=== PATIENT | female | born 1940 | race Caucasian/White ===

== ENCOUNTER 2016-09-29 08:00 | Outpatient (CLI) | payer MEDICARE, OTHER ==
[2016-09-29 14:02] LABS: BASOPHILS # (AUTO) 0.1 10^3/uL (0.0-0.1); BASOPHILS % (AUTO) 1.2 %; EOSINOPHILS # (AUTO) 0.2 10^3/uL (0.0-0.7); EOSINOPHILS % (AUTO) 3.4 %; HCT - HEMATOCRIT 42.1 % (37.0-47.0); LYMPHOCYTES # (AUTO) 2.4 10^3/uL (1.5-3.5); LYMPHOCYTES % (AUTO) 34.4 %; MEAN CORPUSCULAR HEMOGLOBIN 27.9 pg (27.0-31.0); MEAN CORPUSCULAR HGB CONC 33.2 g/dL (32.0-36.0); MEAN CORPUSCULAR VOLUME 84.1 fL (81.0-99.0); MONOCYTES # (AUTO) 0.5 10^3/uL (0.0-1.0); MONOCYTES % (AUTO) 7.9 %; NEUTROPHILS # (AUTO) 3.7 10^3/uL (1.5-6.6); NEUTROPHILS % (AUTO) 53.1 %; RED BLOOD COUNT 5.01 10^6/uL (4.20-5.40); RED CELL DISTRIBUTION WIDTH 14.4 % (12.0-15.0); UNCORRECTED WHITE BLOOD COUNT 6.9 x10^3/uL; WHITE BLOOD COUNT 6.9 x10^3/uL (4.8-10.8)
[2016-09-29 14:36] LABS: ALBUMIN/GLOBULIN RATIO 1.3 (1.0-2.2); BILIRUBIN,TOTAL 0.6 mg/dL (0.2-1.0); BUN - BLOOD UREA NITROGEN 12 mg/dL (6-20); CALCIUM 9.1 mg/dL (8.5-10.3); CARBON DIOXIDE - CO2 29 mmol/L (21-32); CHLORIDE 104 mmol/L (101-111); CREATININE 0.7 mg/dL (0.4-1.0); GFR - MDRD 81 (>89); GLUCOSE 103 mg/dL (70-100); POTASSIUM 4.3 mmol/L (3.5-5.0); SODIUM 140 mmol/L (135-145); TOTAL PROTEIN 6.8 g/dL (6.7-8.2)
== END 2016-09-29 08:01 | disposition home or self-care (01) ==
LOC: LAB.WCP 08:00
PROVIDERS: ATTEND Family Medicine
DX: M25.50 Pain in unspecified joint (principal); M35.00 Sjogren syndrome, unspecified
CPT/HCPCS: 36415; 80053; 85025; 85651; 86140

== ENCOUNTER 2017-05-10 13:52 | Outpatient (CLI) | payer MEDICARE, OTHER ==
--- NOTE | 2017-05-10 15:59 | Mammography Report ---
DIGITAL DIAGNOSTIC BILATERAL MAMMOGRAM: 05/10/2017 CLINICAL INDICATION: Right breast pain. COMPARISON: 12/09/2015. TECHNIQUE: Bilateral CC and MLO views, right true lateral view. The patient described the pain as migratory throughout the right breast, so no marker was placed. FINDINGS: The breasts again demonstrate fatty replacement bilaterally. Punctate, typically benign calcifications are present. Postoperative changes of bilateral reduction are stable. No suspicious masses, clustered microcalcifications, or regions of architectural distortion are identified. IMPRESSION: BENIGN FINDINGS. RECOMMENDATION: ROUTINE ANNUAL SCREENING UNLESS OTHERWISE CLINICALLY INDICATED. BIRADS CATEGORY 2-BENIGN FINDINGS. STANDARD QUALIFYING STATEMENTS: 1. This examination was reviewed with the aid of Computer-Aided Detection (CAD). 2. A negative or benign imaging report should not delay biopsy if clinically suspicious findings are present. Consider surgical consultation if warranted. More than 5% of cancers are not identified by imaging. 3. Dense breasts may obscure an underlying neoplasm. TD: 05/10/2017 15:57
== END 2017-05-10 13:53 | disposition home or self-care (01) ==
LOC: DI 13:52
PROVIDERS: ATTEND Family Medicine
DX: N64.4 Mastodynia (principal)
CPT/HCPCS: 77066

== ENCOUNTER 2017-10-11 11:58 | Outpatient (CLI) | payer MEDICARE, OTHER ==
[2017-10-11 19:00] LABS: BASOPHILS # (AUTO) 0.1 10^3/uL (0.0-0.1); BASOPHILS % (AUTO) 0.9 %; EOSINOPHILS # (AUTO) 0.2 10^3/uL (0.0-0.7); EOSINOPHILS % (AUTO) 2.3 %; HGB - HEMOGLOBIN 15.7 g/dL (12.0-16.0); LYMPHOCYTES # (AUTO) 1.8 10^3/uL (1.5-3.5); LYMPHOCYTES % (AUTO) 22.6 %; MEAN CORPUSCULAR HEMOGLOBIN 28.8 pg (27.0-31.0); MEAN CORPUSCULAR HGB CONC 32.9 g/dL (32.0-36.0); MEAN CORPUSCULAR VOLUME 87.5 fL (81.0-99.0); MEAN PLATELET VOLUME 8.7 fL (7.9-10.8); MONOCYTES # (AUTO) 0.6 10^3/uL (0.0-1.0); MONOCYTES % (AUTO) 8.1 %; NEUTROPHILS # (AUTO) 5.3 10^3/uL (1.5-6.6); NEUTROPHILS % (AUTO) 66.1 %; PLT - PLATELET COUNT 251 10^3/uL (130-450); RED BLOOD COUNT 5.46 10^6/uL (4.20-5.40); RED CELL DISTRIBUTION WIDTH 13.8 % (12.0-15.0)
[2017-10-11 19:35] LABS: ALBUMIN/GLOBULIN RATIO 1.3 (1.0-2.2); BILIRUBIN,TOTAL 0.9 mg/dL (0.2-1.0); CALCIUM 9.4 mg/dL (8.5-10.3); CREATININE 0.7 mg/dL (0.4-1.0); TOTAL PROTEIN 7.2 g/dL (6.7-8.2)
== END 2017-10-11 11:59 | disposition home or self-care (01) ==
LOC: LAB.WCP 11:58
PROVIDERS: ATTEND Family Medicine
DX: R07.89 Other chest pain (principal)
CPT/HCPCS: 36415; 80053; 83735; 84484; 85025

== ENCOUNTER 2018-10-19 11:49 | Outpatient (CLI) | payer MEDICARE | END 2018-10-19 23:59 | disposition home or self-care (01) | LOC: LAB.R 11:49 | PROVIDERS: ATTEND Physician Assistant Medical | DX: R21 Rash and other nonspecific skin eruption (principal) | CPT/HCPCS: 87252 ==

== ENCOUNTER 2019-02-10 13:11 | Emergency (ER) | payer MEDICARE ==
[2019-02-10] MEDS ORDERED: SODIUM CHLORIDE 0.9% 1,000 ML IV STA (14:00)
--- NOTE | 2019-02-10 14:15 | ED Physician Documentation ---
PD HPI NVD - Stated complaint Stated Complaint: DIARRHEA - Chief complaint Chief Complaint: Abd Pain - History obtained from History obtained from: Patient (78-year-old woman with history of IBS has had severe diarrhea for the last 5 days, usually about 10 episodes a day. On the first day she had body aches and vertigo which have since resolved. There is no abdominal pain or nausea with it.) Review of Systems Constitutional: reports: Fatigue. 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 HEENT: Tonsil/Adenoidectomy - Present Medications Home Medications: Ambulatory Orders Medication Instructions Recorded Confirmed Hydrocodone/Acetaminophen 1 tab PO Q4HR PRN 06/05/16 06/05/16 [Hydrocodon-Acetaminophen 5-325] Antiviral 02/10/19 Loperamide [Imodium] 2 mg PO QID PRN #10 capsule 02/10/19 - Allergies Allergies/Adverse Reactions: Allergies Allergy/AdvReac Type Severity Reaction Status Date / Time aluminum Allergy Anaphylaxis Verified 02/10/19 13:30 cephalexin Allergy Edema Verified 02/10/19 13:30 iodine Allergy Anaphylaxis Verified 02/10/19 13:30 levofloxacin Allergy Edema Verified 02/10/19 13:30 nitrofurantoin Allergy Edema Verified 02/10/19 13:30 nitrofurantoin Allergy Edema Verified 02/10/19 13:30 macrocrystalline * [From Macrobid] ofloxacin [From Floxin] Allergy Edema Verified 02/10/19 13:30 Penicillins Allergy Anaphylaxis Verified 02/10/19 13:30 sulfamethoxazole Allergy Edema Verified 02/10/19 13:30 trimethoprim Allergy Edema Verified 02/10/19 13:30 IV Contrast Allergy Edema Uncoded 06/05/16 13:59 - Social History Smoking Status: Never smoker PD ED PE NORMAL - Vitals Vital signs reviewed: Yes - General General: Alert and oriented X 3, No acute distress - HEENT HEENT: PERRL, EOMI - Neck Neck: Supple, no meningeal sign, No bony TTP - Abdomen Abdomen: Normal bowel sounds, Non tender - Neuro Neuro: Alert and oriented X 3, Normal speech - Psych Psych: Normal mood, Normal affect Results - Vitals Vitals: Vital Signs - 24 hr 02/10/19 02/10/19 02/10/19 13:30 14:48 16:13 Temperature 36.9 C Heart Rate 85 80 76 Respiratory 14 20 18 Rate Blood Pressure 150/100 H 143/86 H 156/91 H O2 Saturation 96 100 99 Oxygen O2 Source Room air - Labs Labs: Laboratory Tests 02/10/19 02/10/19 15:20 15:43 WBC 6.8 RBC 5.39 Hgb 15.0 Hct 48.0 H MCV 89.1 MCH 27.8 MCHC 31.3 L RDW 13.8 Plt Count 220 MPV 10.1 Neut # (Auto) 4.0 Lymph # (Auto) 1.9 Fajardo # (Auto) 0.7 Eos # (Auto) 0.2 Baso # (Auto) 0.0 Absolute Nucleated RBC 0.00 Nucleated RBC % 0.0 Sodium 137 Potassium 4.3 Chloride 102 Carbon Dioxide 25 Anion Gap 10.0 BUN 11 Creatinine 0.6 Estimated GFR (MDRD) 96 Glucose 101 H Calcium 8.5 Total Bilirubin 0.5 AST 26 ALT 25 Alkaline Phosphatase 63 Total Protein 6.3 L Albumin 3.7 Globulin 2.6 Albumin/Globulin Ratio 1.4 Lipase 22 PD MEDICAL DECISION MAKING - ED course ED course: She had no diarrhea while here and was unable to produce a stool sample and outpatient follow-up was advised if symptoms are persistent. She was feeling better after IV fluids. Departure - Departure Disposition: 01 Home, Self Care Clinical Impression: Diarrhea Qualifiers: Diarrhea type: presumed infectious Qualified Code(s): R19.7 - Diarrhea, unspecified Condition: Good Record reviewed to determine appropriate education?: Yes Instructions: ED Diarrhea Viral Prescriptions: Loperamide [Imodium] 2 mg PO QID PRN #10 capsule PRN Reason: Diarrhea Comments: Symptoms are persistent either follow-up with Dr. Wetzel or return here for potential collection of a stool sample
[2019-02-10 15:44] LABS: ALBUMIN 3.7 g/dL (3.2-5.5); ALBUMIN/GLOBULIN RATIO 1.4 (1.0-2.2); BILIRUBIN,TOTAL 0.5 mg/dL (0.2-1.0); CALCIUM 8.5 mg/dL (8.5-10.3); CREATININE 0.6 mg/dL (0.4-1.0); TOTAL PROTEIN 6.3 g/dL (6.7-8.2)
[2019-02-10 16:10] LABS: BASOPHILS % (AUTO) 0.6 %; EOSINOPHILS # (AUTO) 0.2 10^3/uL (0.0-0.7); EOSINOPHILS % (AUTO) 2.8 %; LYMPHOCYTES # (AUTO) 1.9 10^3/uL (1.5-3.5); LYMPHOCYTES % (AUTO) 27.8 %; MEAN CORPUSCULAR HEMOGLOBIN 27.8 pg (27.0-31.0); MEAN CORPUSCULAR HGB CONC 31.3 g/dL (32.0-36.0); MEAN CORPUSCULAR VOLUME 89.1 fL (81.0-99.0); MEAN PLATELET VOLUME 10.1 fL (7.9-10.8); MONOCYTES # (AUTO) 0.7 10^3/uL (0.0-1.0); MONOCYTES % (AUTO) 9.8 %; NEUTROPHILS % (AUTO) 58.7 %; PLT - PLATELET COUNT 220 10^3/uL (130-450); RED BLOOD COUNT 5.39 10^6/uL (4.20-5.40); RED CELL DISTRIBUTION WIDTH 13.8 % (12.0-15.0); WHITE BLOOD COUNT 6.8 x10^3/uL (4.8-10.8)
[2019-02-10 16:14] VITALS: BP 156/91
== END 2019-02-10 16:26 | disposition home or self-care (01) ==
LOC: ED 13:11
DX: R19.7 Diarrhea, unspecified (principal)
CPT/HCPCS: 36415; 80053; 83690; 85025; 99283; 99284

== ENCOUNTER 2021-05-06 13:51 | Outpatient (CLI) | payer MEDICARE ==
[2021-05-06 18:23] LABS: BASOPHILS # (AUTO) 0.1 10^3/uL (0.0-0.1); BASOPHILS % (AUTO) 0.9 %; EOSINOPHILS # (AUTO) 0.2 10^3/uL (0.0-0.7); EOSINOPHILS % (AUTO) 2.4 %; HGB - HEMOGLOBIN 15.9 g/dL (12.0-16.0); LYMPHOCYTES # (AUTO) 1.8 10^3/uL (1.5-3.5); LYMPHOCYTES % (AUTO) 26.5 %; MEAN CORPUSCULAR HEMOGLOBIN 27.8 pg (27.0-31.0); MEAN CORPUSCULAR HGB CONC 31.8 g/dL (32.0-36.0); MEAN CORPUSCULAR VOLUME 87.4 fL (81.0-99.0); MEAN PLATELET VOLUME 10.6 fL (7.9-10.8); MONOCYTES # (AUTO) 0.6 10^3/uL (0.0-1.0); MONOCYTES % (AUTO) 9.1 %; NEUTROPHILS # (AUTO) 4.2 10^3/uL (1.5-6.6); NEUTROPHILS % (AUTO) 60.8 %; PLT - PLATELET COUNT 254 10^3/uL (130-450); RED BLOOD COUNT 5.72 10^6/uL (4.20-5.40); RED CELL DISTRIBUTION WIDTH 14.9 % (12.0-15.0); WHITE BLOOD COUNT 6.9 x10^3/uL (4.8-10.8)
[2021-05-06 18:28] LABS: ALBUMIN 4.2 g/dL (3.2-5.5); ALBUMIN/GLOBULIN RATIO 1.3 (1.0-2.2); ALKALINE PHOSPHATASE 56 IU/L (42-121); ALT ALANINE AMINOTRANSFERASE 20 IU/L (10-60); AST ASPARTATE AMINOTRANSFERASE 24 IU/L (10-42); BILIRUBIN,TOTAL 0.8 mg/dL (0.2-1.0); BUN - BLOOD UREA NITROGEN 9 mg/dL (6-20); CALCIUM 9.3 mg/dL (8.5-10.3); CARBON DIOXIDE - CO2 28 mmol/L (21-32); CHLORIDE 99 mmol/L (101-111); CHOL/HDL RATIO 3.2 (<4.4); CHOLESTEROL 214 mg/dL; CREATININE 0.6 mg/dL (0.4-1.0); GFR - MDRD 96 (>89); GLUCOSE 100 mg/dL (70-100); HDL CHOLESTEROL 66 mg/dL; LDL CHOLESTEROL,CALCULATED 128 mg/dL; LDL/HDL RATIO 1.9 (<4.4); POTASSIUM 3.7 mmol/L (3.5-5.0); SODIUM 139 mmol/L (135-145); TOTAL PROTEIN 7.4 g/dL (6.7-8.2); TRIGLYCERIDES 98 mg/dL; VLDL CHOLESTEROL 20 mg/dL
[2021-05-06 18:30] LABS: THYROID STIMULATING HORMONE 2.87 uIU/mL (0.34-5.60)
[2021-05-06 18:32] LABS: FREE T3 3.26 pg/mL (2.5-3.9)
[2021-05-06 18:35] LABS: FREE T4 (FREE THYROXINE) 0.77 ng/dL (0.58-1.64)
== END 2021-05-06 13:52 | disposition home or self-care (01) ==
LOC: LAB.N 13:51
PROVIDERS: ATTEND Family Medicine
DX: E66.9 Obesity, unspecified (principal); F03.90 Unspecified dementia, unspecified severity, without behavioral disturbance, psychotic disturbance, mood disturbance, and anxiety; R60.9 Edema, unspecified; G47.33 Obstructive sleep apnea (adult) (pediatric); M35.00 Sjogren syndrome, unspecified; G89.4 Chronic pain syndrome
CPT/HCPCS: 36415; 80053; 80061; 83721; 84439; 84443; 84481; 85025

== ENCOUNTER 2021-07-07 08:00 | Outpatient (CLI) | payer MEDICARE | END 2021-07-07 23:59 | disposition home or self-care (01) | LOC: LAB.N 08:00 | PROVIDERS: ATTEND Nurse Practitioner | DX: N39.0 Urinary tract infection, site not specified (principal) | CPT/HCPCS: 87077; 87086; 87181 ==

== ENCOUNTER 2022-05-13 12:08 | Outpatient (CLI) | payer MEDICARE | END 2022-05-13 23:59 | disposition short-term general hospital (02) | LOC: EMS 12:08 | DX: R42 Dizziness and giddiness (principal); R06.02 Shortness of breath; R19.7 Diarrhea, unspecified; R63.8 Other symptoms and signs concerning food and fluid intake | CPT/HCPCS: A0425; A0427 ==

== ENCOUNTER 2022-05-30 19:01 | Outpatient (CLI) | payer MEDICARE | END 2022-05-30 23:59 | disposition critical access hospital (66) | LOC: EMS 19:01 | DX: M79.602 Pain in left arm (principal); M25.512 Pain in left shoulder | CPT/HCPCS: A0425; A0429 ==

== ENCOUNTER 2022-05-30 19:06 | Emergency (ER) | payer MEDICARE ==
--- OUTSIDE RECORDS SUMMARY | 2022-05-30 19:23 | EXTERNAL MEDICAL SUMMARY RPT | Continuity of Care Document ---
:1940 Author Organization [facility] Address [address] [place] [address] Phone Care Team Providers Name Role Phone Eber Wetzel Unavailable Unavailable Allergies and Intolerances date description facility type (no date) Penicillins [facility] (unknown) (no date) Quinolones [facility] (unknown) (no date) aluminum [facility] (unknown) (no date) cephalexin [facility] (unknown) (no date) codeine [facility] (unknown) (no date) gelatin [facility] (unknown) (no date) iodine [facility] (unknown) (no date) levofloxacin [facility] (unknown) (no date) nitrofurantoin [facility] (unknown) (no date) ofloxacin [facility] (unknown) (no date) sodium fluoride [facility] (unknown) (no date) soy [facility] (unknown) (no date) sulfamethoxazole [facility] (unknown) (no date) trimethoprim [facility] (unknown) Encounters No information. Functional Status No information. Immunizations No information. Medications date description facility 2022-05-13 00:00 Sertraline [facility] 2022-05-13 00:00 Hydrocodone-Acetaminophen [facility] Problems date description facility 2022-05-13 00:00 Bilateral pulmonary embolism [facility] 2022-05-13 00:00 [facility]estive heart failure [facility] 2022-05-13 00:00 Acute respiratory failure with hypoxia [facility] Procedures date description facility 2022-05-13 00:00 X-ray of chest, single view [facility] 2022-05-13 00:00 Complete Doppler echocardiography [facility] 2022-05-13 00:00 Computed tomography angiography of ches t with [facility] contrast for pulmonary embolus Results/Labs test date author facility value unit interpret ation Result panel 1 (unknown) (no [facility]) Result panel 2 (unknown) (no date) (unknown[facility]) Result panel 3 (unknown) (no date) (unknown[facility]) Result panel 4 (unknown) (no date) (unknown[facility]) Result panel 5 (unknown) (no date) (unknown[facility]) Result panel 6 (unknown) (no date) (unknown[facility]) Result panel 7 (unknown) (no date) (unknown[facility]) Result panel 8 (unknown) (no date) (unknown[facility]) Result panel 9 (unknown) (no date) (unknown[facility]) Result panel 10 (unknown) (no date) (unknown[facility]) Result panel 11 (unknown) (no date) (unknown[facility]) Result panel 12 (unknown) (no date) (unknown[facility]) Result panel 13 (unknown) (no date) (unknown[facility]) Result panel 14 (unknown) (no date) (unknown[facility]) Result panel 15 (unknown) (no date) (unknown[facility]) Result panel 16 (unknown) (no date) (unknown[facility]) Result panel 17 (unknown) (no date) (unknown[facility]) Result panel 18 (unknown) (no date) (unknown[facility]) Result panel 19 (unknown) (no date) (unknown[facility]) Result panel 20 (unknown) (no date) (unknown[facility]) Result panel 21 (unknown) (no date) (unknown[facility]) Result panel 22 (unknown) (no date) (unknown[facility]) Result panel 23 (unknown) (no date) (unknown[facility]) Result panel 24 (unknown) (no date) (unknown[facility]) Result panel 25 (unknown) (no date) (unknown[facility]) Result panel 26 (unknown) (no date) (unknown[facility]) Result panel 27 (unknown) (no date) (unknown[facility]) Result panel 28 (unknown) (no date) (unknown[facility]) Result panel 29 (unknown) (no date) (unknown[facility]) Result panel 30 (unknown) (no date) (unknown[facility]) Result panel 31 (unknown) (no date) (unknown[facility]) Result panel 32 (unknown) (no date) (unknown[facility]) Result panel 33 (unknown) (no date) (unknown[facility]) Result panel 34 (unknown) (no date) (unknown[facility]) Result panel 35 (unknown) (no date) (unknown[facility]) Result panel 36 (unknown) (no date) (unknown[facility]) Result panel 37 (unknown) (no date) (unknown[facility]) Result panel 38 (unknown) (no date) (unknown[facility]) Result panel 39 (unknown) (no date) (unknown[facility]) Result panel 40 (unknown) (no date) (unknown[facility]) Result panel 41 (unknown) (no date) (unknown[facility]) Result panel 42 (unknown) (no date) (unknown[facility]) Result panel 43 (unknown) (no date) (unknown[facility]) Result panel 44 (unknown) (no date) (unknown[facility]) Result panel 45 (unknown) (no date) (unknown[facility]) Result panel 46 (unknown) (no date) (unknown[facility]) Result panel 47 (unknown) (no date) (unknown[facility]) Result panel 48 (unknown) (no date) (unknown[facility]) Result panel 49 (unknown) (no date) (unknown[facility]) Result panel 50 (unknown) (no date) (unknown[facility]) Result panel 51 (unknown) (no date) (unknown[facility]) Result panel 52 (unknown) (no date) (unknown[facility]) Result panel 53 (unknown) (no date) (unknown[facility]) Result panel 54 (unknown) (no date) (unknown[facility]) Result panel 55 (unknown) (no date) (unknown[facility]) Result panel 56 (unknown) (no date) (unknown[facility]) Result panel 57 (unknown) (no date) (unknown[facility]) Result panel 58 (unknown) (no date) (unknown[facility]) Result panel 59 (unknown) (no date) (unknown[facility]) Result panel 60 (unknown) (no date) (unknown[facility]) Result panel 61 (unknown) (no date) (unknown[facility]) Result panel 62 (unknown) (no date) (unknown[facility]) Result panel 63 (unknown) (no date) (unknown[facility]) Result panel 64 (unknown) (no date) (unknown[facility]) Result panel 65 (unknown) (no date) (unknown[facility]) Result panel 66 (unknown) (no date) (unknown) [facility]) Result panel 67 (unknown) (no date) (unknown[facility]) Result panel 68 (unknown) (no date) (unknown[facility]) Result panel 69 (unknown) (no date) (unknown[facility]) Result panel 70 (unknown) (no date) (unknown[facility]) Result panel 71 (unknown) (no date) (unknown[facility]) Result panel 72 (unknown) (no date) (unknown[facility]) Result panel 73 (unknown) (no date) (unknown[facility]) Result panel 74 (unknown) (no date) (unknown[facility]) Result panel 75 (unknown) (no date) (unknown[facility]) Result panel 76 (unknown) (no date) (unknown[facility]) Result panel 77 (unknown) (no date) (unknown[facility]) Result panel 78 (unknown) (no date) (unknown[facility]) Result panel 79 (unknown) (no date) (unknown) [facility]) Result panel 80 (unknown) (no date) (unknown[facility]) Result panel 81 (unknown) (no date) (unknown[facility]) Result panel 82 (unknown) (no date) (unknown[facility]) Result panel 83 (unknown) (no date) (unknown[facility]) Result panel 84 (unknown) (no date) (unknown) [facility]) Result panel 85 (unknown) (no date) (unknown[facility]) Result panel 86 (unknown) (no date) (unknown[facility]) Result panel 87 (unknown) (no date) (unknown[facility]) Result panel 88 (unknown) (no date) (unknown[facility]) Result panel 89 (unknown) (no date) (unknown[facility]) Result panel 90 (unknown) (no date) (unknown[facility]) Result panel 91 (unknown) (no date) (unknown[facility]) Result panel 92 (unknown) (no date) (unknown[facility]) Result panel 93 (unknown) (no date) (unknown[facility]) Result panel 94 (unknown) (no date) (unknown[facility]) Result panel 95 (unknown) (no date) (unknown[facility]) Result panel 96 (unknown) (no date) (unknown[facility]) Result panel 97 (unknown) (no date) (unknown[facility]) Result panel 98 (unknown) (no date) (unknown[facility]) Result panel 99 (unknown) (no date) (unknown[facility]) Result panel 100 (unknown) (no date) (unknown[facility]) Result panel 101 (unknown) (no date) (unknown) (unknown) (no value) (units (un known) unknown) (unknown) (no date) (unknown) (unknown) [id number] (units (unkn own) unknown) (unknown) (no date) (unknown) (unknown) 05/13/22 (units (unkn own) unknown) (unknown) (no date) (unknown) (unknown) [address] ([address] ([address] nown) [address] unknown) (unknown) (no date) (unknown) (unknown) Accession (units (unk nown) Number: unknown) [id number] (unknown) (no date) (unknown) (unknown) Age/Sex: 81 / (units (unknown) F Date of unknown) Service: (unknown) (no date) (unknown) (unknown) [place] (units (unknown) [id number] unknown) (unknown) (no date) (unknown) (unknown) Approved by: (units ( unknown) Jayson unknown) Sarah Moore on 05/13/2022 at 17:46 (unknown) (no date) (unknown) (unknown) Bones and (units (unk nown) chest wall: No unknown) suspicious bony lesions. Overlying soft tissues (unknown) (no date) (unknown) (unknown) COMPARISON: (units (u nknown) [facility]) [facility], CR, XR CHEST 2V, 06/08/2018, 14:52. (unknown) (no date) (unknown) (unknown) : (units (unkn own) 1940 unknown) Acct:[id number] (unknown) (no date) (unknown) (unknown) Dictated by: (units ( unknown) Jayson unknown) Sarah Moore on 05/13/2022 at 17:45 (unknown) (no date) (unknown) (unknown) FINDINGS: (units (unk nown) unknown) (unknown) (no date) (unknown) (unknown) IMPRESSION: (units (u nknown) Cardiomegaly. unknown) No evidence acute pulmonary process. (unknown) (no date) (unknown) (unknown) INDICATIONS: (units ( unknown) Shortness of unknown) breath (unknown) (no date) (unknown) (unknown) [facility] ([facility]) [facility] unknown) (unknown) (no date) (unknown) (unknown) Loc: ED (units (unkn own) unknown) (unknown) (no date) (unknown) (unknown) Lungs and (units (unk nown) pleura: Lungs unknown) are clear. No pleural effusions or pneumothorax. (unknown) (no date) (unknown) (unknown) Mediastinum: (units ( unknown) Mediastinal unknown) contours appear normal. Cardiomegaly. (unknown) (no date) (unknown) (unknown) Ordering (units (unkn own) Provider: unknown) Sujata Graff D.O. (unknown) (no date) (unknown) (unknown) PROCEDURE: XR (units (unknown) CHEST 1V unknown) (unknown) (no date) (unknown) (unknown) Patient: (units (unkn own) Gely Milner unknown) MR#: [id number] (unknown) (no date) (unknown) (unknown) Procedure: XR (units (unknown) chest 1V unknown) (unknown) (no date) (unknown) (unknown) Signed (units (unkn own) unknown) (unknown) (no date) (unknown) (unknown) Surgical (units (unkn own) changes and unknown) devices: None. (unknown) (no date) (unknown) (unknown) TECHNIQUE: One (units (unknown) view of the unknown) chest was acquired. (unknown) (no date) (unknown) (unknown) XRay Report (units (u nknown) unknown) (unknown) (no date) (unknown) (unknown) appear (units (unkn own) unknown) (unknown) (no date) (unknown) (unknown) unremarkable. (units (unknown) unknown) Result panel 102 (unknown) (no date) (unknown) (unknown) Negative (units (unkn own) unknown) (unknown) (no date) (unknown) (unknown) Negative (units (unkn own) unknown) Result panel 103 (unknown) (no date) (unknown) (unknown) 0 /ul (unkn own) (unknown) (no date) (unknown) (unknown) 0 /ul (unkn own) (unknown) (no date) (unknown) (unknown) 0.2 % (unkn own) (unknown) (no date) (unknown) (unknown) 0.3 % (unkn own) (unknown) (no date) (unknown) (unknown) 10.9 x10 3/ul (unkn own) (unknown) (no date) (unknown) (unknown) 13.8 % (unkn own) (unknown) (no date) (unknown) (unknown) 16.1 g/dl (unkn own) (unknown) (no date) (unknown) (unknown) 252 x10 3/ul (unkn own) (unknown) (no date) (unknown) (unknown) 28.4 pg (unkn own) (unknown) (no date) (unknown) (unknown) 32.8 % (unkn own) (unknown) (no date) (unknown) (unknown) 4.1 % (unkn own) (unknown) (no date) (unknown) (unknown) 400 /ul (unkn own) (unknown) (no date) (unknown) (unknown) 49.2 % (unkn own) (unknown) (no date) (unknown) (unknown) 5.5 % (unkn own) (unknown) (no date) (unknown) (unknown) 5.67 x10 6/ul (unkn own) (unknown) (no date) (unknown) (unknown) 600 /ul (unkn own) (unknown) (no date) (unknown) (unknown) 86.8 fl (unkn own) (unknown) (no date) (unknown) (unknown) 89.9 % (unkn own) (unknown) (no date) (unknown) (unknown) 9800 /ul (unkn own) Result panel 104 (unknown) (no date) (unknown) (unknown) 1.2 (units unknown) (unknown) (unknown) (no date) (unknown) (unknown) 14.1 seconds (unkn own) (unknown) (no date) (unknown) (unknown) 14.1 seconds (unkn own) Result panel 105 (unknown) (no date) (unknown) (unknown) > 60 ml/min (unkn own) (unknown) (no date) (unknown) (unknown) > 60 ml/min (unkn own) (unknown) (no date) (unknown) (unknown) 0.87 mg/dl (unkn own) (unknown) (no date) (unknown) (unknown) 0.9 mg/dl (unkn own) (unknown) (no date) (unknown) (unknown) 1.3 (units unknown) (unknown) (unknown) (no date) (unknown) (unknown) 133 mg/dl (unkn own) (unknown) (no date) (unknown) (unknown) 133 mg/dl (unkn own) (unknown) (no date) (unknown) (unknown) 135 mmol/l (unkn own) (unknown) (no date) (unknown) (unknown) 135 mmol/l (unkn own) (unknown) (no date) (unknown) (unknown) 18 mg/dl (unkn own) (unknown) (no date) (unknown) (unknown) 20.7 (units unknown) (unknown) (unknown) (no date) (unknown) (unknown) 24 iu/l (unkn own) (unknown) (no date) (unknown) (unknown) 26 mmol/l (unkn own) (unknown) (no date) (unknown) (unknown) 28 iu/l (unkn own) (unknown) (no date) (unknown) (unknown) 3.4 g/dl (unkn own) (unknown) (no date) (unknown) (unknown) 4.3 g/dl (unkn own) (unknown) (no date) (unknown) (unknown) 4.3 mmol/l (unkn own) (unknown) (no date) (unknown) (unknown) 7.7 g/dl (unkn own) (unknown) (no date) (unknown) (unknown) 88 u/l (unkn own) (unknown) (no date) (unknown) (unknown) 9.1 mg/dl (unkn own) (unknown) (no date) (unknown) (unknown) 98 mmol/l (unkn own) Result panel 106 (unknown) (no date) (unknown) (unknown) 1.9 mmol/l (unkn own) Result panel 107 (unknown) (no date) (unknown) (unknown) > 60 ml/min (unkn own) (unknown) (no date) (unknown) (unknown) > 60 ml/min (unkn own) (unknown) (no date) (unknown) (unknown) 0.020 ng/ml (unkn own) (unknown) (no date) (unknown) (unknown) 0.020 ng/ml (unkn own) (unknown) (no date) (unknown) (unknown) 0.87 mg/dl (unkn own) (unknown) (no date) (unknown) (unknown) 0.9 mg/dl (unkn own) (unknown) (no date) (unknown) (unknown) 1.3 (units unknown) (unknown) (unknown) (no date) (unknown) (unknown) 53830 pg/ml (unkn own) (unknown) (no date) (unknown) (unknown) 03800 pg/ml (unkn own) (unknown) (no date) (unknown) (unknown) 133 mg/dl (unkn own) (unknown) (no date) (unknown) (unknown) 133 mg/dl (unkn own) (unknown) (no date) (unknown) (unknown) 135 mmol/l (unkn own) (unknown) (no date) (unknown) (unknown) 135 mmol/l (unkn own) (unknown) (no date) (unknown) (unknown) 18 mg/dl (unkn own) (unknown) (no date) (unknown) (unknown) 20.7 (units unknown) (unknown) (unknown) (no date) (unknown) (unknown) 24 iu/l (unkn own) (unknown) (no date) (unknown) (unknown) 26 mmol/l (unkn own) (unknown) (no date) (unknown) (unknown) 28 iu/l (unkn own) (unknown) (no date) (unknown) (unknown) 3.4 g/dl (unkn own) (unknown) (no date) (unknown) (unknown) 4.3 g/dl (unkn own) (unknown) (no date) (unknown) (unknown) 4.3 mmol/l (unkn own) (unknown) (no date) (unknown) (unknown) 7.7 g/dl (unkn own) (unknown) (no date) (unknown) (unknown) 88 u/l (unkn own) (unknown) (no date) (unknown) (unknown) 9.1 mg/dl (unkn own) (unknown) (no date) (unknown) (unknown) 98 mmol/l (unkn own) Result panel 108 (unknown) (no date) (unknown) (unknown) Not Detected (units ( unknown) unknown) (unknown) (no date) (unknown) (unknown) Not Detected (units ( unknown) unknown) Result panel 109 (unknown) (no (unknown) (unknown) (no value) (units (unk nown) date) unknown) (unknown) (no (unknown) (unknown) 05/13/22 05/13/22 (units (unknown) date) 05/13/22 Range/Units unknown) (unknown) (no (unknown) (unknown) 05/13/22 05/13/22 (units (unknown) date) Range/Units unknown) (unknown) (no (unknown) (unknown) 05/13/22 12:57 (units (unknown) date) unknown) (unknown) (no (unknown) (unknown) 05/13/22 13:11 (units (unknown) date) unknown) (unknown) (no (unknown) (unknown) 05/13/22 13:13 (units (unknown) date) unknown) (unknown) (no (unknown) (unknown) 05/13/22 13:49 (units (unknown) date) unknown) (unknown) (no (unknown) (unknown) 05/13/22 13:56 (units (unknown) date) unknown) (unknown) (no (unknown) (unknown) 05/13/22 (units (unkno wn) date) unknown) (unknown) (no (unknown) (unknown) [id number] (units (unkno wn) date) unknown) (unknown) (no (unknown) (unknown) 12:40 05/13/22 (units (unknown) date) unknown) (unknown) (no (unknown) (unknown) 12:40 (units (unkno wn) date) unknown) (unknown) (no (unknown) (unknown) 12:44 05/13/22 (units (unknown) date) unknown) (unknown) (no (unknown) (unknown) 12:50 05/13/22 (units (unknown) date) unknown) (unknown) (no (unknown) (unknown) 12:58 (units (unkno wn) date) unknown) (unknown) (no (unknown) (unknown) 13:00 05/13/22 (units (unknown) date) unknown) (unknown) (no (unknown) (unknown) 13:00 (units (unkno wn) date) unknown) (unknown) (no (unknown) (unknown) 13:08 05/13/22 (units (unknown) date) unknown) (unknown) (no (unknown) (unknown) 13:11 13:49 13:49 (units (unknown) date) unknown) (unknown) (no (unknown) (unknown) 13:13 05/13/22 (units (unknown) date) unknown) (unknown) (no (unknown) (unknown) 13:30 05/13/22 (units (unknown) date) unknown) (unknown) (no (unknown) (unknown) 13:30 (units (unkno wn) date) unknown) (unknown) (no (unknown) (unknown) 13:49 13:49 (units (un known) date) unknown) (unknown) (no (unknown) (unknown) 14:00 (units (unkno wn) date) unknown) (unknown) (no (unknown) (unknown) ABD:bowel sounds (units (unknown) date) normal, soft, unknown) non-tender, no guarding, rebound, rigidity, no (unknown) (no (unknown) (unknown) ALT (<35) IU/L (units (unknown) date) unknown) (unknown) (no (unknown) (unknown) ALT 24 (<35) IU/L (units (unknown) date) unknown) (unknown) (no (unknown) (unknown) AST (14-36) IU/L (units (unknown) date) unknown) (unknown) (no (unknown) (unknown) AST 28 (14-36) IU/L (unit s (unknown) date) unknown) (unknown) (no (unknown) (unknown) Age/Sex: 81 / F (units (unknown) date) unknown) (unknown) (no (unknown) (unknown) Albumin (3.5-5.0) (units (unknown) date) g/dL unknown) (unknown) (no (unknown) (unknown) Albumin 4.3 (units (un known) date) (3.5-5.0) g/dL unknown) (unknown) (no (unknown) (unknown) Albumin/Globulin (units (unknown) date) Ratio (1.0-2.8) unknown) (unknown) (no (unknown) (unknown) Albumin/Globulin (units (unknown) date) Ratio 1.3 (1.0-2.8) unknown) (unknown) (no (unknown) (unknown) Alcohol type: hard (units (unknown) date) liquor unknown) (unknown) (no (unknown) (unknown) Alkaline (units (unkno wn) date) Phosphatase (38-126) unknown) U/L (unknown) (no (unknown) (unknown) Alkaline (units (unkno wn) date) Phosphatase 88 unknown) (38-126) U/L (unknown) (no (unknown) (unknown) Attestation: I (units (unknown) date) personally reviewed unknown) and interpreted this ECG as follows: (unknown) (no (unknown) (unknown) BUN (7-17) mg/dL (units (unknown) date) unknown) (unknown) (no (unknown) (unknown) BUN 18 H (7-17) (units (unknown) date) mg/dL unknown) (unknown) (no (unknown) (unknown) BUN/Creatinine (units (unknown) date) Ratio (6-22) unknown) (unknown) (no (unknown) (unknown) BUN/Creatinine (units (unknown) date) Ratio 20.7 (6-22) unknown) (unknown) (no (unknown) (unknown) Baso # (Auto) (units ( unknown) date) (0-100) /uL unknown) (unknown) (no (unknown) (unknown) Baso # (Auto) 0 (units (unknown) date) (0-100) /uL unknown) (unknown) (no (unknown) (unknown) Baso % (Auto) (0-2) (unit s (unknown) date) % unknown) (unknown) (no (unknown) (unknown) Baso % (Auto) 0.2 (units (unknown) date) (0-2) % unknown) (unknown) (no (unknown) (unknown) Blood Pressure (units (unknown) date) 107/59 L 03/08/23 unknown) 12:40 (unknown) (no (unknown) (unknown) Blood Pressure (units (unknown) date) 107/59 L 118/68 unknown) (unknown) (no (unknown) (unknown) Blood Pressure (units (unknown) date) 107/59 L unknown) (unknown) (no (unknown) (unknown) Blood Pressure (units (unknown) date) 122/83 unknown) (unknown) (no (unknown) (unknown) Blood Pressure (units (unknown) date) unknown) (unknown) (no (unknown) (unknown) COVID19 -Nasal (units (unknown) date) RAPID Stat unknown) (unknown) (no (unknown) (unknown) Calcium (8.4-10.2) (units (unknown) date) mg/dL unknown) (unknown) (no (unknown) (unknown) Calcium 9.1 (units (un known) date) (8.4-10.2) mg/dL unknown) (unknown) (no (unknown) (unknown) Carbon Dioxide (units (unknown) date) (22-32) mmol/L unknown) (unknown) (no (unknown) (unknown) Carbon Dioxide 26 (units (unknown) date) (22-32) mmol/L unknown) (unknown) (no (unknown) (unknown) Chief Complaint: (units (unknown) date) Shortness of unknown) Breath/Dyspnea (unknown) (no (unknown) (unknown) Chloride (98-107) (units (unknown) date) mmol/L unknown) (unknown) (no (unknown) (unknown) Chloride 98 (units (un known) date) (98-107) mmol/L unknown) (unknown) (no (unknown) (unknown) Complete Blood (units (unknown) date) Count AUTO DIFF Stat unknown) (unknown) (no (unknown) (unknown) Comprehensive (units ( unknown) date) Metabolic Panel Stat unknown) (unknown) (no (unknown) (unknown) Course (units (unkno wn) date) unknown) (unknown) (no (unknown) (unknown) Creatinine (units (unk nown) date) (0.52-1.04) mg/dL unknown) (unknown) (no (unknown) (unknown) Creatinine 0.87 (units (unknown) date) (0.52-1.04) mg/dL unknown) (unknown) (no (unknown) (unknown) : 1940 (units (unknown) date) Acct:[id number] unknown) (unknown) (no (unknown) (unknown) Date of Service: (units (unknown) date) 05/13/22 unknown) (unknown) (no (unknown) (unknown) Departure (units (unkn own) date) unknown) (unknown) (no (unknown) (unknown) Discharge Plan (units (unknown) date) unknown) (unknown) (no (unknown) (unknown) Discontinued (units (u nknown) date) Medications unknown) (unknown) (no (unknown) (unknown) ECG Data (units (unkno wn) date) unknown) (unknown) (no (unknown) (unknown) ED Orders (units (unkn own) date) unknown) (unknown) (no (unknown) (unknown) EKG-12 Lead Stat (units (unknown) date) unknown) (unknown) (no (unknown) (unknown) ER Physician: (units ( unknown) date) Sujata Graff D.O. unknown) (unknown) (no (unknown) (unknown) Emergency Report (units (unknown) date) unknown) (unknown) (no (unknown) (unknown) Eos # (Auto) (units (u nknown) date) (0-450) /uL unknown) (unknown) (no (unknown) (unknown) Eos # (Auto) 0 (units (unknown) date) (0-450) /uL unknown) (unknown) (no (unknown) (unknown) Eos % (Auto) (2-4) (units (unknown) date) % unknown) (unknown) (no (unknown) (unknown) Eos % (Auto) 0.3 L (units (unknown) date) (2-4) % unknown) (unknown) (no (unknown) (unknown) Estimated GFR > 60 (units (unknown) date) (>60) mL/min unknown) (unknown) (no (unknown) (unknown) Estimated GFR (>60) (unit s (unknown) date) mL/min unknown) (unknown) (no (unknown) (unknown) Exam Narrative: (units (unknown) date) unknown) (unknown) (no (unknown) (unknown) Exam (units (unkno wn) date) unknown) (unknown) (no (unknown) (unknown) Feet do have some (units (unknown) date) discoloration are unknown) slightly mottled, hands do not. Patient (unknown) (no (unknown) (unknown) Furosemide (units (unk nown) date) (Furosemide 40 Mg/4 unknown) Ml Vial) 40 mg IV NOW ONE (unknown) (no (unknown) (unknown) GEN: Obese elderly (units (unknown) date) female, alert and unknown) oriented x 3, patient appears to be in (unknown) (no (unknown) (unknown) :No CVA (units (unkn own) date) tenderness unknown) (unknown) (no (unknown) (unknown) General (units (unkno wn) date) unknown) (unknown) (no (unknown) (unknown) Globulin (1.7-4.1) (units (unknown) date) g/dL unknown) (unknown) (no (unknown) (unknown) Globulin 3.4 (units (u nknown) date) (1.7-4.1) g/dL unknown) (unknown) (no (unknown) (unknown) Glucose (80-110) (units (unknown) date) mg/dL unknown) (unknown) (no (unknown) (unknown) Glucose 133 H (units ( unknown) date) (80-110) mg/dL unknown) (unknown) (no (unknown) (unknown) HEART: Regular rate (unit s (unknown) date) and rhythm without unknown) murmur, clicks, rubs. Pulmonary VD. (unknown) (no (unknown) (unknown) HEENT: Atraumatic, (units (unknown) date) pupils are equal unknown) round reactive to light, extraocular (unknown) (no (unknown) (unknown) HPI - SOB/Dyspnea (units (unknown) date) unknown) (unknown) (no (unknown) (unknown) HPI Narrative: (units (unknown) date) unknown) (unknown) (no (unknown) (unknown) Hct (36-46) % (units ( unknown) date) unknown) (unknown) (no (unknown) (unknown) Hct 49.2 H (36-46) (units (unknown) date) % unknown) (unknown) (no (unknown) (unknown) Hgb (12.0-16.0) (units (unknown) date) g/dL unknown) (unknown) (no (unknown) (unknown) Hgb 16.1 H (units (unk nown) date) (12.0-16.0) g/dL unknown) (unknown) (no (unknown) (unknown) History of Present (units (unknown) date) Illness unknown) (unknown) (no (unknown) (unknown) INR (0.9-1.3) (units ( unknown) date) unknown) (unknown) (no (unknown) (unknown) INR 1.2 (0.9-1.3) (units (unknown) date) unknown) (unknown) (no (unknown) (unknown) Initial Vital Signs (unit s (unknown) date) unknown) (unknown) (no (unknown) (unknown) Initial Vital (units ( unknown) date) Signs: unknown) (unknown) (no (unknown) (unknown) Interpretation: (units (unknown) date) unknown) (unknown) (no (unknown) (unknown) [facility] (units (unknown) date) [address] unknown) [place] [address] (unknown) (no (unknown) (unknown) LUNGS:Lungs breath (units (unknown) date) sounds equal unknown) bilaterally, no wheezes, bilateral crackles, (unknown) (no (unknown) (unknown) Lab Data (units (unkno wn) date) unknown) (unknown) (no (unknown) (unknown) Lab Results (units (un known) date) unknown) (unknown) (no (unknown) (unknown) Labs: (units (unkno wn) date) unknown) (unknown) (no (unknown) (unknown) Lactate (0.7-2.1) (units (unknown) date) mmol/L unknown) (unknown) (no (unknown) (unknown) Lactate (Lactic (units (unknown) date) Acid) Stat unknown) (unknown) (no (unknown) (unknown) Lactate 1.9 (units (un known) date) (0.7-2.1) mmol/L unknown) (unknown) (no (unknown) (unknown) Eber Wetzel, (unit s (unknown) date) MD [Primary Care unknown) Provider] (unknown) (no (unknown) (unknown) Limitations: no (units (unknown) date) limitations unknown) (unknown) (no (unknown) (unknown) Lymph # (Auto) (units (unknown) date) (0217-7980) /uL unknown) (unknown) (no (unknown) (unknown) Lymph # (Auto) 600 (units (unknown) date) L (6671-3529) /uL unknown) (unknown) (no (unknown) (unknown) Lymph % (Auto) (units (unknown) date) (25-40) % unknown) (unknown) (no (unknown) (unknown) Lymph % (Auto) 5.5 (units (unknown) date) L (25-40) % unknown) (unknown) (no (unknown) (unknown) MCH (26-34) PG (units (unknown) date) unknown) (unknown) (no (unknown) (unknown) MCH 28.4 (26-34) PG (unit s (unknown) date) unknown) (unknown) (no (unknown) (unknown) MCHC (30-36) % (units (unknown) date) unknown) (unknown) (no (unknown) (unknown) MCHC 32.8 (30-36) % (unit s (unknown) date) unknown) (unknown) (no (unknown) (unknown) MCV (80-100) fL (units (unknown) date) unknown) (unknown) (no (unknown) (unknown) MCV 86.8 (80-100) (units (unknown) date) fL unknown) (unknown) (no (unknown) (unknown) MDM - SOB/Dyspnea (units (unknown) date) unknown) (unknown) (no (unknown) (unknown) MSCL: Non-tender, (units (unknown) date) no muscle atrophy, unknown) muscles strength 5/5 upper and lower (unknown) (no (unknown) (unknown) Measure peak (units (u nknown) date) expiratory flow ONCE unknown) (unknown) (no (unknown) (unknown) Mode of arrival: (units (unknown) date) EMS unknown) (unknown) (no (unknown) (unknown) Harris # (Auto) (units ( unknown) date) (0-900) /uL unknown) (unknown) (no (unknown) (unknown) Harris # (Auto) 400 (units (unknown) date) (0-900) /uL unknown) (unknown) (no (unknown) (unknown) Harris % (Auto) (units ( unknown) date) (3-14) % unknown) (unknown) (no (unknown) (unknown) Harris % (Auto) 4.1 (units (unknown) date) (3-14) % unknown) (unknown) (no (unknown) (unknown) NEURO:CN 2-12 (units ( unknown) date) intact, sensation unknown) normal (unknown) (no (unknown) (unknown) NT-Pro-B Natriuret (units (unknown) date) Pep (<450) pg/mL unknown) (unknown) (no (unknown) (unknown) NT-Pro-B Natriuret (units (unknown) date) Pep 73137 H (<450) unknown) pg/mL (unknown) (no (unknown) (unknown) NT-proBNP (units (unkn own) date) (BNP-Adult 18+) Stat unknown) (unknown) (no (unknown) (unknown) Narrative (units (unkn own) date) unknown) (unknown) (no (unknown) (unknown) Neut # (Auto) (units ( unknown) date) (6576-9904) /uL unknown) (unknown) (no (unknown) (unknown) Neut # (Auto) 9800 (units (unknown) date) H (8646-5042) /uL unknown) (unknown) (no (unknown) (unknown) Neut % (Auto) (units ( unknown) date) (50-75) % unknown) (unknown) (no (unknown) (unknown) Neut % (Auto) 89.9 (units (unknown) date) H (50-75) % unknown) (unknown) (no (unknown) (unknown) Normal sinus (units (u nknown) date) rhythm, left axis unknown) deviation, rate of 98, OR 120, QRS 88 QTC 347. (unknown) (no (unknown) (unknown) Ordered: (units (unkno wn) date) unknown) (unknown) (no (unknown) (unknown) Orders (units (unkno wn) date) unknown) (unknown) (no (unknown) (unknown) Oximask (units (unkno wn) date) unknown) (unknown) (no (unknown) (unknown) Oxygen Delivery (units (unknown) date) Method Nasal Cannula unknown) (unknown) (no (unknown) (unknown) Oxygen Delivery (units (unknown) date) Method Oximask unknown) Oximask (unknown) (no (unknown) (unknown) Oxygen Delivery (units (unknown) date) Method Oximask unknown) (unknown) (no (unknown) (unknown) Oxygen Delivery (units (unknown) date) Method Room Air unknown) 05/13/22 12:40 (unknown) (no (unknown) (unknown) Oxygen Delivery (units (unknown) date) Method Room Air unknown) Nasal Cannula Oximask (unknown) (no (unknown) (unknown) Oxygen Flow Rate 4 (units (unknown) date) 6 unknown) (unknown) (no (unknown) (unknown) Oxygen Flow Rate 5 (units (unknown) date) unknown) (unknown) (no (unknown) (unknown) Oxygen Flow Rate 8 (units (unknown) date) 9 unknown) (unknown) (no (unknown) (unknown) Oxygen Flow Rate 9 (units (unknown) date) 7 unknown) (unknown) (no (unknown) (unknown) Oxygen Flow Rate 9 (units (unknown) date) unknown) (unknown) (no (unknown) (unknown) PT (10.1-12.7) (units (unknown) date) SECONDS unknown) (unknown) (no (unknown) (unknown) PT 14.1 H (units (unkn own) date) (10.1-12.7) SECONDS unknown) (unknown) (no (unknown) (unknown) Patient History (units (unknown) date) unknown) (unknown) (no (unknown) (unknown) Patient change in (units (unknown) date) lateral no with unknown) inverted T-wave and RSR V1 through the read (unknown) (no (unknown) (unknown) Patient does not (units (unknown) date) have pitting edema unknown) but has some mild swelling bilaterally. (unknown) (no (unknown) (unknown) Patient's P wave (units (unknown) date) inverted in lead 3. unknown) (unknown) (no (unknown) (unknown) Patient: (units (unkno wn) date) Gely Milner MR#: unknown) M00 (unknown) (no (unknown) (unknown) Plt Count (150-400) (unit s (unknown) date) X103/uL unknown) (unknown) (no (unknown) (unknown) Plt Count 252 (units ( unknown) date) (150-400) X103/uL unknown) (unknown) (no (unknown) (unknown) Potassium (3.4-5.1) (unit s (unknown) date) mmol/L unknown) (unknown) (no (unknown) (unknown) Potassium 4.3 (units ( unknown) date) (3.4-5.1) mmol/L unknown) (unknown) (no (unknown) (unknown) Prior ECG tracings: (unit s (unknown) date) available for review unknown) (unknown) (no (unknown) (unknown) Prothrombin Time (units (unknown) date) INR Stat unknown) (unknown) (no (unknown) (unknown) Pulse Oximetry 85 L (unit s (unknown) date) 05/13/22 12:40 unknown) (unknown) (no (unknown) (unknown) Pulse Oximetry 85 L (unit s (unknown) date) 87 L 91 unknown) (unknown) (no (unknown) (unknown) Pulse Oximetry 88 L (unit s (unknown) date) 96 unknown) (unknown) (no (unknown) (unknown) Pulse Oximetry 90 L (unit s (unknown) date) unknown) (unknown) (no (unknown) (unknown) Pulse Oximetry 94 (units (unknown) date) unknown) (unknown) (no (unknown) (unknown) Pulse Oximetry 95 (units (unknown) date) 89 L unknown) (unknown) (no (unknown) (unknown) Pulse Rate 100 H (units (unknown) date) 05/13/22 12:40 unknown) (unknown) (no (unknown) (unknown) Pulse Rate 100 H (units (unknown) date) unknown) (unknown) (no (unknown) (unknown) Pulse Rate 101 H 96 (unit s (unknown) date) H unknown) (unknown) (no (unknown) (unknown) Pulse Rate 97 H (units (unknown) date) unknown) (unknown) (no (unknown) (unknown) RBC (4.0-5.2) (units ( unknown) date) X106/uL unknown) (unknown) (no (unknown) (unknown) RBC 5.67 H (units (unk nown) date) (4.0-5.2) X106/uL unknown) (unknown) (no (unknown) (unknown) RDW (11.6-14.8) % (units (unknown) date) unknown) (unknown) (no (unknown) (unknown) RDW 13.8 (units (unkno wn) date) (11.6-14.8) % unknown) (unknown) (no (unknown) (unknown) ROS Unobtainable: (units (unknown) date) All systems reviewed unknown) + are unremarkable except as noted in HPI (unknown) (no (unknown) (unknown) RT Consult Eval and (unit s (unknown) date) Treat NOW unknown) (unknown) (no (unknown) (unknown) Referrals: (units (unk nown) date) unknown) (unknown) (no (unknown) (unknown) Respiratory Panel (units (unknown) date) (Film Array) Stat unknown) (unknown) (no (unknown) (unknown) Respiratory Rate 16 (unit s (unknown) date) unknown) (unknown) (no (unknown) (unknown) Respiratory Rate 22 (unit s (unknown) date) 05/13/22 12:40 unknown) (unknown) (no (unknown) (unknown) Respiratory Rate 22 (unit s (unknown) date) unknown) (unknown) (no (unknown) (unknown) Respiratory Rate 23 (unit s (unknown) date) 24 unknown) (unknown) (no (unknown) (unknown) Respiratory Rate (units (unknown) date) unknown) (unknown) (no (unknown) (unknown) Review of Systems (units (unknown) date) unknown) (unknown) (no (unknown) (unknown) SARS-CoV-2 (PCR) (units (unknown) date) (Negative) unknown) (unknown) (no (unknown) (unknown) SARS-CoV-2 (PCR) (units (unknown) date) Negative (Negative) unknown) (unknown) (no (unknown) (unknown) SKIN: See above. (units (unknown) date) unknown) (unknown) (no (unknown) (unknown) Signed By: (units (unk nown) date) unknown) (unknown) (no (unknown) (unknown) Smoking Status: (units (unknown) date) Never smoker unknown) (unknown) (no (unknown) (unknown) Social History (units (unknown) date) (Reviewed 05/13/22 @ unknown) 14:48 by Sujata Graff DO) (unknown) (no (unknown) (unknown) Sodium (137-145) (units (unknown) date) mmol/L unknown) (unknown) (no (unknown) (unknown) Sodium 135 L (units (u nknown) date) (137-145) mmol/L unknown) (unknown) (no (unknown) (unknown) Source: patient and (unit s (unknown) date) EMS unknown) (unknown) (no (unknown) (unknown) Stated Complaint: (units (unknown) date) Dizzy, SOB T-3 unknown) (unknown) (no (unknown) (unknown) Stop: 05/13/22 (units (unknown) date) 14:24 unknown) (unknown) (no (unknown) (unknown) Substance Use Type: (unit s (unknown) date) does not use unknown) (unknown) (no (unknown) (unknown) Temperature 97.6 F (units (unknown) date) 05/13/22 12:40 unknown) (unknown) (no (unknown) (unknown) Temperature 97.6 F (units (unknown) date) unknown) (unknown) (no (unknown) (unknown) Temperature (units (un known) date) unknown) (unknown) (no (unknown) (unknown) This is an (units (unk n) date) 81-year-old female unknown) who states her only medications are Epsom daily (unknown) (no (unknown) (unknown) Time Seen by (units (u nknown) date) Provider: 05/13/22 unknown) 14:15 (unknown) (no (unknown) (unknown) Total Bilirubin (units (unknown) date) (0.2-1.3) mg/dL unknown) (unknown) (no (unknown) (unknown) Total Bilirubin 0.9 (unit s (unknown) date) (0.2-1.3) mg/dL unknown) (unknown) (no (unknown) (unknown) Total Protein (units ( unknown) date) (6.3-8.2) g/dL unknown) (unknown) (no (unknown) (unknown) Total Protein 7.7 (units (unknown) date) (6.3-8.2) g/dL unknown) (unknown) (no (unknown) (unknown) Troponin I (units (unk nown) date) (0.01-0.034) ng/mL unknown) (unknown) (no (unknown) (unknown) Troponin I 0.020 (units (unknown) date) (0.01-0.034) ng/mL unknown) (unknown) (no (unknown) (unknown) Troponin I Stat (units (unknown) date) unknown) (unknown) (no (unknown) (unknown) Vital Signs - 8 hr (units (unknown) date) unknown) (unknown) (no (unknown) (unknown) Vital Signs (units (un known) date) unknown) (unknown) (no (unknown) (unknown) Vital signs: (units (u nknown) date) unknown) (unknown) (no (unknown) (unknown) WBC (4.5-11.0) (units (unknown) date) X103/uL unknown) (unknown) (no (unknown) (unknown) WBC 10.9 (4.5-11.0) (unit s (unknown) date) X103/uL unknown) (unknown) (no (unknown) (unknown) XR chest 1V Stat (units (unknown) date) unknown) (unknown) (no (unknown) (unknown) [Embedded Image Not (unit s (unknown) date) Available] unknown) (unknown) (no (unknown) (unknown) alcohol intake (units (unknown) date) frequency: 0-2 unknown) drinks per day (unknown) (no (unknown) (unknown) allergies. She (units (unknown) date) smoked for a year at unknown) age 18, she has not oz of vodka nightly, no (unknown) (no (unknown) (unknown) and a pressure on (units (unknown) date) her chest that seems unknown) to be associated with the shortness of (unknown) (no (unknown) (unknown) and below (units (unkn own) date) unknown) (unknown) (no (unknown) (unknown) breath that has (units (unknown) date) been intermittent unknown) now becoming persistent. Patient states no (unknown) (no (unknown) (unknown) chest moves (units (unk nown) date) symmetrically, no unknown) tachypnea accessory muscle use patient's speaks in (unknown) (no (unknown) (unknown) discolored and she (units (unknown) date) states that has been unknown) like that for several months. She does (unknown) (no (unknown) (unknown) erythema, tonsillar (unit s (unknown) date) enlargement or unknown) uvular deviation (unknown) (no (unknown) (unknown) jeet and lateral. (units (unknown) date) No elevation. unknown) Patient does not have prior for comparison. (unknown) (no (unknown) (unknown) extremities, full (units (unknown) date) range of motion, unknown) normal gait (unknown) (no (unknown) (unknown) fevers or chills. (units (unknown) date) No cold cough or unknown) congestion. She is had some nausea but no (unknown) (no (unknown) (unknown) full sentences. She (unit s (unknown) date) Oxiimask at 9 L on unknown) my evaluation. (unknown) (no (unknown) (unknown) her home and gets (units (unknown) date) very short of breath unknown) with exertion. She has not appreciated (unknown) (no (unknown) (unknown) illicit. (units (u nknown) date) Damari is her PCP. unknown) (unknown) (no (unknown) (unknown) increasing shortness (unit s (unknown) date) of breath for for 5 unknown) days, she is had tightness in her chest (unknown) (no (unknown) (unknown) masses noted, no (units (unknown) date) hepatosplenomegaly unknown) (unknown) (no (unknown) (unknown) medications for (units (unknown) date) anything else, no unknown) history of cardiac stents. No known drug (unknown) (no (unknown) (unknown) mild distress. (units (unknown) date) unknown) (unknown) (no (unknown) (unknown) movements are (units ( unknown) date) intact, nares are unknown) clear,. Throat is clear without any exudates, (unknown) (no (unknown) (unknown) not appreciate new (units (unknown) date) swelling in her unknown) legs. She comes today she felt like her (unknown) (no (unknown) (unknown) she just was (units (u nknown) date) started on a new unknown) pain medication by her primary care provider to (unknown) (no (unknown) (unknown) she might pass out (units (unknown) date) or gets very unknown) lightheaded when she tries to ambulate around (unknown) (no (unknown) (unknown) shortness of breath (unit s (unknown) date) was increasing over unknown) time. Patient states she is not on (unknown) (no (unknown) (unknown) significant (units (un known) date) increase in swelling unknown) in her extremities. Her feet are mottled and (unknown) (no (unknown) (unknown) states this is her (units (unknown) date) normal baseline for unknown) several months. (unknown) (no (unknown) (unknown) vomiting. No (units (u nknown) date) diaphoresis with unknown) these episodes. She notes that she feels like (unknown) (no (unknown) (unknown) wean her off her (units (unknown) date) Epsom. She is unsure unknown) what it is called. She states she is had Result panel 110 (unknown) (no (unknown) (unknown) (no value) (units (unk nown) date) unknown) (unknown) (no (unknown) (unknown) 05/13/22 05/13/22 (units (unknown) date) 05/13/22 Range/Units unknown) (unknown) (no (unknown) (unknown) 05/13/22 12:57 (units (unknown) date) unknown) (unknown) (no (unknown) (unknown) 05/13/22 13:11 (units (unknown) date) unknown) (unknown) (no (unknown) (unknown) 05/13/22 13:13 (units (unknown) date) unknown) (unknown) (no (unknown) (unknown) 05/13/22 13:49 (units (unknown) date) unknown) (unknown) (no (unknown) (unknown) 05/13/22 13:56 (units (unknown) date) unknown) (unknown) (no (unknown) (unknown) 05/13/22 15:50 (units (unknown) date) unknown) (unknown) (no (unknown) (unknown) 05/13/22 (units (unkno wn) date) unknown) (unknown) (no (unknown) (unknown) [id number] (units (unkno wn) date) unknown) (unknown) (no (unknown) (unknown) 12:40 05/13/22 (units (unknown) date) unknown) (unknown) (no (unknown) (unknown) 12:40 (units (unkno wn) date) unknown) (unknown) (no (unknown) (unknown) 12:44 05/13/22 (units (unknown) date) unknown) (unknown) (no (unknown) (unknown) 12:50 05/13/22 (units (unknown) date) unknown) (unknown) (no (unknown) (unknown) 12:58 (units (unkno wn) date) unknown) (unknown) (no (unknown) (unknown) 13:00 05/13/22 (units (unknown) date) unknown) (unknown) (no (unknown) (unknown) 13:00 (units (unkno wn) date) unknown) (unknown) (no (unknown) (unknown) 13:08 05/13/22 (units (unknown) date) unknown) (unknown) (no (unknown) (unknown) 13:11 13:13 13:49 (units (unknown) date) unknown) (unknown) (no (unknown) (unknown) 13:13 05/13/22 (units (unknown) date) unknown) (unknown) (no (unknown) (unknown) 13:30 05/13/22 (units (unknown) date) unknown) (unknown) (no (unknown) (unknown) 13:30 (units (unkno wn) date) unknown) (unknown) (no (unknown) (unknown) 13:49 13:49 13:49 (units (unknown) date) unknown) (unknown) (no (unknown) (unknown) 14:00 05/13/22 (units (unknown) date) unknown) (unknown) (no (unknown) (unknown) 14:30 (units (unkno wn) date) unknown) (unknown) (no (unknown) (unknown) ABD:bowel sounds (units (unknown) date) normal, soft, unknown) non-tender, no guarding, rebound, rigidity, no (unknown) (no (unknown) (unknown) ALT (<35) IU/L (units (unknown) date) unknown) (unknown) (no (unknown) (unknown) ALT 24 (<35) IU/L (units (unknown) date) unknown) (unknown) (no (unknown) (unknown) AST (14-36) IU/L (units (unknown) date) unknown) (unknown) (no (unknown) (unknown) AST 28 (14-36) IU/L (unit s (unknown) date) unknown) (unknown) (no (unknown) (unknown) Adenovirus (PCR) (units (unknown) date) (Not Detect) unknown) (unknown) (no (unknown) (unknown) Adenovirus (PCR) (units (unknown) date) Not detected (Not unknown) Detect) (unknown) (no (unknown) (unknown) Age/Sex: 81 / F (units (unknown) date) unknown) (unknown) (no (unknown) (unknown) Albumin (3.5-5.0) (units (unknown) date) g/dL unknown) (unknown) (no (unknown) (unknown) Albumin 4.3 (units (un known) date) (3.5-5.0) g/dL unknown) (unknown) (no (unknown) (unknown) Albumin/Globulin (units (unknown) date) Ratio (1.0-2.8) unknown) (unknown) (no (unknown) (unknown) Albumin/Globulin (units (unknown) date) Ratio 1.3 (1.0-2.8) unknown) (unknown) (no (unknown) (unknown) Alcohol type: hard (units (unknown) date) liquor unknown) (unknown) (no (unknown) (unknown) Alkaline (units (unkno wn) date) Phosphatase (38-126) unknown) U/L (unknown) (no (unknown) (unknown) Alkaline (units (unkno wn) date) Phosphatase 88 unknown) (38-126) U/L (unknown) (no (unknown) (unknown) Attestation: I (units (unknown) date) personally reviewed unknown) and interpreted this ECG as follows: (unknown) (no (unknown) (unknown) B. pertussis DNA (units (unknown) date) (PCR) (Not Detecte) unknown) (unknown) (no (unknown) (unknown) B. pertussis DNA (units (unknown) date) (PCR) Not detected unknown) (Not Detecte) (unknown) (no (unknown) (unknown) B.parapertussis DNA (unit s (unknown) date) PCR (Not Detecte) unknown) (unknown) (no (unknown) (unknown) B.parapertussis DNA (unit s (unknown) date) PCR Not detected unknown) (Not Detecte) (unknown) (no (unknown) (unknown) BUN (7-17) mg/dL (units (unknown) date) unknown) (unknown) (no (unknown) (unknown) BUN 18 H (7-17) (units (unknown) date) mg/dL unknown) (unknown) (no (unknown) (unknown) BUN/Creatinine (units (unknown) date) Ratio (6-22) unknown) (unknown) (no (unknown) (unknown) BUN/Creatinine (units (unknown) date) Ratio 20.7 (6-22) unknown) (unknown) (no (unknown) (unknown) Baso # (Auto) (units ( unknown) date) (0-100) /uL unknown) (unknown) (no (unknown) (unknown) Baso # (Auto) 0 (units (unknown) date) (0-100) /uL unknown) (unknown) (no (unknown) (unknown) Baso % (Auto) (0-2) (unit s (unknown) date) % unknown) (unknown) (no (unknown) (unknown) Baso % (Auto) 0.2 (units (unknown) date) (0-2) % unknown) (unknown) (no (unknown) (unknown) Blood Pressure (units (unknown) date) 107/59 L 05/13/22 unknown) 12:40 (unknown) (no (unknown) (unknown) Blood Pressure (units (unknown) date) 107/59 L 118/68 unknown) (unknown) (no (unknown) (unknown) Blood Pressure (units (unknown) date) 107/59 L unknown) (unknown) (no (unknown) (unknown) Blood Pressure (units (unknown) date) 122/83 unknown) (unknown) (no (unknown) (unknown) Blood Pressure (units (unknown) date) unknown) (unknown) (no (unknown) (unknown) COVID19 -Nasal (units (unknown) date) RAPID Stat unknown) (unknown) (no (unknown) (unknown) Calcium (8.4-10.2) (units (unknown) date) mg/dL unknown) (unknown) (no (unknown) (unknown) Calcium 9.1 (units (un known) date) (8.4-10.2) mg/dL unknown) (unknown) (no (unknown) (unknown) Carbon Dioxide (units (unknown) date) (22-32) mmol/L unknown) (unknown) (no (unknown) (unknown) Carbon Dioxide 26 (units (unknown) date) (22-32) mmol/L unknown) (unknown) (no (unknown) (unknown) Chief Complaint: (units (unknown) date) Shortness of unknown) Breath/Dyspnea (unknown) (no (unknown) (unknown) Chlamy pneumoniae (units (unknown) date) PCR (Not Detect) unknown) (unknown) (no (unknown) (unknown) Chlamy pneumoniae (units (unknown) date) PCR Not detected unknown) (Not Detect) (unknown) (no (unknown) (unknown) Chloride (98-107) (units (unknown) date) mmol/L unknown) (unknown) (no (unknown) (unknown) Chloride 98 (units (un known) date) (98-107) mmol/L unknown) (unknown) (no (unknown) (unknown) Complete Blood (units (unknown) date) Count AUTO DIFF Stat unknown) (unknown) (no (unknown) (unknown) Comprehensive (units ( unknown) date) Metabolic Panel Stat unknown) (unknown) (no (unknown) (unknown) Coronavirus 229E (units (unknown) date) (PCR) (Not Detect) unknown) (unknown) (no (unknown) (unknown) Coronavirus 229E (units (unknown) date) (PCR) Not detected unknown) (Not Detect) (unknown) (no (unknown) (unknown) Coronavirus HKU1 (units (unknown) date) (PCR) (Not Detect) unknown) (unknown) (no (unknown) (unknown) Coronavirus HKU1 (units (unknown) date) (PCR) Not detected unknown) (Not Detect) (unknown) (no (unknown) (unknown) Coronavirus NL63 (units (unknown) date) (PCR) (Not Detect) unknown) (unknown) (no (unknown) (unknown) Coronavirus NL63 (units (unknown) date) (PCR) Not detected unknown) (Not Detect) (unknown) (no (unknown) (unknown) Coronavirus OC43 (units (unknown) date) (PCR) (Not Detect) unknown) (unknown) (no (unknown) (unknown) Coronavirus OC43 (units (unknown) date) (PCR) Not detected unknown) (Not Detect) (unknown) (no (unknown) (unknown) Course (units (unkno wn) date) unknown) (unknown) (no (unknown) (unknown) Creatinine (units (unk nown) date) (0.52-1.04) mg/dL unknown) (unknown) (no (unknown) (unknown) Creatinine 0.87 (units (unknown) date) (0.52-1.04) mg/dL unknown) (unknown) (no (unknown) (unknown) : 1940 (units (unknown) date) Acct:[id number] unknown) (unknown) (no (unknown) (unknown) Date of Service: (units (unknown) date) 05/13/22 unknown) (unknown) (no (unknown) (unknown) Departure (units (unkn own) date) unknown) (unknown) (no (unknown) (unknown) Discharge Plan (units (unknown) date) unknown) (unknown) (no (unknown) (unknown) Discontinued (units (u nknown) date) Medications unknown) (unknown) (no (unknown) (unknown) ECG Data (units (unkno wn) date) unknown) (unknown) (no (unknown) (unknown) ED Orders (units (unkn own) date) unknown) (unknown) (no (unknown) (unknown) EKG-12 Lead Stat (units (unknown) date) unknown) (unknown) (no (unknown) (unknown) ER Physician: (units ( unknown) date) Sujata Graff D.O. unknown) (unknown) (no (unknown) (unknown) Emergency Report (units (unknown) date) unknown) (unknown) (no (unknown) (unknown) Entero/Rhino (PCR) (units (unknown) date) (Not Detect) unknown) (unknown) (no (unknown) (unknown) Entero/Rhino (PCR) (units (unknown) date) Not detected (Not unknown) Detect) (unknown) (no (unknown) (unknown) Eos # (Auto) (units (u nknown) date) (0-450) /uL unknown) (unknown) (no (unknown) (unknown) Eos # (Auto) 0 (units (unknown) date) (0-450) /uL unknown) (unknown) (no (unknown) (unknown) Eos % (Auto) (2-4) (units (unknown) date) % unknown) (unknown) (no (unknown) (unknown) Eos % (Auto) 0.3 L (units (unknown) date) (2-4) % unknown) (unknown) (no (unknown) (unknown) Estimated GFR > 60 (units (unknown) date) (>60) mL/min unknown) (unknown) (no (unknown) (unknown) Estimated GFR (>60) (unit s (unknown) date) mL/min unknown) (unknown) (no (unknown) (unknown) Exam Narrative: (units (unknown) date) unknown) (unknown) (no (unknown) (unknown) Exam (units (unkno wn) date) unknown) (unknown) (no (unknown) (unknown) Feet do have some (units (unknown) date) discoloration are unknown) slightly mottled, hands do not. Patient (unknown) (no (unknown) (unknown) Furosemide (units (unk nown) date) (Furosemide 40 Mg/4 unknown) Ml Vial) 40 mg IV NOW ONE (unknown) (no (unknown) (unknown) GEN: Obese elderly (units (unknown) date) female, alert and unknown) oriented x 3, patient appears to be in (unknown) (no (unknown) (unknown) :No CVA (units (unkn own) date) tenderness unknown) (unknown) (no (unknown) (unknown) General (units (unkno wn) date) unknown) (unknown) (no (unknown) (unknown) Globulin (1.7-4.1) (units (unknown) date) g/dL unknown) (unknown) (no (unknown) (unknown) Globulin 3.4 (units (u nknown) date) (1.7-4.1) g/dL unknown) (unknown) (no (unknown) (unknown) Glucose (80-110) (units (unknown) date) mg/dL unknown) (unknown) (no (unknown) (unknown) Glucose 133 H (units ( unknown) date) (80-110) mg/dL unknown) (unknown) (no (unknown) (unknown) HEART: Regular rate (unit s (unknown) date) and rhythm without unknown) murmur, clicks, rubs. Pulmonary VD. (unknown) (no (unknown) (unknown) HEENT: Atraumatic, (units (unknown) date) pupils are equal unknown) round reactive to light, extraocular (unknown) (no (unknown) (unknown) HPI - SOB/Dyspnea (units (unknown) date) unknown) (unknown) (no (unknown) (unknown) HPI Narrative: (units (unknown) date) unknown) (unknown) (no (unknown) (unknown) Hct (36-46) % (units ( unknown) date) unknown) (unknown) (no (unknown) (unknown) Hct 49.2 H (36-46) (units (unknown) date) % unknown) (unknown) (no (unknown) (unknown) Hgb (12.0-16.0) (units (unknown) date) g/dL unknown) (unknown) (no (unknown) (unknown) Hgb 16.1 H (units (unk nown) date) (12.0-16.0) g/dL unknown) (unknown) (no (unknown) (unknown) History of Present (units (unknown) date) Illness unknown) (unknown) (no (unknown) (unknown) Human Metapneumovir (unit s (unknown) date) PCR (Not Detect) unknown) (unknown) (no (unknown) (unknown) Human Metapneumovir (unit s (unknown) date) PCR Not detected unknown) (Not Detect) (unknown) (no (unknown) (unknown) INR (0.9-1.3) (units ( unknown) date) unknown) (unknown) (no (unknown) (unknown) INR 1.2 (0.9-1.3) (units (unknown) date) unknown) (unknown) (no (unknown) (unknown) Influenza Type A (units (unknown) date) (PCR) (Not Detect) unknown) (unknown) (no (unknown) (unknown) Influenza Type A (units (unknown) date) (PCR) Not detected unknown) (Not Detect) (unknown) (no (unknown) (unknown) Influenza Type B (units (unknown) date) (PCR) (Not Detect) unknown) (unknown) (no (unknown) (unknown) Influenza Type B (units (unknown) date) (PCR) Not detected unknown) (Not Detect) (unknown) (no (unknown) (unknown) Initial Vital Signs (unit s (unknown) date) unknown) (unknown) (no (unknown) (unknown) Initial Vital (units ( unknown) date) Signs: unknown) (unknown) (no (unknown) (unknown) Interpretation: (units (unknown) date) unknown) (unknown) (no (unknown) (unknown) [facility] (units (unknown) date) [address] unknown) [place] [address] (unknown) (no (unknown) (unknown) LUNGS:Lungs breath (units (unknown) date) sounds equal unknown) bilaterally, no wheezes, bilateral crackles, (unknown) (no (unknown) (unknown) Lab Data (units (unkno wn) date) unknown) (unknown) (no (unknown) (unknown) Lab Results (units (un known) date) unknown) (unknown) (no (unknown) (unknown) Labs: (units (unkno wn) date) unknown) (unknown) (no (unknown) (unknown) Lactate (0.7-2.1) (units (unknown) date) mmol/L unknown) (unknown) (no (unknown) (unknown) Lactate (Lactic (units (unknown) date) Acid) Stat unknown) (unknown) (no (unknown) (unknown) Lactate 1.9 (units (un known) date) (0.7-2.1) mmol/L unknown) (unknown) (no (unknown) (unknown) Eber Wetzel, (unit s (unknown) date) MD [Primary Care unknown) Provider] (unknown) (no (unknown) (unknown) Limitations: no (units (unknown) date) limitations unknown) (unknown) (no (unknown) (unknown) Lymph # (Auto) (units (unknown) date) (0531-2758) /uL unknown) (unknown) (no (unknown) (unknown) Lymph # (Auto) 600 (units (unknown) date) L (2191-2534) /uL unknown) (unknown) (no (unknown) (unknown) Lymph % (Auto) (units (unknown) date) (25-40) % unknown) (unknown) (no (unknown) (unknown) Lymph % (Auto) 5.5 (units (unknown) date) L (25-40) % unknown) (unknown) (no (unknown) (unknown) M. pneumoniae (PCR) (unit s (unknown) date) (Not Detect) unknown) (unknown) (no (unknown) (unknown) M. pneumoniae (PCR) (unit s (unknown) date) Not detected (Not unknown) Detect) (unknown) (no (unknown) (unknown) MCH (26-34) PG (units (unknown) date) unknown) (unknown) (no (unknown) (unknown) MCH 28.4 (26-34) PG (unit s (unknown) date) unknown) (unknown) (no (unknown) (unknown) MCHC (30-36) % (units (unknown) date) unknown) (unknown) (no (unknown) (unknown) MCHC 32.8 (30-36) % (unit s (unknown) date) unknown) (unknown) (no (unknown) (unknown) MCV (80-100) fL (units (unknown) date) unknown) (unknown) (no (unknown) (unknown) MCV 86.8 (80-100) (units (unknown) date) fL unknown) (unknown) (no (unknown) (unknown) MDM - SOB/Dyspnea (units (unknown) date) unknown) (unknown) (no (unknown) (unknown) MSCL: Non-tender, (units (unknown) date) no muscle atrophy, unknown) muscles strength 5/5 upper and lower (unknown) (no (unknown) (unknown) Measure peak (units (u nknown) date) expiratory flow ONCE unknown) (unknown) (no (unknown) (unknown) Mode of arrival: (units (unknown) date) EMS unknown) (unknown) (no (unknown) (unknown) Harris # (Auto) (units ( unknown) date) (0-900) /uL unknown) (unknown) (no (unknown) (unknown) Harris # (Auto) 400 (units (unknown) date) (0-900) /uL unknown) (unknown) (no (unknown) (unknown) Harris % (Auto) (units ( unknown) date) (3-14) % unknown) (unknown) (no (unknown) (unknown) Harris % (Auto) 4.1 (units (unknown) date) (3-14) % unknown) (unknown) (no (unknown) (unknown) NEURO:CN 2-12 (units ( unknown) date) intact, sensation unknown) normal (unknown) (no (unknown) (unknown) NT-Pro-B Natriuret (units (unknown) date) Pep (<450) pg/mL unknown) (unknown) (no (unknown) (unknown) NT-Pro-B Natriuret (units (unknown) date) Pep 27374 H (<450) unknown) pg/mL (unknown) (no (unknown) (unknown) NT-proBNP (units (unkn own) date) (BNP-Adult 18+) Stat unknown) (unknown) (no (unknown) (unknown) Narrative (units (unkn own) date) unknown) (unknown) (no (unknown) (unknown) Neut # (Auto) (units ( unknown) date) (0708-0419) /uL unknown) (unknown) (no (unknown) (unknown) Neut # (Auto) 9800 (units (unknown) date) H (1117-2075) /uL unknown) (unknown) (no (unknown) (unknown) Neut % (Auto) (units ( unknown) date) (50-75) % unknown) (unknown) (no (unknown) (unknown) Neut % (Auto) 89.9 (units (unknown) date) H (50-75) % unknown) (unknown) (no (unknown) (unknown) Normal sinus (units (u nknown) date) rhythm, left axis unknown) deviation, rate of 98, OR 120, QRS 88 QTC 347. (unknown) (no (unknown) (unknown) Ordered: (units (unkno wn) date) unknown) (unknown) (no (unknown) (unknown) Orders (units (unkno wn) date) unknown) (unknown) (no (unknown) (unknown) Oximask (units (unkno wn) date) unknown) (unknown) (no (unknown) (unknown) Oxygen Delivery (units (unknown) date) Method Nasal Cannula unknown) (unknown) (no (unknown) (unknown) Oxygen Delivery (units (unknown) date) Method Oximask unknown) Oximask (unknown) (no (unknown) (unknown) Oxygen Delivery (units (unknown) date) Method Room Air unknown) 05/13/22 12:40 (unknown) (no (unknown) (unknown) Oxygen Delivery (units (unknown) date) Method Room Air unknown) Nasal Cannula Oximask (unknown) (no (unknown) (unknown) Oxygen Flow Rate 4 (units (unknown) date) 6 unknown) (unknown) (no (unknown) (unknown) Oxygen Flow Rate 5 (units (unknown) date) unknown) (unknown) (no (unknown) (unknown) Oxygen Flow Rate 8 (units (unknown) date) 9 unknown) (unknown) (no (unknown) (unknown) Oxygen Flow Rate 9 (units (unknown) date) 7 unknown) (unknown) (no (unknown) (unknown) Oxygen Flow Rate 9 (units (unknown) date) 9 unknown) (unknown) (no (unknown) (unknown) PT (10.1-12.7) (units (unknown) date) SECONDS unknown) (unknown) (no (unknown) (unknown) PT 14.1 H (units (unkn own) date) (10.1-12.7) SECONDS unknown) (unknown) (no (unknown) (unknown) Parainfluenza 1 (units (unknown) date) (PCR) (Not Detect) unknown) (unknown) (no (unknown) (unknown) Parainfluenza 1 (units (unknown) date) (PCR) Not detected unknown) (Not Detect) (unknown) (no (unknown) (unknown) Parainfluenza 2 (units (unknown) date) (PCR) (Not Detect) unknown) (unknown) (no (unknown) (unknown) Parainfluenza 2 (units (unknown) date) (PCR) Not detected unknown) (Not Detect) (unknown) (no (unknown) (unknown) Parainfluenza 3 (units (unknown) date) (PCR) (Not Detect) unknown) (unknown) (no (unknown) (unknown) Parainfluenza 3 (units (unknown) date) (PCR) Not detected unknown) (Not Detect) (unknown) (no (unknown) (unknown) Parainfluenza 4 (units (unknown) date) (PCR) (Not Detect) unknown) (unknown) (no (unknown) (unknown) Parainfluenza 4 (units (unknown) date) (PCR) Not detected unknown) (Not Detect) (unknown) (no (unknown) (unknown) Patient History (units (unknown) date) unknown) (unknown) (no (unknown) (unknown) Patient change in (units (unknown) date) lateral no with unknown) inverted T-wave and RSR V1 through the read (unknown) (no (unknown) (unknown) Patient does not (units (unknown) date) have pitting edema unknown) but has some mild swelling bilaterally. (unknown) (no (unknown) (unknown) Patient's P wave (units (unknown) date) inverted in lead 3. unknown) (unknown) (no (unknown) (unknown) Patient: (units (unkno wn) date) Gely Milner MR#: unknown) M00 (unknown) (no (unknown) (unknown) Plt Count (150-400) (unit s (unknown) date) X103/uL unknown) (unknown) (no (unknown) (unknown) Plt Count 252 (units ( unknown) date) (150-400) X103/uL unknown) (unknown) (no (unknown) (unknown) Potassium (3.4-5.1) (unit s (unknown) date) mmol/L unknown) (unknown) (no (unknown) (unknown) Potassium 4.3 (units ( unknown) date) (3.4-5.1) mmol/L unknown) (unknown) (no (unknown) (unknown) Prior ECG tracings: (unit s (unknown) date) available for review unknown) (unknown) (no (unknown) (unknown) Prothrombin Time (units (unknown) date) INR Stat unknown) (unknown) (no (unknown) (unknown) Pulse Oximetry 85 L (unit s (unknown) date) 05/13/22 12:40 unknown) (unknown) (no (unknown) (unknown) Pulse Oximetry 85 L (unit s (unknown) date) 87 L 91 unknown) (unknown) (no (unknown) (unknown) Pulse Oximetry 88 L (unit s (unknown) date) 96 unknown) (unknown) (no (unknown) (unknown) Pulse Oximetry 90 L (unit s (unknown) date) unknown) (unknown) (no (unknown) (unknown) Pulse Oximetry 94 (units (unknown) date) 92 unknown) (unknown) (no (unknown) (unknown) Pulse Oximetry 95 (units (unknown) date) 89 L unknown) (unknown) (no (unknown) (unknown) Pulse Rate 100 H (units (unknown) date) 05/13/22 12:40 unknown) (unknown) (no (unknown) (unknown) Pulse Rate 100 H (units (unknown) date) unknown) (unknown) (no (unknown) (unknown) Pulse Rate 101 H 96 (unit s (unknown) date) H unknown) (unknown) (no (unknown) (unknown) Pulse Rate 97 H 96 (units (unknown) date) H unknown) (unknown) (no (unknown) (unknown) RBC (4.0-5.2) (units ( unknown) date) X106/uL unknown) (unknown) (no (unknown) (unknown) RBC 5.67 H (units (unk nown) date) (4.0-5.2) X106/uL unknown) (unknown) (no (unknown) (unknown) RDW (11.6-14.8) % (units (unknown) date) unknown) (unknown) (no (unknown) (unknown) RDW 13.8 (units (unkno wn) date) (11.6-14.8) % unknown) (unknown) (no (unknown) (unknown) ROS Unobtainable: (units (unknown) date) All systems reviewed unknown) + are unremarkable except as noted in HPI (unknown) (no (unknown) (unknown) RSV (PCR) (Not (units (unknown) date) Detect) unknown) (unknown) (no (unknown) (unknown) RSV (PCR) Not (units ( unknown) date) detected (Not unknown) Detect) (unknown) (no (unknown) (unknown) RT Consult Eval and (unit s (unknown) date) Treat NOW unknown) (unknown) (no (unknown) (unknown) Referrals: (units (unk nown) date) unknown) (unknown) (no (unknown) (unknown) Respiratory Panel (units (unknown) date) (Film Array) Stat unknown) (unknown) (no (unknown) (unknown) Respiratory Rate 16 (unit s (unknown) date) 16 unknown) (unknown) (no (unknown) (unknown) Respiratory Rate 22 (unit s (unknown) date) 05/13/22 12:40 unknown) (unknown) (no (unknown) (unknown) Respiratory Rate 22 (unit s (unknown) date) unknown) (unknown) (no (unknown) (unknown) Respiratory Rate 23 (unit s (unknown) date) 24 unknown) (unknown) (no (unknown) (unknown) Respiratory Rate (units (unknown) date) unknown) (unknown) (no (unknown) (unknown) Review of Systems (units (unknown) date) unknown) (unknown) (no (unknown) (unknown) SARS-CoV-2 (PCR) (units (unknown) date) (Negative) unknown) (unknown) (no (unknown) (unknown) SARS-CoV-2 (PCR) (units (unknown) date) Negative Not unknown) detected (Negative) (unknown) (no (unknown) (unknown) SKIN: See above. (units (unknown) date) unknown) (unknown) (no (unknown) (unknown) Signed By: (units (unk nown) date) unknown) (unknown) (no (unknown) (unknown) Smoking Status: (units (unknown) date) Never smoker unknown) (unknown) (no (unknown) (unknown) Social History (units (unknown) date) (Reviewed 05/13/22 @ unknown) 14:48 by Sujata Graff DO) (unknown) (no (unknown) (unknown) Sodium (137-145) (units (unknown) date) mmol/L unknown) (unknown) (no (unknown) (unknown) Sodium 135 L (units (u nknown) date) (137-145) mmol/L unknown) (unknown) (no (unknown) (unknown) Source: patient and (unit s (unknown) date) EMS unknown) (unknown) (no (unknown) (unknown) Stated Complaint: (units (unknown) date) Dizzy, SOB T-3 unknown) (unknown) (no (unknown) (unknown) Stop: 05/13/22 (units (unknown) date) 14:24 unknown) (unknown) (no (unknown) (unknown) Substance Use Type: (unit s (unknown) date) does not use unknown) (unknown) (no (unknown) (unknown) Temperature 97.6 F (units (unknown) date) 05/13/22 12:40 unknown) (unknown) (no (unknown) (unknown) Temperature 97.6 F (units (unknown) date) unknown) (unknown) (no (unknown) (unknown) Temperature (units (un known) date) unknown) (unknown) (no (unknown) (unknown) This is an (units (unk nown) date) 81-year-old female unknown) who states her only medications are Epsom daily (unknown) (no (unknown) (unknown) Time Seen by (units (u nknown) date) Provider: 05/13/22 unknown) 14:15 (unknown) (no (unknown) (unknown) Total Bilirubin (units (unknown) date) (0.2-1.3) mg/dL unknown) (unknown) (no (unknown) (unknown) Total Bilirubin 0.9 (unit s (unknown) date) (0.2-1.3) mg/dL unknown) (unknown) (no (unknown) (unknown) Total Protein (units ( unknown) date) (6.3-8.2) g/dL unknown) (unknown) (no (unknown) (unknown) Total Protein 7.7 (units (unknown) date) (6.3-8.2) g/dL unknown) (unknown) (no (unknown) (unknown) Trop I [Troponin I] (unit s (unknown) date) Stat unknown) (unknown) (no (unknown) (unknown) Troponin I (units (unk nown) date) (0.01-0.034) ng/mL unknown) (unknown) (no (unknown) (unknown) Troponin I 0.020 (units (unknown) date) (0.01-0.034) ng/mL unknown) (unknown) (no (unknown) (unknown) Troponin I Stat (units (unknown) date) unknown) (unknown) (no (unknown) (unknown) Vital Signs - 8 hr (units (unknown) date) unknown) (unknown) (no (unknown) (unknown) Vital Signs (units (un known) date) unknown) (unknown) (no (unknown) (unknown) Vital signs: (units (u nknown) date) unknown) (unknown) (no (unknown) (unknown) WBC (4.5-11.0) (units (unknown) date) X103/uL unknown) (unknown) (no (unknown) (unknown) WBC 10.9 (4.5-11.0) (unit s (unknown) date) X103/uL unknown) (unknown) (no (unknown) (unknown) XR chest 1V Stat (units (unknown) date) unknown) (unknown) (no (unknown) (unknown) [Embedded Image Not (unit s (unknown) date) Available] unknown) (unknown) (no (unknown) (unknown) alcohol intake (units (unknown) date) frequency: 0-2 unknown) drinks per day (unknown) (no (unknown) (unknown) allergies. She (units (unknown) date) smoked for a year at unknown) age 18, she has not oz of vodka nightly, no (unknown) (no (unknown) (unknown) and a pressure on (units (unknown) date) her chest that seems unknown) to be associated with the shortness of (unknown) (no (unknown) (unknown) and below (units (unkn own) date) unknown) (unknown) (no (unknown) (unknown) breath that has (units (unknown) date) been intermittent unknown) now becoming persistent. Patient states no (unknown) (no (unknown) (unknown) chest moves (units (unk nown) date) symmetrically, no unknown) tachypnea accessory muscle use patient's speaks in (unknown) (no (unknown) (unknown) discolored and she (units (unknown) date) states that has been unknown) like that for several months. She does (unknown) (no (unknown) (unknown) erythema, tonsillar (unit s (unknown) date) enlargement or unknown) uvular deviation (unknown) (no (unknown) (unknown) jeet and lateral. (units (unknown) date) No elevation. unknown) Patient does not have prior for comparison. (unknown) (no (unknown) (unknown) extremities, full (units (unknown) date) range of motion, unknown) normal gait (unknown) (no (unknown) (unknown) fevers or chills. (units (unknown) date) No cold cough or unknown) congestion. She is had some nausea but no (unknown) (no (unknown) (unknown) full sentences. She (unit s (unknown) date) Oxiimask at 9 L on unknown) my evaluation. (unknown) (no (unknown) (unknown) her home and gets (units (unknown) date) very short of breath unknown) with exertion. She has not appreciated (unknown) (no (unknown) (unknown) illicit. (units (u nknown) date) Damari is her PCP. unknown) (unknown) (no (unknown) (unknown) increasing shortness (unit s (unknown) date) of breath for for 5 unknown) days, she is had tightness in her chest (unknown) (no (unknown) (unknown) masses noted, no (units (unknown) date) hepatosplenomegaly unknown) (unknown) (no (unknown) (unknown) medications for (units (unknown) date) anything else, no unknown) history of cardiac stents. No known drug (unknown) (no (unknown) (unknown) mild distress. (units (unknown) date) unknown) (unknown) (no (unknown) (unknown) movements are (units ( unknown) date) intact, nares are unknown) clear,. Throat is clear without any exudates, (unknown) (no (unknown) (unknown) not appreciate new (units (unknown) date) swelling in her unknown) legs. She comes today she felt like her (unknown) (no (unknown) (unknown) she just was (units (u nknown) date) started on a new unknown) pain medication by her primary care provider to (unknown) (no (unknown) (unknown) she might pass out (units (unknown) date) or gets very unknown) lightheaded when she tries to ambulate around (unknown) (no (unknown) (unknown) shortness of breath (unit s (unknown) date) was increasing over unknown) time. Patient states she is not on (unknown) (no (unknown) (unknown) significant (units (un known) date) increase in swelling unknown) in her extremities. Her feet are mottled and (unknown) (no (unknown) (unknown) states this is her (units (unknown) date) normal baseline for unknown) several months. (unknown) (no (unknown) (unknown) vomiting. No (units (u nknown) date) diaphoresis with unknown) these episodes. She notes that she feels like (unknown) (no (unknown) (unknown) wean her off her (units (unknown) date) [place]. She is unsure unknown) what it is called. She states she is had Result panel 111 (unknown) (no (unknown) (unknown) (no value) (units (unk nown) date) unknown) (unknown) (no (unknown) (unknown) 05/13/22 05/13/22 (units (unknown) date) 05/13/22 Range/Units unknown) (unknown) (no (unknown) (unknown) 05/13/22 12:57 (units (unknown) date) unknown) (unknown) (no (unknown) (unknown) 05/13/22 13:11 (units (unknown) date) unknown) (unknown) (no (unknown) (unknown) 05/13/22 13:13 (units (unknown) date) unknown) (unknown) (no (unknown) (unknown) 05/13/22 13:49 (units (unknown) date) unknown) (unknown) (no (unknown) (unknown) 05/13/22 13:56 (units (unknown) date) unknown) (unknown) (no (unknown) (unknown) 05/13/22 15:50 (units (unknown) date) unknown) (unknown) (no (unknown) (unknown) 05/13/22 (units (unkno wn) date) unknown) (unknown) (no (unknown) (unknown) [id number] (units (unkno wn) date) unknown) (unknown) (no (unknown) (unknown) 12:40 05/13/22 (units (unknown) date) unknown) (unknown) (no (unknown) (unknown) 12:40 (units (unkno wn) date) unknown) (unknown) (no (unknown) (unknown) 12:44 05/13/22 (units (unknown) date) unknown) (unknown) (no (unknown) (unknown) 12:50 05/13/22 (units (unknown) date) unknown) (unknown) (no (unknown) (unknown) 12:58 (units (unkno wn) date) unknown) (unknown) (no (unknown) (unknown) 13:00 05/13/22 (units (unknown) date) unknown) (unknown) (no (unknown) (unknown) 13:00 (units (unkno wn) date) unknown) (unknown) (no (unknown) (unknown) 13:08 05/13/22 (units (unknown) date) unknown) (unknown) (no (unknown) (unknown) 13:11 13:13 13:49 (units (unknown) date) unknown) (unknown) (no (unknown) (unknown) 13:13 05/13/22 (units (unknown) date) unknown) (unknown) (no (unknown) (unknown) 13:30 05/13/22 (units (unknown) date) unknown) (unknown) (no (unknown) (unknown) 13:30 (units (unkno wn) date) unknown) (unknown) (no (unknown) (unknown) 13:49 13:49 13:49 (units (unknown) date) unknown) (unknown) (no (unknown) (unknown) 14:00 05/13/22 (units (unknown) date) unknown) (unknown) (no (unknown) (unknown) 14:30 (units (unkno wn) date) unknown) (unknown) (no (unknown) (unknown) ABD:bowel sounds (units (unknown) date) normal, soft, unknown) non-tender, no guarding, rebound, rigidity, no (unknown) (no (unknown) (unknown) ALT (<35) IU/L (units (unknown) date) unknown) (unknown) (no (unknown) (unknown) ALT 24 (<35) IU/L (units (unknown) date) unknown) (unknown) (no (unknown) (unknown) AST (14-36) IU/L (units (unknown) date) unknown) (unknown) (no (unknown) (unknown) AST 28 (14-36) IU/L (unit s (unknown) date) unknown) (unknown) (no (unknown) (unknown) Adenovirus (PCR) (units (unknown) date) (Not Detect) unknown) (unknown) (no (unknown) (unknown) Adenovirus (PCR) (units (unknown) date) Not detected (Not unknown) Detect) (unknown) (no (unknown) (unknown) Age/Sex: 81 / F (units (unknown) date) unknown) (unknown) (no (unknown) (unknown) Albumin (3.5-5.0) (units (unknown) date) g/dL unknown) (unknown) (no (unknown) (unknown) Albumin 4.3 (units (un known) date) (3.5-5.0) g/dL unknown) (unknown) (no (unknown) (unknown) Albumin/Globulin (units (unknown) date) Ratio (1.0-2.8) unknown) (unknown) (no (unknown) (unknown) Albumin/Globulin (units (unknown) date) Ratio 1.3 (1.0-2.8) unknown) (unknown) (no (unknown) (unknown) Alcohol type: hard (units (unknown) date) liquor unknown) (unknown) (no (unknown) (unknown) Alkaline (units (unkno wn) date) Phosphatase (38-126) unknown) U/L (unknown) (no (unknown) (unknown) Alkaline (units (unkno wn) date) Phosphatase 88 unknown) (38-126) U/L (unknown) (no (unknown) (unknown) Attestation: I (units (unknown) date) personally reviewed unknown) and interpreted this ECG as follows: (unknown) (no (unknown) (unknown) B. pertussis DNA (units (unknown) date) (PCR) (Not Detecte) unknown) (unknown) (no (unknown) (unknown) B. pertussis DNA (units (unknown) date) (PCR) Not detected unknown) (Not Detecte) (unknown) (no (unknown) (unknown) B.parapertussis DNA (unit s (unknown) date) PCR (Not Detecte) unknown) (unknown) (no (unknown) (unknown) B.parapertussis DNA (unit s (unknown) date) PCR Not detected unknown) (Not Detecte) (unknown) (no (unknown) (unknown) BUN (7-17) mg/dL (units (unknown) date) unknown) (unknown) (no (unknown) (unknown) BUN 18 H (7-17) (units (unknown) date) mg/dL unknown) (unknown) (no (unknown) (unknown) BUN/Creatinine (units (unknown) date) Ratio (6-22) unknown) (unknown) (no (unknown) (unknown) BUN/Creatinine (units (unknown) date) Ratio 20.7 (6-22) unknown) (unknown) (no (unknown) (unknown) Baso # (Auto) (units ( unknown) date) (0-100) /uL unknown) (unknown) (no (unknown) (unknown) Baso # (Auto) 0 (units (unknown) date) (0-100) /uL unknown) (unknown) (no (unknown) (unknown) Baso % (Auto) (0-2) (unit s (unknown) date) % unknown) (unknown) (no (unknown) (unknown) Baso % (Auto) 0.2 (units (unknown) date) (0-2) % unknown) (unknown) (no (unknown) (unknown) Blood Pressure (units (unknown) date) 107/59 L 05/13/22 unknown) 12:40 (unknown) (no (unknown) (unknown) Blood Pressure (units (unknown) date) 107/59 L 118/68 unknown) (unknown) (no (unknown) (unknown) Blood Pressure (units (unknown) date) 107/59 L unknown) (unknown) (no (unknown) (unknown) Blood Pressure (units (unknown) date) 122/83 unknown) (unknown) (no (unknown) (unknown) Blood Pressure (units (unknown) date) unknown) (unknown) (no (unknown) (unknown) COVID19 -Nasal (units (unknown) date) RAPID Stat unknown) (unknown) (no (unknown) (unknown) Calcium (8.4-10.2) (units (unknown) date) mg/dL unknown) (unknown) (no (unknown) (unknown) Calcium 9.1 (units (un known) date) (8.4-10.2) mg/dL unknown) (unknown) (no (unknown) (unknown) Carbon Dioxide (units (unknown) date) (22-32) mmol/L unknown) (unknown) (no (unknown) (unknown) Carbon Dioxide 26 (units (unknown) date) (22-32) mmol/L unknown) (unknown) (no (unknown) (unknown) Chief Complaint: (units (unknown) date) Shortness of unknown) Breath/Dyspnea (unknown) (no (unknown) (unknown) Chlamy pneumoniae (units (unknown) date) PCR (Not Detect) unknown) (unknown) (no (unknown) (unknown) Chlamy pneumoniae (units (unknown) date) PCR Not detected unknown) (Not Detect) (unknown) (no (unknown) (unknown) Chloride (98-107) (units (unknown) date) mmol/L unknown) (unknown) (no (unknown) (unknown) Chloride 98 (units (un known) date) (98-107) mmol/L unknown) (unknown) (no (unknown) (unknown) Clinical (units (unkno wn) date) Impression: unknown) (unknown) (no (unknown) (unknown) Complete Blood (units (unknown) date) Count AUTO DIFF Stat unknown) (unknown) (no (unknown) (unknown) Comprehensive (units ( unknown) date) Metabolic Panel Stat unknown) (unknown) (no (unknown) (unknown) Congestive heart (units (unknown) date) failure unknown) (unknown) (no (unknown) (unknown) Coronavirus 229E (units (unknown) date) (PCR) (Not Detect) unknown) (unknown) (no (unknown) (unknown) Coronavirus 229E (units (unknown) date) (PCR) Not detected unknown) (Not Detect) (unknown) (no (unknown) (unknown) Coronavirus HKU1 (units (unknown) date) (PCR) (Not Detect) unknown) (unknown) (no (unknown) (unknown) Coronavirus HKU1 (units (unknown) date) (PCR) Not detected unknown) (Not Detect) (unknown) (no (unknown) (unknown) Coronavirus NL63 (units (unknown) date) (PCR) (Not Detect) unknown) (unknown) (no (unknown) (unknown) Coronavirus NL63 (units (unknown) date) (PCR) Not detected unknown) (Not Detect) (unknown) (no (unknown) (unknown) Coronavirus OC43 (units (unknown) date) (PCR) (Not Detect) unknown) (unknown) (no (unknown) (unknown) Coronavirus OC43 (units (unknown) date) (PCR) Not detected unknown) (Not Detect) (unknown) (no (unknown) (unknown) Course (units (unkno wn) date) unknown) (unknown) (no (unknown) (unknown) Creatinine (units (unk nown) date) (0.52-1.04) mg/dL unknown) (unknown) (no (unknown) (unknown) Creatinine 0.87 (units (unknown) date) (0.52-1.04) mg/dL unknown) (unknown) (no (unknown) (unknown) : 1940 (units (unknown) date) Acct:[id number] unknown) (unknown) (no (unknown) (unknown) Date of Service: (units (unknown) date) 05/13/22 unknown) (unknown) (no (unknown) (unknown) Departure (units (unkn own) date) unknown) (unknown) (no (unknown) (unknown) Discharge Plan (units (unknown) date) unknown) (unknown) (no (unknown) (unknown) Discontinued (units (u nknown) date) Medications unknown) (unknown) (no (unknown) (unknown) Discussed with (units (unknown) date) Saray hospitalist unknown) (unknown) (no (unknown) (unknown) ECG Data (units (unkno wn) date) unknown) (unknown) (no (unknown) (unknown) ED Orders (units (unkn own) date) unknown) (unknown) (no (unknown) (unknown) EKG-12 Lead Stat (units (unknown) date) unknown) (unknown) (no (unknown) (unknown) ER Physician: (units ( unknown) date) Sujata Graff D.O. unknown) (unknown) (no (unknown) (unknown) Emergency Report (units (unknown) date) unknown) (unknown) (no (unknown) (unknown) Entero/Rhino (PCR) (units (unknown) date) (Not Detect) unknown) (unknown) (no (unknown) (unknown) Entero/Rhino (PCR) (units (unknown) date) Not detected (Not unknown) Detect) (unknown) (no (unknown) (unknown) Eos # (Auto) (units (u nknown) date) (0-450) /uL unknown) (unknown) (no (unknown) (unknown) Eos # (Auto) 0 (units (unknown) date) (0-450) /uL unknown) (unknown) (no (unknown) (unknown) Eos % (Auto) (2-4) (units (unknown) date) % unknown) (unknown) (no (unknown) (unknown) Eos % (Auto) 0.3 L (units (unknown) date) (2-4) % unknown) (unknown) (no (unknown) (unknown) Estimated GFR > 60 (units (unknown) date) (>60) mL/min unknown) (unknown) (no (unknown) (unknown) Estimated GFR (>60) (unit s (unknown) date) mL/min unknown) (unknown) (no (unknown) (unknown) Exam Narrative: (units (unknown) date) unknown) (unknown) (no (unknown) (unknown) Exam (units (unkno wn) date) unknown) (unknown) (no (unknown) (unknown) Feet do have some (units (unknown) date) discoloration are unknown) slightly mottled, hands do not. Patient (unknown) (no (unknown) (unknown) Furosemide (units (unk nown) date) (Furosemide 40 Mg/4 unknown) Ml Vial) 40 mg IV NOW ONE (unknown) (no (unknown) (unknown) GEN: Obese elderly (units (unknown) date) female, alert and unknown) oriented x 3, patient appears to be in (unknown) (no (unknown) (unknown) :No CVA (units (unkn own) date) tenderness unknown) (unknown) (no (unknown) (unknown) General (units (unkno wn) date) unknown) (unknown) (no (unknown) (unknown) Globulin (1.7-4.1) (units (unknown) date) g/dL unknown) (unknown) (no (unknown) (unknown) Globulin 3.4 (units (u nknown) date) (1.7-4.1) g/dL unknown) (unknown) (no (unknown) (unknown) Glucose (80-110) (units (unknown) date) mg/dL unknown) (unknown) (no (unknown) (unknown) Glucose 133 H (units ( unknown) date) (80-110) mg/dL unknown) (unknown) (no (unknown) (unknown) HEART: Regular rate (unit s (unknown) date) and rhythm without unknown) murmur, clicks, rubs. Pulmonary VD. (unknown) (no (unknown) (unknown) HEENT: Atraumatic, (units (unknown) date) pupils are equal unknown) round reactive to light, extraocular (unknown) (no (unknown) (unknown) HPI - SOB/Dyspnea (units (unknown) date) unknown) (unknown) (no (unknown) (unknown) HPI Narrative: (units (unknown) date) unknown) (unknown) (no (unknown) (unknown) Hct (36-46) % (units ( unknown) date) unknown) (unknown) (no (unknown) (unknown) Hct 49.2 H (36-46) (units (unknown) date) % unknown) (unknown) (no (unknown) (unknown) Hgb (12.0-16.0) (units (unknown) date) g/dL unknown) (unknown) (no (unknown) (unknown) Hgb 16.1 H (units (unk nown) date) (12.0-16.0) g/dL unknown) (unknown) (no (unknown) (unknown) History of Present (units (unknown) date) Illness unknown) (unknown) (no (unknown) (unknown) Human Metapneumovir (unit s (unknown) date) PCR (Not Detect) unknown) (unknown) (no (unknown) (unknown) Human Metapneumovir (unit s (unknown) date) PCR Not detected unknown) (Not Detect) (unknown) (no (unknown) (unknown) INR (0.9-1.3) (units ( unknown) date) unknown) (unknown) (no (unknown) (unknown) INR 1.2 (0.9-1.3) (units (unknown) date) unknown) (unknown) (no (unknown) (unknown) Influenza Type A (units (unknown) date) (PCR) (Not Detect) unknown) (unknown) (no (unknown) (unknown) Influenza Type A (units (unknown) date) (PCR) Not detected unknown) (Not Detect) (unknown) (no (unknown) (unknown) Influenza Type B (units (unknown) date) (PCR) (Not Detect) unknown) (unknown) (no (unknown) (unknown) Influenza Type B (units (unknown) date) (PCR) Not detected unknown) (Not Detect) (unknown) (no (unknown) (unknown) Initial Vital Signs (unit s (unknown) date) unknown) (unknown) (no (unknown) (unknown) Initial Vital (units ( unknown) date) Signs: unknown) (unknown) (no (unknown) (unknown) Interpretation: (units (unknown) date) unknown) (unknown) (no (unknown) (unknown) [facility] (units (unknown) date) [address] [place] [address] Street unknown) [place] [address] (unknown) (no (unknown) (unknown) LUNGS:Lungs breath (units (unknown) date) sounds equal unknown) bilaterally, no wheezes, bilateral crackles, (unknown) (no (unknown) (unknown) Lab Data (units (unkno wn) date) unknown) (unknown) (no (unknown) (unknown) Lab Results (units (un known) date) unknown) (unknown) (no (unknown) (unknown) Labs: (units (unkno wn) date) unknown) (unknown) (no (unknown) (unknown) Lactate (0.7-2.1) (units (unknown) date) mmol/L unknown) (unknown) (no (unknown) (unknown) Lactate (Lactic (units (unknown) date) Acid) Stat unknown) (unknown) (no (unknown) (unknown) Lactate 1.9 (units (un known) date) (0.7-2.1) mmol/L unknown) (unknown) (no (unknown) (unknown) Eber Wetzel, (unit s (unknown) date) MD [Primary Care unknown) Provider] (unknown) (no (unknown) (unknown) Limitations: no (units (unknown) date) limitations unknown) (unknown) (no (unknown) (unknown) Lymph # (Auto) (units (unknown) date) (2476-0304) /uL unknown) (unknown) (no (unknown) (unknown) Lymph # (Auto) 600 (units (unknown) date) L (5934-6643) /uL unknown) (unknown) (no (unknown) (unknown) Lymph % (Auto) (units (unknown) date) (25-40) % unknown) (unknown) (no (unknown) (unknown) Lymph % (Auto) 5.5 (units (unknown) date) L (25-40) % unknown) (unknown) (no (unknown) (unknown) M. pneumoniae (PCR) (unit s (unknown) date) (Not Detect) unknown) (unknown) (no (unknown) (unknown) M. pneumoniae (PCR) (unit s (unknown) date) Not detected (Not unknown) Detect) (unknown) (no (unknown) (unknown) MCH (26-34) PG (units (unknown) date) unknown) (unknown) (no (unknown) (unknown) MCH 28.4 (26-34) PG (unit s (unknown) date) unknown) (unknown) (no (unknown) (unknown) MCHC (30-36) % (units (unknown) date) unknown) (unknown) (no (unknown) (unknown) MCHC 32.8 (30-36) % (unit s (unknown) date) unknown) (unknown) (no (unknown) (unknown) MCV (80-100) fL (units (unknown) date) unknown) (unknown) (no (unknown) (unknown) MCV 86.8 (80-100) (units (unknown) date) fL unknown) (unknown) (no (unknown) (unknown) MDM - SOB/Dyspnea (units (unknown) date) unknown) (unknown) (no (unknown) (unknown) MDM Narrative (units ( unknown) date) unknown) (unknown) (no (unknown) (unknown) MSCL: Non-tender, (units (unknown) date) no muscle atrophy, unknown) muscles strength 5/5 upper and lower (unknown) (no (unknown) (unknown) Measure peak (units (u nknown) date) expiratory flow ONCE unknown) (unknown) (no (unknown) (unknown) Medical decision (units (unknown) date) making narrative: unknown) (unknown) (no (unknown) (unknown) Mode of arrival: (units (unknown) date) EMS unknown) (unknown) (no (unknown) (unknown) Harris # (Auto) (units ( unknown) date) (0-900) /uL unknown) (unknown) (no (unknown) (unknown) Harris # (Auto) 400 (units (unknown) date) (0-900) /uL unknown) (unknown) (no (unknown) (unknown) Harris % (Auto) (units ( unknown) date) (3-14) % unknown) (unknown) (no (unknown) (unknown) Harris % (Auto) 4.1 (units (unknown) date) (3-14) % unknown) (unknown) (no (unknown) (unknown) NEURO:CN 2-12 (units ( unknown) date) intact, sensation unknown) normal (unknown) (no (unknown) (unknown) NT-Pro-B Natriuret (units (unknown) date) Pep (<450) pg/mL unknown) (unknown) (no (unknown) (unknown) NT-Pro-B Natriuret (units (unknown) date) Pep 64641 H (<450) unknown) pg/mL (unknown) (no (unknown) (unknown) NT-proBNP (units (unkn own) date) (BNP-Adult 18+) Stat unknown) (unknown) (no (unknown) (unknown) Narrative (units (unkn own) date) unknown) (unknown) (no (unknown) (unknown) Neut # (Auto) (units ( unknown) date) (6863-3890) /uL unknown) (unknown) (no (unknown) (unknown) Neut # (Auto) 9800 (units (unknown) date) H (4869-4530) /uL unknown) (unknown) (no (unknown) (unknown) Neut % (Auto) (units ( unknown) date) (50-75) % unknown) (unknown) (no (unknown) (unknown) Neut % (Auto) 89.9 (units (unknown) date) H (50-75) % unknown) (unknown) (no (unknown) (unknown) Normal sinus (units (u nknown) date) rhythm, left axis unknown) deviation, rate of 98, OR 120, QRS 88 QTC 347. (unknown) (no (unknown) (unknown) Ordered: (units (unkno wn) date) unknown) (unknown) (no (unknown) (unknown) Orders (units (unkno wn) date) unknown) (unknown) (no (unknown) (unknown) Oximask (units (unkno wn) date) unknown) (unknown) (no (unknown) (unknown) Oxygen Delivery (units (unknown) date) Method Nasal Cannula unknown) (unknown) (no (unknown) (unknown) Oxygen Delivery (units (unknown) date) Method Oximask unknown) Oximask (unknown) (no (unknown) (unknown) Oxygen Delivery (units (unknown) date) Method Room Air unknown) 05/13/22 12:40 (unknown) (no (unknown) (unknown) Oxygen Delivery (units (unknown) date) Method Room Air unknown) Nasal Cannula Oximask (unknown) (no (unknown) (unknown) Oxygen Flow Rate 4 (units (unknown) date) 6 unknown) (unknown) (no (unknown) (unknown) Oxygen Flow Rate 5 (units (unknown) date) unknown) (unknown) (no (unknown) (unknown) Oxygen Flow Rate 8 (units (unknown) date) 9 unknown) (unknown) (no (unknown) (unknown) Oxygen Flow Rate 9 (units (unknown) date) 7 unknown) (unknown) (no (unknown) (unknown) Oxygen Flow Rate 9 (units (unknown) date) 9 unknown) (unknown) (no (unknown) (unknown) PT (10.1-12.7) (units (unknown) date) SECONDS unknown) (unknown) (no (unknown) (unknown) PT 14.1 H (units (unkn own) date) (10.1-12.7) SECONDS unknown) (unknown) (no (unknown) (unknown) Parainfluenza 1 (units (unknown) date) (PCR) (Not Detect) unknown) (unknown) (no (unknown) (unknown) Parainfluenza 1 (units (unknown) date) (PCR) Not detected unknown) (Not Detect) (unknown) (no (unknown) (unknown) Parainfluenza 2 (units (unknown) date) (PCR) (Not Detect) unknown) (unknown) (no (unknown) (unknown) Parainfluenza 2 (units (unknown) date) (PCR) Not detected unknown) (Not Detect) (unknown) (no (unknown) (unknown) Parainfluenza 3 (units (unknown) date) (PCR) (Not Detect) unknown) (unknown) (no (unknown) (unknown) Parainfluenza 3 (units (unknown) date) (PCR) Not detected unknown) (Not Detect) (unknown) (no (unknown) (unknown) Parainfluenza 4 (units (unknown) date) (PCR) (Not Detect) unknown) (unknown) (no (unknown) (unknown) Parainfluenza 4 (units (unknown) date) (PCR) Not detected unknown) (Not Detect) (unknown) (no (unknown) (unknown) Patient History (units (unknown) date) unknown) (unknown) (no (unknown) (unknown) Patient change in (units (unknown) date) lateral no with unknown) inverted T-wave and RSR V1 through the read (unknown) (no (unknown) (unknown) Patient does not (units (unknown) date) have pitting edema unknown) but has some mild swelling bilaterally. (unknown) (no (unknown) (unknown) Patient's P wave (units (unknown) date) inverted in lead 3. unknown) (unknown) (no (unknown) (unknown) Patient: (units (unkno wn) date) Gely Milner MR#: unknown) M00 (unknown) (no (unknown) (unknown) Plt Count (150-400) (unit s (unknown) date) X103/uL unknown) (unknown) (no (unknown) (unknown) Plt Count 252 (units ( unknown) date) (150-400) X103/uL unknown) (unknown) (no (unknown) (unknown) Potassium (3.4-5.1) (unit s (unknown) date) mmol/L unknown) (unknown) (no (unknown) (unknown) Potassium 4.3 (units ( unknown) date) (3.4-5.1) mmol/L unknown) (unknown) (no (unknown) (unknown) Prior ECG tracings: (unit s (unknown) date) available for review unknown) (unknown) (no (unknown) (unknown) Prothrombin Time (units (unknown) date) INR Stat unknown) (unknown) (no (unknown) (unknown) Pulse Oximetry 85 L (unit s (unknown) date) 05/13/22 12:40 unknown) (unknown) (no (unknown) (unknown) Pulse Oximetry 85 L (unit s (unknown) date) 87 L 91 unknown) (unknown) (no (unknown) (unknown) Pulse Oximetry 88 L (unit s (unknown) date) 96 unknown) (unknown) (no (unknown) (unknown) Pulse Oximetry 90 L (unit s (unknown) date) unknown) (unknown) (no (unknown) (unknown) Pulse Oximetry 94 (units (unknown) date) 92 unknown) (unknown) (no (unknown) (unknown) Pulse Oximetry 95 (units (unknown) date) 89 L unknown) (unknown) (no (unknown) (unknown) Pulse Rate 100 H (units (unknown) date) 05/13/22 12:40 unknown) (unknown) (no (unknown) (unknown) Pulse Rate 100 H (units (unknown) date) unknown) (unknown) (no (unknown) (unknown) Pulse Rate 101 H 96 (unit s (unknown) date) H unknown) (unknown) (no (unknown) (unknown) Pulse Rate 97 H 96 (units (unknown) date) H unknown) (unknown) (no (unknown) (unknown) RBC (4.0-5.2) (units ( unknown) date) X106/uL unknown) (unknown) (no (unknown) (unknown) RBC 5.67 H (units (unk nown) date) (4.0-5.2) X106/uL unknown) (unknown) (no (unknown) (unknown) RDW (11.6-14.8) % (units (unknown) date) unknown) (unknown) (no (unknown) (unknown) RDW 13.8 (units (unkno wn) date) (11.6-14.8) % unknown) (unknown) (no (unknown) (unknown) ROS Unobtainable: (units (unknown) date) All systems reviewed unknown) + are unremarkable except as noted in HPI (unknown) (no (unknown) (unknown) RSV (PCR) (Not (units (unknown) date) Detect) unknown) (unknown) (no (unknown) (unknown) RSV (PCR) Not (units ( unknown) date) detected (Not unknown) Detect) (unknown) (no (unknown) (unknown) RT Consult Eval and (unit s (unknown) date) Treat NOW unknown) (unknown) (no (unknown) (unknown) Referrals: (units (unk nown) date) unknown) (unknown) (no (unknown) (unknown) Respiratory Panel (units (unknown) date) (Film Array) Stat unknown) (unknown) (no (unknown) (unknown) Respiratory Rate 16 (unit s (unknown) date) 16 unknown) (unknown) (no (unknown) (unknown) Respiratory Rate 22 (unit s (unknown) date) 05/13/22 12:40 unknown) (unknown) (no (unknown) (unknown) Respiratory Rate 22 (unit s (unknown) date) unknown) (unknown) (no (unknown) (unknown) Respiratory Rate 23 (unit s (unknown) date) 24 unknown) (unknown) (no (unknown) (unknown) Respiratory Rate (units (unknown) date) unknown) (unknown) (no (unknown) (unknown) Review of Systems (units (unknown) date) unknown) (unknown) (no (unknown) (unknown) SARS-CoV-2 (PCR) (units (unknown) date) (Negative) unknown) (unknown) (no (unknown) (unknown) SARS-CoV-2 (PCR) (units (unknown) date) Negative Not unknown) detected (Negative) (unknown) (no (unknown) (unknown) SKIN: See above. (units (unknown) date) unknown) (unknown) (no (unknown) (unknown) Signed By: (units (unk nown) date) unknown) (unknown) (no (unknown) (unknown) Smoking Status: (units (unknown) date) Never smoker unknown) (unknown) (no (unknown) (unknown) Social History (units (unknown) date) (Reviewed 05/13/22 @ unknown) 14:48 by Sujata Graff DO) (unknown) (no (unknown) (unknown) Sodium (137-145) (units (unknown) date) mmol/L unknown) (unknown) (no (unknown) (unknown) Sodium 135 L (units (u nknown) date) (137-145) mmol/L unknown) (unknown) (no (unknown) (unknown) Source: patient and (unit s (unknown) date) EMS unknown) (unknown) (no (unknown) (unknown) Stated Complaint: (units (unknown) date) Dizzy, SOB T-3 unknown) (unknown) (no (unknown) (unknown) Stop: 05/13/22 (units (unknown) date) 14:24 unknown) (unknown) (no (unknown) (unknown) Substance Use Type: (unit s (unknown) date) does not use unknown) (unknown) (no (unknown) (unknown) Temperature 97.6 F (units (unknown) date) 05/13/22 12:40 unknown) (unknown) (no (unknown) (unknown) Temperature 97.6 F (units (unknown) date) unknown) (unknown) (no (unknown) (unknown) Temperature (units (un known) date) unknown) (unknown) (no (unknown) (unknown) These show (units (unk nown) date) unknown) (unknown) (no (unknown) (unknown) This is a (units (unkn own) date) 81-year-old female unknown) with complaint of increasing shortness of breath (unknown) (no (unknown) (unknown) This is an (units (unk nown) date) 81-year-old female unknown) who states her only medications are Epsom daily (unknown) (no (unknown) (unknown) Time Seen by (units (u nknown) date) Provider: 05/13/22 unknown) 14:15 (unknown) (no (unknown) (unknown) Total Bilirubin (units (unknown) date) (0.2-1.3) mg/dL unknown) (unknown) (no (unknown) (unknown) Total Bilirubin 0.9 (unit s (unknown) date) (0.2-1.3) mg/dL unknown) (unknown) (no (unknown) (unknown) Total Protein (units ( unknown) date) (6.3-8.2) g/dL unknown) (unknown) (no (unknown) (unknown) Total Protein 7.7 (units (unknown) date) (6.3-8.2) g/dL unknown) (unknown) (no (unknown) (unknown) Trop I [Troponin I] (unit s (unknown) date) Stat unknown) (unknown) (no (unknown) (unknown) Troponin I (units (unk nown) date) (0.01-0.034) ng/mL unknown) (unknown) (no (unknown) (unknown) Troponin I 0.020 (units (unknown) date) (0.01-0.034) ng/mL unknown) (unknown) (no (unknown) (unknown) Troponin I Stat (units (unknown) date) unknown) (unknown) (no (unknown) (unknown) Vital Signs - 8 hr (units (unknown) date) unknown) (unknown) (no (unknown) (unknown) Vital Signs (units (un known) date) unknown) (unknown) (no (unknown) (unknown) Vital signs: (units (u nknown) date) unknown) (unknown) (no (unknown) (unknown) WBC (4.5-11.0) (units (unknown) date) X103/uL unknown) (unknown) (no (unknown) (unknown) WBC 10.9 (4.5-11.0) (unit s (unknown) date) X103/uL unknown) (unknown) (no (unknown) (unknown) XR chest 1V Stat (units (unknown) date) unknown) (unknown) (no (unknown) (unknown) [Embedded Image Not (unit s (unknown) date) Available] unknown) (unknown) (no (unknown) (unknown) a normal renal (units (unknown) date) function, troponins unknown) 0.02 [place] [id number]. Patient had COVID (unknown) (no (unknown) (unknown) alcohol intake (units (unknown) date) frequency: 0-2 unknown) drinks per day (unknown) (no (unknown) (unknown) allergies. She (units (unknown) date) smoked for a year at unknown) age 18, she has not oz of vodka nightly, no (unknown) (no (unknown) (unknown) and a pressure on (units (unknown) date) her chest that seems unknown) to be associated with the shortness of (unknown) (no (unknown) (unknown) and below (units (unkn own) date) unknown) (unknown) (no (unknown) (unknown) as well as (units (unk nown) date) respiratory panel unknown) which is negative. Patient was given Lasix, (unknown) (no (unknown) (unknown) breath that has (units (unknown) date) been intermittent unknown) now becoming persistent. Patient states no (unknown) (no (unknown) (unknown) chest moves (units (unk nown) date) symmetrically, no unknown) tachypnea accessory muscle use patient's speaks in (unknown) (no (unknown) (unknown) continue with (units ( unknown) date) oxygen support. unknown) Troponin and EKG were repeated patient did have (unknown) (no (unknown) (unknown) discolored and she (units (unknown) date) states that has been unknown) like that for several months. She does (unknown) (no (unknown) (unknown) erythema, tonsillar (unit s (unknown) date) enlargement or unknown) uvular deviation (unknown) (no (unknown) (unknown) jeet and lateral. (units (unknown) date) No elevation. unknown) Patient does not have prior for comparison. (unknown) (no (unknown) (unknown) extremities, full (units (unknown) date) range of motion, unknown) normal gait (unknown) (no (unknown) (unknown) fevers or chills. (units (unknown) date) No cold cough or unknown) congestion. She is had some nausea but no (unknown) (no (unknown) (unknown) full sentences. She (unit s (unknown) date) Oxiimask at 9 L on unknown) my evaluation. (unknown) (no (unknown) (unknown) hemoglobin is 16, (units (unknown) date) neutrophils are 89, unknown) INR was normal, sodium is 135 BUN 18 with (unknown) (no (unknown) (unknown) her home and gets (units (unknown) date) very short of breath unknown) with exertion. She has not appreciated (unknown) (no (unknown) (unknown) illicit. (units (u nknown) date) Damari is her PCP. unknown) (unknown) (no (unknown) (unknown) improved with O2 (units (unknown) date) she does not appear unknown) to be dyspneic or requiring BiPAP. Patient (unknown) (no (unknown) (unknown) increasing shortness (unit s (unknown) date) of breath for for 5 unknown) days, she is had tightness in her chest (unknown) (no (unknown) (unknown) masses noted, no (units (unknown) date) hepatosplenomegaly unknown) (unknown) (no (unknown) (unknown) medications for (units (unknown) date) anything else, no unknown) history of cardiac stents. No known drug (unknown) (no (unknown) (unknown) mild distress. (units (unknown) date) unknown) (unknown) (no (unknown) (unknown) movements are (units ( unknown) date) intact, nares are unknown) clear,. Throat is clear without any exudates, (unknown) (no (unknown) (unknown) not appreciate new (units (unknown) date) swelling in her unknown) legs. She comes today she felt like her (unknown) (no (unknown) (unknown) over the last (units ( unknown) date) several days, unknown) patient has crackles in the bases, she is some (unknown) (no (unknown) (unknown) she just was (units (u nknown) date) started on a new unknown) pain medication by her primary care provider to (unknown) (no (unknown) (unknown) she might pass out (units (unknown) date) or gets very unknown) lightheaded when she tries to ambulate around (unknown) (no (unknown) (unknown) shortness of breath (unit s (unknown) date) was increasing over unknown) time. Patient states she is not on (unknown) (no (unknown) (unknown) shows a little bit (units (unknown) date) of change in the unknown) right lobe suspect CHF exacerbation she is (unknown) (no (unknown) (unknown) significant (units (un known) date) increase in swelling unknown) in her extremities. Her feet are mottled and (unknown) (no (unknown) (unknown) some T-wave (units (un known) date) inversion unknown if unknown) this is new she has no priors for comparison. (unknown) (no (unknown) (unknown) states this is her (units (unknown) date) normal baseline for unknown) several months. (unknown) (no (unknown) (unknown) swelling but no (units (unknown) date) pitting edema in her unknown) lower extremities. Patient's chest x-ray (unknown) (no (unknown) (unknown) vomiting. No (units (u nknown) date) diaphoresis with unknown) these episodes. She notes that she feels like (unknown) (no (unknown) (unknown) wean her off her (units (unknown) date) Epsom. She is unsure unknown) what it is called. She states she is had Result panel 112 (unknown) (no date) (unknown) (unknown) Negative (units (unkn own) unknown) Result panel 113 (unknown) (no date) (unknown) (unknown) 1-5 /HPF (units (unkn own) unknown) (unknown) (no date) (unknown) (unknown) 10-30/HPF (units (unk nown) unknown) (unknown) (no date) (unknown) (unknown) 10-30/HPF (units (unk nown) unknown) (unknown) (no date) (unknown) (unknown) 30-100/HPF (units (un known) unknown) (unknown) (no date) (unknown) (unknown) Cult Not (units (unkn own) Indicated unknown) (unknown) (no date) (unknown) (unknown) Moderate (units (unkn own) (10-30) unknown) (unknown) (no date) (unknown) (unknown) Negative (units (unkn own) unknown) Result panel 114 (unknown) (no (unknown) (unknown) (no value) (units (unk nown) date) unknown) (unknown) (no (unknown) (unknown) [id number] (units (unkno wn) date) unknown) (unknown) (no (unknown) (unknown) 05/13/22 (units (unkno wn) date) unknown) (unknown) (no (unknown) (unknown) [address] [place] [address] (units (unknown) date) unknown) (unknown) (no (unknown) (unknown) Abdomen: (units (unkno wn) date) Visualized upper unknown) abdominal solid organs appear normal in the early (unknown) (no (unknown) (unknown) Accession Number: (units (unknown) date) [id number] unknown) (unknown) (no (unknown) (unknown) After the (units (unkn own) date) administration of unknown) intravenous contrast, 2 mm thick sections acquired (unknown) (no (unknown) (unknown) Age/Sex: 81 / F (units (unknown) date) Date of Service: unknown) (unknown) (no (unknown) (unknown) [place], [place] (units ( unknown) date) [id number] unknown) (unknown) (no (unknown) (unknown) Approved by: (units (u nknown) date) Shahnaz Cornelius M.D. unknown) on 05/13/2022 at 17:21 (unknown) (no (unknown) (unknown) Bilateral (units (unkn own) date) pulmonary emboli unknown) with extension into the distal aspects of both the (unknown) (no (unknown) (unknown) Bones and chest (units (unknown) date) wall: No unknown) suspicious bony lesions. Ribs and thoracic spine (unknown) (no (unknown) (unknown) COMPARISON: (units (un known) date) [facility], unknown) CR, XR CHEST 1V, 05/13/2022, 13:57. (unknown) (no (unknown) (unknown) CT Scan Report (units (unknown) date) unknown) (unknown) (no (unknown) (unknown) : 1940 (units (unknown) date) Acct:[id number] unknown) (unknown) (no (unknown) (unknown) Dictated by: (units (u nknown) date) Shahnaz Cornelius M.D. unknown) on 05/13/2022 at 17:18 (unknown) (no (unknown) (unknown) FINDINGS: (units (unkn own) date) unknown) (unknown) (no (unknown) (unknown) For radiation (units ( unknown) date) dose reduction, unknown) the following was used: automated exposure (unknown) (no (unknown) (unknown) IMPRESSION: (units (un known) date) unknown) (unknown) (no (unknown) (unknown) INDICATIONS: chf, (units (unknown) date) rule out pe unknown) (unknown) (no (unknown) (unknown) Image quality: (units (unknown) date) Excellent. unknown) (unknown) (no (unknown) (unknown) [facility] (units (unknown) date) unknown) (unknown) (no (unknown) (unknown) Loc: ED (units (unkno wn) date) unknown) (unknown) (no (unknown) (unknown) Lungs and pleura: (units (unknown) date) Mild right unknown) effusion. (unknown) (no (unknown) (unknown) Mediastinum: (units (u nknown) date) Heart size is unknown) normal, with minimal pericardial effusion. No right (unknown) (no (unknown) (unknown) Ordering (units (unkno wn) date) Provider: unknown) Sujata Graff D.O. (unknown) (no (unknown) (unknown) PROCEDURE: CT (units ( unknown) date) ANGIO CHEST PE unknown) PROTOCOL (unknown) (no (unknown) (unknown) Patient: (units (unkno wn) date) Gely Milner unknown) MR#: [id number] (unknown) (no (unknown) (unknown) Procedure: CT (units ( unknown) date) angio chest PE unknown) protocol (unknown) (no (unknown) (unknown) Pulmonary (units (unkn own) date) arteries: There is unknown) a filling defect in the distal aspect of the right (unknown) (no (unknown) (unknown) Signed (units (unkno wn) date) unknown) (unknown) (no (unknown) (unknown) TECHNIQUE: (units (unk nown) date) unknown) (unknown) (no (unknown) (unknown) The above (units (unkn own) date) findings were unknown) discussed with Dr. Sujata Graff on 323 at 5:20 p.m.. (unknown) (no (unknown) (unknown) adenopathy. (units (un known) date) unknown) (unknown) (no (unknown) (unknown) adjustment of mA (units (unknown) date) and/or kV unknown) according to patient size. (unknown) (no (unknown) (unknown) and lower lobes (units (unknown) date) bilaterally. unknown) (unknown) (no (unknown) (unknown) appear intact (units ( unknown) date) unknown) (unknown) (no (unknown) (unknown) arterial (units (unkno wn) date) unknown) (unknown) (no (unknown) (unknown) bronchus. From (units (unknown) date) defects are unknown) identified extending to the segmental branches of (unknown) (no (unknown) (unknown) caliber and (units (un known) date) unknown) (unknown) (no (unknown) (unknown) control, (units (unkno wn) date) unknown) (unknown) (no (unknown) (unknown) enhancement. (units (u nknown) date) Esophagus is unknown) normal in caliber, without hiatal hernia. (unknown) (no (unknown) (unknown) from the (units (unkno wn) date) unknown) (unknown) (no (unknown) (unknown) heart (units (unkno wn) date) unknown) (unknown) (no (unknown) (unknown) intensity (units (unkn own) date) unknown) (unknown) (no (unknown) (unknown) left and (units (unkno wn) date) unknown) (unknown) (no (unknown) (unknown) left main (units (unkn own) date) unknown) (unknown) (no (unknown) (unknown) main (units (unkno wn) date) unknown) (unknown) (no (unknown) (unknown) phase of (units (unkno wn) date) enhancement. unknown) (unknown) (no (unknown) (unknown) projection (MIP) (units (unknown) date) coronal and unknown) sagittal reformats were then acquired through the (unknown) (no (unknown) (unknown) pulmonary apices (units (unknown) date) to the posterior unknown) costophrenic angles. 3-dimensional maximum (unknown) (no (unknown) (unknown) pulmonary artery. (units (unknown) date) Smaller filling unknown) defect is noted in the distal aspect of the (unknown) (no (unknown) (unknown) right main (units (unk nown) date) pulmonary unknown) arteries. Mild right effusion. (unknown) (no (unknown) (unknown) strain. No (units (unk nown) date) mediastinal or unknown) hilar adenopathy. Thoracic aorta is normal in (unknown) (no (unknown) (unknown) the upper (units (unkn own) date) unknown) (unknown) (no (unknown) (unknown) thorax. (units (unkno wn) date) unknown) (unknown) (no (unknown) (unknown) throughout. (units (un known) date) Thyroid gland is unknown) unremarkable. No axillary or supraclavicular Result panel 115 (unknown) (no date) (unknown) (unknown) 107 mmhg (unkn own) (unknown) (no date) (unknown) (unknown) 2.0 mmol/l (unkn own) (unknown) (no date) (unknown) (unknown) 28 mmol/l (unkn own) (unknown) (no date) (unknown) (unknown) 30 mmol/l (unkn own) (unknown) (no date) (unknown) (unknown) 54.1 mmhg (unkn own) (unknown) (no date) (unknown) (unknown) 7.33 (units unknown) (unknown) (unknown) (no date) (unknown) (unknown) 7.33 (units unknown) (unknown) (unknown) (no date) (unknown) (unknown) 98 % (unkn own) Result panel 116 (unknown) (no date) (unknown) (unknown) 0.026 ng/ml (unkn own) (unknown) (no date) (unknown) (unknown) 0.026 ng/ml (unkn own) Result panel 117 (unknown) (no (unknown) (unknown) (no value) (units (unk nown) date) unknown) (unknown) (no (unknown) (unknown) 05/13/22 05/13/22 (units (unknown) date) 05/13/22 Range/Units unknown) (unknown) (no (unknown) (unknown) 05/13/22 12:57 (units (unknown) date) unknown) (unknown) (no (unknown) (unknown) 05/13/22 13:11 (units (unknown) date) unknown) (unknown) (no (unknown) (unknown) 05/13/22 13:13 (units (unknown) date) unknown) (unknown) (no (unknown) (unknown) 05/13/22 13:49 (units (unknown) date) unknown) (unknown) (no (unknown) (unknown) 05/13/22 13:56 (units (unknown) date) unknown) (unknown) (no (unknown) (unknown) 05/13/22 15:10 (units (unknown) date) unknown) (unknown) (no (unknown) (unknown) 05/13/22 15:21 (units (unknown) date) unknown) (unknown) (no (unknown) (unknown) 05/13/22 15:50 (units (unknown) date) unknown) (unknown) (no (unknown) (unknown) 05/13/22 15:59 (units (unknown) date) unknown) (unknown) (no (unknown) (unknown) 05/13/22 16:30 (units (unknown) date) unknown) (unknown) (no (unknown) (unknown) 05/13/22 17:30 (units (unknown) date) unknown) (unknown) (no (unknown) (unknown) 05/13/22 23:30 (units (unknown) date) unknown) (unknown) (no (unknown) (unknown) 05/13/22 (units (unkno wn) date) unknown) (unknown) (no (unknown) (unknown) 05/14/22 05:30 (units (unknown) date) unknown) (unknown) (no (unknown) (unknown) 05/14/22 11:30 (units (unknown) date) unknown) (unknown) (no (unknown) (unknown) [id number] (units (unkno wn) date) unknown) (unknown) (no (unknown) (unknown) 1 tab PO PRN PRN (units (unknown) date) (Reason: Pain (Scale unknown) Score 1-3)) (unknown) (no (unknown) (unknown) 1 tablet five times (unit s (unknown) date) a day as needed unknown) (unknown) (no (unknown) (unknown) 12:40 05/13/22 (units (unknown) date) unknown) (unknown) (no (unknown) (unknown) 12:40 (units (unkno wn) date) unknown) (unknown) (no (unknown) (unknown) 12:44 05/13/22 (units (unknown) date) unknown) (unknown) (no (unknown) (unknown) 12:50 05/13/22 (units (unknown) date) unknown) (unknown) (no (unknown) (unknown) 12:58 (units (unkno wn) date) unknown) (unknown) (no (unknown) (unknown) 13:00 05/13/22 (units (unknown) date) unknown) (unknown) (no (unknown) (unknown) 13:00 (units (unkno wn) date) unknown) (unknown) (no (unknown) (unknown) 13:08 05/13/22 (units (unknown) date) unknown) (unknown) (no (unknown) (unknown) 13:11 13:13 13:49 (units (unknown) date) unknown) (unknown) (no (unknown) (unknown) 13:13 05/13/22 (units (unknown) date) unknown) (unknown) (no (unknown) (unknown) 13:30 05/13/22 (units (unknown) date) unknown) (unknown) (no (unknown) (unknown) 13:30 (units (unkno wn) date) unknown) (unknown) (no (unknown) (unknown) 13:49 13:49 13:49 (units (unknown) date) unknown) (unknown) (no (unknown) (unknown) 14:00 05/13/22 (units (unknown) date) unknown) (unknown) (no (unknown) (unknown) 14:30 05/13/22 (units (unknown) date) unknown) (unknown) (no (unknown) (unknown) 14:55 05/13/22 (units (unknown) date) unknown) (unknown) (no (unknown) (unknown) 14:55 (units (unkno wn) date) unknown) (unknown) (no (unknown) (unknown) 15:00 05/13/22 (units (unknown) date) unknown) (unknown) (no (unknown) (unknown) 15:01 05/13/22 (units (unknown) date) unknown) (unknown) (no (unknown) (unknown) 15:01 (units (unkno wn) date) unknown) (unknown) (no (unknown) (unknown) 15:10 15:50 16:30 (units (unknown) date) unknown) (unknown) (no (unknown) (unknown) 15:30 05/13/22 (units (unknown) date) unknown) (unknown) (no (unknown) (unknown) 15:30 (units (unkno wn) date) unknown) (unknown) (no (unknown) (unknown) 15:46 (units (unkno wn) date) unknown) (unknown) (no (unknown) (unknown) 16:00 05/13/22 (units (unknown) date) unknown) (unknown) (no (unknown) (unknown) 16:30 (units (unkno wn) date) unknown) (unknown) (no (unknown) (unknown) 16:31 05/13/22 (units (unknown) date) unknown) (unknown) (no (unknown) (unknown) 16:32 05/13/22 (units (unknown) date) unknown) (unknown) (no (unknown) (unknown) 16:32 (units (unkno wn) date) unknown) (unknown) (no (unknown) (unknown) 16:47 05/13/22 (units (unknown) date) unknown) (unknown) (no (unknown) (unknown) 16:47 (units (unkno wn) date) unknown) (unknown) (no (unknown) (unknown) 17:00 05/13/22 (units (unknown) date) unknown) (unknown) (no (unknown) (unknown) 17:01 (units (unkno wn) date) unknown) (unknown) (no (unknown) (unknown) 50 mg PO DAILY (units (unknown) date) unknown) (unknown) (no (unknown) (unknown) ABD:bowel sounds (units (unknown) date) normal, soft, unknown) non-tender, no guarding, rebound, rigidity, no (unknown) (no (unknown) (unknown) ABG Base Excess (units (unknown) date) (-2-3) mmol/L unknown) (unknown) (no (unknown) (unknown) ABG Base Excess 2.0 (unit s (unknown) date) (-2-3) mmol/L unknown) (unknown) (no (unknown) (unknown) ABG HCO3 (23-27) (units (unknown) date) mmol/L unknown) (unknown) (no (unknown) (unknown) ABG HCO3 28 H (units ( unknown) date) (23-27) mmol/L unknown) (unknown) (no (unknown) (unknown) ABG O2 Saturation (units (unknown) date) (95-100) % unknown) (unknown) (no (unknown) (unknown) ABG O2 Saturation (units (unknown) date) 98 (95-100) % unknown) (unknown) (no (unknown) (unknown) ABG Total CO2 (units ( unknown) date) (23-27) mmol/L unknown) (unknown) (no (unknown) (unknown) ABG Total CO2 30 H (units (unknown) date) (23-27) mmol/L unknown) (unknown) (no (unknown) (unknown) ABG [Arterial Blood (unit s (unknown) date) Gas] Stat unknown) (unknown) (no (unknown) (unknown) ABG pCO2 (35-45) (units (unknown) date) mmHg unknown) (unknown) (no (unknown) (unknown) ABG pCO2 54.1 H (units (unknown) date) (35-45) mmHg unknown) (unknown) (no (unknown) (unknown) ABG pH (7.35-7.45) (units (unknown) date) unknown) (unknown) (no (unknown) (unknown) ABG pH 7.33 L (units ( unknown) date) (7.35-7.45) unknown) (unknown) (no (unknown) (unknown) ABG pO2 (80-100) (units (unknown) date) mmHg unknown) (unknown) (no (unknown) (unknown) ABG pO2 107 H (units ( unknown) date) (80-100) mmHg unknown) (unknown) (no (unknown) (unknown) ALT (<35) IU/L (units (unknown) date) unknown) (unknown) (no (unknown) (unknown) ALT 24 (<35) IU/L (units (unknown) date) unknown) (unknown) (no (unknown) (unknown) AST (14-36) IU/L (units (unknown) date) unknown) (unknown) (no (unknown) (unknown) AST 28 (14-36) IU/L (unit s (unknown) date) unknown) (unknown) (no (unknown) (unknown) Adenovirus (PCR) (units (unknown) date) (Not Detect) unknown) (unknown) (no (unknown) (unknown) Adenovirus (PCR) (units (unknown) date) Not detected (Not unknown) Detect) (unknown) (no (unknown) (unknown) Age/Sex: 81 / F (units (unknown) date) unknown) (unknown) (no (unknown) (unknown) Albumin (3.5-5.0) (units (unknown) date) g/dL unknown) (unknown) (no (unknown) (unknown) Albumin 4.3 (units (un known) date) (3.5-5.0) g/dL unknown) (unknown) (no (unknown) (unknown) Albumin/Globulin (units (unknown) date) Ratio (1.0-2.8) unknown) (unknown) (no (unknown) (unknown) Albumin/Globulin (units (unknown) date) Ratio 1.3 (1.0-2.8) unknown) (unknown) (no (unknown) (unknown) Alcohol type: hard (units (unknown) date) liquor unknown) (unknown) (no (unknown) (unknown) Alkaline (units (unkno wn) date) Phosphatase (38-126) unknown) U/L (unknown) (no (unknown) (unknown) Alkaline (units (unkno wn) date) Phosphatase 88 unknown) (38-126) U/L (unknown) (no (unknown) (unknown) Allergies (units (unkn own) date) unknown) (unknown) (no (unknown) (unknown) Allergy/AdvReac (units (unknown) date) Type Severity unknown) Reaction Status Date / Time (unknown) (no (unknown) (unknown) Attestation: I (units (unknown) date) personally reviewed unknown) and interpreted this ECG as follows: (unknown) (no (unknown) (unknown) Attestation: (units (u nknown) date) unknown) (unknown) (no (unknown) (unknown) B. pertussis DNA (units (unknown) date) (PCR) (Not Detecte) unknown) (unknown) (no (unknown) (unknown) B. pertussis DNA (units (unknown) date) (PCR) Not detected unknown) (Not Detecte) (unknown) (no (unknown) (unknown) B.parapertussis DNA (unit s (unknown) date) PCR (Not Detecte) unknown) (unknown) (no (unknown) (unknown) B.parapertussis DNA (unit s (unknown) date) PCR Not detected unknown) (Not Detecte) (unknown) (no (unknown) (unknown) BUN (7-17) mg/dL (units (unknown) date) unknown) (unknown) (no (unknown) (unknown) BUN 18 H (7-17) (units (unknown) date) mg/dL unknown) (unknown) (no (unknown) (unknown) BUN/Creatinine (units (unknown) date) Ratio (6-22) unknown) (unknown) (no (unknown) (unknown) BUN/Creatinine (units (unknown) date) Ratio 20.7 (6-22) unknown) (unknown) (no (unknown) (unknown) Baso # (Auto) (units ( unknown) date) (0-100) /uL unknown) (unknown) (no (unknown) (unknown) Baso # (Auto) 0 (units (unknown) date) (0-100) /uL unknown) (unknown) (no (unknown) (unknown) Baso % (Auto) (0-2) (unit s (unknown) date) % unknown) (unknown) (no (unknown) (unknown) Baso % (Auto) 0.2 (units (unknown) date) (0-2) % unknown) (unknown) (no (unknown) (unknown) Bedside Urine (units ( unknown) date) Bilirubin + 1 unknown) (unknown) (no (unknown) (unknown) Bedside Urine (units ( unknown) date) Glucose Negative unknown) (unknown) (no (unknown) (unknown) Bedside Urine (units ( unknown) date) Ketone +/- 5 unknown) (unknown) (no (unknown) (unknown) Bedside Urine (units ( unknown) date) Leukocytes ++ 125 unknown) (unknown) (no (unknown) (unknown) Bedside Urine (units ( unknown) date) Nitrite + Positive unknown) (unknown) (no (unknown) (unknown) Bedside Urine (units ( unknown) date) Occult Blood unknown) (unknown) (no (unknown) (unknown) Bedside Urine (units ( unknown) date) Protein +++ 300 unknown) (unknown) (no (unknown) (unknown) Bedside Urine (units ( unknown) date) Urobilinogen - unknown) Negative (unknown) (no (unknown) (unknown) Bedside Urine pH 6 (units (unknown) date) unknown) (unknown) (no (unknown) (unknown) Blood Pressure (units (unknown) date) 107/59 L 05/13/22 unknown) 12:40 (unknown) (no (unknown) (unknown) Blood Pressure (units (unknown) date) 107/59 L 118/68 unknown) (unknown) (no (unknown) (unknown) Blood Pressure (units (unknown) date) 107/59 L unknown) (unknown) (no (unknown) (unknown) Blood Pressure (units (unknown) date) 122/83 119/66 unknown) (unknown) (no (unknown) (unknown) Blood Pressure (units (unknown) date) 122/83 unknown) (unknown) (no (unknown) (unknown) Blood Pressure (units (unknown) date) 126/67 unknown) (unknown) (no (unknown) (unknown) Blood Pressure (units (unknown) date) 139/85 unknown) (unknown) (no (unknown) (unknown) Blood Pressure (units (unknown) date) 141/68 H unknown) (unknown) (no (unknown) (unknown) Blood Pressure (units (unknown) date) 142/84 H 105/65 unknown) (unknown) (no (unknown) (unknown) Blood Pressure (units (unknown) date) 150/85 H 136/80 unknown) (unknown) (no (unknown) (unknown) Blood Pressure (units (unknown) date) 88/47 L 142/94 H unknown) (unknown) (no (unknown) (unknown) Blood Pressure (units (unknown) date) unknown) (unknown) (no (unknown) (unknown) COVID19 -Nasal (units (unknown) date) RAPID Stat unknown) (unknown) (no (unknown) (unknown) CT angio chest PE (units (unknown) date) protocol Stat unknown) (unknown) (no (unknown) (unknown) Calcium (8.4-10.2) (units (unknown) date) mg/dL unknown) (unknown) (no (unknown) (unknown) Calcium 9.1 (units (un known) date) (8.4-10.2) mg/dL unknown) (unknown) (no (unknown) (unknown) Carbon Dioxide (units (unknown) date) (22-32) mmol/L unknown) (unknown) (no (unknown) (unknown) Carbon Dioxide 26 (units (unknown) date) (22-32) mmol/L unknown) (unknown) (no (unknown) (unknown) Chief Complaint: (units (unknown) date) Shortness of unknown) Breath/Dyspnea (unknown) (no (unknown) (unknown) Chlamy pneumoniae (units (unknown) date) PCR (Not Detect) unknown) (unknown) (no (unknown) (unknown) Chlamy pneumoniae (units (unknown) date) PCR Not detected unknown) (Not Detect) (unknown) (no (unknown) (unknown) Chloride (98-107) (units (unknown) date) mmol/L unknown) (unknown) (no (unknown) (unknown) Chloride 98 (units (un known) date) (98-107) mmol/L unknown) (unknown) (no (unknown) (unknown) Clinical (units (unkno wn) date) Impression: unknown) (unknown) (no (unknown) (unknown) Complete Blood (units (unknown) date) Count AUTO DIFF Stat unknown) (unknown) (no (unknown) (unknown) Comprehensive (units ( unknown) date) Metabolic Panel Stat unknown) (unknown) (no (unknown) (unknown) Congestive heart (units (unknown) date) failure unknown) (unknown) (no (unknown) (unknown) Coronavirus 229E (units (unknown) date) (PCR) (Not Detect) unknown) (unknown) (no (unknown) (unknown) Coronavirus 229E (units (unknown) date) (PCR) Not detected unknown) (Not Detect) (unknown) (no (unknown) (unknown) Coronavirus HKU1 (units (unknown) date) (PCR) (Not Detect) unknown) (unknown) (no (unknown) (unknown) Coronavirus HKU1 (units (unknown) date) (PCR) Not detected unknown) (Not Detect) (unknown) (no (unknown) (unknown) Coronavirus NL63 (units (unknown) date) (PCR) (Not Detect) unknown) (unknown) (no (unknown) (unknown) Coronavirus NL63 (units (unknown) date) (PCR) Not detected unknown) (Not Detect) (unknown) (no (unknown) (unknown) Coronavirus OC43 (units (unknown) date) (PCR) (Not Detect) unknown) (unknown) (no (unknown) (unknown) Coronavirus OC43 (units (unknown) date) (PCR) Not detected unknown) (Not Detect) (unknown) (no (unknown) (unknown) Course (units (unkno wn) date) unknown) (unknown) (no (unknown) (unknown) Creatinine (units (unk nown) date) (0.52-1.04) mg/dL unknown) (unknown) (no (unknown) (unknown) Creatinine 0.87 (units (unknown) date) (0.52-1.04) mg/dL unknown) (unknown) (no (unknown) (unknown) Critical Care Time (units (unknown) date) unknown) (unknown) (no (unknown) (unknown) Critical Care Time: (unit s (unknown) date) Yes unknown) (unknown) (no (unknown) (unknown) : 1940 (units (unknown) date) Acct:[id number] unknown) (unknown) (no (unknown) (unknown) Date of Service: (units (unknown) date) 05/13/22 unknown) (unknown) (no (unknown) (unknown) Departure (units (unkn own) date) unknown) (unknown) (no (unknown) (unknown) Diphenhydramine HCl (unit s (unknown) date) (Diphenhydramine 50 unknown) Mg/Ml Vial) 25 mg IV NOW ONE (unknown) (no (unknown) (unknown) Discharge Plan (units (unknown) date) unknown) (unknown) (no (unknown) (unknown) Discontinued (units (u nknown) date) Medications unknown) (unknown) (no (unknown) (unknown) Discussed with (units (unknown) date) Darren, hospitalist unknown) when asked that we speak with (unknown) (no (unknown) (unknown) Documented By: KB (units (unknown) date) unknown) (unknown) (no (unknown) (unknown) Documented By: RLS (units (unknown) date) unknown) (unknown) (no (unknown) (unknown) ECG Data (units (unkno wn) date) unknown) (unknown) (no (unknown) (unknown) ED Orders (units (unkn own) date) unknown) (unknown) (no (unknown) (unknown) EKG-12 Lead Stat (units (unknown) date) unknown) (unknown) (no (unknown) (unknown) ER Physician: (units ( unknown) date) Sujata Graff D.O. unknown) (unknown) (no (unknown) (unknown) Emergency Report (units (unknown) date) unknown) (unknown) (no (unknown) (unknown) Entero/Rhino (PCR) (units (unknown) date) (Not Detect) unknown) (unknown) (no (unknown) (unknown) Entero/Rhino (PCR) (units (unknown) date) Not detected (Not unknown) Detect) (unknown) (no (unknown) (unknown) Eos # (Auto) (units (u nknown) date) (0-450) /uL unknown) (unknown) (no (unknown) (unknown) Eos # (Auto) 0 (units (unknown) date) (0-450) /uL unknown) (unknown) (no (unknown) (unknown) Eos % (Auto) (2-4) (units (unknown) date) % unknown) (unknown) (no (unknown) (unknown) Eos % (Auto) 0.3 L (units (unknown) date) (2-4) % unknown) (unknown) (no (unknown) (unknown) Esterase (units (unkno wn) date) unknown) (unknown) (no (unknown) (unknown) Estimated GFR > 60 (units (unknown) date) (>60) mL/min unknown) (unknown) (no (unknown) (unknown) Estimated GFR (>60) (unit s (unknown) date) mL/min unknown) (unknown) (no (unknown) (unknown) Exam Narrative: (units (unknown) date) unknown) (unknown) (no (unknown) (unknown) Exam (units (unkno wn) date) unknown) (unknown) (no (unknown) (unknown) Feet do have some (units (unknown) date) discoloration are unknown) slightly mottled, hands do not. Patient (unknown) (no (unknown) (unknown) Furosemide (units (unk nown) date) (Furosemide 40 Mg/4 unknown) Ml Vial) 40 mg IV NOW ONE (unknown) (no (unknown) (unknown) GEN: Obese elderly (units (unknown) date) female, alert and unknown) oriented x 3, patient appears to be in (unknown) (no (unknown) (unknown) :No CVA (units (unkn own) date) tenderness unknown) (unknown) (no (unknown) (unknown) General (units (unkno wn) date) unknown) (unknown) (no (unknown) (unknown) Globulin (1.7-4.1) (units (unknown) date) g/dL unknown) (unknown) (no (unknown) (unknown) Globulin 3.4 (units (u nknown) date) (1.7-4.1) g/dL unknown) (unknown) (no (unknown) (unknown) Glucose (80-110) (units (unknown) date) mg/dL unknown) (unknown) (no (unknown) (unknown) Glucose 133 H (units ( unknown) date) (80-110) mg/dL unknown) (unknown) (no (unknown) (unknown) HEART: Regular rate (unit s (unknown) date) and rhythm without unknown) murmur, clicks, rubs. Pulmonary VD. (unknown) (no (unknown) (unknown) HEENT: Atraumatic, (units (unknown) date) pupils are equal unknown) round reactive to light, extraocular (unknown) (no (unknown) (unknown) HPI - SOB/Dyspnea (units (unknown) date) unknown) (unknown) (no (unknown) (unknown) HPI Narrative: (units (unknown) date) unknown) (unknown) (no (unknown) (unknown) Hct (36-46) % (units ( unknown) date) unknown) (unknown) (no (unknown) (unknown) Hct 49.2 H (36-46) (units (unknown) date) % unknown) (unknown) (no (unknown) (unknown) Heparin Sodium (units (unknown) date) (Porcine) (Heparin unknown) 5,000 Unit/Ml Vial) 7,500 unit IV NOW ONE (unknown) (no (unknown) (unknown) Heparin (units (unkno wn) date) Sodium/Dextrose unknown) (Heparin Drip) 25,000 unit in 500 mls @ 39.844 mls/hr (unknown) (no (unknown) (unknown) Hgb (12.0-16.0) (units (unknown) date) g/dL unknown) (unknown) (no (unknown) (unknown) Hgb 16.1 H (units (unk nown) date) (12.0-16.0) g/dL unknown) (unknown) (no (unknown) (unknown) History of Present (units (unknown) date) Illness unknown) (unknown) (no (unknown) (unknown) Home Medications (units (unknown) date) unknown) (unknown) (no (unknown) (unknown) Human Metapneumovir (unit s (unknown) date) PCR (Not Detect) unknown) (unknown) (no (unknown) (unknown) Human Metapneumovir (unit s (unknown) date) PCR Not detected unknown) (Not Detect) (unknown) (no (unknown) (unknown) INR (0.9-1.3) (units ( unknown) date) unknown) (unknown) (no (unknown) (unknown) INR 1.2 (0.9-1.3) (units (unknown) date) unknown) (unknown) (no (unknown) (unknown) IV CONT OMAR; (units (u nknown) date) Protocol unknown) (unknown) (no (unknown) (unknown) Ictotest Urine Stat (unit s (unknown) date) unknown) (unknown) (no (unknown) (unknown) Influenza Type A (units (unknown) date) (PCR) (Not Detect) unknown) (unknown) (no (unknown) (unknown) Influenza Type A (units (unknown) date) (PCR) Not detected unknown) (Not Detect) (unknown) (no (unknown) (unknown) Influenza Type B (units (unknown) date) (PCR) (Not Detect) unknown) (unknown) (no (unknown) (unknown) Influenza Type B (units (unknown) date) (PCR) Not detected unknown) (Not Detect) (unknown) (no (unknown) (unknown) Initial Vital Signs (unit s (unknown) date) unknown) (unknown) (no (unknown) (unknown) Initial Vital (units ( unknown) date) Signs: unknown) (unknown) (no (unknown) (unknown) Interpretation: (units (unknown) date) unknown) (unknown) (no (unknown) (unknown) Interventional (units (unknown) date) Radiology unknown) (unknown) (no (unknown) (unknown) [facility] (units (unknown) date) [address] unknown) [place] [address] (unknown) (no (unknown) (unknown) LUNGS:Lungs breath (units (unknown) date) sounds equal unknown) bilaterally, no wheezes, bilateral crackles, (unknown) (no (unknown) (unknown) Lab Data (units (unkno wn) date) unknown) (unknown) (no (unknown) (unknown) Lab Results (units (un known) date) unknown) (unknown) (no (unknown) (unknown) Labs: (units (unkno wn) date) unknown) (unknown) (no (unknown) (unknown) Lactate (0.7-2.1) (units (unknown) date) mmol/L unknown) (unknown) (no (unknown) (unknown) Lactate (Lactic (units (unknown) date) Acid) Stat unknown) (unknown) (no (unknown) (unknown) Lactate 1.9 (units (un known) date) (0.7-2.1) mmol/L unknown) (unknown) (no (unknown) (unknown) Eber Wetzel, (unit s (unknown) date) MD [Primary Care unknown) Provider] (unknown) (no (unknown) (unknown) Last Admin: (units (un known) date) 05/13/22 15:28 Dose: unknown) 40 mg (unknown) (no (unknown) (unknown) Last Admin: (units (un known) date) 05/13/22 16:25 Dose: unknown) 25 mg (unknown) (no (unknown) (unknown) Last Admin: (units (un known) date) 05/13/22 16:26 Dose: unknown) 125 mg (unknown) (no (unknown) (unknown) Limitations: no (units (unknown) date) limitations unknown) (unknown) (no (unknown) (unknown) Lymph # (Auto) (units (unknown) date) (1429-7326) /uL unknown) (unknown) (no (unknown) (unknown) Lymph # (Auto) 600 (units (unknown) date) L (5076-3895) /uL unknown) (unknown) (no (unknown) (unknown) Lymph % (Auto) (units (unknown) date) (25-40) % unknown) (unknown) (no (unknown) (unknown) Lymph % (Auto) 5.5 (units (unknown) date) L (25-40) % unknown) (unknown) (no (unknown) (unknown) M. pneumoniae (PCR) (unit s (unknown) date) (Not Detect) unknown) (unknown) (no (unknown) (unknown) M. pneumoniae (PCR) (unit s (unknown) date) Not detected (Not unknown) Detect) (unknown) (no (unknown) (unknown) MCH (26-34) PG (units (unknown) date) unknown) (unknown) (no (unknown) (unknown) MCH 28.4 (26-34) PG (unit s (unknown) date) unknown) (unknown) (no (unknown) (unknown) MCHC (30-36) % (units (unknown) date) unknown) (unknown) (no (unknown) (unknown) MCHC 32.8 (30-36) % (unit s (unknown) date) unknown) (unknown) (no (unknown) (unknown) MCV (80-100) fL (units (unknown) date) unknown) (unknown) (no (unknown) (unknown) MCV 86.8 (80-100) (units (unknown) date) fL unknown) (unknown) (no (unknown) (unknown) MDM - SOB/Dyspnea (units (unknown) date) unknown) (unknown) (no (unknown) (unknown) MDM Narrative (units ( unknown) date) unknown) (unknown) (no (unknown) (unknown) MSCL: Non-tender, (units (unknown) date) no muscle atrophy, unknown) muscles strength 5/5 upper and lower (unknown) (no (unknown) (unknown) Measure peak (units (u nknown) date) expiratory flow ONCE unknown) (unknown) (no (unknown) (unknown) Medical decision (units (unknown) date) making narrative: unknown) (unknown) (no (unknown) (unknown) Medication (units (unk nown) date) Instructions unknown) Recorded Confirmed (unknown) (no (unknown) (unknown) Methylprednisolone (units (unknown) date) (Methylprednisolone unknown) 125 Mg/2 Ml Vial) 125 mg IV NOW ONE (unknown) (no (unknown) (unknown) Mode of arrival: (units (unknown) date) EMS unknown) (unknown) (no (unknown) (unknown) Harris # (Auto) (units ( unknown) date) (0-900) /uL unknown) (unknown) (no (unknown) (unknown) Harris # (Auto) 400 (units (unknown) date) (0-900) /uL unknown) (unknown) (no (unknown) (unknown) Harris % (Auto) (units ( unknown) date) (3-14) % unknown) (unknown) (no (unknown) (unknown) Harris % (Auto) 4.1 (units (unknown) date) (3-14) % unknown) (unknown) (no (unknown) (unknown) NEURO:CN 2-12 (units ( unknown) date) intact, sensation unknown) normal (unknown) (no (unknown) (unknown) NT-Pro-B Natriuret (units (unknown) date) Pep (<450) pg/mL unknown) (unknown) (no (unknown) (unknown) NT-Pro-B Natriuret (units (unknown) date) Pep 25700 H (<450) unknown) pg/mL (unknown) (no (unknown) (unknown) NT-proBNP (units (unkn own) date) (BNP-Adult 18+) Stat unknown) (unknown) (no (unknown) (unknown) Narrative (units (unkn own) date) unknown) (unknown) (no (unknown) (unknown) Neut # (Auto) (units ( unknown) date) (5168-3033) /uL unknown) (unknown) (no (unknown) (unknown) Neut # (Auto) 9800 (units (unknown) date) H (1584-4715) /uL unknown) (unknown) (no (unknown) (unknown) Neut % (Auto) (units ( unknown) date) (50-75) % unknown) (unknown) (no (unknown) (unknown) Neut % (Auto) 89.9 (units (unknown) date) H (50-75) % unknown) (unknown) (no (unknown) (unknown) No Action (units (unkn own) date) unknown) (unknown) (no (unknown) (unknown) Normal sinus (units (u nknown) date) rhythm, left axis unknown) deviation, rate of 98, OR 120, QRS 88 QTC 347. (unknown) (no (unknown) (unknown) Ordered: (units (unkno wn) date) unknown) (unknown) (no (unknown) (unknown) Orders (units (unkno wn) date) unknown) (unknown) (no (unknown) (unknown) Oximask (units (unkno wn) date) unknown) (unknown) (no (unknown) (unknown) Oxygen Delivery (units (unknown) date) Method Nasal Cannula unknown) (unknown) (no (unknown) (unknown) Oxygen Delivery (units (unknown) date) Method Oximask unknown) Oximask (unknown) (no (unknown) (unknown) Oxygen Delivery (units (unknown) date) Method Oximask unknown) (unknown) (no (unknown) (unknown) Oxygen Delivery (units (unknown) date) Method Room Air unknown) 05/13/22 12:40 (unknown) (no (unknown) (unknown) Oxygen Delivery (units (unknown) date) Method Room Air unknown) Nasal Cannula Oximask (unknown) (no (unknown) (unknown) Oxygen Delivery (units (unknown) date) Method unknown) (unknown) (no (unknown) (unknown) Oxygen Flow Rate 4 (units (unknown) date) 6 unknown) (unknown) (no (unknown) (unknown) Oxygen Flow Rate 5 (units (unknown) date) unknown) (unknown) (no (unknown) (unknown) Oxygen Flow Rate 8 (units (unknown) date) 9 unknown) (unknown) (no (unknown) (unknown) Oxygen Flow Rate 9 (units (unknown) date) 7 unknown) (unknown) (no (unknown) (unknown) Oxygen Flow Rate 9 (units (unknown) date) 9 unknown) (unknown) (no (unknown) (unknown) Oxygen Flow Rate 9 (units (unknown) date) unknown) (unknown) (no (unknown) (unknown) Oxygen Flow Rate (units (unknown) date) unknown) (unknown) (no (unknown) (unknown) PT (10.1-12.7) (units (unknown) date) SECONDS unknown) (unknown) (no (unknown) (unknown) PT 14.1 H (units (unkn own) date) (10.1-12.7) SECONDS unknown) (unknown) (no (unknown) (unknown) PTT Partial (units (un known) date) Thromboplastin Vicente unknown) Q6H (unknown) (no (unknown) (unknown) Parainfluenza 1 (units (unknown) date) (PCR) (Not Detect) unknown) (unknown) (no (unknown) (unknown) Parainfluenza 1 (units (unknown) date) (PCR) Not detected unknown) (Not Detect) (unknown) (no (unknown) (unknown) Parainfluenza 2 (units (unknown) date) (PCR) (Not Detect) unknown) (unknown) (no (unknown) (unknown) Parainfluenza 2 (units (unknown) date) (PCR) Not detected unknown) (Not Detect) (unknown) (no (unknown) (unknown) Parainfluenza 3 (units (unknown) date) (PCR) (Not Detect) unknown) (unknown) (no (unknown) (unknown) Parainfluenza 3 (units (unknown) date) (PCR) Not detected unknown) (Not Detect) (unknown) (no (unknown) (unknown) Parainfluenza 4 (units (unknown) date) (PCR) (Not Detect) unknown) (unknown) (no (unknown) (unknown) Parainfluenza 4 (units (unknown) date) (PCR) Not detected unknown) (Not Detect) (unknown) (no (unknown) (unknown) Patient Comments: (units (unknown) date) unknown) (unknown) (no (unknown) (unknown) Patient History (units (unknown) date) unknown) (unknown) (no (unknown) (unknown) Patient change in (units (unknown) date) lateral no with unknown) inverted T-wave and RSR V1 through the read (unknown) (no (unknown) (unknown) Patient does not (units (unknown) date) have pitting edema unknown) but has some mild swelling bilaterally. (unknown) (no (unknown) (unknown) Patient's P wave (units (unknown) date) inverted in lead 3. unknown) (unknown) (no (unknown) (unknown) Patient: (units (unkno wn) date) Gely Milner MR#: unknown) M00 (unknown) (no (unknown) (unknown) Penicillins Allergy (unit s (unknown) date) Intermediate unknown) Anaphylaxis Verified 05/13/22 15:46 (unknown) (no (unknown) (unknown) Plt Count (150-400) (unit s (unknown) date) X103/uL unknown) (unknown) (no (unknown) (unknown) Plt Count 252 (units ( unknown) date) (150-400) X103/uL unknown) (unknown) (no (unknown) (unknown) Potassium (3.4-5.1) (unit s (unknown) date) mmol/L unknown) (unknown) (no (unknown) (unknown) Potassium 4.3 (units ( unknown) date) (3.4-5.1) mmol/L unknown) (unknown) (no (unknown) (unknown) Prescriptions: (units (unknown) date) unknown) (unknown) (no (unknown) (unknown) Prior ECG tracings: (unit s (unknown) date) available for review unknown) (unknown) (no (unknown) (unknown) Prothrombin Time (units (unknown) date) INR Stat unknown) (unknown) (no (unknown) (unknown) Pulse Oximetry 85 L (unit s (unknown) date) 05/13/22 12:40 unknown) (unknown) (no (unknown) (unknown) Pulse Oximetry 85 L (unit s (unknown) date) 87 L 91 unknown) (unknown) (no (unknown) (unknown) Pulse Oximetry 88 L (unit s (unknown) date) 96 unknown) (unknown) (no (unknown) (unknown) Pulse Oximetry 90 L (unit s (unknown) date) unknown) (unknown) (no (unknown) (unknown) Pulse Oximetry 91 (units (unknown) date) 94 unknown) (unknown) (no (unknown) (unknown) Pulse Oximetry 93 (units (unknown) date) 95 unknown) (unknown) (no (unknown) (unknown) Pulse Oximetry 94 (units (unknown) date) 92 unknown) (unknown) (no (unknown) (unknown) Pulse Oximetry 94 (units (unknown) date) 94 unknown) (unknown) (no (unknown) (unknown) Pulse Oximetry 95 (units (unknown) date) 89 L unknown) (unknown) (no (unknown) (unknown) Pulse Oximetry 95 (units (unknown) date) 92 unknown) (unknown) (no (unknown) (unknown) Pulse Oximetry 96 (units (unknown) date) unknown) (unknown) (no (unknown) (unknown) Pulse Oximetry 99 (units (unknown) date) unknown) (unknown) (no (unknown) (unknown) Pulse Rate 100 H (units (unknown) date) 05/13/22 12:40 unknown) (unknown) (no (unknown) (unknown) Pulse Rate 100 H (units (unknown) date) unknown) (unknown) (no (unknown) (unknown) Pulse Rate 101 H 96 (unit s (unknown) date) H unknown) (unknown) (no (unknown) (unknown) Pulse Rate 93 H 95 (units (unknown) date) H unknown) (unknown) (no (unknown) (unknown) Pulse Rate 95 H 97 (units (unknown) date) H unknown) (unknown) (no (unknown) (unknown) Pulse Rate 95 H (units (unknown) date) unknown) (unknown) (no (unknown) (unknown) Pulse Rate 96 H (units (unknown) date) unknown) (unknown) (no (unknown) (unknown) Pulse Rate 97 H 96 (units (unknown) date) H unknown) (unknown) (no (unknown) (unknown) Pulse Rate 99 H 97 (units (unknown) date) H unknown) (unknown) (no (unknown) (unknown) Quinolones Allergy (units (unknown) date) Intermediate unknown) Anaphylaxis Verified 05/13/22 15:46 (unknown) (no (unknown) (unknown) RBC (4.0-5.2) (units ( unknown) date) X106/uL unknown) (unknown) (no (unknown) (unknown) RBC 5.67 H (units (unk nown) date) (4.0-5.2) X106/uL unknown) (unknown) (no (unknown) (unknown) RDW (11.6-14.8) % (units (unknown) date) unknown) (unknown) (no (unknown) (unknown) RDW 13.8 (units (unkno wn) date) (11.6-14.8) % unknown) (unknown) (no (unknown) (unknown) ROS Unobtainable: (units (unknown) date) All systems reviewed unknown) + are unremarkable except as noted in HPI (unknown) (no (unknown) (unknown) RSV (PCR) (Not (units (unknown) date) Detect) unknown) (unknown) (no (unknown) (unknown) RSV (PCR) Not (units ( unknown) date) detected (Not unknown) Detect) (unknown) (no (unknown) (unknown) RT Consult Eval and (unit s (unknown) date) Treat NOW unknown) (unknown) (no (unknown) (unknown) Referrals: (units (unk nown) date) unknown) (unknown) (no (unknown) (unknown) Related Data (units (u nknown) date) unknown) (unknown) (no (unknown) (unknown) Respiratory Panel (units (unknown) date) (Film Array) Stat unknown) (unknown) (no (unknown) (unknown) Respiratory Rate 16 (unit s (unknown) date) 16 unknown) (unknown) (no (unknown) (unknown) Respiratory Rate 20 (unit s (unknown) date) 18 unknown) (unknown) (no (unknown) (unknown) Respiratory Rate 22 (unit s (unknown) date) 05/13/22 12:40 unknown) (unknown) (no (unknown) (unknown) Respiratory Rate 22 (unit s (unknown) date) 19 unknown) (unknown) (no (unknown) (unknown) Respiratory Rate 22 (unit s (unknown) date) unknown) (unknown) (no (unknown) (unknown) Respiratory Rate 23 (unit s (unknown) date) 24 unknown) (unknown) (no (unknown) (unknown) Respiratory Rate 23 (unit s (unknown) date) unknown) (unknown) (no (unknown) (unknown) Respiratory Rate 24 (unit s (unknown) date) 22 unknown) (unknown) (no (unknown) (unknown) Respiratory Rate 25 (unit s (unknown) date) H 22 unknown) (unknown) (no (unknown) (unknown) Respiratory Rate (units (unknown) date) unknown) (unknown) (no (unknown) (unknown) Review of Systems (units (unknown) date) unknown) (unknown) (no (unknown) (unknown) SARS-CoV-2 (PCR) (units (unknown) date) (Negative) unknown) (unknown) (no (unknown) (unknown) SARS-CoV-2 (PCR) (units (unknown) date) Negative Not unknown) detected (Negative) (unknown) (no (unknown) (unknown) SKIN: See above. (units (unknown) date) unknown) (unknown) (no (unknown) (unknown) Signed By: (units (unk nown) date) unknown) (unknown) (no (unknown) (unknown) Smoking Status: (units (unknown) date) Never smoker unknown) (unknown) (no (unknown) (unknown) Social History (units (unknown) date) (Reviewed 05/13/22 @ unknown) 14:48 by Sujata Graff DO) (unknown) (no (unknown) (unknown) Sodium (137-145) (units (unknown) date) mmol/L unknown) (unknown) (no (unknown) (unknown) Sodium 135 L (units (u nknown) date) (137-145) mmol/L unknown) (unknown) (no (unknown) (unknown) Source: patient and (unit s (unknown) date) EMS unknown) (unknown) (no (unknown) (unknown) Stated Complaint: (units (unknown) date) Dizzy, SOB T-3 unknown) (unknown) (no (unknown) (unknown) Stop: 05/13/22 (units (unknown) date) 14:24 unknown) (unknown) (no (unknown) (unknown) Stop: 05/13/22 (units (unknown) date) 16:19 unknown) (unknown) (no (unknown) (unknown) Stop: 05/13/22 (units (unknown) date) 17:23 unknown) (unknown) (no (unknown) (unknown) Substance Use Type: (unit s (unknown) date) does not use unknown) (unknown) (no (unknown) (unknown) Temperature 97.6 F (units (unknown) date) 05/13/22 12:40 unknown) (unknown) (no (unknown) (unknown) Temperature 97.6 F (units (unknown) date) unknown) (unknown) (no (unknown) (unknown) Temperature (units (un known) date) unknown) (unknown) (no (unknown) (unknown) The high (units (unkno wn) date) probability of a unknown) clinically significant, sudden or life threatening (unknown) (no (unknown) (unknown) These show patient (units (unknown) date) actually had some unknown) improvement in T-waves in 1 and aVL which (unknown) (no (unknown) (unknown) This is a (units (unkn own) date) 81-year-old female unknown) with complaint of increasing shortness of breath (unknown) (no (unknown) (unknown) This is an (units (unk nown) date) 81-year-old female unknown) who states her only medications are Epsom daily (unknown) (no (unknown) (unknown) Time Seen by (units (u nknown) date) Provider: 05/13/22 unknown) 14:15 (unknown) (no (unknown) (unknown) Total Bilirubin (units (unknown) date) (0.2-1.3) mg/dL unknown) (unknown) (no (unknown) (unknown) Total Bilirubin 0.9 (unit s (unknown) date) (0.2-1.3) mg/dL unknown) (unknown) (no (unknown) (unknown) Total Protein (units ( unknown) date) (6.3-8.2) g/dL unknown) (unknown) (no (unknown) (unknown) Total Protein 7.7 (units (unknown) date) (6.3-8.2) g/dL unknown) (unknown) (no (unknown) (unknown) Trop I [Troponin I] (unit s (unknown) date) Stat unknown) (unknown) (no (unknown) (unknown) Troponin I (units (unk nown) date) (0.01-0.034) ng/mL unknown) (unknown) (no (unknown) (unknown) Troponin I 0.020 (units (unknown) date) (0.01-0.034) ng/mL unknown) (unknown) (no (unknown) (unknown) Troponin I 0.026 (units (unknown) date) (0.01-0.034) ng/mL unknown) (unknown) (no (unknown) (unknown) Troponin I Stat (units (unknown) date) unknown) (unknown) (no (unknown) (unknown) Ur Bilirubin (units (u nknown) date) Confirm (Negative) unknown) (unknown) (no (unknown) (unknown) Ur Bilirubin (units (u nknown) date) Confirm Negative unknown) (Negative) (unknown) (no (unknown) (unknown) Ur Culture (units (unk nown) date) Indicated? Cult not unknown) indicated (unknown) (no (unknown) (unknown) Ur Culture (units (unk nown) date) Indicated? unknown) (unknown) (no (unknown) (unknown) Ur Squamous Epith (units (unknown) date) Cells (0-5/HPF) unknown) (unknown) (no (unknown) (unknown) Ur Squamous Epith (units (unknown) date) Cells 1-5 /hpf unknown) (0-5/HPF) (unknown) (no (unknown) (unknown) Urine Bacteria (units (unknown) date) (None) unknown) (unknown) (no (unknown) (unknown) Urine Bacteria (units (unknown) date) Moderate (10-30) H unknown) (None) (unknown) (no (unknown) (unknown) Urine Culture Stat (units (unknown) date) unknown) (unknown) (no (unknown) (unknown) Urine Dip (units (unkn own) date) unknown) (unknown) (no (unknown) (unknown) Urine Microscopic (units (unknown) date) Stat unknown) (unknown) (no (unknown) (unknown) Urine RBC (0-5/HPF) (unit s (unknown) date) unknown) (unknown) (no (unknown) (unknown) Urine RBC 10-30/hpf (unit s (unknown) date) H (0-5/HPF) unknown) (unknown) (no (unknown) (unknown) Urine Specific (units (unknown) date) [place] 1.025 unknown) (unknown) (no (unknown) (unknown) Urine WBC (0-5/HPF) (unit s (unknown) date) unknown) (unknown) (no (unknown) (unknown) Urine WBC (units (unkn own) date) 30-100/hpf H unknown) (0-5/HPF) (unknown) (no (unknown) (unknown) Vital Signs - 8 hr (units (unknown) date) unknown) (unknown) (no (unknown) (unknown) Vital Signs (units (un known) date) unknown) (unknown) (no (unknown) (unknown) Vital signs: (units (u nknown) date) unknown) (unknown) (no (unknown) (unknown) WBC (4.5-11.0) (units (unknown) date) X103/uL unknown) (unknown) (no (unknown) (unknown) WBC 10.9 (4.5-11.0) (unit s (unknown) date) X103/uL unknown) (unknown) (no (unknown) (unknown) XR chest 1V Stat (units (unknown) date) unknown) (unknown) (no (unknown) (unknown) [Embedded Image Not (unit s (unknown) date) Available] unknown) (unknown) (no (unknown) (unknown) [From Bactrim] (units (unknown) date) unknown) (unknown) (no (unknown) (unknown) [From Macrobid] (units (unknown) date) unknown) (unknown) (no (unknown) (unknown) [x] Data Review and (unit s (unknown) date) interpretation unknown) (unknown) (no (unknown) (unknown) [x] Documentation (units (unknown) date) unknown) (unknown) (no (unknown) (unknown) [x] Medication (units (unknown) date) orders and unknown) management (unknown) (no (unknown) (unknown) [x] Patient (units (un known) date) assessment and unknown) monitoring of vital signs (unknown) (no (unknown) (unknown) a normal renal (units (unknown) date) function, troponins unknown) 0.02 [place] [id number]. Patient had COVID (unknown) (no (unknown) (unknown) alcohol intake (units (unknown) date) frequency: 0-2 unknown) drinks per day (unknown) (no (unknown) (unknown) allergies. She (units (unknown) date) smoked for a year at unknown) age 18, she has not oz of vodka nightly, no (unknown) (no (unknown) (unknown) aluminum Allergy (units (unknown) date) Intermediate unknown) Anaphylaxis Verified 05/13/22 15:46 (unknown) (no (unknown) (unknown) and a pressure on (units (unknown) date) her chest that seems unknown) to be associated with the shortness of (unknown) (no (unknown) (unknown) and below (units (unkn own) date) unknown) (unknown) (no (unknown) (unknown) as well as (units (unk nown) date) respiratory panel unknown) which is negative. Patient was given Lasix, (unknown) (no (unknown) (unknown) breath that has (units (unknown) date) been intermittent unknown) now becoming persistent. Patient states no (unknown) (no (unknown) (unknown) but includes the (units (unknown) date) following: unknown) (unknown) (no (unknown) (unknown) cephalexin Allergy (units (unknown) date) Intermediate unknown) Anaphylaxis Verified 05/13/22 15:46 (unknown) (no (unknown) (unknown) chest moves (units (unk nown) date) symmetrically, no unknown) tachypnea accessory muscle use patient's speaks in (unknown) (no (unknown) (unknown) codeine Allergy (units (unknown) date) Intermediate unknown) Anaphylaxis Verified 05/13/22 15:46 (unknown) (no (unknown) (unknown) continue with (units ( unknown) date) oxygen support. unknown) Troponin and EKG were repeated patient did have (unknown) (no (unknown) (unknown) deterioration of (units (unknown) date) the [] system(s) unknown) required my full and direct attention, (unknown) (no (unknown) (unknown) discolored and she (units (unknown) date) states that has been unknown) like that for several months. She does (unknown) (no (unknown) (unknown) dynamic or other (units (unknown) date) changes. unknown) (unknown) (no (unknown) (unknown) effusion minimal (units (unknown) date) pericardial effusion unknown) no right heart strain. Patient does have (unknown) (no (unknown) (unknown) erythema, tonsillar (unit s (unknown) date) enlargement or unknown) uvular deviation (unknown) (no (unknown) (unknown) jeet and lateral. (units (unknown) date) No elevation. unknown) Patient does not have prior for comparison. (unknown) (no (unknown) (unknown) extremities, full (units (unknown) date) range of motion, unknown) normal gait (unknown) (no (unknown) (unknown) fevers or chills. (units (unknown) date) No cold cough or unknown) congestion. She is had some nausea but no (unknown) (no (unknown) (unknown) filling defect (units (unknown) date) distal aspect right unknown) main, smaller in the left main extending the (unknown) (no (unknown) (unknown) full sentences. She (unit s (unknown) date) Oxiimask at 9 L on unknown) my evaluation. (unknown) (no (unknown) (unknown) gelatin Allergy (units (unknown) date) Intermediate unknown) Anaphylaxis Verified 05/13/22 15:46 (unknown) (no (unknown) (unknown) hemoglobin is 16, (units (unknown) date) neutrophils are 89, unknown) INR was normal, sodium is 135 BUN 18 with (unknown) (no (unknown) (unknown) her home and gets (units (unknown) date) very short of breath unknown) with exertion. She has not appreciated (unknown) (no (unknown) (unknown) hydrocodone 5 (units ( unknown) date) mg-acetaminophen 325 unknown) 1 tab PO PRN PRN Pain (Scale Score 05/13/22 (unknown) (no (unknown) (unknown) hydrocodone-acetami (unit s (unknown) date) nophen 5-325 mg unknown) tablet (unknown) (no (unknown) (unknown) illicit. (units (u nknown) date) Damari is her PCP. unknown) (unknown) (no (unknown) (unknown) improved with O2 (units (unknown) date) she does not appear unknown) to be dyspneic or requiring BiPAP. Patient (unknown) (no (unknown) (unknown) increasing shortness (unit s (unknown) date) of breath for for 5 unknown) days, she is had tightness in her chest (unknown) (no (unknown) (unknown) intervention and (units (unknown) date) personal management. unknown) The aggregate critical care time was [] (unknown) (no (unknown) (unknown) interventional to (units (unknown) date) evaluate for unknown) potential transfer and treatment as patient has (unknown) (no (unknown) (unknown) iodine Allergy (units (unknown) date) Intermediate unknown) Anaphylaxis Verified 05/13/22 15:46 (unknown) (no (unknown) (unknown) iv contrast Allergy (unit s (unknown) date) Intermediate unknown) Anaphylaxis Uncoded 05/13/22 15:47 (unknown) (no (unknown) (unknown) levofloxacin [From (units (unknown) date) Levaquin] Allergy unknown) Intermediate Anaphylaxis Verified 05/13/22 (unknown) (no (unknown) (unknown) masses noted, no (units (unknown) date) hepatosplenomegaly unknown) (unknown) (no (unknown) (unknown) medications for (units (unknown) date) anything else, no unknown) history of cardiac stents. No known drug (unknown) (no (unknown) (unknown) mg tablet 1-3) (units (unknown) date) unknown) (unknown) (no (unknown) (unknown) mild distress. (units (unknown) date) unknown) (unknown) (no (unknown) (unknown) minutes. This time (units (unknown) date) is in addition to unknown) time spent performing reported procedures (unknown) (no (unknown) (unknown) movements are (units ( unknown) date) intact, nares are unknown) clear,. Throat is clear without any exudates, (unknown) (no (unknown) (unknown) nitrofurantoin (units (unknown) date) Allergy Intermediate unknown) Anaphylaxis Verified 05/13/22 15:46 (unknown) (no (unknown) (unknown) not appreciate new (units (unknown) date) swelling in her unknown) legs. She comes today she felt like her (unknown) (no (unknown) (unknown) ofloxacin [From (units (unknown) date) Floxin] Allergy unknown) Intermediate Anaphylaxis Verified 05/13/22 15:46 (unknown) (no (unknown) (unknown) over the last (units ( unknown) date) several days, unknown) patient has crackles in the bases, she is some (unknown) (no (unknown) (unknown) potentially new EKG (unit s (unknown) date) changes I do not unknown) have prior, trope so far been negative but (unknown) (no (unknown) (unknown) segmental upper and (unit s (unknown) date) lower branches unknown) bilaterally with a mild right pleural (unknown) (no (unknown) (unknown) sertraline 50 mg (units (unknown) date) tablet (Zoloft) 50 unknown) mg PO DAILY 05/13/22 05/13/22 (unknown) (no (unknown) (unknown) sertraline [Zoloft] (unit s (unknown) date) 50 mg tablet unknown) (unknown) (no (unknown) (unknown) she is requiring 9 (units (unknown) date) L of O2. Images were unknown) pushed and discussion with (unknown) (no (unknown) (unknown) she just was (units (u nknown) date) started on a new unknown) pain medication by her primary care provider to (unknown) (no (unknown) (unknown) she might pass out (units (unknown) date) or gets very unknown) lightheaded when she tries to ambulate around (unknown) (no (unknown) (unknown) shortness of breath (unit s (unknown) date) was increasing over unknown) time. Patient states she is not on (unknown) (no (unknown) (unknown) shows a little bit (units (unknown) date) of change in the unknown) right lobe suspect CHF exacerbation she is (unknown) (no (unknown) (unknown) significant (units (un known) date) increase in swelling unknown) in her extremities. Her feet are mottled and (unknown) (no (unknown) (unknown) sodium fluoride (units (unknown) date) Allergy Intermediate unknown) Anaphylaxis Verified 05/13/22 15:46 (unknown) (no (unknown) (unknown) some T-wave (units (un known) date) inversion unknown if unknown) this is new she has no priors for comparison. (unknown) (no (unknown) (unknown) soy Allergy (units (un known) date) Intermediate unknown) Anaphylaxis Verified 05/13/22 15:46 (unknown) (no (unknown) (unknown) states this is her (units (unknown) date) normal baseline for unknown) several months. (unknown) (no (unknown) (unknown) sulfamethoxazole (units (unknown) date) Allergy Intermediate unknown) Anaphylaxis Verified 05/13/22 15:46 (unknown) (no (unknown) (unknown) swelling but no (units (unknown) date) pitting edema in her unknown) lower extremities. Patient's chest x-ray (unknown) (no (unknown) (unknown) take 1 tablet by (units (unknown) date) mouth once daily unknown) (unknown) (no (unknown) (unknown) trimethoprim [From (units (unknown) date) Bactrim] Allergy unknown) Intermediate Anaphylaxis Verified 05/13/22 (unknown) (no (unknown) (unknown) vomiting. No (units (u nknown) date) diaphoresis with unknown) these episodes. She notes that she feels like (unknown) (no (unknown) (unknown) was present on (units (unknown) date) earlier EKG, ST unknown) changes in lateral leads appear same with no (unknown) (no (unknown) (unknown) wean her off her (units (unknown) date) Epsom. She is unsure unknown) what it is called. She states she is had Result panel 118 (unknown) (no (unknown) (unknown) (no value) (units (unk nown) date) unknown) (unknown) (no (unknown) (unknown) 05/13/22 05/13/22 (units (unknown) date) 05/13/22 Range/Units unknown) (unknown) (no (unknown) (unknown) 05/13/22 12:57 (units (unknown) date) unknown) (unknown) (no (unknown) (unknown) 05/13/22 13:11 (units (unknown) date) unknown) (unknown) (no (unknown) (unknown) 05/13/22 13:13 (units (unknown) date) unknown) (unknown) (no (unknown) (unknown) 05/13/22 13:49 (units (unknown) date) unknown) (unknown) (no (unknown) (unknown) 05/13/22 13:56 (units (unknown) date) unknown) (unknown) (no (unknown) (unknown) 05/13/22 15:10 (units (unknown) date) unknown) (unknown) (no (unknown) (unknown) 05/13/22 15:21 (units (unknown) date) unknown) (unknown) (no (unknown) (unknown) 05/13/22 15:50 (units (unknown) date) unknown) (unknown) (no (unknown) (unknown) 05/13/22 15:59 (units (unknown) date) unknown) (unknown) (no (unknown) (unknown) 05/13/22 16:30 (units (unknown) date) unknown) (unknown) (no (unknown) (unknown) 05/13/22 17:30 (units (unknown) date) unknown) (unknown) (no (unknown) (unknown) 05/13/22 23:30 (units (unknown) date) unknown) (unknown) (no (unknown) (unknown) 05/13/22 (units (unkno wn) date) unknown) (unknown) (no (unknown) (unknown) 05/14/22 05:30 (units (unknown) date) unknown) (unknown) (no (unknown) (unknown) 05/14/22 11:30 (units (unknown) date) unknown) (unknown) (no (unknown) (unknown) [id number] (units (unkno wn) date) unknown) (unknown) (no (unknown) (unknown) 1 tab PO PRN PRN (units (unknown) date) (Reason: Pain (Scale unknown) Score 1-3)) (unknown) (no (unknown) (unknown) 1 tablet five times (unit s (unknown) date) a day as needed unknown) (unknown) (no (unknown) (unknown) 12:40 05/13/22 (units (unknown) date) unknown) (unknown) (no (unknown) (unknown) 12:40 (units (unkno wn) date) unknown) (unknown) (no (unknown) (unknown) 12:44 05/13/22 (units (unknown) date) unknown) (unknown) (no (unknown) (unknown) 12:50 05/13/22 (units (unknown) date) unknown) (unknown) (no (unknown) (unknown) 12:58 (units (unkno wn) date) unknown) (unknown) (no (unknown) (unknown) 13:00 05/13/22 (units (unknown) date) unknown) (unknown) (no (unknown) (unknown) 13:00 (units (unkno wn) date) unknown) (unknown) (no (unknown) (unknown) 13:08 05/13/22 (units (unknown) date) unknown) (unknown) (no (unknown) (unknown) 13:11 13:13 13:49 (units (unknown) date) unknown) (unknown) (no (unknown) (unknown) 13:13 05/13/22 (units (unknown) date) unknown) (unknown) (no (unknown) (unknown) 13:30 05/13/22 (units (unknown) date) unknown) (unknown) (no (unknown) (unknown) 13:30 (units (unkno wn) date) unknown) (unknown) (no (unknown) (unknown) 13:49 13:49 13:49 (units (unknown) date) unknown) (unknown) (no (unknown) (unknown) 14:00 05/13/22 (units (unknown) date) unknown) (unknown) (no (unknown) (unknown) 14:30 05/13/22 (units (unknown) date) unknown) (unknown) (no (unknown) (unknown) 14:55 05/13/22 (units (unknown) date) unknown) (unknown) (no (unknown) (unknown) 14:55 (units (unkno wn) date) unknown) (unknown) (no (unknown) (unknown) 15:00 05/13/22 (units (unknown) date) unknown) (unknown) (no (unknown) (unknown) 15:01 05/13/22 (units (unknown) date) unknown) (unknown) (no (unknown) (unknown) 15:01 (units (unkno wn) date) unknown) (unknown) (no (unknown) (unknown) 15:10 15:50 16:30 (units (unknown) date) unknown) (unknown) (no (unknown) (unknown) 15:30 05/13/22 (units (unknown) date) unknown) (unknown) (no (unknown) (unknown) 15:30 (units (unkno wn) date) unknown) (unknown) (no (unknown) (unknown) 15:46 (units (unkno wn) date) unknown) (unknown) (no (unknown) (unknown) 16:00 05/13/22 (units (unknown) date) unknown) (unknown) (no (unknown) (unknown) 16:30 (units (unkno wn) date) unknown) (unknown) (no (unknown) (unknown) 16:31 05/13/22 (units (unknown) date) unknown) (unknown) (no (unknown) (unknown) 16:32 05/13/22 (units (unknown) date) unknown) (unknown) (no (unknown) (unknown) 16:32 (units (unkno wn) date) unknown) (unknown) (no (unknown) (unknown) 16:47 05/13/22 (units (unknown) date) unknown) (unknown) (no (unknown) (unknown) 16:47 (units (unkno wn) date) unknown) (unknown) (no (unknown) (unknown) 17:00 05/13/22 (units (unknown) date) unknown) (unknown) (no (unknown) (unknown) 17:01 (units (unkno wn) date) unknown) (unknown) (no (unknown) (unknown) 50 mg PO DAILY (units (unknown) date) unknown) (unknown) (no (unknown) (unknown) ABD:bowel sounds (units (unknown) date) normal, soft, unknown) non-tender, no guarding, rebound, rigidity, no (unknown) (no (unknown) (unknown) ABG Base Excess (units (unknown) date) (-2-3) mmol/L unknown) (unknown) (no (unknown) (unknown) ABG Base Excess 2.0 (unit s (unknown) date) (-2-3) mmol/L unknown) (unknown) (no (unknown) (unknown) ABG HCO3 (23-27) (units (unknown) date) mmol/L unknown) (unknown) (no (unknown) (unknown) ABG HCO3 28 H (units ( unknown) date) (23-27) mmol/L unknown) (unknown) (no (unknown) (unknown) ABG O2 Saturation (units (unknown) date) (95-100) % unknown) (unknown) (no (unknown) (unknown) ABG O2 Saturation (units (unknown) date) 98 (95-100) % unknown) (unknown) (no (unknown) (unknown) ABG Total CO2 (units ( unknown) date) (23-27) mmol/L unknown) (unknown) (no (unknown) (unknown) ABG Total CO2 30 H (units (unknown) date) (23-27) mmol/L unknown) (unknown) (no (unknown) (unknown) ABG [Arterial Blood (unit s (unknown) date) Gas] Stat unknown) (unknown) (no (unknown) (unknown) ABG pCO2 (35-45) (units (unknown) date) mmHg unknown) (unknown) (no (unknown) (unknown) ABG pCO2 54.1 H (units (unknown) date) (35-45) mmHg unknown) (unknown) (no (unknown) (unknown) ABG pH (7.35-7.45) (units (unknown) date) unknown) (unknown) (no (unknown) (unknown) ABG pH 7.33 L (units ( unknown) date) (7.35-7.45) unknown) (unknown) (no (unknown) (unknown) ABG pO2 (80-100) (units (unknown) date) mmHg unknown) (unknown) (no (unknown) (unknown) ABG pO2 107 H (units ( unknown) date) (80-100) mmHg unknown) (unknown) (no (unknown) (unknown) ALT (<35) IU/L (units (unknown) date) unknown) (unknown) (no (unknown) (unknown) ALT 24 (<35) IU/L (units (unknown) date) unknown) (unknown) (no (unknown) (unknown) AST (14-36) IU/L (units (unknown) date) unknown) (unknown) (no (unknown) (unknown) AST 28 (14-36) IU/L (unit s (unknown) date) unknown) (unknown) (no (unknown) (unknown) Adenovirus (PCR) (units (unknown) date) (Not Detect) unknown) (unknown) (no (unknown) (unknown) Adenovirus (PCR) (units (unknown) date) Not detected (Not unknown) Detect) (unknown) (no (unknown) (unknown) Age/Sex: 81 / F (units (unknown) date) unknown) (unknown) (no (unknown) (unknown) Albumin (3.5-5.0) (units (unknown) date) g/dL unknown) (unknown) (no (unknown) (unknown) Albumin 4.3 (units (un known) date) (3.5-5.0) g/dL unknown) (unknown) (no (unknown) (unknown) Albumin/Globulin (units (unknown) date) Ratio (1.0-2.8) unknown) (unknown) (no (unknown) (unknown) Albumin/Globulin (units (unknown) date) Ratio 1.3 (1.0-2.8) unknown) (unknown) (no (unknown) (unknown) Alcohol type: hard (units (unknown) date) liquor unknown) (unknown) (no (unknown) (unknown) Alkaline (units (unkno wn) date) Phosphatase (38-126) unknown) U/L (unknown) (no (unknown) (unknown) Alkaline (units (unkno wn) date) Phosphatase 88 unknown) (38-126) U/L (unknown) (no (unknown) (unknown) Allergies (units (unkn own) date) unknown) (unknown) (no (unknown) (unknown) Allergy/AdvReac (units (unknown) date) Type Severity unknown) Reaction Status Date / Time (unknown) (no (unknown) (unknown) Attestation: I (units (unknown) date) personally reviewed unknown) and interpreted this ECG as follows: (unknown) (no (unknown) (unknown) Attestation: (units (u nknown) date) unknown) (unknown) (no (unknown) (unknown) B. pertussis DNA (units (unknown) date) (PCR) (Not Detecte) unknown) (unknown) (no (unknown) (unknown) B. pertussis DNA (units (unknown) date) (PCR) Not detected unknown) (Not Detecte) (unknown) (no (unknown) (unknown) B.parapertussis DNA (unit s (unknown) date) PCR (Not Detecte) unknown) (unknown) (no (unknown) (unknown) B.parapertussis DNA (unit s (unknown) date) PCR Not detected unknown) (Not Detecte) (unknown) (no (unknown) (unknown) BUN (7-17) mg/dL (units (unknown) date) unknown) (unknown) (no (unknown) (unknown) BUN 18 H (7-17) (units (unknown) date) mg/dL unknown) (unknown) (no (unknown) (unknown) BUN/Creatinine (units (unknown) date) Ratio (6-22) unknown) (unknown) (no (unknown) (unknown) BUN/Creatinine (units (unknown) date) Ratio 20.7 (6-22) unknown) (unknown) (no (unknown) (unknown) Baso # (Auto) (units ( unknown) date) (0-100) /uL unknown) (unknown) (no (unknown) (unknown) Baso # (Auto) 0 (units (unknown) date) (0-100) /uL unknown) (unknown) (no (unknown) (unknown) Baso % (Auto) (0-2) (unit s (unknown) date) % unknown) (unknown) (no (unknown) (unknown) Baso % (Auto) 0.2 (units (unknown) date) (0-2) % unknown) (unknown) (no (unknown) (unknown) Bedside Urine (units ( unknown) date) Bilirubin + 1 unknown) (unknown) (no (unknown) (unknown) Bedside Urine (units ( unknown) date) Glucose Negative unknown) (unknown) (no (unknown) (unknown) Bedside Urine (units ( unknown) date) Ketone +/- 5 unknown) (unknown) (no (unknown) (unknown) Bedside Urine (units ( unknown) date) Leukocytes ++ 125 unknown) (unknown) (no (unknown) (unknown) Bedside Urine (units ( unknown) date) Nitrite + Positive unknown) (unknown) (no (unknown) (unknown) Bedside Urine (units ( unknown) date) Occult Blood unknown) (unknown) (no (unknown) (unknown) Bedside Urine (units ( unknown) date) Protein +++ 300 unknown) (unknown) (no (unknown) (unknown) Bedside Urine (units ( unknown) date) Urobilinogen - unknown) Negative (unknown) (no (unknown) (unknown) Bedside Urine pH 6 (units (unknown) date) unknown) (unknown) (no (unknown) (unknown) Blood Pressure (units (unknown) date) 107/59 L 05/13/22 unknown) 12:40 (unknown) (no (unknown) (unknown) Blood Pressure (units (unknown) date) 107/59 L 118/68 unknown) (unknown) (no (unknown) (unknown) Blood Pressure (units (unknown) date) 107/59 L unknown) (unknown) (no (unknown) (unknown) Blood Pressure (units (unknown) date) 122/83 119/66 unknown) (unknown) (no (unknown) (unknown) Blood Pressure (units (unknown) date) 122/83 unknown) (unknown) (no (unknown) (unknown) Blood Pressure (units (unknown) date) 126/67 unknown) (unknown) (no (unknown) (unknown) Blood Pressure (units (unknown) date) 139/85 unknown) (unknown) (no (unknown) (unknown) Blood Pressure (units (unknown) date) 141/68 H unknown) (unknown) (no (unknown) (unknown) Blood Pressure (units (unknown) date) 142/84 H 105/65 unknown) (unknown) (no (unknown) (unknown) Blood Pressure (units (unknown) date) 150/85 H 136/80 unknown) (unknown) (no (unknown) (unknown) Blood Pressure (units (unknown) date) 88/47 L 142/94 H unknown) (unknown) (no (unknown) (unknown) Blood Pressure (units (unknown) date) unknown) (unknown) (no (unknown) (unknown) COVID19 -Nasal (units (unknown) date) RAPID Stat unknown) (unknown) (no (unknown) (unknown) CT angio chest PE (units (unknown) date) protocol Stat unknown) (unknown) (no (unknown) (unknown) Calcium (8.4-10.2) (units (unknown) date) mg/dL unknown) (unknown) (no (unknown) (unknown) Calcium 9.1 (units (un known) date) (8.4-10.2) mg/dL unknown) (unknown) (no (unknown) (unknown) Carbon Dioxide (units (unknown) date) (22-32) mmol/L unknown) (unknown) (no (unknown) (unknown) Carbon Dioxide 26 (units (unknown) date) (22-32) mmol/L unknown) (unknown) (no (unknown) (unknown) Chief Complaint: (units (unknown) date) Shortness of unknown) Breath/Dyspnea (unknown) (no (unknown) (unknown) Chlamy pneumoniae (units (unknown) date) PCR (Not Detect) unknown) (unknown) (no (unknown) (unknown) Chlamy pneumoniae (units (unknown) date) PCR Not detected unknown) (Not Detect) (unknown) (no (unknown) (unknown) Chloride (98-107) (units (unknown) date) mmol/L unknown) (unknown) (no (unknown) (unknown) Chloride 98 (units (un known) date) (98-107) mmol/L unknown) (unknown) (no (unknown) (unknown) Clinical (units (unkno wn) date) Impression: unknown) (unknown) (no (unknown) (unknown) Complete Blood (units (unknown) date) Count AUTO DIFF Stat unknown) (unknown) (no (unknown) (unknown) Comprehensive (units ( unknown) date) Metabolic Panel Stat unknown) (unknown) (no (unknown) (unknown) Congestive heart (units (unknown) date) failure, Bilateral unknown) pulmonary embolism, Acute respiratory (unknown) (no (unknown) (unknown) Coronavirus 229E (units (unknown) date) (PCR) (Not Detect) unknown) (unknown) (no (unknown) (unknown) Coronavirus 229E (units (unknown) date) (PCR) Not detected unknown) (Not Detect) (unknown) (no (unknown) (unknown) Coronavirus HKU1 (units (unknown) date) (PCR) (Not Detect) unknown) (unknown) (no (unknown) (unknown) Coronavirus HKU1 (units (unknown) date) (PCR) Not detected unknown) (Not Detect) (unknown) (no (unknown) (unknown) Coronavirus NL63 (units (unknown) date) (PCR) (Not Detect) unknown) (unknown) (no (unknown) (unknown) Coronavirus NL63 (units (unknown) date) (PCR) Not detected unknown) (Not Detect) (unknown) (no (unknown) (unknown) Coronavirus OC43 (units (unknown) date) (PCR) (Not Detect) unknown) (unknown) (no (unknown) (unknown) Coronavirus OC43 (units (unknown) date) (PCR) Not detected unknown) (Not Detect) (unknown) (no (unknown) (unknown) Course (units (unkno wn) date) unknown) (unknown) (no (unknown) (unknown) Creatinine (units (unk nown) date) (0.52-1.04) mg/dL unknown) (unknown) (no (unknown) (unknown) Creatinine 0.87 (units (unknown) date) (0.52-1.04) mg/dL unknown) (unknown) (no (unknown) (unknown) Critical Care Time (units (unknown) date) unknown) (unknown) (no (unknown) (unknown) Critical Care Time: (unit s (unknown) date) Yes unknown) (unknown) (no (unknown) (unknown) : 1940 (units (unknown) date) Acct:[id number] unknown) (unknown) (no (unknown) (unknown) Date of Service: (units (unknown) date) 05/13/22 unknown) (unknown) (no (unknown) (unknown) Departure (units (unkn own) date) unknown) (unknown) (no (unknown) (unknown) Diphenhydramine HCl (unit s (unknown) date) (Diphenhydramine 50 unknown) Mg/Ml Vial) 25 mg IV NOW ONE (unknown) (no (unknown) (unknown) Discharge Plan (units (unknown) date) unknown) (unknown) (no (unknown) (unknown) Discontinued (units (u nknown) date) Medications unknown) (unknown) (no (unknown) (unknown) Discussed with (units (unknown) date) Darren, hospitalist unknown) when asked that we speak with (unknown) (no (unknown) (unknown) Documented By: KB (units (unknown) date) unknown) (unknown) (no (unknown) (unknown) Documented By: RLS (units (unknown) date) unknown) (unknown) (no (unknown) (unknown) ECG Data (units (unkno wn) date) unknown) (unknown) (no (unknown) (unknown) ED Orders (units (unkn own) date) unknown) (unknown) (no (unknown) (unknown) EKG-12 Lead Stat (units (unknown) date) unknown) (unknown) (no (unknown) (unknown) ER Physician: (units ( unknown) date) Sujata Graff D.O. unknown) (unknown) (no (unknown) (unknown) Emergency Report (units (unknown) date) unknown) (unknown) (no (unknown) (unknown) Entero/Rhino (PCR) (units (unknown) date) (Not Detect) unknown) (unknown) (no (unknown) (unknown) Entero/Rhino (PCR) (units (unknown) date) Not detected (Not unknown) Detect) (unknown) (no (unknown) (unknown) Eos # (Auto) (units (u nknown) date) (0-450) /uL unknown) (unknown) (no (unknown) (unknown) Eos # (Auto) 0 (units (unknown) date) (0-450) /uL unknown) (unknown) (no (unknown) (unknown) Eos % (Auto) (2-4) (units (unknown) date) % unknown) (unknown) (no (unknown) (unknown) Eos % (Auto) 0.3 L (units (unknown) date) (2-4) % unknown) (unknown) (no (unknown) (unknown) Esterase (units (unkno wn) date) unknown) (unknown) (no (unknown) (unknown) Estimated GFR > 60 (units (unknown) date) (>60) mL/min unknown) (unknown) (no (unknown) (unknown) Estimated GFR (>60) (unit s (unknown) date) mL/min unknown) (unknown) (no (unknown) (unknown) Exam Narrative: (units (unknown) date) unknown) (unknown) (no (unknown) (unknown) Exam (units (unkno wn) date) unknown) (unknown) (no (unknown) (unknown) Feet do have some (units (unknown) date) discoloration are unknown) slightly mottled, hands do not. Patient (unknown) (no (unknown) (unknown) Furosemide (units (unk nown) date) (Furosemide 40 Mg/4 unknown) Ml Vial) 40 mg IV NOW ONE (unknown) (no (unknown) (unknown) GEN: Obese elderly (units (unknown) date) female, alert and unknown) oriented x 3, patient appears to be in (unknown) (no (unknown) (unknown) :No CVA (units (unkn own) date) tenderness unknown) (unknown) (no (unknown) (unknown) General (units (unkno wn) date) unknown) (unknown) (no (unknown) (unknown) Globulin (1.7-4.1) (units (unknown) date) g/dL unknown) (unknown) (no (unknown) (unknown) Globulin 3.4 (units (u nknown) date) (1.7-4.1) g/dL unknown) (unknown) (no (unknown) (unknown) Glucose (80-110) (units (unknown) date) mg/dL unknown) (unknown) (no (unknown) (unknown) Glucose 133 H (units ( unknown) date) (80-110) mg/dL unknown) (unknown) (no (unknown) (unknown) HEART: Regular rate (unit s (unknown) date) and rhythm without unknown) murmur, clicks, rubs. Pulmonary VD. (unknown) (no (unknown) (unknown) HEENT: Atraumatic, (units (unknown) date) pupils are equal unknown) round reactive to light, extraocular (unknown) (no (unknown) (unknown) HPI - SOB/Dyspnea (units (unknown) date) unknown) (unknown) (no (unknown) (unknown) HPI Narrative: (units (unknown) date) unknown) (unknown) (no (unknown) (unknown) Hct (36-46) % (units ( unknown) date) unknown) (unknown) (no (unknown) (unknown) Hct 49.2 H (36-46) (units (unknown) date) % unknown) (unknown) (no (unknown) (unknown) Heparin Sodium (units (unknown) date) (Porcine) (Heparin unknown) 5,000 Unit/Ml Vial) 7,500 unit IV NOW ONE (unknown) (no (unknown) (unknown) Heparin (units (unkno wn) date) Sodium/Dextrose unknown) (Heparin Drip) 25,000 unit in 500 mls @ 39.844 mls/hr (unknown) (no (unknown) (unknown) Hgb (12.0-16.0) (units (unknown) date) g/dL unknown) (unknown) (no (unknown) (unknown) Hgb 16.1 H (units (unk nown) date) (12.0-16.0) g/dL unknown) (unknown) (no (unknown) (unknown) History of Present (units (unknown) date) Illness unknown) (unknown) (no (unknown) (unknown) Home Medications (units (unknown) date) unknown) (unknown) (no (unknown) (unknown) Human Metapneumovir (unit s (unknown) date) PCR (Not Detect) unknown) (unknown) (no (unknown) (unknown) Human Metapneumovir (unit s (unknown) date) PCR Not detected unknown) (Not Detect) (unknown) (no (unknown) (unknown) INR (0.9-1.3) (units ( unknown) date) unknown) (unknown) (no (unknown) (unknown) INR 1.2 (0.9-1.3) (units (unknown) date) unknown) (unknown) (no (unknown) (unknown) IV CONT OMAR; (units (u nknown) date) Protocol unknown) (unknown) (no (unknown) (unknown) Ictotest Urine Stat (unit s (unknown) date) unknown) (unknown) (no (unknown) (unknown) Influenza Type A (units (unknown) date) (PCR) (Not Detect) unknown) (unknown) (no (unknown) (unknown) Influenza Type A (units (unknown) date) (PCR) Not detected unknown) (Not Detect) (unknown) (no (unknown) (unknown) Influenza Type B (units (unknown) date) (PCR) (Not Detect) unknown) (unknown) (no (unknown) (unknown) Influenza Type B (units (unknown) date) (PCR) Not detected unknown) (Not Detect) (unknown) (no (unknown) (unknown) Initial Vital Signs (unit s (unknown) date) unknown) (unknown) (no (unknown) (unknown) Initial Vital (units ( unknown) date) Signs: unknown) (unknown) (no (unknown) (unknown) Interpretation: (units (unknown) date) unknown) (unknown) (no (unknown) (unknown) Interventional (units (unknown) date) Radiology unknown) (unknown) (no (unknown) (unknown) [facility] (units (unknown) date) [address] unknown) [place] [address] (unknown) (no (unknown) (unknown) LUNGS:Lungs breath (units (unknown) date) sounds equal unknown) bilaterally, no wheezes, bilateral crackles, (unknown) (no (unknown) (unknown) Lab Data (units (unkno wn) date) unknown) (unknown) (no (unknown) (unknown) Lab Results (units (un known) date) unknown) (unknown) (no (unknown) (unknown) Labs: (units (unkno wn) date) unknown) (unknown) (no (unknown) (unknown) Lactate (0.7-2.1) (units (unknown) date) mmol/L unknown) (unknown) (no (unknown) (unknown) Lactate (Lactic (units (unknown) date) Acid) Stat unknown) (unknown) (no (unknown) (unknown) Lactate 1.9 (units (un known) date) (0.7-2.1) mmol/L unknown) (unknown) (no (unknown) (unknown) Eber Wetzel, (unit s (unknown) date) [Primary Care unknown) Provider] (unknown) (no (unknown) (unknown) Last Admin: (units (un known) date) 05/13/22 15:28 Dose: unknown) 40 mg (unknown) (no (unknown) (unknown) Last Admin: (units (un known) date) 05/13/22 16:25 Dose: unknown) 25 mg (unknown) (no (unknown) (unknown) Last Admin: (units (un known) date) 05/13/22 16:26 Dose: unknown) 125 mg (unknown) (no (unknown) (unknown) Limitations: no (units (unknown) date) limitations unknown) (unknown) (no (unknown) (unknown) Lymph # (Auto) (units (unknown) date) (6908-4496) /uL unknown) (unknown) (no (unknown) (unknown) Lymph # (Auto) 600 (units (unknown) date) L (6610-0974) /uL unknown) (unknown) (no (unknown) (unknown) Lymph % (Auto) (units (unknown) date) (25-40) % unknown) (unknown) (no (unknown) (unknown) Lymph % (Auto) 5.5 (units (unknown) date) L (25-40) % unknown) (unknown) (no (unknown) (unknown) M. pneumoniae (PCR) (unit s (unknown) date) (Not Detect) unknown) (unknown) (no (unknown) (unknown) M. pneumoniae (PCR) (unit s (unknown) date) Not detected (Not unknown) Detect) (unknown) (no (unknown) (unknown) MCH (26-34) PG (units (unknown) date) unknown) (unknown) (no (unknown) (unknown) MCH 28.4 (26-34) PG (unit s (unknown) date) unknown) (unknown) (no (unknown) (unknown) MCHC (30-36) % (units (unknown) date) unknown) (unknown) (no (unknown) (unknown) MCHC 32.8 (30-36) % (unit s (unknown) date) unknown) (unknown) (no (unknown) (unknown) MCV (80-100) fL (units (unknown) date) unknown) (unknown) (no (unknown) (unknown) MCV 86.8 (80-100) (units (unknown) date) fL unknown) (unknown) (no (unknown) (unknown) MDM - SOB/Dyspnea (units (unknown) date) unknown) (unknown) (no (unknown) (unknown) MDM Narrative (units ( unknown) date) unknown) (unknown) (no (unknown) (unknown) MSCL: Non-tender, (units (unknown) date) no muscle atrophy, unknown) muscles strength 5/5 upper and lower (unknown) (no (unknown) (unknown) Measure peak (units (u nknown) date) expiratory flow ONCE unknown) (unknown) (no (unknown) (unknown) Medical decision (units (unknown) date) making narrative: unknown) (unknown) (no (unknown) (unknown) Medication (units (unk nown) date) Instructions unknown) Recorded Confirmed (unknown) (no (unknown) (unknown) Methylprednisolone (units (unknown) date) (Methylprednisolone unknown) 125 Mg/2 Ml Vial) 125 mg IV NOW ONE (unknown) (no (unknown) (unknown) Mode of arrival: (units (unknown) date) EMS unknown) (unknown) (no (unknown) (unknown) Harris # (Auto) (units ( unknown) date) (0-900) /uL unknown) (unknown) (no (unknown) (unknown) Harris # (Auto) 400 (units (unknown) date) (0-900) /uL unknown) (unknown) (no (unknown) (unknown) Harris % (Auto) (units ( unknown) date) (3-14) % unknown) (unknown) (no (unknown) (unknown) Harris % (Auto) 4.1 (units (unknown) date) (3-14) % unknown) (unknown) (no (unknown) (unknown) NEURO:CN 2-12 (units ( unknown) date) intact, sensation unknown) normal (unknown) (no (unknown) (unknown) NT-Pro-B Natriuret (units (unknown) date) Pep (<450) pg/mL unknown) (unknown) (no (unknown) (unknown) NT-Pro-B Natriuret (units (unknown) date) Pep 37098 H (<450) unknown) pg/mL (unknown) (no (unknown) (unknown) NT-proBNP (units (unkn own) date) (BNP-Adult 18+) Stat unknown) (unknown) (no (unknown) (unknown) Narrative (units (unkn own) date) unknown) (unknown) (no (unknown) (unknown) Neut # (Auto) (units ( unknown) date) (1623-7682) /uL unknown) (unknown) (no (unknown) (unknown) Neut # (Auto) 9800 (units (unknown) date) H (3594-3435) /uL unknown) (unknown) (no (unknown) (unknown) Neut % (Auto) (units ( unknown) date) (50-75) % unknown) (unknown) (no (unknown) (unknown) Neut % (Auto) 89.9 (units (unknown) date) H (50-75) % unknown) (unknown) (no (unknown) (unknown) No Action (units (unkn own) date) unknown) (unknown) (no (unknown) (unknown) Normal sinus (units (u nknown) date) rhythm, left axis unknown) deviation, rate of 98, OR 120, QRS 88 QTC 347. (unknown) (no (unknown) (unknown) Ordered: (units (unkno wn) date) unknown) (unknown) (no (unknown) (unknown) Orders (units (unkno wn) date) unknown) (unknown) (no (unknown) (unknown) Oximask (units (unkno wn) date) unknown) (unknown) (no (unknown) (unknown) Oxygen Delivery (units (unknown) date) Method Nasal Cannula unknown) (unknown) (no (unknown) (unknown) Oxygen Delivery (units (unknown) date) Method Oximask unknown) Oximask (unknown) (no (unknown) (unknown) Oxygen Delivery (units (unknown) date) Method Oximask unknown) (unknown) (no (unknown) (unknown) Oxygen Delivery (units (unknown) date) Method Room Air unknown) 05/13/22 12:40 (unknown) (no (unknown) (unknown) Oxygen Delivery (units (unknown) date) Method Room Air unknown) Nasal Cannula Oximask (unknown) (no (unknown) (unknown) Oxygen Delivery (units (unknown) date) Method unknown) (unknown) (no (unknown) (unknown) Oxygen Flow Rate 4 (units (unknown) date) 6 unknown) (unknown) (no (unknown) (unknown) Oxygen Flow Rate 5 (units (unknown) date) unknown) (unknown) (no (unknown) (unknown) Oxygen Flow Rate 8 (units (unknown) date) 9 unknown) (unknown) (no (unknown) (unknown) Oxygen Flow Rate 9 (units (unknown) date) 7 unknown) (unknown) (no (unknown) (unknown) Oxygen Flow Rate 9 (units (unknown) date) 9 unknown) (unknown) (no (unknown) (unknown) Oxygen Flow Rate 9 (units (unknown) date) unknown) (unknown) (no (unknown) (unknown) Oxygen Flow Rate (units (unknown) date) unknown) (unknown) (no (unknown) (unknown) PT (10.1-12.7) (units (unknown) date) SECONDS unknown) (unknown) (no (unknown) (unknown) PT 14.1 H (units (unkn own) date) (10.1-12.7) SECONDS unknown) (unknown) (no (unknown) (unknown) PTT Partial (units (un known) date) Thromboplastin Vicente unknown) Q6H (unknown) (no (unknown) (unknown) Parainfluenza 1 (units (unknown) date) (PCR) (Not Detect) unknown) (unknown) (no (unknown) (unknown) Parainfluenza 1 (units (unknown) date) (PCR) Not detected unknown) (Not Detect) (unknown) (no (unknown) (unknown) Parainfluenza 2 (units (unknown) date) (PCR) (Not Detect) unknown) (unknown) (no (unknown) (unknown) Parainfluenza 2 (units (unknown) date) (PCR) Not detected unknown) (Not Detect) (unknown) (no (unknown) (unknown) Parainfluenza 3 (units (unknown) date) (PCR) (Not Detect) unknown) (unknown) (no (unknown) (unknown) Parainfluenza 3 (units (unknown) date) (PCR) Not detected unknown) (Not Detect) (unknown) (no (unknown) (unknown) Parainfluenza 4 (units (unknown) date) (PCR) (Not Detect) unknown) (unknown) (no (unknown) (unknown) Parainfluenza 4 (units (unknown) date) (PCR) Not detected unknown) (Not Detect) (unknown) (no (unknown) (unknown) Patient Comments: (units (unknown) date) unknown) (unknown) (no (unknown) (unknown) Patient History (units (unknown) date) unknown) (unknown) (no (unknown) (unknown) Patient change in (units (unknown) date) lateral no with unknown) inverted T-wave and RSR V1 through the read (unknown) (no (unknown) (unknown) Patient does not (units (unknown) date) have pitting edema unknown) but has some mild swelling bilaterally. (unknown) (no (unknown) (unknown) Patient's P wave (units (unknown) date) inverted in lead 3. unknown) (unknown) (no (unknown) (unknown) Patient: (units (unkno wn) date) Gely Milner MR#: unknown) M00 (unknown) (no (unknown) (unknown) Penicillins Allergy (unit s (unknown) date) Intermediate unknown) Anaphylaxis Verified 05/13/22 15:46 (unknown) (no (unknown) (unknown) Plt Count (150-400) (unit s (unknown) date) X103/uL unknown) (unknown) (no (unknown) (unknown) Plt Count 252 (units ( unknown) date) (150-400) X103/uL unknown) (unknown) (no (unknown) (unknown) Potassium (3.4-5.1) (unit s (unknown) date) mmol/L unknown) (unknown) (no (unknown) (unknown) Potassium 4.3 (units ( unknown) date) (3.4-5.1) mmol/L unknown) (unknown) (no (unknown) (unknown) Prescriptions: (units (unknown) date) unknown) (unknown) (no (unknown) (unknown) Prior ECG tracings: (unit s (unknown) date) available for review unknown) (unknown) (no (unknown) (unknown) Prothrombin Time (units (unknown) date) INR Stat unknown) (unknown) (no (unknown) (unknown) Pulse Oximetry 85 L (unit s (unknown) date) 05/13/22 12:40 unknown) (unknown) (no (unknown) (unknown) Pulse Oximetry 85 L (unit s (unknown) date) 87 L 91 unknown) (unknown) (no (unknown) (unknown) Pulse Oximetry 88 L (unit s (unknown) date) 96 unknown) (unknown) (no (unknown) (unknown) Pulse Oximetry 90 L (unit s (unknown) date) unknown) (unknown) (no (unknown) (unknown) Pulse Oximetry 91 (units (unknown) date) 94 unknown) (unknown) (no (unknown) (unknown) Pulse Oximetry 93 (units (unknown) date) 95 unknown) (unknown) (no (unknown) (unknown) Pulse Oximetry 94 (units (unknown) date) 92 unknown) (unknown) (no (unknown) (unknown) Pulse Oximetry 94 (units (unknown) date) 94 unknown) (unknown) (no (unknown) (unknown) Pulse Oximetry 95 (units (unknown) date) 89 L unknown) (unknown) (no (unknown) (unknown) Pulse Oximetry 95 (units (unknown) date) 92 unknown) (unknown) (no (unknown) (unknown) Pulse Oximetry 96 (units (unknown) date) unknown) (unknown) (no (unknown) (unknown) Pulse Oximetry 99 (units (unknown) date) unknown) (unknown) (no (unknown) (unknown) Pulse Rate 100 H (units (unknown) date) 05/13/22 12:40 unknown) (unknown) (no (unknown) (unknown) Pulse Rate 100 H (units (unknown) date) unknown) (unknown) (no (unknown) (unknown) Pulse Rate 101 H 96 (unit s (unknown) date) H unknown) (unknown) (no (unknown) (unknown) Pulse Rate 93 H 95 (units (unknown) date) H unknown) (unknown) (no (unknown) (unknown) Pulse Rate 95 H 97 (units (unknown) date) H unknown) (unknown) (no (unknown) (unknown) Pulse Rate 95 H (units (unknown) date) unknown) (unknown) (no (unknown) (unknown) Pulse Rate 96 H (units (unknown) date) unknown) (unknown) (no (unknown) (unknown) Pulse Rate 97 H 96 (units (unknown) date) H unknown) (unknown) (no (unknown) (unknown) Pulse Rate 99 H 97 (units (unknown) date) H unknown) (unknown) (no (unknown) (unknown) Quinolones Allergy (units (unknown) date) Intermediate unknown) Anaphylaxis Verified 05/13/22 15:46 (unknown) (no (unknown) (unknown) RBC (4.0-5.2) (units ( unknown) date) X106/uL unknown) (unknown) (no (unknown) (unknown) RBC 5.67 H (units (unk nown) date) (4.0-5.2) X106/uL unknown) (unknown) (no (unknown) (unknown) RDW (11.6-14.8) % (units (unknown) date) unknown) (unknown) (no (unknown) (unknown) RDW 13.8 (units (unkno wn) date) (11.6-14.8) % unknown) (unknown) (no (unknown) (unknown) ROS Unobtainable: (units (unknown) date) All systems reviewed unknown) + are unremarkable except as noted in HPI (unknown) (no (unknown) (unknown) RSV (PCR) (Not (units (unknown) date) Detect) unknown) (unknown) (no (unknown) (unknown) RSV (PCR) Not (units ( unknown) date) detected (Not unknown) Detect) (unknown) (no (unknown) (unknown) RT Consult Eval and (unit s (unknown) date) Treat NOW unknown) (unknown) (no (unknown) (unknown) Referrals: (units (unk nown) date) unknown) (unknown) (no (unknown) (unknown) Related Data (units (u nknown) date) unknown) (unknown) (no (unknown) (unknown) Respiratory Panel (units (unknown) date) (Film Array) Stat unknown) (unknown) (no (unknown) (unknown) Respiratory Rate 16 (unit s (unknown) date) 16 unknown) (unknown) (no (unknown) (unknown) Respiratory Rate 20 (unit s (unknown) date) 18 unknown) (unknown) (no (unknown) (unknown) Respiratory Rate 22 (unit s (unknown) date) 05/13/22 12:40 unknown) (unknown) (no (unknown) (unknown) Respiratory Rate 22 (unit s (unknown) date) 19 unknown) (unknown) (no (unknown) (unknown) Respiratory Rate 22 (unit s (unknown) date) unknown) (unknown) (no (unknown) (unknown) Respiratory Rate 23 (unit s (unknown) date) 24 unknown) (unknown) (no (unknown) (unknown) Respiratory Rate 23 (unit s (unknown) date) unknown) (unknown) (no (unknown) (unknown) Respiratory Rate 24 (unit s (unknown) date) 22 unknown) (unknown) (no (unknown) (unknown) Respiratory Rate 25 (unit s (unknown) date) H 22 unknown) (unknown) (no (unknown) (unknown) Respiratory Rate (units (unknown) date) unknown) (unknown) (no (unknown) (unknown) Review of Systems (units (unknown) date) unknown) (unknown) (no (unknown) (unknown) SARS-CoV-2 (PCR) (units (unknown) date) (Negative) unknown) (unknown) (no (unknown) (unknown) SARS-CoV-2 (PCR) (units (unknown) date) Negative Not unknown) detected (Negative) (unknown) (no (unknown) (unknown) SKIN: See above. (units (unknown) date) unknown) (unknown) (no (unknown) (unknown) Signed By: (units (unk nown) date) unknown) (unknown) (no (unknown) (unknown) Smoking Status: (units (unknown) date) Never smoker unknown) (unknown) (no (unknown) (unknown) Social History (units (unknown) date) (Reviewed 05/13/22 @ unknown) 14:48 by Sujata Graff DO) (unknown) (no (unknown) (unknown) Sodium (137-145) (units (unknown) date) mmol/L unknown) (unknown) (no (unknown) (unknown) Sodium 135 L (units (u nknown) date) (137-145) mmol/L unknown) (unknown) (no (unknown) (unknown) Source: patient and (unit s (unknown) date) EMS unknown) (unknown) (no (unknown) (unknown) Stated Complaint: (units (unknown) date) Dizzy, SOB T-3 unknown) (unknown) (no (unknown) (unknown) Stop: 05/13/22 (units (unknown) date) 14:24 unknown) (unknown) (no (unknown) (unknown) Stop: 05/13/22 (units (unknown) date) 16:19 unknown) (unknown) (no (unknown) (unknown) Stop: 05/13/22 (units (unknown) date) 17:23 unknown) (unknown) (no (unknown) (unknown) Substance Use Type: (unit s (unknown) date) does not use unknown) (unknown) (no (unknown) (unknown) Temperature 97.6 F (units (unknown) date) 05/13/22 12:40 unknown) (unknown) (no (unknown) (unknown) Temperature 97.6 F (units (unknown) date) unknown) (unknown) (no (unknown) (unknown) Temperature (units (un known) date) unknown) (unknown) (no (unknown) (unknown) The high (units (unkno wn) date) probability of a unknown) clinically significant, sudden or life threatening (unknown) (no (unknown) (unknown) These show patient (units (unknown) date) actually had some unknown) improvement in T-waves in 1 and aVL which (unknown) (no (unknown) (unknown) This is a (units (unkn own) date) 81-year-old female unknown) with complaint of increasing shortness of breath (unknown) (no (unknown) (unknown) This is an (units (unk nown) date) 81-year-old female unknown) who states her only medications are Epsom daily (unknown) (no (unknown) (unknown) Time Seen by (units (u nknown) date) Provider: 05/13/22 unknown) 14:15 (unknown) (no (unknown) (unknown) Total Bilirubin (units (unknown) date) (0.2-1.3) mg/dL unknown) (unknown) (no (unknown) (unknown) Total Bilirubin 0.9 (unit s (unknown) date) (0.2-1.3) mg/dL unknown) (unknown) (no (unknown) (unknown) Total Protein (units ( unknown) date) (6.3-8.2) g/dL unknown) (unknown) (no (unknown) (unknown) Total Protein 7.7 (units (unknown) date) (6.3-8.2) g/dL unknown) (unknown) (no (unknown) (unknown) Trop I [Troponin I] (unit s (unknown) date) Stat unknown) (unknown) (no (unknown) (unknown) Troponin I (units (unk nown) date) (0.01-0.034) ng/mL unknown) (unknown) (no (unknown) (unknown) Troponin I 0.020 (units (unknown) date) (0.01-0.034) ng/mL unknown) (unknown) (no (unknown) (unknown) Troponin I 0.026 (units (unknown) date) (0.01-0.034) ng/mL unknown) (unknown) (no (unknown) (unknown) Troponin I Stat (units (unknown) date) unknown) (unknown) (no (unknown) (unknown) Ur Bilirubin (units (u nknown) date) Confirm (Negative) unknown) (unknown) (no (unknown) (unknown) Ur Bilirubin (units (u nknown) date) Confirm Negative unknown) (Negative) (unknown) (no (unknown) (unknown) Ur Culture (units (unk nown) date) Indicated? Cult not unknown) indicated (unknown) (no (unknown) (unknown) Ur Culture (units (unk nown) date) Indicated? unknown) (unknown) (no (unknown) (unknown) Ur Squamous Epith (units (unknown) date) Cells (0-5/HPF) unknown) (unknown) (no (unknown) (unknown) Ur Squamous Epith (units (unknown) date) Cells 1-5 /hpf unknown) (0-5/HPF) (unknown) (no (unknown) (unknown) Urine Bacteria (units (unknown) date) (None) unknown) (unknown) (no (unknown) (unknown) Urine Bacteria (units (unknown) date) Moderate (10-30) H unknown) (None) (unknown) (no (unknown) (unknown) Urine Culture Stat (units (unknown) date) unknown) (unknown) (no (unknown) (unknown) Urine Dip (units (unkn own) date) unknown) (unknown) (no (unknown) (unknown) Urine Microscopic (units (unknown) date) Stat unknown) (unknown) (no (unknown) (unknown) Urine RBC (0-5/HPF) (unit s (unknown) date) unknown) (unknown) (no (unknown) (unknown) Urine RBC 10-30/hpf (unit s (unknown) date) H (0-5/HPF) unknown) (unknown) (no (unknown) (unknown) Urine Specific (units (unknown) date) [place] 1.025 unknown) (unknown) (no (unknown) (unknown) Urine WBC (0-5/HPF) (unit s (unknown) date) unknown) (unknown) (no (unknown) (unknown) Urine WBC (units (unkn own) date) 30-100/hpf H unknown) (0-5/HPF) (unknown) (no (unknown) (unknown) Vital Signs - 8 hr (units (unknown) date) unknown) (unknown) (no (unknown) (unknown) Vital Signs (units (un known) date) unknown) (unknown) (no (unknown) (unknown) Vital signs: (units (u nknown) date) unknown) (unknown) (no (unknown) (unknown) WBC (4.5-11.0) (units (unknown) date) X103/uL unknown) (unknown) (no (unknown) (unknown) WBC 10.9 (4.5-11.0) (unit s (unknown) date) X103/uL unknown) (unknown) (no (unknown) (unknown) XR chest 1V Stat (units (unknown) date) unknown) (unknown) (no (unknown) (unknown) [Embedded Image Not (unit s (unknown) date) Available] unknown) (unknown) (no (unknown) (unknown) [From Bactrim] (units (unknown) date) unknown) (unknown) (no (unknown) (unknown) [From Macrobid] (units (unknown) date) unknown) (unknown) (no (unknown) (unknown) [x] Data Review and (unit s (unknown) date) interpretation unknown) (unknown) (no (unknown) (unknown) [x] Documentation (units (unknown) date) unknown) (unknown) (no (unknown) (unknown) [x] Medication (units (unknown) date) orders and unknown) management (unknown) (no (unknown) (unknown) [x] Patient (units (un known) date) assessment and unknown) monitoring of vital signs (unknown) (no (unknown) (unknown) a normal renal (units (unknown) date) function, troponins unknown) 0.02 [place] [address]. Patient had COVID (unknown) (no (unknown) (unknown) alcohol intake (units (unknown) date) frequency: 0-2 unknown) drinks per day (unknown) (no (unknown) (unknown) allergies. She (units (unknown) date) smoked for a year at unknown) age 18, she has not oz of vodka nightly, no (unknown) (no (unknown) (unknown) aluminum Allergy (units (unknown) date) Intermediate unknown) Anaphylaxis Verified 05/13/22 15:46 (unknown) (no (unknown) (unknown) and a pressure on (units (unknown) date) her chest that seems unknown) to be associated with the shortness of (unknown) (no (unknown) (unknown) and below (units (unkn own) date) unknown) (unknown) (no (unknown) (unknown) as well as (units (unk nown) date) respiratory panel unknown) which is negative. Patient was given Lasix, (unknown) (no (unknown) (unknown) breath that has (units (unknown) date) been intermittent unknown) now becoming persistent. Patient states no (unknown) (no (unknown) (unknown) but includes the (units (unknown) date) following: unknown) (unknown) (no (unknown) (unknown) cephalexin Allergy (units (unknown) date) Intermediate unknown) Anaphylaxis Verified 05/13/22 15:46 (unknown) (no (unknown) (unknown) chest moves (units (unk nown) date) symmetrically, no unknown) tachypnea accessory muscle use patient's speaks in (unknown) (no (unknown) (unknown) codeine Allergy (units (unknown) date) Intermediate unknown) Anaphylaxis Verified 05/13/22 15:46 (unknown) (no (unknown) (unknown) continue with (units ( unknown) date) oxygen support. unknown) Troponin and EKG were repeated patient did have (unknown) (no (unknown) (unknown) deterioration of (units (unknown) date) the [] system(s) unknown) required my full and direct attention, (unknown) (no (unknown) (unknown) discolored and she (units (unknown) date) states that has been unknown) like that for several months. She does (unknown) (no (unknown) (unknown) dynamic or other (units (unknown) date) changes. unknown) (unknown) (no (unknown) (unknown) effusion minimal (units (unknown) date) pericardial effusion unknown) no right heart strain. Patient does have (unknown) (no (unknown) (unknown) erythema, tonsillar (unit s (unknown) date) enlargement or unknown) uvular deviation (unknown) (no (unknown) (unknown) jeet and lateral. (units (unknown) date) No elevation. unknown) Patient does not have prior for comparison. (unknown) (no (unknown) (unknown) extremities, full (units (unknown) date) range of motion, unknown) normal gait (unknown) (no (unknown) (unknown) failure with (units (u nknown) date) hypoxia unknown) (unknown) (no (unknown) (unknown) fevers or chills. (units (unknown) date) No cold cough or unknown) congestion. She is had some nausea but no (unknown) (no (unknown) (unknown) filling defect (units (unknown) date) distal aspect right unknown) main, smaller in the left main extending the (unknown) (no (unknown) (unknown) full sentences. She (unit s (unknown) date) Oxiimask at 9 L on unknown) my evaluation. (unknown) (no (unknown) (unknown) gelatin Allergy (units (unknown) date) Intermediate unknown) Anaphylaxis Verified 05/13/22 15:46 (unknown) (no (unknown) (unknown) hemoglobin is 16, (units (unknown) date) neutrophils are 89, unknown) INR was normal, sodium is 135 BUN 18 with (unknown) (no (unknown) (unknown) her home and gets (units (unknown) date) very short of breath unknown) with exertion. She has not appreciated (unknown) (no (unknown) (unknown) hydrocodone 5 (units ( unknown) date) mg-acetaminophen 325 unknown) 1 tab PO PRN PRN Pain (Scale Score 05/13/22 (unknown) (no (unknown) (unknown) hydrocodone-acetami (unit s (unknown) date) nophen 5-325 mg unknown) tablet (unknown) (no (unknown) (unknown) illicit. (units (u nknown) date) Damari is her PCP. unknown) (unknown) (no (unknown) (unknown) improved with O2 (units (unknown) date) she does not appear unknown) to be dyspneic or requiring BiPAP. Patient (unknown) (no (unknown) (unknown) increasing shortness (unit s (unknown) date) of breath for for 5 unknown) days, she is had tightness in her chest (unknown) (no (unknown) (unknown) intervention and (units (unknown) date) personal management. unknown) The aggregate critical care time was [] (unknown) (no (unknown) (unknown) interventional to (units (unknown) date) evaluate for unknown) potential transfer and treatment as patient has (unknown) (no (unknown) (unknown) iodine Allergy (units (unknown) date) Intermediate unknown) Anaphylaxis Verified 05/13/22 15:46 (unknown) (no (unknown) (unknown) iv contrast Allergy (unit s (unknown) date) Intermediate unknown) Anaphylaxis Uncoded 05/13/22 15:47 (unknown) (no (unknown) (unknown) levofloxacin [From (units (unknown) date) Levaquin] Allergy unknown) Intermediate Anaphylaxis Verified 05/13/22 (unknown) (no (unknown) (unknown) masses noted, no (units (unknown) date) hepatosplenomegaly unknown) (unknown) (no (unknown) (unknown) medications for (units (unknown) date) anything else, no unknown) history of cardiac stents. No known drug (unknown) (no (unknown) (unknown) mg tablet 1-3) (units (unknown) date) unknown) (unknown) (no (unknown) (unknown) mild distress. (units (unknown) date) unknown) (unknown) (no (unknown) (unknown) minutes. This time (units (unknown) date) is in addition to unknown) time spent performing reported procedures (unknown) (no (unknown) (unknown) movements are (units ( unknown) date) intact, nares are unknown) clear,. Throat is clear without any exudates, (unknown) (no (unknown) (unknown) nitrofurantoin (units (unknown) date) Allergy Intermediate unknown) Anaphylaxis Verified 05/13/22 15:46 (unknown) (no (unknown) (unknown) not appreciate new (units (unknown) date) swelling in her unknown) legs. She comes today she felt like her (unknown) (no (unknown) (unknown) ofloxacin [From (units (unknown) date) Floxin] Allergy unknown) Intermediate Anaphylaxis Verified 05/13/22 15:46 (unknown) (no (unknown) (unknown) over the last (units ( unknown) date) several days, unknown) patient has crackles in the bases, she is some (unknown) (no (unknown) (unknown) potentially new EKG (unit s (unknown) date) changes I do not unknown) have prior, trope so far been negative but (unknown) (no (unknown) (unknown) segmental upper and (unit s (unknown) date) lower branches unknown) bilaterally with a mild right pleural (unknown) (no (unknown) (unknown) sertraline 50 mg (units (unknown) date) tablet (Zoloft) 50 unknown) mg PO DAILY 05/13/22 05/13/22 (unknown) (no (unknown) (unknown) sertraline [Zoloft] (unit s (unknown) date) 50 mg tablet unknown) (unknown) (no (unknown) (unknown) she is requiring 9 (units (unknown) date) L of O2. Images were unknown) pushed and discussion with (unknown) (no (unknown) (unknown) she just was (units (u nknown) date) started on a new unknown) pain medication by her primary care provider to (unknown) (no (unknown) (unknown) she might pass out (units (unknown) date) or gets very unknown) lightheaded when she tries to ambulate around (unknown) (no (unknown) (unknown) shortness of breath (unit s (unknown) date) was increasing over unknown) time. Patient states she is not on (unknown) (no (unknown) (unknown) shows a little bit (units (unknown) date) of change in the unknown) right lobe suspect CHF exacerbation she is (unknown) (no (unknown) (unknown) significant (units (un known) date) increase in swelling unknown) in her extremities. Her feet are mottled and (unknown) (no (unknown) (unknown) sodium fluoride (units (unknown) date) Allergy Intermediate unknown) Anaphylaxis Verified 05/13/22 15:46 (unknown) (no (unknown) (unknown) some T-wave (units (un known) date) inversion unknown if unknown) this is new she has no priors for comparison. (unknown) (no (unknown) (unknown) soy Allergy (units (un known) date) Intermediate unknown) Anaphylaxis Verified 05/13/22 15:46 (unknown) (no (unknown) (unknown) states this is her (units (unknown) date) normal baseline for unknown) several months. (unknown) (no (unknown) (unknown) sulfamethoxazole (units (unknown) date) Allergy Intermediate unknown) Anaphylaxis Verified 05/13/22 15:46 (unknown) (no (unknown) (unknown) swelling but no (units (unknown) date) pitting edema in her unknown) lower extremities. Patient's chest x-ray (unknown) (no (unknown) (unknown) take 1 tablet by (units (unknown) date) mouth once daily unknown) (unknown) (no (unknown) (unknown) trimethoprim [From (units (unknown) date) Bactrim] Allergy unknown) Intermediate Anaphylaxis Verified 05/13/22 (unknown) (no (unknown) (unknown) vomiting. No (units (u nknown) date) diaphoresis with unknown) these episodes. She notes that she feels like (unknown) (no (unknown) (unknown) was present on (units (unknown) date) earlier EKG, ST unknown) changes in lateral leads appear same with no (unknown) (no (unknown) (unknown) wean her off her (units (unknown) date) [place]. She is unsure unknown) what it is called. She states she is had Result panel 119 (unknown) (no date) (unknown) (unknown) 31 seconds (unkn own) (unknown) (no date) (unknown) (unknown) 31 seconds (unkn own) Result panel 120 (unknown) (no (unknown) (unknown) (no value) (units (unk nown) date) unknown) (unknown) (no (unknown) (unknown) 05/13/22 05/13/22 (units (unknown) date) 05/13/22 Range/Units unknown) (unknown) (no (unknown) (unknown) 05/13/22 12:57 (units (unknown) date) unknown) (unknown) (no (unknown) (unknown) 05/13/22 13:11 (units (unknown) date) unknown) (unknown) (no (unknown) (unknown) 05/13/22 13:13 (units (unknown) date) unknown) (unknown) (no (unknown) (unknown) 05/13/22 13:49 (units (unknown) date) unknown) (unknown) (no (unknown) (unknown) 05/13/22 13:56 (units (unknown) date) unknown) (unknown) (no (unknown) (unknown) 05/13/22 15:10 (units (unknown) date) unknown) (unknown) (no (unknown) (unknown) 05/13/22 15:21 (units (unknown) date) unknown) (unknown) (no (unknown) (unknown) 05/13/22 15:50 (units (unknown) date) unknown) (unknown) (no (unknown) (unknown) 05/13/22 15:59 (units (unknown) date) unknown) (unknown) (no (unknown) (unknown) 05/13/22 16:30 (units (unknown) date) unknown) (unknown) (no (unknown) (unknown) 05/13/22 23:30 (units (unknown) date) unknown) (unknown) (no (unknown) (unknown) 05/13/22 (units (unkno wn) date) Range/Units unknown) (unknown) (no (unknown) (unknown) 05/13/22 (units (unkno wn) date) unknown) (unknown) (no (unknown) (unknown) 05/14/22 05:30 (units (unknown) date) unknown) (unknown) (no (unknown) (unknown) 05/14/22 11:30 (units (unknown) date) unknown) (unknown) (no (unknown) (unknown) [id number] (units (unkno wn) date) unknown) (unknown) (no (unknown) (unknown) 1 tab PO PRN PRN (units (unknown) date) (Reason: Pain (Scale unknown) Score 1-3)) (unknown) (no (unknown) (unknown) 1 tablet five times (unit s (unknown) date) a day as needed unknown) (unknown) (no (unknown) (unknown) [address] [place] [address] (units (unknown) date) unknown) (unknown) (no (unknown) (unknown) 12:40 05/13/22 (units (unknown) date) unknown) (unknown) (no (unknown) (unknown) 12:40 (units (unkno wn) date) unknown) (unknown) (no (unknown) (unknown) 12:44 05/13/22 (units (unknown) date) unknown) (unknown) (no (unknown) (unknown) 12:50 05/13/22 (units (unknown) date) unknown) (unknown) (no (unknown) (unknown) 12:58 (units (unkno wn) date) unknown) (unknown) (no (unknown) (unknown) 13:00 05/13/22 (units (unknown) date) unknown) (unknown) (no (unknown) (unknown) 13:00 (units (unkno wn) date) unknown) (unknown) (no (unknown) (unknown) 13:08 05/13/22 (units (unknown) date) unknown) (unknown) (no (unknown) (unknown) 13:11 13:13 13:49 (units (unknown) date) unknown) (unknown) (no (unknown) (unknown) 13:13 05/13/22 (units (unknown) date) unknown) (unknown) (no (unknown) (unknown) 13:30 05/13/22 (units (unknown) date) unknown) (unknown) (no (unknown) (unknown) 13:30 (units (unkno wn) date) unknown) (unknown) (no (unknown) (unknown) 13:49 13:49 13:49 (units (unknown) date) unknown) (unknown) (no (unknown) (unknown) 13:49 15:10 15:50 (units (unknown) date) unknown) (unknown) (no (unknown) (unknown) 14:00 05/13/22 (units (unknown) date) unknown) (unknown) (no (unknown) (unknown) 14:30 05/13/22 (units (unknown) date) unknown) (unknown) (no (unknown) (unknown) 14:55 05/13/22 (units (unknown) date) unknown) (unknown) (no (unknown) (unknown) 14:55 (units (unkno wn) date) unknown) (unknown) (no (unknown) (unknown) 15:00 05/13/22 (units (unknown) date) unknown) (unknown) (no (unknown) (unknown) 15:01 05/13/22 (units (unknown) date) unknown) (unknown) (no (unknown) (unknown) 15:01 (units (unkno wn) date) unknown) (unknown) (no (unknown) (unknown) 15:30 05/13/22 (units (unknown) date) unknown) (unknown) (no (unknown) (unknown) 15:30 (units (unkno wn) date) unknown) (unknown) (no (unknown) (unknown) 15:46 (units (unkno wn) date) unknown) (unknown) (no (unknown) (unknown) 16:00 05/13/22 (units (unknown) date) unknown) (unknown) (no (unknown) (unknown) 16:30 (units (unkno wn) date) unknown) (unknown) (no (unknown) (unknown) 16:31 05/13/22 (units (unknown) date) unknown) (unknown) (no (unknown) (unknown) 16:32 05/13/22 (units (unknown) date) unknown) (unknown) (no (unknown) (unknown) 16:32 (units (unkno wn) date) unknown) (unknown) (no (unknown) (unknown) 16:47 05/13/22 (units (unknown) date) unknown) (unknown) (no (unknown) (unknown) 16:47 (units (unkno wn) date) unknown) (unknown) (no (unknown) (unknown) 17:00 05/13/22 (units (unknown) date) unknown) (unknown) (no (unknown) (unknown) 17:01 05/13/22 (units (unknown) date) unknown) (unknown) (no (unknown) (unknown) 17:01 (units (unkno wn) date) unknown) (unknown) (no (unknown) (unknown) 17:30 05/13/22 (units (unknown) date) unknown) (unknown) (no (unknown) (unknown) 18:00 (units (unkno wn) date) unknown) (unknown) (no (unknown) (unknown) 50 mg PO DAILY (units (unknown) date) unknown) (unknown) (no (unknown) (unknown) ? (units (unkno wn) date) unknown) (unknown) (no (unknown) (unknown) ABD:bowel sounds (units (unknown) date) normal, soft, unknown) non-tender, no guarding, rebound, rigidity, no (unknown) (no (unknown) (unknown) ABG Base Excess (units (unknown) date) (-2-3) mmol/L unknown) (unknown) (no (unknown) (unknown) ABG Base Excess 2.0 (unit s (unknown) date) (-2-3) mmol/L unknown) (unknown) (no (unknown) (unknown) ABG HCO3 (23-27) (units (unknown) date) mmol/L unknown) (unknown) (no (unknown) (unknown) ABG HCO3 28 H (units ( unknown) date) (23-27) mmol/L unknown) (unknown) (no (unknown) (unknown) ABG O2 Saturation (units (unknown) date) (95-100) % unknown) (unknown) (no (unknown) (unknown) ABG O2 Saturation (units (unknown) date) 98 (95-100) % unknown) (unknown) (no (unknown) (unknown) ABG Total CO2 (units ( unknown) date) (23-27) mmol/L unknown) (unknown) (no (unknown) (unknown) ABG Total CO2 30 H (units (unknown) date) (23-27) mmol/L unknown) (unknown) (no (unknown) (unknown) ABG [Arterial Blood (unit s (unknown) date) Gas] Stat unknown) (unknown) (no (unknown) (unknown) ABG pCO2 (35-45) (units (unknown) date) mmHg unknown) (unknown) (no (unknown) (unknown) ABG pCO2 54.1 H (units (unknown) date) (35-45) mmHg unknown) (unknown) (no (unknown) (unknown) ABG pH (7.35-7.45) (units (unknown) date) unknown) (unknown) (no (unknown) (unknown) ABG pH 7.33 L (units ( unknown) date) (7.35-7.45) unknown) (unknown) (no (unknown) (unknown) ABG pO2 (80-100) (units (unknown) date) mmHg unknown) (unknown) (no (unknown) (unknown) ABG pO2 107 H (units ( unknown) date) (80-100) mmHg unknown) (unknown) (no (unknown) (unknown) ALT (<35) IU/L (units (unknown) date) unknown) (unknown) (no (unknown) (unknown) ALT 24 (<35) IU/L (units (unknown) date) unknown) (unknown) (no (unknown) (unknown) APTT (26-36) (units (u nknown) date) SECONDS unknown) (unknown) (no (unknown) (unknown) APTT 31 (26-36) (units (unknown) date) SECONDS unknown) (unknown) (no (unknown) (unknown) AST (14-36) IU/L (units (unknown) date) unknown) (unknown) (no (unknown) (unknown) AST 28 (14-36) IU/L (unit s (unknown) date) unknown) (unknown) (no (unknown) (unknown) Abdomen:? (units (unkn own) date) Visualized upper unknown) abdominal solid organs appear normal in the early (unknown) (no (unknown) (unknown) Accession Number: (units (unknown) date) [id number] ?? unknown) (unknown) (no (unknown) (unknown) Acct:[id number] (units (unknown) date) unknown) (unknown) (no (unknown) (unknown) Adenovirus (PCR) (units (unknown) date) (Not Detect) unknown) (unknown) (no (unknown) (unknown) Adenovirus (PCR) (units (unknown) date) Not detected (Not unknown) Detect) (unknown) (no (unknown) (unknown) After the (units (unkn own) date) administration of unknown) intravenous contrast, 2 mm thick sections acquired (unknown) (no (unknown) (unknown) Age/Sex: 81 / F (units (unknown) date) unknown) (unknown) (no (unknown) (unknown) Albumin (3.5-5.0) (units (unknown) date) g/dL unknown) (unknown) (no (unknown) (unknown) Albumin 4.3 (units (un known) date) (3.5-5.0) g/dL unknown) (unknown) (no (unknown) (unknown) Albumin/Globulin (units (unknown) date) Ratio (1.0-2.8) unknown) (unknown) (no (unknown) (unknown) Albumin/Globulin (units (unknown) date) Ratio 1.3 (1.0-2.8) unknown) (unknown) (no (unknown) (unknown) Alcohol type: hard (units (unknown) date) liquor unknown) (unknown) (no (unknown) (unknown) Alkaline (units (unkno wn) date) Phosphatase (38-126) unknown) U/L (unknown) (no (unknown) (unknown) Alkaline (units (unkno wn) date) Phosphatase 88 unknown) (38-126) U/L (unknown) (no (unknown) (unknown) Allergies (units (unkn own) date) unknown) (unknown) (no (unknown) (unknown) Allergy/AdvReac (units (unknown) date) Type Severity unknown) Reaction Status Date / Time (unknown) (no (unknown) (unknown) [place] [id number] (unit s (unknown) date) unknown) (unknown) (no (unknown) (unknown) Approved by: Shahnaz (unit s (unknown) date) Sarah Cornelius on unknown) 05/13/2022 at 17:21?? (unknown) (no (unknown) (unknown) Attestation: I (units (unknown) date) personally reviewed unknown) and interpreted this ECG as follows: (unknown) (no (unknown) (unknown) Attestation: (units (u nknown) date) unknown) (unknown) (no (unknown) (unknown) B. pertussis DNA (units (unknown) date) (PCR) (Not Detecte) unknown) (unknown) (no (unknown) (unknown) B. pertussis DNA (units (unknown) date) (PCR) Not detected unknown) (Not Detecte) (unknown) (no (unknown) (unknown) B.parapertussis DNA (unit s (unknown) date) PCR (Not Detecte) unknown) (unknown) (no (unknown) (unknown) B.parapertussis DNA (unit s (unknown) date) PCR Not detected unknown) (Not Detecte) (unknown) (no (unknown) (unknown) BUN (7-17) mg/dL (units (unknown) date) unknown) (unknown) (no (unknown) (unknown) BUN 18 H (7-17) (units (unknown) date) mg/dL unknown) (unknown) (no (unknown) (unknown) BUN/Creatinine (units (unknown) date) Ratio (6-22) unknown) (unknown) (no (unknown) (unknown) BUN/Creatinine (units (unknown) date) Ratio 20.7 (6-22) unknown) (unknown) (no (unknown) (unknown) Baso # (Auto) (units ( unknown) date) (0-100) /uL unknown) (unknown) (no (unknown) (unknown) Baso # (Auto) 0 (units (unknown) date) (0-100) /uL unknown) (unknown) (no (unknown) (unknown) Baso % (Auto) (0-2) (unit s (unknown) date) % unknown) (unknown) (no (unknown) (unknown) Baso % (Auto) 0.2 (units (unknown) date) (0-2) % unknown) (unknown) (no (unknown) (unknown) Bedside Urine (units ( unknown) date) Bilirubin + 1 unknown) (unknown) (no (unknown) (unknown) Bedside Urine (units ( unknown) date) Glucose Negative unknown) (unknown) (no (unknown) (unknown) Bedside Urine (units ( unknown) date) Ketone +/- 5 unknown) (unknown) (no (unknown) (unknown) Bedside Urine (units ( unknown) date) Leukocytes ++ 125 unknown) (unknown) (no (unknown) (unknown) Bedside Urine (units ( unknown) date) Nitrite + Positive unknown) (unknown) (no (unknown) (unknown) Bedside Urine (units ( unknown) date) Occult Blood unknown) (unknown) (no (unknown) (unknown) Bedside Urine (units ( unknown) date) Protein +++ 300 unknown) (unknown) (no (unknown) (unknown) Bedside Urine (units ( unknown) date) Urobilinogen - unknown) Negative (unknown) (no (unknown) (unknown) Bedside Urine pH 6 (units (unknown) date) unknown) (unknown) (no (unknown) (unknown) Bilateral pulmonary (unit s (unknown) date) emboli with unknown) extension into the distal aspects of both the (unknown) (no (unknown) (unknown) Blood Pressure (units (unknown) date) 107/59 L 05/13/22 unknown) 12:40 (unknown) (no (unknown) (unknown) Blood Pressure (units (unknown) date) 107/59 L 118/68 unknown) (unknown) (no (unknown) (unknown) Blood Pressure (units (unknown) date) 107/59 L unknown) (unknown) (no (unknown) (unknown) Blood Pressure (units (unknown) date) 122/83 119/66 unknown) (unknown) (no (unknown) (unknown) Blood Pressure (units (unknown) date) 122/83 unknown) (unknown) (no (unknown) (unknown) Blood Pressure (units (unknown) date) 126/67 unknown) (unknown) (no (unknown) (unknown) Blood Pressure (units (unknown) date) 139/85 unknown) (unknown) (no (unknown) (unknown) Blood Pressure (units (unknown) date) 141/68 H unknown) (unknown) (no (unknown) (unknown) Blood Pressure (units (unknown) date) 142/84 H 105/65 unknown) (unknown) (no (unknown) (unknown) Blood Pressure (units (unknown) date) 150/85 H 136/80 unknown) (unknown) (no (unknown) (unknown) Blood Pressure (units (unknown) date) 150/86 H unknown) (unknown) (no (unknown) (unknown) Blood Pressure (units (unknown) date) 88/47 L 142/94 H unknown) (unknown) (no (unknown) (unknown) Blood Pressure (units (unknown) date) unknown) (unknown) (no (unknown) (unknown) Bones and chest (units (unknown) date) wall:? No suspicious unknown) bony lesions.? Ribs and thoracic spine (unknown) (no (unknown) (unknown) COMPARISON:? [place] (unit s (unknown) date) [facility], , XR unknown) CHEST 1V, 05/13/2022, 13:57. (unknown) (no (unknown) (unknown) COVID19 -Nasal (units (unknown) date) RAPID Stat unknown) (unknown) (no (unknown) (unknown) CT Scan Report (units (unknown) date) unknown) (unknown) (no (unknown) (unknown) CT angio chest PE (units (unknown) date) protocol Stat unknown) (unknown) (no (unknown) (unknown) CT scan - chest: (units (unknown) date) unknown) (unknown) (no (unknown) (unknown) Calcium (8.4-10.2) (units (unknown) date) mg/dL unknown) (unknown) (no (unknown) (unknown) Calcium 9.1 (units (un known) date) (8.4-10.2) mg/dL unknown) (unknown) (no (unknown) (unknown) Carbon Dioxide (units (unknown) date) (22-32) mmol/L unknown) (unknown) (no (unknown) (unknown) Carbon Dioxide 26 (units (unknown) date) (22-32) mmol/L unknown) (unknown) (no (unknown) (unknown) Chief Complaint: (units (unknown) date) Shortness of unknown) Breath/Dyspnea (unknown) (no (unknown) (unknown) Chlamy pneumoniae (units (unknown) date) PCR (Not Detect) unknown) (unknown) (no (unknown) (unknown) Chlamy pneumoniae (units (unknown) date) PCR Not detected unknown) (Not Detect) (unknown) (no (unknown) (unknown) Chloride (98-107) (units (unknown) date) mmol/L unknown) (unknown) (no (unknown) (unknown) Chloride 98 (units (un known) date) (98-107) mmol/L unknown) (unknown) (no (unknown) (unknown) Clinical (units (unkno wn) date) Impression: unknown) (unknown) (no (unknown) (unknown) Complete Blood (units (unknown) date) Count AUTO DIFF Stat unknown) (unknown) (no (unknown) (unknown) Comprehensive (units ( unknown) date) Metabolic Panel Stat unknown) (unknown) (no (unknown) (unknown) Congestive heart (units (unknown) date) failure, Bilateral unknown) pulmonary embolism, Acute respiratory (unknown) (no (unknown) (unknown) Coronavirus 229E (units (unknown) date) (PCR) (Not Detect) unknown) (unknown) (no (unknown) (unknown) Coronavirus 229E (units (unknown) date) (PCR) Not detected unknown) (Not Detect) (unknown) (no (unknown) (unknown) Coronavirus HKU1 (units (unknown) date) (PCR) (Not Detect) unknown) (unknown) (no (unknown) (unknown) Coronavirus HKU1 (units (unknown) date) (PCR) Not detected unknown) (Not Detect) (unknown) (no (unknown) (unknown) Coronavirus NL63 (units (unknown) date) (PCR) (Not Detect) unknown) (unknown) (no (unknown) (unknown) Coronavirus NL63 (units (unknown) date) (PCR) Not detected unknown) (Not Detect) (unknown) (no (unknown) (unknown) Coronavirus OC43 (units (unknown) date) (PCR) (Not Detect) unknown) (unknown) (no (unknown) (unknown) Coronavirus OC43 (units (unknown) date) (PCR) Not detected unknown) (Not Detect) (unknown) (no (unknown) (unknown) Course (units (unkno wn) date) unknown) (unknown) (no (unknown) (unknown) Creatinine (units (unk nown) date) (0.52-1.04) mg/dL unknown) (unknown) (no (unknown) (unknown) Creatinine 0.87 (units (unknown) date) (0.52-1.04) mg/dL unknown) (unknown) (no (unknown) (unknown) Critical Care Time (units (unknown) date) unknown) (unknown) (no (unknown) (unknown) Critical Care Time: (unit s (unknown) date) Yes unknown) (unknown) (no (unknown) (unknown) : 1940 (units (unknown) date) Acct:[id number] unknown) (unknown) (no (unknown) (unknown) : 1940 (units (unknown) date) unknown) (unknown) (no (unknown) (unknown) Date of Service: (units (unknown) date) 05/13/22 unknown) (unknown) (no (unknown) (unknown) Departure (units (unkn own) date) unknown) (unknown) (no (unknown) (unknown) Dictated by: Shahnaz (unit s (unknown) date) Sarah Cornelius on unknown) 05/13/2022 at 17:18 ? ? (unknown) (no (unknown) (unknown) Diphenhydramine HCl (unit s (unknown) date) (Diphenhydramine 50 unknown) Mg/Ml Vial) 25 mg IV NOW ONE (unknown) (no (unknown) (unknown) Discharge Plan (units (unknown) date) unknown) (unknown) (no (unknown) (unknown) Discontinued (units (u nknown) date) Medications unknown) (unknown) (no (unknown) (unknown) Discussed with (units (unknown) date) Darren, hospitalist unknown) when asked that we speak with (unknown) (no (unknown) (unknown) Documented By: BETSY (units (unknown) date) unknown) (unknown) (no (unknown) (unknown) Documented By: RLS (units (unknown) date) unknown) (unknown) (no (unknown) (unknown) ECG Data (units (unkno wn) date) unknown) (unknown) (no (unknown) (unknown) ED Orders (units (unkn own) date) unknown) (unknown) (no (unknown) (unknown) EKG-12 Lead Stat (units (unknown) date) unknown) (unknown) (no (unknown) (unknown) ER Physician: (units ( unknown) date) Sujata Graff D.O. unknown) (unknown) (no (unknown) (unknown) Emergency Report (units (unknown) date) unknown) (unknown) (no (unknown) (unknown) Entero/Rhino (PCR) (units (unknown) date) (Not Detect) unknown) (unknown) (no (unknown) (unknown) Entero/Rhino (PCR) (units (unknown) date) Not detected (Not unknown) Detect) (unknown) (no (unknown) (unknown) Eos # (Auto) (units (u nknown) date) (0-450) /uL unknown) (unknown) (no (unknown) (unknown) Eos # (Auto) 0 (units (unknown) date) (0-450) /uL unknown) (unknown) (no (unknown) (unknown) Eos % (Auto) (2-4) (units (unknown) date) % unknown) (unknown) (no (unknown) (unknown) Eos % (Auto) 0.3 L (units (unknown) date) (2-4) % unknown) (unknown) (no (unknown) (unknown) Esterase (units (unkno wn) date) unknown) (unknown) (no (unknown) (unknown) Estimated GFR > 60 (units (unknown) date) (>60) mL/min unknown) (unknown) (no (unknown) (unknown) Estimated GFR (>60) (unit s (unknown) date) mL/min unknown) (unknown) (no (unknown) (unknown) Exam Narrative: (units (unknown) date) unknown) (unknown) (no (unknown) (unknown) Exam (units (unkno wn) date) unknown) (unknown) (no (unknown) (unknown) FINDINGS:? (units (unk nown) date) unknown) (unknown) (no (unknown) (unknown) Feet do have some (units (unknown) date) discoloration are unknown) slightly mottled, hands do not. Patient (unknown) (no (unknown) (unknown) For radiation dose (units (unknown) date) reduction, the unknown) following was used:? automated exposure (unknown) (no (unknown) (unknown) Furosemide (units (unk nown) date) (Furosemide 40 Mg/4 unknown) Ml Vial) 40 mg IV NOW ONE (unknown) (no (unknown) (unknown) GEN: Obese elderly (units (unknown) date) female, alert and unknown) oriented x 3, patient appears to be in (unknown) (no (unknown) (unknown) :No CVA (units (unkn own) date) tenderness unknown) (unknown) (no (unknown) (unknown) General (units (unkno wn) date) unknown) (unknown) (no (unknown) (unknown) Globulin (1.7-4.1) (units (unknown) date) g/dL unknown) (unknown) (no (unknown) (unknown) Globulin 3.4 (units (u nknown) date) (1.7-4.1) g/dL unknown) (unknown) (no (unknown) (unknown) Glucose (80-110) (units (unknown) date) mg/dL unknown) (unknown) (no (unknown) (unknown) Glucose 133 H (units ( unknown) date) (80-110) mg/dL unknown) (unknown) (no (unknown) (unknown) HEART: Regular rate (unit s (unknown) date) and rhythm without unknown) murmur, clicks, rubs. Pulmonary VD. (unknown) (no (unknown) (unknown) HEENT: Atraumatic, (units (unknown) date) pupils are equal unknown) round reactive to light, extraocular (unknown) (no (unknown) (unknown) HPI - SOB/Dyspnea (units (unknown) date) unknown) (unknown) (no (unknown) (unknown) HPI Narrative: (units (unknown) date) unknown) (unknown) (no (unknown) (unknown) Hct (36-46) % (units ( unknown) date) unknown) (unknown) (no (unknown) (unknown) Hct 49.2 H (36-46) (units (unknown) date) % unknown) (unknown) (no (unknown) (unknown) Heparin Sodium (units (unknown) date) (Porcine) (Heparin unknown) 5,000 Unit/Ml Vial) 7,500 unit IV NOW ONE (unknown) (no (unknown) (unknown) Heparin (units (unkno wn) date) Sodium/Dextrose unknown) (Heparin Drip) 25,000 unit in 500 mls @ 39.844 mls/hr (unknown) (no (unknown) (unknown) Hgb (12.0-16.0) (units (unknown) date) g/dL unknown) (unknown) (no (unknown) (unknown) Hgb 16.1 H (units (unk nown) date) (12.0-16.0) g/dL unknown) (unknown) (no (unknown) (unknown) History of Present (units (unknown) date) Illness unknown) (unknown) (no (unknown) (unknown) Home Medications (units (unknown) date) unknown) (unknown) (no (unknown) (unknown) Human Metapneumovir (unit s (unknown) date) PCR (Not Detect) unknown) (unknown) (no (unknown) (unknown) Human Metapneumovir (unit s (unknown) date) PCR Not detected unknown) (Not Detect) (unknown) (no (unknown) (unknown) IMPRESSION:? (units (u nknown) date) unknown) (unknown) (no (unknown) (unknown) INDICATIONS:? chf, (units (unknown) date) rule out pe unknown) (unknown) (no (unknown) (unknown) INR (0.9-1.3) (units ( unknown) date) unknown) (unknown) (no (unknown) (unknown) INR 1.2 (0.9-1.3) (units (unknown) date) unknown) (unknown) (no (unknown) (unknown) IV CONT OMAR; (units (u nknown) date) Protocol unknown) (unknown) (no (unknown) (unknown) Ictotest Urine Stat (unit s (unknown) date) unknown) (unknown) (no (unknown) (unknown) Image quality:? (units (unknown) date) Excellent.? unknown) (unknown) (no (unknown) (unknown) Imaging Data (units (u nknown) date) unknown) (unknown) (no (unknown) (unknown) Influenza Type A (units (unknown) date) (PCR) (Not Detect) unknown) (unknown) (no (unknown) (unknown) Influenza Type A (units (unknown) date) (PCR) Not detected unknown) (Not Detect) (unknown) (no (unknown) (unknown) Influenza Type B (units (unknown) date) (PCR) (Not Detect) unknown) (unknown) (no (unknown) (unknown) Influenza Type B (units (unknown) date) (PCR) Not detected unknown) (Not Detect) (unknown) (no (unknown) (unknown) Initial Vital Signs (unit s (unknown) date) unknown) (unknown) (no (unknown) (unknown) Initial Vital (units ( unknown) date) Signs: unknown) (unknown) (no (unknown) (unknown) Interpretation: (units (unknown) date) unknown) (unknown) (no (unknown) (unknown) Interventional (units (unknown) date) Radiology, Dr. Olguin unknown) states at this time patient is not a candidate (unknown) (no (unknown) (unknown) [facility] (units (unknown) date) [address] unknown) [place] [address] (unknown) (no (unknown) (unknown) [facility] (units (unknown) date) unknown) (unknown) (no (unknown) (unknown) LUNGS:Lungs breath (units (unknown) date) sounds equal unknown) bilaterally, no wheezes, bilateral crackles, (unknown) (no (unknown) (unknown) Lab Data (units (unkno wn) date) unknown) (unknown) (no (unknown) (unknown) Lab Results (units (un known) date) unknown) (unknown) (no (unknown) (unknown) Labs: (units (unkno wn) date) unknown) (unknown) (no (unknown) (unknown) Lactate (0.7-2.1) (units (unknown) date) mmol/L unknown) (unknown) (no (unknown) (unknown) Lactate (Lactic (units (unknown) date) Acid) Stat unknown) (unknown) (no (unknown) (unknown) Lactate 1.9 (units (un known) date) (0.7-2.1) mmol/L unknown) (unknown) (no (unknown) (unknown) Eber Wetzel, (unit s (unknown) date) MD [Primary Care unknown) Provider] (unknown) (no (unknown) (unknown) Last Admin: (units (un known) date) 05/13/22 15:28 Dose: unknown) 40 mg (unknown) (no (unknown) (unknown) Last Admin: (units (un known) date) 05/13/22 16:25 Dose: unknown) 25 mg (unknown) (no (unknown) (unknown) Last Admin: (units (un known) date) 05/13/22 16:26 Dose: unknown) 125 mg (unknown) (no (unknown) (unknown) Last Admin: (units (un known) date) 05/13/22 17:40 Dose: unknown) 18 units/kg/hr, 39.844 mls/hr (unknown) (no (unknown) (unknown) Last Admin: (units (un known) date) 05/13/22 17:40 Dose: unknown) 7,500 unit (unknown) (no (unknown) (unknown) Limitations: no (units (unknown) date) limitations unknown) (unknown) (no (unknown) (unknown) Loc: ED (units (unkno wn) date) unknown) (unknown) (no (unknown) (unknown) Lungs and pleura:? (units (unknown) date) Mild right effusion. unknown) (unknown) (no (unknown) (unknown) Lymph # (Auto) (units (unknown) date) (1813-0057) /uL unknown) (unknown) (no (unknown) (unknown) Lymph # (Auto) 600 (units (unknown) date) L (4675-5146) /uL unknown) (unknown) (no (unknown) (unknown) Lymph % (Auto) (units (unknown) date) (25-40) % unknown) (unknown) (no (unknown) (unknown) Lymph % (Auto) 5.5 (units (unknown) date) L (25-40) % unknown) (unknown) (no (unknown) (unknown) M. pneumoniae (PCR) (unit s (unknown) date) (Not Detect) unknown) (unknown) (no (unknown) (unknown) M. pneumoniae (PCR) (unit s (unknown) date) Not detected (Not unknown) Detect) (unknown) (no (unknown) (unknown) MCH (26-34) PG (units (unknown) date) unknown) (unknown) (no (unknown) (unknown) MCH 28.4 (26-34) PG (unit s (unknown) date) unknown) (unknown) (no (unknown) (unknown) MCHC (30-36) % (units (unknown) date) unknown) (unknown) (no (unknown) (unknown) MCHC 32.8 (30-36) % (unit s (unknown) date) unknown) (unknown) (no (unknown) (unknown) MCV (80-100) fL (units (unknown) date) unknown) (unknown) (no (unknown) (unknown) MCV 86.8 (80-100) (units (unknown) date) fL unknown) (unknown) (no (unknown) (unknown) MDM - SOB/Dyspnea (units (unknown) date) unknown) (unknown) (no (unknown) (unknown) MDM Narrative (units ( unknown) date) unknown) (unknown) (no (unknown) (unknown) MR#: [id number] (units (unknown) date) unknown) (unknown) (no (unknown) (unknown) MSCL: Non-tender, (units (unknown) date) no muscle atrophy, unknown) muscles strength 5/5 upper and lower (unknown) (no (unknown) (unknown) Measure peak (units (u nknown) date) expiratory flow ONCE unknown) (unknown) (no (unknown) (unknown) Mediastinum:? Heart (units (unknown) date) size is normal, with unknown) minimal pericardial effusion.? No right (unknown) (no (unknown) (unknown) Medical decision (units (unknown) date) making narrative: unknown) (unknown) (no (unknown) (unknown) Medication (units (unk nown) date) Instructions unknown) Recorded Confirmed (unknown) (no (unknown) (unknown) Methylprednisolone (units (unknown) date) (Methylprednisolone unknown) 125 Mg/2 Ml Vial) 125 mg IV NOW ONE (unknown) (no (unknown) (unknown) Mode of arrival: (units (unknown) date) EMS unknown) (unknown) (no (unknown) (unknown) Harris # (Auto) (units ( unknown) date) (0-900) /uL unknown) (unknown) (no (unknown) (unknown) Harris # (Auto) 400 (units (unknown) date) (0-900) /uL unknown) (unknown) (no (unknown) (unknown) Harris % (Auto) (units ( unknown) date) (3-14) % unknown) (unknown) (no (unknown) (unknown) Harris % (Auto) 4.1 (units (unknown) date) (3-14) % unknown) (unknown) (no (unknown) (unknown) NEURO:CN 2-12 (units ( unknown) date) intact, sensation unknown) normal (unknown) (no (unknown) (unknown) NT-Pro-B Natriuret (units (unknown) date) Pep (<450) pg/mL unknown) (unknown) (no (unknown) (unknown) NT-Pro-B Natriuret (units (unknown) date) Pep 28248 H (<450) unknown) pg/mL (unknown) (no (unknown) (unknown) NT-proBNP (units (unkn own) date) (BNP-Adult 18+) Stat unknown) (unknown) (no (unknown) (unknown) Narrative (units (unkn own) date) unknown) (unknown) (no (unknown) (unknown) Neut # (Auto) (units ( unknown) date) (4837-0341) /uL unknown) (unknown) (no (unknown) (unknown) Neut # (Auto) 9800 (units (unknown) date) H (1228-8431) /uL unknown) (unknown) (no (unknown) (unknown) Neut % (Auto) (units ( unknown) date) (50-75) % unknown) (unknown) (no (unknown) (unknown) Neut % (Auto) 89.9 (units (unknown) date) H (50-75) % unknown) (unknown) (no (unknown) (unknown) No Action (units (unkn own) date) unknown) (unknown) (no (unknown) (unknown) Normal sinus (units (u nknown) date) rhythm, left axis unknown) deviation, rate of 98, OR 120, QRS 88 QTC 347. (unknown) (no (unknown) (unknown) Ordered: (units (unkno wn) date) unknown) (unknown) (no (unknown) (unknown) Ordering Provider: (units (unknown) date) Sujata Graff D.O. unknown) (unknown) (no (unknown) (unknown) Orders (units (unkno wn) date) unknown) (unknown) (no (unknown) (unknown) Oximask (units (unkno wn) date) unknown) (unknown) (no (unknown) (unknown) Oxygen Delivery (units (unknown) date) Method Nasal Cannula unknown) (unknown) (no (unknown) (unknown) Oxygen Delivery (units (unknown) date) Method Oximask unknown) Oximask (unknown) (no (unknown) (unknown) Oxygen Delivery (units (unknown) date) Method Oximask unknown) (unknown) (no (unknown) (unknown) Oxygen Delivery (units (unknown) date) Method Room Air unknown) 05/13/22 12:40 (unknown) (no (unknown) (unknown) Oxygen Delivery (units (unknown) date) Method Room Air unknown) Nasal Cannula Oximask (unknown) (no (unknown) (unknown) Oxygen Delivery (units (unknown) date) Method unknown) (unknown) (no (unknown) (unknown) Oxygen Flow Rate 4 (units (unknown) date) 6 unknown) (unknown) (no (unknown) (unknown) Oxygen Flow Rate 5 (units (unknown) date) unknown) (unknown) (no (unknown) (unknown) Oxygen Flow Rate 8 (units (unknown) date) 9 unknown) (unknown) (no (unknown) (unknown) Oxygen Flow Rate 9 (units (unknown) date) 7 unknown) (unknown) (no (unknown) (unknown) Oxygen Flow Rate 9 (units (unknown) date) 9 unknown) (unknown) (no (unknown) (unknown) Oxygen Flow Rate 9 (units (unknown) date) unknown) (unknown) (no (unknown) (unknown) Oxygen Flow Rate (units (unknown) date) unknown) (unknown) (no (unknown) (unknown) PROCEDURE:? CT (units (unknown) date) ANGIO CHEST PE unknown) PROTOCOL (unknown) (no (unknown) (unknown) PT (10.1-12.7) (units (unknown) date) SECONDS unknown) (unknown) (no (unknown) (unknown) PT 14.1 H (units (unkn own) date) (10.1-12.7) SECONDS unknown) (unknown) (no (unknown) (unknown) PTT Partial (units (un known) date) Thromboplastin Vicente unknown) Q6H (unknown) (no (unknown) (unknown) Parainfluenza 1 (units (unknown) date) (PCR) (Not Detect) unknown) (unknown) (no (unknown) (unknown) Parainfluenza 1 (units (unknown) date) (PCR) Not detected unknown) (Not Detect) (unknown) (no (unknown) (unknown) Parainfluenza 2 (units (unknown) date) (PCR) (Not Detect) unknown) (unknown) (no (unknown) (unknown) Parainfluenza 2 (units (unknown) date) (PCR) Not detected unknown) (Not Detect) (unknown) (no (unknown) (unknown) Parainfluenza 3 (units (unknown) date) (PCR) (Not Detect) unknown) (unknown) (no (unknown) (unknown) Parainfluenza 3 (units (unknown) date) (PCR) Not detected unknown) (Not Detect) (unknown) (no (unknown) (unknown) Parainfluenza 4 (units (unknown) date) (PCR) (Not Detect) unknown) (unknown) (no (unknown) (unknown) Parainfluenza 4 (units (unknown) date) (PCR) Not detected unknown) (Not Detect) (unknown) (no (unknown) (unknown) Patient Comments: (units (unknown) date) unknown) (unknown) (no (unknown) (unknown) Patient History (units (unknown) date) unknown) (unknown) (no (unknown) (unknown) Patient change in (units (unknown) date) lateral no with unknown) inverted T-wave and RSR V1 through the read (unknown) (no (unknown) (unknown) Patient does not (units (unknown) date) have pitting edema unknown) but has some mild swelling bilaterally. (unknown) (no (unknown) (unknown) Patient's P wave (units (unknown) date) inverted in lead 3. unknown) (unknown) (no (unknown) (unknown) Patient: (units (unkno wn) date) Gely Milner MR#: unknown) M00 (unknown) (no (unknown) (unknown) Patient: (units (unkno wn) date) Gely Milner unknown) (unknown) (no (unknown) (unknown) Penicillins Allergy (unit s (unknown) date) Intermediate unknown) Anaphylaxis Verified 05/13/22 15:46 (unknown) (no (unknown) (unknown) Plt Count (150-400) (unit s (unknown) date) X103/uL unknown) (unknown) (no (unknown) (unknown) Plt Count 252 (units ( unknown) date) (150-400) X103/uL unknown) (unknown) (no (unknown) (unknown) Potassium (3.4-5.1) (unit s (unknown) date) mmol/L unknown) (unknown) (no (unknown) (unknown) Potassium 4.3 (units ( unknown) date) (3.4-5.1) mmol/L unknown) (unknown) (no (unknown) (unknown) Prescriptions: (units (unknown) date) unknown) (unknown) (no (unknown) (unknown) Prior ECG tracings: (unit s (unknown) date) available for review unknown) (unknown) (no (unknown) (unknown) Procedure: CT angio (unit s (unknown) date) chest PE protocol unknown) (unknown) (no (unknown) (unknown) Prothrombin Time (units (unknown) date) INR Stat unknown) (unknown) (no (unknown) (unknown) Pulmonary arteries:? (unit s (unknown) date) There is a filling unknown) defect in the distal aspect of the right (unknown) (no (unknown) (unknown) Pulse Oximetry 85 L (unit s (unknown) date) 05/13/22 12:40 unknown) (unknown) (no (unknown) (unknown) Pulse Oximetry 85 L (unit s (unknown) date) 87 L 91 unknown) (unknown) (no (unknown) (unknown) Pulse Oximetry 88 L (unit s (unknown) date) 96 unknown) (unknown) (no (unknown) (unknown) Pulse Oximetry 90 L (unit s (unknown) date) unknown) (unknown) (no (unknown) (unknown) Pulse Oximetry 91 (units (unknown) date) 94 unknown) (unknown) (no (unknown) (unknown) Pulse Oximetry 93 (units (unknown) date) 95 unknown) (unknown) (no (unknown) (unknown) Pulse Oximetry 94 (units (unknown) date) 92 unknown) (unknown) (no (unknown) (unknown) Pulse Oximetry 94 (units (unknown) date) 94 unknown) (unknown) (no (unknown) (unknown) Pulse Oximetry 95 (units (unknown) date) 89 L unknown) (unknown) (no (unknown) (unknown) Pulse Oximetry 95 (units (unknown) date) 92 unknown) (unknown) (no (unknown) (unknown) Pulse Oximetry 96 (units (unknown) date) 93 unknown) (unknown) (no (unknown) (unknown) Pulse Oximetry 96 (units (unknown) date) unknown) (unknown) (no (unknown) (unknown) Pulse Oximetry 99 (units (unknown) date) unknown) (unknown) (no (unknown) (unknown) Pulse Rate 100 H (units (unknown) date) 05/13/22 12:40 unknown) (unknown) (no (unknown) (unknown) Pulse Rate 100 H (units (unknown) date) unknown) (unknown) (no (unknown) (unknown) Pulse Rate 101 H 96 (unit s (unknown) date) H unknown) (unknown) (no (unknown) (unknown) Pulse Rate 93 H 95 (units (unknown) date) H unknown) (unknown) (no (unknown) (unknown) Pulse Rate 95 H 97 (units (unknown) date) H unknown) (unknown) (no (unknown) (unknown) Pulse Rate 95 H (units (unknown) date) unknown) (unknown) (no (unknown) (unknown) Pulse Rate 96 H 94 (units (unknown) date) H unknown) (unknown) (no (unknown) (unknown) Pulse Rate 96 H (units (unknown) date) unknown) (unknown) (no (unknown) (unknown) Pulse Rate 97 H 96 (units (unknown) date) H unknown) (unknown) (no (unknown) (unknown) Pulse Rate 99 H 97 (units (unknown) date) H unknown) (unknown) (no (unknown) (unknown) Quinolones Allergy (units (unknown) date) Intermediate unknown) Anaphylaxis Verified 05/13/22 15:46 (unknown) (no (unknown) (unknown) RBC (4.0-5.2) (units ( unknown) date) X106/uL unknown) (unknown) (no (unknown) (unknown) RBC 5.67 H (units (unk nown) date) (4.0-5.2) X106/uL unknown) (unknown) (no (unknown) (unknown) RDW (11.6-14.8) % (units (unknown) date) unknown) (unknown) (no (unknown) (unknown) RDW 13.8 (units (unkno wn) date) (11.6-14.8) % unknown) (unknown) (no (unknown) (unknown) ROS Unobtainable: (units (unknown) date) All systems reviewed unknown) + are unremarkable except as noted in HPI (unknown) (no (unknown) (unknown) RSV (PCR) (Not (units (unknown) date) Detect) unknown) (unknown) (no (unknown) (unknown) RSV (PCR) Not (units ( unknown) date) detected (Not unknown) Detect) (unknown) (no (unknown) (unknown) RT Consult Eval and (unit s (unknown) date) Treat NOW unknown) (unknown) (no (unknown) (unknown) Radiologist's (units ( unknown) date) Impression: unknown) (unknown) (no (unknown) (unknown) Referrals: (units (unk nown) date) unknown) (unknown) (no (unknown) (unknown) Related Data (units (u nknown) date) unknown) (unknown) (no (unknown) (unknown) Respiratory Panel (units (unknown) date) (Film Array) Stat unknown) (unknown) (no (unknown) (unknown) Respiratory Rate 16 (unit s (unknown) date) 16 unknown) (unknown) (no (unknown) (unknown) Respiratory Rate 19 (unit s (unknown) date) unknown) (unknown) (no (unknown) (unknown) Respiratory Rate 20 (unit s (unknown) date) 18 unknown) (unknown) (no (unknown) (unknown) Respiratory Rate 20 (unit s (unknown) date) unknown) (unknown) (no (unknown) (unknown) Respiratory Rate 22 (unit s (unknown) date) 05/13/22 12:40 unknown) (unknown) (no (unknown) (unknown) Respiratory Rate 22 (unit s (unknown) date) 19 unknown) (unknown) (no (unknown) (unknown) Respiratory Rate 22 (unit s (unknown) date) unknown) (unknown) (no (unknown) (unknown) Respiratory Rate 23 (unit s (unknown) date) 24 unknown) (unknown) (no (unknown) (unknown) Respiratory Rate 23 (unit s (unknown) date) unknown) (unknown) (no (unknown) (unknown) Respiratory Rate 24 (unit s (unknown) date) 22 unknown) (unknown) (no (unknown) (unknown) Respiratory Rate 25 (unit s (unknown) date) H 22 unknown) (unknown) (no (unknown) (unknown) Respiratory Rate (units (unknown) date) unknown) (unknown) (no (unknown) (unknown) Review of Systems (units (unknown) date) unknown) (unknown) (no (unknown) (unknown) SARS-CoV-2 (PCR) (units (unknown) date) (Negative) unknown) (unknown) (no (unknown) (unknown) SARS-CoV-2 (PCR) (units (unknown) date) Negative Not unknown) detected (Negative) (unknown) (no (unknown) (unknown) SIRS no strain on (units (unknown) date) her CT angio we did unknown) review her EKG changes, current troponins, (unknown) (no (unknown) (unknown) SKIN: See above. (units (unknown) date) unknown) (unknown) (no (unknown) (unknown) Signed By: (units (unk nown) date) unknown) (unknown) (no (unknown) (unknown) Signed (units (unkno wn) date) unknown) (unknown) (no (unknown) (unknown) Smoking Status: (units (unknown) date) Never smoker unknown) (unknown) (no (unknown) (unknown) Social History (units (unknown) date) (Reviewed 05/13/22 @ unknown) 14:48 by Sujata Graff DO) (unknown) (no (unknown) (unknown) Sodium (137-145) (units (unknown) date) mmol/L unknown) (unknown) (no (unknown) (unknown) Sodium 135 L (units (u nknown) date) (137-145) mmol/L unknown) (unknown) (no (unknown) (unknown) Source: patient and (unit s (unknown) date) EMS unknown) (unknown) (no (unknown) (unknown) Stated Complaint: (units (unknown) date) Dizzy, SOB T-3 unknown) (unknown) (no (unknown) (unknown) Stop: 05/13/22 (units (unknown) date) 14:24 unknown) (unknown) (no (unknown) (unknown) Stop: 05/13/22 (units (unknown) date) 16:19 unknown) (unknown) (no (unknown) (unknown) Stop: 05/13/22 (units (unknown) date) 17:23 unknown) (unknown) (no (unknown) (unknown) Substance Use Type: (unit s (unknown) date) does not use unknown) (unknown) (no (unknown) (unknown) TECHNIQUE:? (units (un known) date) unknown) (unknown) (no (unknown) (unknown) Temperature 97.6 F (units (unknown) date) 05/13/22 12:40 unknown) (unknown) (no (unknown) (unknown) Temperature 97.6 F (units (unknown) date) unknown) (unknown) (no (unknown) (unknown) Temperature (units (un known) date) unknown) (unknown) (no (unknown) (unknown) The above findings (units (unknown) date) were discussed with unknown) Dr. Sujata Graff on 323 at 5:20 p.m..? (unknown) (no (unknown) (unknown) The high (units (unkno wn) date) probability of a unknown) clinically significant, sudden or life threatening (unknown) (no (unknown) (unknown) These show patient (units (unknown) date) actually had some unknown) improvement in T-waves in 1 and aVL which (unknown) (no (unknown) (unknown) This is a (units (unkn own) date) 81-year-old female unknown) with complaint of increasing shortness of breath (unknown) (no (unknown) (unknown) This is an (units (unk nown) date) 81-year-old female unknown) who states her only medications are Epsom daily (unknown) (no (unknown) (unknown) Time Seen by (units (u nknown) date) Provider: 05/13/22 unknown) 14:15 (unknown) (no (unknown) (unknown) Total Bilirubin (units (unknown) date) (0.2-1.3) mg/dL unknown) (unknown) (no (unknown) (unknown) Total Bilirubin 0.9 (unit s (unknown) date) (0.2-1.3) mg/dL unknown) (unknown) (no (unknown) (unknown) Total Protein (units ( unknown) date) (6.3-8.2) g/dL unknown) (unknown) (no (unknown) (unknown) Total Protein 7.7 (units (unknown) date) (6.3-8.2) g/dL unknown) (unknown) (no (unknown) (unknown) Trop I [Troponin I] (unit s (unknown) date) Stat unknown) (unknown) (no (unknown) (unknown) Troponin I (units (unk nown) date) (0.01-0.034) ng/mL unknown) (unknown) (no (unknown) (unknown) Troponin I 0.020 (units (unknown) date) (0.01-0.034) ng/mL unknown) (unknown) (no (unknown) (unknown) Troponin I 0.026 (units (unknown) date) (0.01-0.034) ng/mL unknown) (unknown) (no (unknown) (unknown) Troponin I Stat (units (unknown) date) unknown) (unknown) (no (unknown) (unknown) Ur Bilirubin (units (u nknown) date) Confirm (Negative) unknown) (unknown) (no (unknown) (unknown) Ur Bilirubin (units (u nknown) date) Confirm Negative unknown) (Negative) (unknown) (no (unknown) (unknown) Ur Culture (units (unk nown) date) Indicated? Cult not unknown) indicated (unknown) (no (unknown) (unknown) Ur Culture (units (unk nown) date) Indicated? unknown) (unknown) (no (unknown) (unknown) Ur Squamous Epith (units (unknown) date) Cells (0-5/HPF) unknown) (unknown) (no (unknown) (unknown) Ur Squamous Epith (units (unknown) date) Cells 1-5 /hpf unknown) (0-5/HPF) (unknown) (no (unknown) (unknown) Urine Bacteria (units (unknown) date) (None) unknown) (unknown) (no (unknown) (unknown) Urine Bacteria (units (unknown) date) Moderate (10-30) H unknown) (None) (unknown) (no (unknown) (unknown) Urine Culture Stat (units (unknown) date) unknown) (unknown) (no (unknown) (unknown) Urine Dip (units (unkn own) date) unknown) (unknown) (no (unknown) (unknown) Urine Microscopic (units (unknown) date) Stat unknown) (unknown) (no (unknown) (unknown) Urine RBC (0-5/HPF) (unit s (unknown) date) unknown) (unknown) (no (unknown) (unknown) Urine RBC 10-30/hpf (unit s (unknown) date) H (0-5/HPF) unknown) (unknown) (no (unknown) (unknown) Urine Specific (units (unknown) date) [place] 1.025 unknown) (unknown) (no (unknown) (unknown) Urine WBC (0-5/HPF) (unit s (unknown) date) unknown) (unknown) (no (unknown) (unknown) Urine WBC (units (unkn own) date) 30-100/hpf H unknown) (0-5/HPF) (unknown) (no (unknown) (unknown) Vital Signs - 8 hr (units (unknown) date) unknown) (unknown) (no (unknown) (unknown) Vital Signs (units (un known) date) unknown) (unknown) (no (unknown) (unknown) Vital signs: (units (u nknown) date) unknown) (unknown) (no (unknown) (unknown) WBC (4.5-11.0) (units (unknown) date) X103/uL unknown) (unknown) (no (unknown) (unknown) WBC 10.9 (4.5-11.0) (unit s (unknown) date) X103/uL unknown) (unknown) (no (unknown) (unknown) XR chest 1V Stat (units (unknown) date) unknown) (unknown) (no (unknown) (unknown) [Embedded Image Not (unit s (unknown) date) Available] unknown) (unknown) (no (unknown) (unknown) [From Bactrim] (units (unknown) date) unknown) (unknown) (no (unknown) (unknown) [From Macrobid] (units (unknown) date) unknown) (unknown) (no (unknown) (unknown) [x] Data Review and (unit s (unknown) date) interpretation unknown) (unknown) (no (unknown) (unknown) [x] Documentation (units (unknown) date) unknown) (unknown) (no (unknown) (unknown) [x] Medication (units (unknown) date) orders and unknown) management (unknown) (no (unknown) (unknown) [x] Patient (units (un known) date) assessment and unknown) monitoring of vital signs (unknown) (no (unknown) (unknown) a normal renal (units (unknown) date) function, troponins unknown) 0.02 [place] [id number]. Patient had COVID (unknown) (no (unknown) (unknown) adenopathy.? (units (u nknown) date) unknown) (unknown) (no (unknown) (unknown) adjustment of mA (units (unknown) date) and/or kV according unknown) to patient size.? (unknown) (no (unknown) (unknown) alcohol intake (units (unknown) date) frequency: 0-2 unknown) drinks per day (unknown) (no (unknown) (unknown) allergies. She (units (unknown) date) smoked for a year at unknown) age 18, she has not oz of vodka nightly, no (unknown) (no (unknown) (unknown) aluminum Allergy (units (unknown) date) Intermediate unknown) Anaphylaxis Verified 05/13/22 15:46 (unknown) (no (unknown) (unknown) and a pressure on (units (unknown) date) her chest that seems unknown) to be associated with the shortness of (unknown) (no (unknown) (unknown) and below (units (unkn own) date) unknown) (unknown) (no (unknown) (unknown) and lower lobes (units (unknown) date) bilaterally. unknown) (unknown) (no (unknown) (unknown) appear intact (units ( unknown) date) unknown) (unknown) (no (unknown) (unknown) arterial (units (unkno wn) date) unknown) (unknown) (no (unknown) (unknown) as well as (units (unk nown) date) respiratory panel unknown) which is negative. Patient was given Lasix, (unknown) (no (unknown) (unknown) breath that has (units (unknown) date) been intermittent unknown) now becoming persistent. Patient states no (unknown) (no (unknown) (unknown) bronchus.? From (units (unknown) date) defects are unknown) identified extending to the segmental branches of (unknown) (no (unknown) (unknown) but includes the (units (unknown) date) following: unknown) (unknown) (no (unknown) (unknown) caliber and (units (un known) date) unknown) (unknown) (no (unknown) (unknown) cephalexin Allergy (units (unknown) date) Intermediate unknown) Anaphylaxis Verified 05/13/22 15:46 (unknown) (no (unknown) (unknown) chest moves (units (unk nown) date) symmetrically, no unknown) tachypnea accessory muscle use patient's speaks in (unknown) (no (unknown) (unknown) codeine Allergy (units (unknown) date) Intermediate unknown) Anaphylaxis Verified 05/13/22 15:46 (unknown) (no (unknown) (unknown) continue with (units ( unknown) date) oxygen support. unknown) Troponin and EKG were repeated patient did have (unknown) (no (unknown) (unknown) control, (units (unkno wn) date) unknown) (unknown) (no (unknown) (unknown) deterioration of (units (unknown) date) the [] system(s) unknown) required my full and direct attention, (unknown) (no (unknown) (unknown) discolored and she (units (unknown) date) states that has been unknown) like that for several months. She does (unknown) (no (unknown) (unknown) dynamic or other (units (unknown) date) changes. unknown) (unknown) (no (unknown) (unknown) echo which we do (units (unknown) date) not have available unknown) until tomorrow and shows right heart strain (unknown) (no (unknown) (unknown) effusion minimal (units (unknown) date) pericardial effusion unknown) no right heart strain. Patient does have (unknown) (no (unknown) (unknown) elevated BNP, heart (unit s (unknown) date) failure and unknown) requiring 9 L O2. He states if she gets an (unknown) (no (unknown) (unknown) enhancement.? (units ( unknown) date) Esophagus is normal unknown) in caliber, without hiatal hernia.? (unknown) (no (unknown) (unknown) erythema, tonsillar (unit s (unknown) date) enlargement or unknown) uvular deviation (unknown) (no (unknown) (unknown) jeet and lateral. (units (unknown) date) No elevation. unknown) Patient does not have prior for comparison. (unknown) (no (unknown) (unknown) extremities, full (units (unknown) date) range of motion, unknown) normal gait (unknown) (no (unknown) (unknown) failure with (units (u nknown) date) hypoxia unknown) (unknown) (no (unknown) (unknown) fevers or chills. (units (unknown) date) No cold cough or unknown) congestion. She is had some nausea but no (unknown) (no (unknown) (unknown) filling defect (units (unknown) date) distal aspect right unknown) main, smaller in the left main extending the (unknown) (no (unknown) (unknown) from the (units (unkno wn) date) unknown) (unknown) (no (unknown) (unknown) full sentences. She (unit s (unknown) date) Oxiimask at 9 L on unknown) my evaluation. (unknown) (no (unknown) (unknown) gelatin Allergy (units (unknown) date) Intermediate unknown) Anaphylaxis Verified 05/13/22 15:46 (unknown) (no (unknown) (unknown) he would be willing (unit s (unknown) date) to take her for unknown) intervention but the risk benefit for (unknown) (no (unknown) (unknown) heart (units (unkno wn) date) unknown) (unknown) (no (unknown) (unknown) hemoglobin is 16, (units (unknown) date) neutrophils are 89, unknown) INR was normal, sodium is 135 BUN 18 with (unknown) (no (unknown) (unknown) her home and gets (units (unknown) date) very short of breath unknown) with exertion. She has not appreciated (unknown) (no (unknown) (unknown) hydrocodone 5 (units ( unknown) date) mg-acetaminophen 325 unknown) 1 tab PO PRN PRN Pain (Scale Score 05/13/22 (unknown) (no (unknown) (unknown) hydrocodone-acetami (unit s (unknown) date) nophen 5-325 mg unknown) tablet (unknown) (no (unknown) (unknown) illicit. (units (u nknown) date) Damari is her PCP. unknown) (unknown) (no (unknown) (unknown) improved with O2 (units (unknown) date) she does not appear unknown) to be dyspneic or requiring BiPAP. Patient (unknown) (no (unknown) (unknown) increasing shortness (unit s (unknown) date) of breath for for 5 unknown) days, she is had tightness in her chest (unknown) (no (unknown) (unknown) intensity (units (unkn own) date) unknown) (unknown) (no (unknown) (unknown) intervention and (units (unknown) date) personal management. unknown) The aggregate critical care time was [] (unknown) (no (unknown) (unknown) interventional to (units (unknown) date) evaluate for unknown) potential transfer and treatment as patient has (unknown) (no (unknown) (unknown) intracranial bleed (units (unknown) date) is too high if no unknown) heart strain is noted. He asked for (unknown) (no (unknown) (unknown) iodine Allergy (units (unknown) date) Intermediate unknown) Anaphylaxis Verified 05/13/22 15:46 (unknown) (no (unknown) (unknown) iv contrast Allergy (unit s (unknown) date) Intermediate unknown) Anaphylaxis Uncoded 05/13/22 15:47 (unknown) (no (unknown) (unknown) left and (units (unkno wn) date) unknown) (unknown) (no (unknown) (unknown) left main (units (unkn own) date) unknown) (unknown) (no (unknown) (unknown) levofloxacin [From (units (unknown) date) Levaquin] Allergy unknown) Intermediate Anaphylaxis Verified 05/13/22 (unknown) (no (unknown) (unknown) main (units (unkno wn) date) unknown) (unknown) (no (unknown) (unknown) masses noted, no (units (unknown) date) hepatosplenomegaly unknown) (unknown) (no (unknown) (unknown) medications for (units (unknown) date) anything else, no unknown) history of cardiac stents. No known drug (unknown) (no (unknown) (unknown) mg tablet 1-3) (units (unknown) date) unknown) (unknown) (no (unknown) (unknown) mild distress. (units (unknown) date) unknown) (unknown) (no (unknown) (unknown) minutes. This time (units (unknown) date) is in addition to unknown) time spent performing reported procedures (unknown) (no (unknown) (unknown) movements are (units ( unknown) date) intact, nares are unknown) clear,. Throat is clear without any exudates, (unknown) (no (unknown) (unknown) nitrofurantoin (units (unknown) date) Allergy Intermediate unknown) Anaphylaxis Verified 05/13/22 15:46 (unknown) (no (unknown) (unknown) not appreciate new (units (unknown) date) swelling in her unknown) legs. She comes today she felt like her (unknown) (no (unknown) (unknown) ofloxacin [From (units (unknown) date) Floxin] Allergy unknown) Intermediate Anaphylaxis Verified 05/13/22 15:46 (unknown) (no (unknown) (unknown) over the last (units ( unknown) date) several days, unknown) patient has crackles in the bases, she is some (unknown) (no (unknown) (unknown) phase of (units (unkno wn) date) enhancement.? unknown) (unknown) (no (unknown) (unknown) potentially new EKG (unit s (unknown) date) changes I do not unknown) have prior, trope so far been negative but (unknown) (no (unknown) (unknown) projection (MIP) (units (unknown) date) coronal and sagittal unknown) reformats were then acquired through the (unknown) (no (unknown) (unknown) pulmonary apices to (unit s (unknown) date) the posterior unknown) costophrenic angles.? 3-dimensional maximum (unknown) (no (unknown) (unknown) pulmonary artery.? (units (unknown) date) Smaller filling unknown) defect is noted in the distal aspect of the (unknown) (no (unknown) (unknown) recontact after (units (unknown) date) this is completed. unknown) (unknown) (no (unknown) (unknown) right main (units (unk nown) date) pulmonary arteries.? unknown) Mild right effusion. (unknown) (no (unknown) (unknown) segmental upper and (unit s (unknown) date) lower branches unknown) bilaterally with a mild right pleural (unknown) (no (unknown) (unknown) sertraline 50 mg (units (unknown) date) tablet (Zoloft) 50 unknown) mg PO DAILY 05/13/22 05/13/22 (unknown) (no (unknown) (unknown) sertraline [Zoloft] (unit s (unknown) date) 50 mg tablet unknown) (unknown) (no (unknown) (unknown) she is requiring 9 (units (unknown) date) L of O2. Images were unknown) pushed and discussion with (unknown) (no (unknown) (unknown) she just was (units (u nknown) date) started on a new unknown) pain medication by her primary care provider to (unknown) (no (unknown) (unknown) she might pass out (units (unknown) date) or gets very unknown) lightheaded when she tries to ambulate around (unknown) (no (unknown) (unknown) shortness of breath (unit s (unknown) date) was increasing over unknown) time. Patient states she is not on (unknown) (no (unknown) (unknown) shows a little bit (units (unknown) date) of change in the unknown) right lobe suspect CHF exacerbation she is (unknown) (no (unknown) (unknown) significant (units (un known) date) increase in swelling unknown) in her extremities. Her feet are mottled and (unknown) (no (unknown) (unknown) sodium fluoride (units (unknown) date) Allergy Intermediate unknown) Anaphylaxis Verified 05/13/22 15:46 (unknown) (no (unknown) (unknown) some T-wave (units (un known) date) inversion unknown if unknown) this is new she has no priors for comparison. (unknown) (no (unknown) (unknown) soy Allergy (units (un known) date) Intermediate unknown) Anaphylaxis Verified 05/13/22 15:46 (unknown) (no (unknown) (unknown) states this is her (units (unknown) date) normal baseline for unknown) several months. (unknown) (no (unknown) (unknown) strain.? No (units (un known) date) mediastinal or hilar unknown) adenopathy.? Thoracic aorta is normal in (unknown) (no (unknown) (unknown) sulfamethoxazole (units (unknown) date) Allergy Intermediate unknown) Anaphylaxis Verified 05/13/22 15:46 (unknown) (no (unknown) (unknown) swelling but no (units (unknown) date) pitting edema in her unknown) lower extremities. Patient's chest x-ray (unknown) (no (unknown) (unknown) take 1 tablet by (units (unknown) date) mouth once daily unknown) (unknown) (no (unknown) (unknown) the upper (units (unkn own) date) unknown) (unknown) (no (unknown) (unknown) thorax.? (units (unkno wn) date) unknown) (unknown) (no (unknown) (unknown) throughout.? (units (u nknown) date) Thyroid gland is unknown) unremarkable.? No axillary or supraclavicular (unknown) (no (unknown) (unknown) trimethoprim [From (units (unknown) date) Bactrim] Allergy unknown) Intermediate Anaphylaxis Verified 05/13/22 (unknown) (no (unknown) (unknown) vomiting. No (units (u nknown) date) diaphoresis with unknown) these episodes. She notes that she feels like (unknown) (no (unknown) (unknown) was present on (units (unknown) date) earlier EKG, ST unknown) changes in lateral leads appear same with no (unknown) (no (unknown) (unknown) wean her off her (units (unknown) date) Epsom. She is unsure unknown) what it is called. She states she is had Result panel 121 (unknown) (no (unknown) (unknown) (no value) (units (unk nown) date) unknown) (unknown) (no (unknown) (unknown) 05/13/22 05/13/22 (units (unknown) date) 05/13/22 Range/Units unknown) (unknown) (no (unknown) (unknown) 05/13/22 12:57 (units (unknown) date) unknown) (unknown) (no (unknown) (unknown) 05/13/22 13:11 (units (unknown) date) unknown) (unknown) (no (unknown) (unknown) 05/13/22 13:13 (units (unknown) date) unknown) (unknown) (no (unknown) (unknown) 05/13/22 13:49 (units (unknown) date) unknown) (unknown) (no (unknown) (unknown) 05/13/22 13:56 (units (unknown) date) unknown) (unknown) (no (unknown) (unknown) 05/13/22 15:10 (units (unknown) date) unknown) (unknown) (no (unknown) (unknown) 05/13/22 15:21 (units (unknown) date) unknown) (unknown) (no (unknown) (unknown) 05/13/22 15:50 (units (unknown) date) unknown) (unknown) (no (unknown) (unknown) 05/13/22 15:59 (units (unknown) date) unknown) (unknown) (no (unknown) (unknown) 05/13/22 16:30 (units (unknown) date) unknown) (unknown) (no (unknown) (unknown) 05/13/22 23:30 (units (unknown) date) unknown) (unknown) (no (unknown) (unknown) 05/13/22 (units (unkno wn) date) Range/Units unknown) (unknown) (no (unknown) (unknown) 05/13/22 (units (unkno wn) date) unknown) (unknown) (no (unknown) (unknown) 05/14/22 05:30 (units (unknown) date) unknown) (unknown) (no (unknown) (unknown) 05/14/22 11:30 (units (unknown) date) unknown) (unknown) (no (unknown) (unknown) [id number] (units (unkno wn) date) unknown) (unknown) (no (unknown) (unknown) 1 tab PO PRN PRN (units (unknown) date) (Reason: Pain (Scale unknown) Score 1-3)) (unknown) (no (unknown) (unknown) 1 tablet five times (unit s (unknown) date) a day as needed unknown) (unknown) (no (unknown) (unknown) [address] [place] (units (unknown) date) unknown) (unknown) (no (unknown) (unknown) 12:40 05/13/22 (units (unknown) date) unknown) (unknown) (no (unknown) (unknown) 12:40 (units (unkno wn) date) unknown) (unknown) (no (unknown) (unknown) 12:44 05/13/22 (units (unknown) date) unknown) (unknown) (no (unknown) (unknown) 12:50 05/13/22 (units (unknown) date) unknown) (unknown) (no (unknown) (unknown) 12:58 (units (unkno wn) date) unknown) (unknown) (no (unknown) (unknown) 13:00 05/13/22 (units (unknown) date) unknown) (unknown) (no (unknown) (unknown) 13:00 (units (unkno wn) date) unknown) (unknown) (no (unknown) (unknown) 13:08 05/13/22 (units (unknown) date) unknown) (unknown) (no (unknown) (unknown) 13:11 13:13 13:49 (units (unknown) date) unknown) (unknown) (no (unknown) (unknown) 13:13 05/13/22 (units (unknown) date) unknown) (unknown) (no (unknown) (unknown) 13:30 05/13/22 (units (unknown) date) unknown) (unknown) (no (unknown) (unknown) 13:30 (units (unkno wn) date) unknown) (unknown) (no (unknown) (unknown) 13:49 13:49 13:49 (units (unknown) date) unknown) (unknown) (no (unknown) (unknown) 13:49 15:10 15:50 (units (unknown) date) unknown) (unknown) (no (unknown) (unknown) 14:00 05/13/22 (units (unknown) date) unknown) (unknown) (no (unknown) (unknown) 14:30 05/13/22 (units (unknown) date) unknown) (unknown) (no (unknown) (unknown) 14:55 05/13/22 (units (unknown) date) unknown) (unknown) (no (unknown) (unknown) 14:55 (units (unkno wn) date) unknown) (unknown) (no (unknown) (unknown) 15:00 05/13/22 (units (unknown) date) unknown) (unknown) (no (unknown) (unknown) 15:01 05/13/22 (units (unknown) date) unknown) (unknown) (no (unknown) (unknown) 15:01 (units (unkno wn) date) unknown) (unknown) (no (unknown) (unknown) 15:30 05/13/22 (units (unknown) date) unknown) (unknown) (no (unknown) (unknown) 15:30 (units (unkno wn) date) unknown) (unknown) (no (unknown) (unknown) 15:46 (units (unkno wn) date) unknown) (unknown) (no (unknown) (unknown) 16:00 05/13/22 (units (unknown) date) unknown) (unknown) (no (unknown) (unknown) 16:30 (units (unkno wn) date) unknown) (unknown) (no (unknown) (unknown) 16:31 05/13/22 (units (unknown) date) unknown) (unknown) (no (unknown) (unknown) 16:32 05/13/22 (units (unknown) date) unknown) (unknown) (no (unknown) (unknown) 16:32 (units (unkno wn) date) unknown) (unknown) (no (unknown) (unknown) 16:47 05/13/22 (units (unknown) date) unknown) (unknown) (no (unknown) (unknown) 16:47 (units (unkno wn) date) unknown) (unknown) (no (unknown) (unknown) 17:00 05/13/22 (units (unknown) date) unknown) (unknown) (no (unknown) (unknown) 17:01 05/13/22 (units (unknown) date) unknown) (unknown) (no (unknown) (unknown) 17:01 (units (unkno wn) date) unknown) (unknown) (no (unknown) (unknown) 17:30 05/13/22 (units (unknown) date) unknown) (unknown) (no (unknown) (unknown) 18:00 (units (unkno wn) date) unknown) (unknown) (no (unknown) (unknown) 50 mg PO DAILY (units (unknown) date) unknown) (unknown) (no (unknown) (unknown) ? (units (unkno wn) date) unknown) (unknown) (no (unknown) (unknown) ABD:bowel sounds (units (unknown) date) normal, soft, unknown) non-tender, no guarding, rebound, rigidity, no (unknown) (no (unknown) (unknown) ABG Base Excess (units (unknown) date) (-2-3) mmol/L unknown) (unknown) (no (unknown) (unknown) ABG Base Excess 2.0 (unit s (unknown) date) (-2-3) mmol/L unknown) (unknown) (no (unknown) (unknown) ABG HCO3 (23-27) (units (unknown) date) mmol/L unknown) (unknown) (no (unknown) (unknown) ABG HCO3 28 H (units ( unknown) date) (23-27) mmol/L unknown) (unknown) (no (unknown) (unknown) ABG O2 Saturation (units (unknown) date) (95-100) % unknown) (unknown) (no (unknown) (unknown) ABG O2 Saturation (units (unknown) date) 98 (95-100) % unknown) (unknown) (no (unknown) (unknown) ABG Total CO2 (units ( unknown) date) (23-27) mmol/L unknown) (unknown) (no (unknown) (unknown) ABG Total CO2 30 H (units (unknown) date) (23-27) mmol/L unknown) (unknown) (no (unknown) (unknown) ABG [Arterial Blood (unit s (unknown) date) Gas] Stat unknown) (unknown) (no (unknown) (unknown) ABG pCO2 (35-45) (units (unknown) date) mmHg unknown) (unknown) (no (unknown) (unknown) ABG pCO2 54.1 H (units (unknown) date) (35-45) mmHg unknown) (unknown) (no (unknown) (unknown) ABG pH (7.35-7.45) (units (unknown) date) unknown) (unknown) (no (unknown) (unknown) ABG pH 7.33 L (units ( unknown) date) (7.35-7.45) unknown) (unknown) (no (unknown) (unknown) ABG pO2 (80-100) (units (unknown) date) mmHg unknown) (unknown) (no (unknown) (unknown) ABG pO2 107 H (units ( unknown) date) (80-100) mmHg unknown) (unknown) (no (unknown) (unknown) ALT (<35) IU/L (units (unknown) date) unknown) (unknown) (no (unknown) (unknown) ALT 24 (<35) IU/L (units (unknown) date) unknown) (unknown) (no (unknown) (unknown) APTT (26-36) (units (u nknown) date) SECONDS unknown) (unknown) (no (unknown) (unknown) APTT 31 (26-36) (units (unknown) date) SECONDS unknown) (unknown) (no (unknown) (unknown) AST (14-36) IU/L (units (unknown) date) unknown) (unknown) (no (unknown) (unknown) AST 28 (14-36) IU/L (unit s (unknown) date) unknown) (unknown) (no (unknown) (unknown) Abdomen:? (units (unkn own) date) Visualized upper unknown) abdominal solid organs appear normal in the early (unknown) (no (unknown) (unknown) Accession Number: (units (unknown) date) [id number] ?? unknown) (unknown) (no (unknown) (unknown) Acct:[id number] (units (unknown) date) unknown) (unknown) (no (unknown) (unknown) Adenovirus (PCR) (units (unknown) date) (Not Detect) unknown) (unknown) (no (unknown) (unknown) Adenovirus (PCR) (units (unknown) date) Not detected (Not unknown) Detect) (unknown) (no (unknown) (unknown) After the (units (unkn own) date) administration of unknown) intravenous contrast, 2 mm thick sections acquired (unknown) (no (unknown) (unknown) Age/Sex: 81 / F (units (unknown) date) unknown) (unknown) (no (unknown) (unknown) Albumin (3.5-5.0) (units (unknown) date) g/dL unknown) (unknown) (no (unknown) (unknown) Albumin 4.3 (units (un known) date) (3.5-5.0) g/dL unknown) (unknown) (no (unknown) (unknown) Albumin/Globulin (units (unknown) date) Ratio (1.0-2.8) unknown) (unknown) (no (unknown) (unknown) Albumin/Globulin (units (unknown) date) Ratio 1.3 (1.0-2.8) unknown) (unknown) (no (unknown) (unknown) Alcohol type: hard (units (unknown) date) liquor unknown) (unknown) (no (unknown) (unknown) Alkaline (units (unkno wn) date) Phosphatase (38-126) unknown) U/L (unknown) (no (unknown) (unknown) Alkaline (units (unkno wn) date) Phosphatase 88 unknown) (38-126) U/L (unknown) (no (unknown) (unknown) Allergies (units (unkn own) date) unknown) (unknown) (no (unknown) (unknown) Allergy/AdvReac (units (unknown) date) Type Severity unknown) Reaction Status Date / Time (unknown) (no (unknown) (unknown) COOKIE [place] [id number] (unit s (unknown) date) unknown) (unknown) (no (unknown) (unknown) Approved by: Shahnaz (unit s (unknown) date) Sarah Cornelius on unknown) 05/13/2022 at 17:21?? (unknown) (no (unknown) (unknown) Attestation: I (units (unknown) date) personally reviewed unknown) and interpreted this ECG as follows: (unknown) (no (unknown) (unknown) Attestation: (units (u nknown) date) unknown) (unknown) (no (unknown) (unknown) B. pertussis DNA (units (unknown) date) (PCR) (Not Detecte) unknown) (unknown) (no (unknown) (unknown) B. pertussis DNA (units (unknown) date) (PCR) Not detected unknown) (Not Detecte) (unknown) (no (unknown) (unknown) B.parapertussis DNA (unit s (unknown) date) PCR (Not Detecte) unknown) (unknown) (no (unknown) (unknown) B.parapertussis DNA (unit s (unknown) date) PCR Not detected unknown) (Not Detecte) (unknown) (no (unknown) (unknown) BUN (7-17) mg/dL (units (unknown) date) unknown) (unknown) (no (unknown) (unknown) BUN 18 H (7-17) (units (unknown) date) mg/dL unknown) (unknown) (no (unknown) (unknown) BUN/Creatinine (units (unknown) date) Ratio (6-22) unknown) (unknown) (no (unknown) (unknown) BUN/Creatinine (units (unknown) date) Ratio 20.7 (6-22) unknown) (unknown) (no (unknown) (unknown) Baso # (Auto) (units ( unknown) date) (0-100) /uL unknown) (unknown) (no (unknown) (unknown) Baso # (Auto) 0 (units (unknown) date) (0-100) /uL unknown) (unknown) (no (unknown) (unknown) Baso % (Auto) (0-2) (unit s (unknown) date) % unknown) (unknown) (no (unknown) (unknown) Baso % (Auto) 0.2 (units (unknown) date) (0-2) % unknown) (unknown) (no (unknown) (unknown) Bedside Urine (units ( unknown) date) Bilirubin + 1 unknown) (unknown) (no (unknown) (unknown) Bedside Urine (units ( unknown) date) Glucose Negative unknown) (unknown) (no (unknown) (unknown) Bedside Urine (units ( unknown) date) Ketone +/- 5 unknown) (unknown) (no (unknown) (unknown) Bedside Urine (units ( unknown) date) Leukocytes ++ 125 unknown) (unknown) (no (unknown) (unknown) Bedside Urine (units ( unknown) date) Nitrite + Positive unknown) (unknown) (no (unknown) (unknown) Bedside Urine (units ( unknown) date) Occult Blood unknown) (unknown) (no (unknown) (unknown) Bedside Urine (units ( unknown) date) Protein +++ 300 unknown) (unknown) (no (unknown) (unknown) Bedside Urine (units ( unknown) date) Urobilinogen - unknown) Negative (unknown) (no (unknown) (unknown) Bedside Urine pH 6 (units (unknown) date) unknown) (unknown) (no (unknown) (unknown) Bilateral pulmonary (unit s (unknown) date) emboli with unknown) extension into the distal aspects of both the (unknown) (no (unknown) (unknown) Blood Pressure (units (unknown) date) 107/59 L 05/13/22 unknown) 12:40 (unknown) (no (unknown) (unknown) Blood Pressure (units (unknown) date) 107/59 L 118/68 unknown) (unknown) (no (unknown) (unknown) Blood Pressure (units (unknown) date) 107/59 L unknown) (unknown) (no (unknown) (unknown) Blood Pressure (units (unknown) date) 122/83 119/66 unknown) (unknown) (no (unknown) (unknown) Blood Pressure (units (unknown) date) 122/83 unknown) (unknown) (no (unknown) (unknown) Blood Pressure (units (unknown) date) 126/67 unknown) (unknown) (no (unknown) (unknown) Blood Pressure (units (unknown) date) 139/85 unknown) (unknown) (no (unknown) (unknown) Blood Pressure (units (unknown) date) 141/68 H unknown) (unknown) (no (unknown) (unknown) Blood Pressure (units (unknown) date) 142/84 H 105/65 unknown) (unknown) (no (unknown) (unknown) Blood Pressure (units (unknown) date) 150/85 H 136/80 unknown) (unknown) (no (unknown) (unknown) Blood Pressure (units (unknown) date) 150/86 H unknown) (unknown) (no (unknown) (unknown) Blood Pressure (units (unknown) date) 88/47 L 142/94 H unknown) (unknown) (no (unknown) (unknown) Blood Pressure (units (unknown) date) unknown) (unknown) (no (unknown) (unknown) Bones and chest (units (unknown) date) wall:? No suspicious unknown) bony lesions.? Ribs and thoracic spine (unknown) (no (unknown) (unknown) COMPARISON:? [place] (unit s (unknown) date) [facility], , XR unknown) CHEST 1V, 05/13/2022, 13:57. (unknown) (no (unknown) (unknown) COVID19 -Nasal (units (unknown) date) RAPID Stat unknown) (unknown) (no (unknown) (unknown) CT Scan Report (units (unknown) date) unknown) (unknown) (no (unknown) (unknown) CT angio chest PE (units (unknown) date) protocol Stat unknown) (unknown) (no (unknown) (unknown) CT scan - chest: (units (unknown) date) unknown) (unknown) (no (unknown) (unknown) Calcium (8.4-10.2) (units (unknown) date) mg/dL unknown) (unknown) (no (unknown) (unknown) Calcium 9.1 (units (un known) date) (8.4-10.2) mg/dL unknown) (unknown) (no (unknown) (unknown) Carbon Dioxide (units (unknown) date) (22-32) mmol/L unknown) (unknown) (no (unknown) (unknown) Carbon Dioxide 26 (units (unknown) date) (22-32) mmol/L unknown) (unknown) (no (unknown) (unknown) Chief Complaint: (units (unknown) date) Shortness of unknown) Breath/Dyspnea (unknown) (no (unknown) (unknown) Chlamy pneumoniae (units (unknown) date) PCR (Not Detect) unknown) (unknown) (no (unknown) (unknown) Chlamy pneumoniae (units (unknown) date) PCR Not detected unknown) (Not Detect) (unknown) (no (unknown) (unknown) Chloride (98-107) (units (unknown) date) mmol/L unknown) (unknown) (no (unknown) (unknown) Chloride 98 (units (un known) date) (98-107) mmol/L unknown) (unknown) (no (unknown) (unknown) Clinical (units (unkno wn) date) Impression: unknown) (unknown) (no (unknown) (unknown) Complete Blood (units (unknown) date) Count AUTO DIFF Stat unknown) (unknown) (no (unknown) (unknown) Comprehensive (units ( unknown) date) Metabolic Panel Stat unknown) (unknown) (no (unknown) (unknown) Congestive heart (units (unknown) date) failure, Bilateral unknown) pulmonary embolism, Acute respiratory (unknown) (no (unknown) (unknown) Coronavirus 229E (units (unknown) date) (PCR) (Not Detect) unknown) (unknown) (no (unknown) (unknown) Coronavirus 229E (units (unknown) date) (PCR) Not detected unknown) (Not Detect) (unknown) (no (unknown) (unknown) Coronavirus HKU1 (units (unknown) date) (PCR) (Not Detect) unknown) (unknown) (no (unknown) (unknown) Coronavirus HKU1 (units (unknown) date) (PCR) Not detected unknown) (Not Detect) (unknown) (no (unknown) (unknown) Coronavirus NL63 (units (unknown) date) (PCR) (Not Detect) unknown) (unknown) (no (unknown) (unknown) Coronavirus NL63 (units (unknown) date) (PCR) Not detected unknown) (Not Detect) (unknown) (no (unknown) (unknown) Coronavirus OC43 (units (unknown) date) (PCR) (Not Detect) unknown) (unknown) (no (unknown) (unknown) Coronavirus OC43 (units (unknown) date) (PCR) Not detected unknown) (Not Detect) (unknown) (no (unknown) (unknown) Course (units (unkno wn) date) unknown) (unknown) (no (unknown) (unknown) Creatinine (units (unk nown) date) (0.52-1.04) mg/dL unknown) (unknown) (no (unknown) (unknown) Creatinine 0.87 (units (unknown) date) (0.52-1.04) mg/dL unknown) (unknown) (no (unknown) (unknown) Critical Care Time (units (unknown) date) unknown) (unknown) (no (unknown) (unknown) Critical Care Time: (unit s (unknown) date) Yes unknown) (unknown) (no (unknown) (unknown) : 1940 (units (unknown) date) Acct:[id number] unknown) (unknown) (no (unknown) (unknown) : 1940 (units (unknown) date) unknown) (unknown) (no (unknown) (unknown) Date of Service: (units (unknown) date) 05/13/22 unknown) (unknown) (no (unknown) (unknown) Departure (units (unkn own) date) unknown) (unknown) (no (unknown) (unknown) Dictated by: Shahnaz (unit s (unknown) date) Sarah Cornelius on unknown) 05/13/2022 at 17:18 ? ? (unknown) (no (unknown) (unknown) Diphenhydramine HCl (unit s (unknown) date) (Diphenhydramine 50 unknown) Mg/Ml Vial) 25 mg IV NOW ONE (unknown) (no (unknown) (unknown) Discharge Plan (units (unknown) date) unknown) (unknown) (no (unknown) (unknown) Discontinued (units (u nknown) date) Medications unknown) (unknown) (no (unknown) (unknown) Discussed with (units (unknown) date) Darren hospitalist unknown) when asked that we speak with (unknown) (no (unknown) (unknown) Documented By: KB (units (unknown) date) unknown) (unknown) (no (unknown) (unknown) Documented By: RLS (units (unknown) date) unknown) (unknown) (no (unknown) (unknown) ECG Data (units (unkno wn) date) unknown) (unknown) (no (unknown) (unknown) ED Orders (units (unkn own) date) unknown) (unknown) (no (unknown) (unknown) EKG-12 Lead Stat (units (unknown) date) unknown) (unknown) (no (unknown) (unknown) ER Physician: (units ( unknown) date) Julien Espinoza D.O. unknown) (unknown) (no (unknown) (unknown) Emergency Report (units (unknown) date) unknown) (unknown) (no (unknown) (unknown) Entero/Rhino (PCR) (units (unknown) date) (Not Detect) unknown) (unknown) (no (unknown) (unknown) Entero/Rhino (PCR) (units (unknown) date) Not detected (Not unknown) Detect) (unknown) (no (unknown) (unknown) Eos # (Auto) (units (u nknown) date) (0-450) /uL unknown) (unknown) (no (unknown) (unknown) Eos # (Auto) 0 (units (unknown) date) (0-450) /uL unknown) (unknown) (no (unknown) (unknown) Eos % (Auto) (2-4) (units (unknown) date) % unknown) (unknown) (no (unknown) (unknown) Eos % (Auto) 0.3 L (units (unknown) date) (2-4) % unknown) (unknown) (no (unknown) (unknown) Esterase (units (unkno wn) date) unknown) (unknown) (no (unknown) (unknown) Estimated GFR > 60 (units (unknown) date) (>60) mL/min unknown) (unknown) (no (unknown) (unknown) Estimated GFR (>60) (unit s (unknown) date) mL/min unknown) (unknown) (no (unknown) (unknown) Exam Narrative: (units (unknown) date) unknown) (unknown) (no (unknown) (unknown) Exam (units (unkno wn) date) unknown) (unknown) (no (unknown) (unknown) FINDINGS:? (units (unk nown) date) unknown) (unknown) (no (unknown) (unknown) Feet do have some (units (unknown) date) discoloration are unknown) slightly mottled, hands do not. Patient (unknown) (no (unknown) (unknown) For radiation dose (units (unknown) date) reduction, the unknown) following was used:? automated exposure (unknown) (no (unknown) (unknown) Furosemide (units (unk nown) date) (Furosemide 40 Mg/4 unknown) Ml Vial) 40 mg IV NOW ONE (unknown) (no (unknown) (unknown) GEN: Obese elderly (units (unknown) date) female, alert and unknown) oriented x 3, patient appears to be in (unknown) (no (unknown) (unknown) :No CVA (units (unkn own) date) tenderness unknown) (unknown) (no (unknown) (unknown) General (units (unkno wn) date) unknown) (unknown) (no (unknown) (unknown) Globulin (1.7-4.1) (units (unknown) date) g/dL unknown) (unknown) (no (unknown) (unknown) Globulin 3.4 (units (u nknown) date) (1.7-4.1) g/dL unknown) (unknown) (no (unknown) (unknown) Glucose (80-110) (units (unknown) date) mg/dL unknown) (unknown) (no (unknown) (unknown) Glucose 133 H (units ( unknown) date) (80-110) mg/dL unknown) (unknown) (no (unknown) (unknown) HEART: Regular rate (unit s (unknown) date) and rhythm without unknown) murmur, clicks, rubs. Pulmonary VD. (unknown) (no (unknown) (unknown) HEENT: Atraumatic, (units (unknown) date) pupils are equal unknown) round reactive to light, extraocular (unknown) (no (unknown) (unknown) HPI - SOB/Dyspnea (units (unknown) date) unknown) (unknown) (no (unknown) (unknown) HPI Narrative: (units (unknown) date) unknown) (unknown) (no (unknown) (unknown) Hct (36-46) % (units ( unknown) date) unknown) (unknown) (no (unknown) (unknown) Hct 49.2 H (36-46) (units (unknown) date) % unknown) (unknown) (no (unknown) (unknown) Heparin Sodium (units (unknown) date) (Porcine) (Heparin unknown) 5,000 Unit/Ml Vial) 7,500 unit IV NOW ONE (unknown) (no (unknown) (unknown) Heparin (units (unkno wn) date) Sodium/Dextrose unknown) (Heparin Drip) 25,000 unit in 500 mls @ 39.844 mls/hr (unknown) (no (unknown) (unknown) Hgb (12.0-16.0) (units (unknown) date) g/dL unknown) (unknown) (no (unknown) (unknown) Hgb 16.1 H (units (unk nown) date) (12.0-16.0) g/dL unknown) (unknown) (no (unknown) (unknown) History of Present (units (unknown) date) Illness unknown) (unknown) (no (unknown) (unknown) Home Medications (units (unknown) date) unknown) (unknown) (no (unknown) (unknown) Human Metapneumovir (unit s (unknown) date) PCR (Not Detect) unknown) (unknown) (no (unknown) (unknown) Human Metapneumovir (unit s (unknown) date) PCR Not detected unknown) (Not Detect) (unknown) (no (unknown) (unknown) IMPRESSION:? (units (u nknown) date) unknown) (unknown) (no (unknown) (unknown) INDICATIONS:? chf, (units (unknown) date) rule out pe unknown) (unknown) (no (unknown) (unknown) INR (0.9-1.3) (units ( unknown) date) unknown) (unknown) (no (unknown) (unknown) INR 1.2 (0.9-1.3) (units (unknown) date) unknown) (unknown) (no (unknown) (unknown) IV CONT OMAR; (units (u nknown) date) Protocol unknown) (unknown) (no (unknown) (unknown) Ictotest Urine Stat (unit s (unknown) date) unknown) (unknown) (no (unknown) (unknown) Image quality:? (units (unknown) date) Excellent.? unknown) (unknown) (no (unknown) (unknown) Imaging Data (units (u nknown) date) unknown) (unknown) (no (unknown) (unknown) Influenza Type A (units (unknown) date) (PCR) (Not Detect) unknown) (unknown) (no (unknown) (unknown) Influenza Type A (units (unknown) date) (PCR) Not detected unknown) (Not Detect) (unknown) (no (unknown) (unknown) Influenza Type B (units (unknown) date) (PCR) (Not Detect) unknown) (unknown) (no (unknown) (unknown) Influenza Type B (units (unknown) date) (PCR) Not detected unknown) (Not Detect) (unknown) (no (unknown) (unknown) Initial Vital Signs (unit s (unknown) date) unknown) (unknown) (no (unknown) (unknown) Initial Vital (units ( unknown) date) Signs: unknown) (unknown) (no (unknown) (unknown) Interpretation: (units (unknown) date) unknown) (unknown) (no (unknown) (unknown) Interventional (units (unknown) date) Radiology, Dr. Olguin unknown) states at this time patient is not a candidate (unknown) (no (unknown) (unknown) [facility] (units (unknown) date) [address] unknown) [place] [address] (unknown) (no (unknown) (unknown) [facility] (units (unknown) date) unknown) (unknown) (no (unknown) (unknown) LUNGS:Lungs breath (units (unknown) date) sounds equal unknown) bilaterally, no wheezes, bilateral crackles, (unknown) (no (unknown) (unknown) Lab Data (units (unkno wn) date) unknown) (unknown) (no (unknown) (unknown) Lab Results (units (un known) date) unknown) (unknown) (no (unknown) (unknown) Labs: (units (unkno wn) date) unknown) (unknown) (no (unknown) (unknown) Lactate (0.7-2.1) (units (unknown) date) mmol/L unknown) (unknown) (no (unknown) (unknown) Lactate (Lactic (units (unknown) date) Acid) Stat unknown) (unknown) (no (unknown) (unknown) Lactate 1.9 (units (un known) date) (0.7-2.1) mmol/L unknown) (unknown) (no (unknown) (unknown) Eber Wetzel, (unit s (unknown) date) [Primary Care unknown) Provider] (unknown) (no (unknown) (unknown) Last Admin: (units (un known) date) 05/13/22 15:28 Dose: unknown) 40 mg (unknown) (no (unknown) (unknown) Last Admin: (units (un known) date) 05/13/22 16:25 Dose: unknown) 25 mg (unknown) (no (unknown) (unknown) Last Admin: (units (un known) date) 05/13/22 16:26 Dose: unknown) 125 mg (unknown) (no (unknown) (unknown) Last Admin: (units (un known) date) 05/13/22 17:40 Dose: unknown) 18 units/kg/hr, 39.844 mls/hr (unknown) (no (unknown) (unknown) Last Admin: (units (un known) date) 05/13/22 17:40 Dose: unknown) 7,500 unit (unknown) (no (unknown) (unknown) Limitations: no (units (unknown) date) limitations unknown) (unknown) (no (unknown) (unknown) Loc: ED (units (unkno wn) date) unknown) (unknown) (no (unknown) (unknown) Lungs and pleura:? (units (unknown) date) Mild right effusion. unknown) (unknown) (no (unknown) (unknown) Lymph # (Auto) (units (unknown) date) (5690-6519) /uL unknown) (unknown) (no (unknown) (unknown) Lymph # (Auto) 600 (units (unknown) date) L (2384-2033) /uL unknown) (unknown) (no (unknown) (unknown) Lymph % (Auto) (units (unknown) date) (25-40) % unknown) (unknown) (no (unknown) (unknown) Lymph % (Auto) 5.5 (units (unknown) date) L (25-40) % unknown) (unknown) (no (unknown) (unknown) M. pneumoniae (PCR) (unit s (unknown) date) (Not Detect) unknown) (unknown) (no (unknown) (unknown) M. pneumoniae (PCR) (unit s (unknown) date) Not detected (Not unknown) Detect) (unknown) (no (unknown) (unknown) MCH (26-34) PG (units (unknown) date) unknown) (unknown) (no (unknown) (unknown) MCH 28.4 (26-34) PG (unit s (unknown) date) unknown) (unknown) (no (unknown) (unknown) MCHC (30-36) % (units (unknown) date) unknown) (unknown) (no (unknown) (unknown) MCHC 32.8 (30-36) % (unit s (unknown) date) unknown) (unknown) (no (unknown) (unknown) MCV (80-100) fL (units (unknown) date) unknown) (unknown) (no (unknown) (unknown) MCV 86.8 (80-100) (units (unknown) date) fL unknown) (unknown) (no (unknown) (unknown) MDM - SOB/Dyspnea (units (unknown) date) unknown) (unknown) (no (unknown) (unknown) MDM Narrative (units ( unknown) date) unknown) (unknown) (no (unknown) (unknown) MR#: [id number] (units (unknown) date) unknown) (unknown) (no (unknown) (unknown) MSCL: Non-tender, (units (unknown) date) no muscle atrophy, unknown) muscles strength 5/5 upper and lower (unknown) (no (unknown) (unknown) Measure peak (units (u nknown) date) expiratory flow ONCE unknown) (unknown) (no (unknown) (unknown) Mediastinum:? Heart (units (unknown) date) size is normal, with unknown) minimal pericardial effusion.? No right (unknown) (no (unknown) (unknown) Medical decision (units (unknown) date) making narrative: unknown) (unknown) (no (unknown) (unknown) Medication (units (unk nown) date) Instructions unknown) Recorded Confirmed (unknown) (no (unknown) (unknown) Methylprednisolone (units (unknown) date) (Methylprednisolone unknown) 125 Mg/2 Ml Vial) 125 mg IV NOW ONE (unknown) (no (unknown) (unknown) Mode of arrival: (units (unknown) date) EMS unknown) (unknown) (no (unknown) (unknown) Harris # (Auto) (units ( unknown) date) (0-900) /uL unknown) (unknown) (no (unknown) (unknown) Harris # (Auto) 400 (units (unknown) date) (0-900) /uL unknown) (unknown) (no (unknown) (unknown) Harris % (Auto) (units ( unknown) date) (3-14) % unknown) (unknown) (no (unknown) (unknown) Harris % (Auto) 4.1 (units (unknown) date) (3-14) % unknown) (unknown) (no (unknown) (unknown) NEURO:CN 2-12 (units ( unknown) date) intact, sensation unknown) normal (unknown) (no (unknown) (unknown) NT-Pro-B Natriuret (units (unknown) date) Pep (<450) pg/mL unknown) (unknown) (no (unknown) (unknown) NT-Pro-B Natriuret (units (unknown) date) Pep 16977 H (<450) unknown) pg/mL (unknown) (no (unknown) (unknown) NT-proBNP (units (unkn own) date) (BNP-Adult 18+) Stat unknown) (unknown) (no (unknown) (unknown) Narrative (units (unkn own) date) unknown) (unknown) (no (unknown) (unknown) Neut # (Auto) (units ( unknown) date) (9267-0211) /uL unknown) (unknown) (no (unknown) (unknown) Neut # (Auto) 9800 (units (unknown) date) H (7068-9592) /uL unknown) (unknown) (no (unknown) (unknown) Neut % (Auto) (units ( unknown) date) (50-75) % unknown) (unknown) (no (unknown) (unknown) Neut % (Auto) 89.9 (units (unknown) date) H (50-75) % unknown) (unknown) (no (unknown) (unknown) No Action (units (unkn own) date) unknown) (unknown) (no (unknown) (unknown) Normal sinus (units (u nknown) date) rhythm, left axis unknown) deviation, rate of 98, OR 120, QRS 88 QTC 347. (unknown) (no (unknown) (unknown) Ordered: (units (unkno wn) date) unknown) (unknown) (no (unknown) (unknown) Ordering Provider: (units (unknown) date) Sujata Graff D.O. unknown) (unknown) (no (unknown) (unknown) Orders (units (unkno wn) date) unknown) (unknown) (no (unknown) (unknown) Oximask (units (unkno wn) date) unknown) (unknown) (no (unknown) (unknown) Oxygen Delivery (units (unknown) date) Method Nasal Cannula unknown) (unknown) (no (unknown) (unknown) Oxygen Delivery (units (unknown) date) Method Oximask unknown) Oximask (unknown) (no (unknown) (unknown) Oxygen Delivery (units (unknown) date) Method Oximask unknown) (unknown) (no (unknown) (unknown) Oxygen Delivery (units (unknown) date) Method Room Air unknown) 05/13/22 12:40 (unknown) (no (unknown) (unknown) Oxygen Delivery (units (unknown) date) Method Room Air unknown) Nasal Cannula Oximask (unknown) (no (unknown) (unknown) Oxygen Delivery (units (unknown) date) Method unknown) (unknown) (no (unknown) (unknown) Oxygen Flow Rate 4 (units (unknown) date) 6 unknown) (unknown) (no (unknown) (unknown) Oxygen Flow Rate 5 (units (unknown) date) unknown) (unknown) (no (unknown) (unknown) Oxygen Flow Rate 8 (units (unknown) date) 9 unknown) (unknown) (no (unknown) (unknown) Oxygen Flow Rate 9 (units (unknown) date) 7 unknown) (unknown) (no (unknown) (unknown) Oxygen Flow Rate 9 (units (unknown) date) 9 unknown) (unknown) (no (unknown) (unknown) Oxygen Flow Rate 9 (units (unknown) date) unknown) (unknown) (no (unknown) (unknown) Oxygen Flow Rate (units (unknown) date) unknown) (unknown) (no (unknown) (unknown) PROCEDURE:? CT (units (unknown) date) ANGIO CHEST PE unknown) PROTOCOL (unknown) (no (unknown) (unknown) PT (10.1-12.7) (units (unknown) date) SECONDS unknown) (unknown) (no (unknown) (unknown) PT 14.1 H (units (unkn own) date) (10.1-12.7) SECONDS unknown) (unknown) (no (unknown) (unknown) PTT Partial (units (un known) date) Thromboplastin [place] unknown) Q6H (unknown) (no (unknown) (unknown) Parainfluenza 1 (units (unknown) date) (PCR) (Not Detect) unknown) (unknown) (no (unknown) (unknown) Parainfluenza 1 (units (unknown) date) (PCR) Not detected unknown) (Not Detect) (unknown) (no (unknown) (unknown) Parainfluenza 2 (units (unknown) date) (PCR) (Not Detect) unknown) (unknown) (no (unknown) (unknown) Parainfluenza 2 (units (unknown) date) (PCR) Not detected unknown) (Not Detect) (unknown) (no (unknown) (unknown) Parainfluenza 3 (units (unknown) date) (PCR) (Not Detect) unknown) (unknown) (no (unknown) (unknown) Parainfluenza 3 (units (unknown) date) (PCR) Not detected unknown) (Not Detect) (unknown) (no (unknown) (unknown) Parainfluenza 4 (units (unknown) date) (PCR) (Not Detect) unknown) (unknown) (no (unknown) (unknown) Parainfluenza 4 (units (unknown) date) (PCR) Not detected unknown) (Not Detect) (unknown) (no (unknown) (unknown) Patient Comments: (units (unknown) date) unknown) (unknown) (no (unknown) (unknown) Patient History (units (unknown) date) unknown) (unknown) (no (unknown) (unknown) Patient change in (units (unknown) date) lateral no with unknown) inverted T-wave and RSR V1 through the read (unknown) (no (unknown) (unknown) Patient does not (units (unknown) date) have pitting edema unknown) but has some mild swelling bilaterally. (unknown) (no (unknown) (unknown) Patient's P wave (units (unknown) date) inverted in lead 3. unknown) (unknown) (no (unknown) (unknown) Patient: (units (unkno wn) date) Gely Milner MR#: unknown) M00 (unknown) (no (unknown) (unknown) Patient: (units (unkno wn) date) Gely Milner unknown) (unknown) (no (unknown) (unknown) Penicillins Allergy (unit s (unknown) date) Intermediate unknown) Anaphylaxis Verified 05/13/22 15:46 (unknown) (no (unknown) (unknown) Plt Count (150-400) (unit s (unknown) date) X103/uL unknown) (unknown) (no (unknown) (unknown) Plt Count 252 (units ( unknown) date) (150-400) X103/uL unknown) (unknown) (no (unknown) (unknown) Potassium (3.4-5.1) (unit s (unknown) date) mmol/L unknown) (unknown) (no (unknown) (unknown) Potassium 4.3 (units ( unknown) date) (3.4-5.1) mmol/L unknown) (unknown) (no (unknown) (unknown) Prescriptions: (units (unknown) date) unknown) (unknown) (no (unknown) (unknown) Prior ECG tracings: (unit s (unknown) date) available for review unknown) (unknown) (no (unknown) (unknown) Procedure: CT angio (unit s (unknown) date) chest PE protocol unknown) (unknown) (no (unknown) (unknown) Prothrombin Time (units (unknown) date) INR Stat unknown) (unknown) (no (unknown) (unknown) Pulmonary arteries:? (unit s (unknown) date) There is a filling unknown) defect in the distal aspect of the right (unknown) (no (unknown) (unknown) Pulse Oximetry 85 L (unit s (unknown) date) 05/13/22 12:40 unknown) (unknown) (no (unknown) (unknown) Pulse Oximetry 85 L (unit s (unknown) date) 87 L 91 unknown) (unknown) (no (unknown) (unknown) Pulse Oximetry 88 L (unit s (unknown) date) 96 unknown) (unknown) (no (unknown) (unknown) Pulse Oximetry 90 L (unit s (unknown) date) unknown) (unknown) (no (unknown) (unknown) Pulse Oximetry 91 (units (unknown) date) 94 unknown) (unknown) (no (unknown) (unknown) Pulse Oximetry 93 (units (unknown) date) 95 unknown) (unknown) (no (unknown) (unknown) Pulse Oximetry 94 (units (unknown) date) 92 unknown) (unknown) (no (unknown) (unknown) Pulse Oximetry 94 (units (unknown) date) 94 unknown) (unknown) (no (unknown) (unknown) Pulse Oximetry 95 (units (unknown) date) 89 L unknown) (unknown) (no (unknown) (unknown) Pulse Oximetry 95 (units (unknown) date) 92 unknown) (unknown) (no (unknown) (unknown) Pulse Oximetry 96 (units (unknown) date) 93 unknown) (unknown) (no (unknown) (unknown) Pulse Oximetry 96 (units (unknown) date) unknown) (unknown) (no (unknown) (unknown) Pulse Oximetry 99 (units (unknown) date) unknown) (unknown) (no (unknown) (unknown) Pulse Rate 100 H (units (unknown) date) 05/13/22 12:40 unknown) (unknown) (no (unknown) (unknown) Pulse Rate 100 H (units (unknown) date) unknown) (unknown) (no (unknown) (unknown) Pulse Rate 101 H 96 (unit s (unknown) date) H unknown) (unknown) (no (unknown) (unknown) Pulse Rate 93 H 95 (units (unknown) date) H unknown) (unknown) (no (unknown) (unknown) Pulse Rate 95 H 97 (units (unknown) date) H unknown) (unknown) (no (unknown) (unknown) Pulse Rate 95 H (units (unknown) date) unknown) (unknown) (no (unknown) (unknown) Pulse Rate 96 H 94 (units (unknown) date) H unknown) (unknown) (no (unknown) (unknown) Pulse Rate 96 H (units (unknown) date) unknown) (unknown) (no (unknown) (unknown) Pulse Rate 97 H 96 (units (unknown) date) H unknown) (unknown) (no (unknown) (unknown) Pulse Rate 99 H 97 (units (unknown) date) H unknown) (unknown) (no (unknown) (unknown) Quinolones Allergy (units (unknown) date) Intermediate unknown) Anaphylaxis Verified 05/13/22 15:46 (unknown) (no (unknown) (unknown) RBC (4.0-5.2) (units ( unknown) date) X106/uL unknown) (unknown) (no (unknown) (unknown) RBC 5.67 H (units (unk nown) date) (4.0-5.2) X106/uL unknown) (unknown) (no (unknown) (unknown) RDW (11.6-14.8) % (units (unknown) date) unknown) (unknown) (no (unknown) (unknown) RDW 13.8 (units (unkno wn) date) (11.6-14.8) % unknown) (unknown) (no (unknown) (unknown) ROS Unobtainable: (units (unknown) date) All systems reviewed unknown) + are unremarkable except as noted in HPI (unknown) (no (unknown) (unknown) RSV (PCR) (Not (units (unknown) date) Detect) unknown) (unknown) (no (unknown) (unknown) RSV (PCR) Not (units ( unknown) date) detected (Not unknown) Detect) (unknown) (no (unknown) (unknown) RT Consult Eval and (unit s (unknown) date) Treat NOW unknown) (unknown) (no (unknown) (unknown) Radiologist's (units ( unknown) date) Impression: unknown) (unknown) (no (unknown) (unknown) Referrals: (units (unk nown) date) unknown) (unknown) (no (unknown) (unknown) Related Data (units (u nknown) date) unknown) (unknown) (no (unknown) (unknown) Respiratory Panel (units (unknown) date) (Film Array) Stat unknown) (unknown) (no (unknown) (unknown) Respiratory Rate 16 (unit s (unknown) date) 16 unknown) (unknown) (no (unknown) (unknown) Respiratory Rate 19 (unit s (unknown) date) unknown) (unknown) (no (unknown) (unknown) Respiratory Rate 20 (unit s (unknown) date) 18 unknown) (unknown) (no (unknown) (unknown) Respiratory Rate 20 (unit s (unknown) date) unknown) (unknown) (no (unknown) (unknown) Respiratory Rate 22 (unit s (unknown) date) 05/13/22 12:40 unknown) (unknown) (no (unknown) (unknown) Respiratory Rate 22 (unit s (unknown) date) 19 unknown) (unknown) (no (unknown) (unknown) Respiratory Rate 22 (unit s (unknown) date) unknown) (unknown) (no (unknown) (unknown) Respiratory Rate 23 (unit s (unknown) date) 24 unknown) (unknown) (no (unknown) (unknown) Respiratory Rate 23 (unit s (unknown) date) unknown) (unknown) (no (unknown) (unknown) Respiratory Rate 24 (unit s (unknown) date) 22 unknown) (unknown) (no (unknown) (unknown) Respiratory Rate 25 (unit s (unknown) date) H 22 unknown) (unknown) (no (unknown) (unknown) Respiratory Rate (units (unknown) date) unknown) (unknown) (no (unknown) (unknown) Review of Systems (units (unknown) date) unknown) (unknown) (no (unknown) (unknown) SARS-CoV-2 (PCR) (units (unknown) date) (Negative) unknown) (unknown) (no (unknown) (unknown) SARS-CoV-2 (PCR) (units (unknown) date) Negative Not unknown) detected (Negative) (unknown) (no (unknown) (unknown) SIRS no strain on (units (unknown) date) her CT angio we did unknown) review her EKG changes, current troponins, (unknown) (no (unknown) (unknown) SKIN: See above. (units (unknown) date) unknown) (unknown) (no (unknown) (unknown) Signed By: (units (unk nown) date) unknown) (unknown) (no (unknown) (unknown) Signed (units (unkno wn) date) unknown) (unknown) (no (unknown) (unknown) Smoking Status: (units (unknown) date) Never smoker unknown) (unknown) (no (unknown) (unknown) Social History (units (unknown) date) (Reviewed 05/13/22 @ unknown) 14:48 by Sujata Graff DO) (unknown) (no (unknown) (unknown) Sodium (137-145) (units (unknown) date) mmol/L unknown) (unknown) (no (unknown) (unknown) Sodium 135 L (units (u nknown) date) (137-145) mmol/L unknown) (unknown) (no (unknown) (unknown) Source: patient and (unit s (unknown) date) EMS unknown) (unknown) (no (unknown) (unknown) Stated Complaint: (units (unknown) date) Dizzy, SOB T-3 unknown) (unknown) (no (unknown) (unknown) Stop: 05/13/22 (units (unknown) date) 14:24 unknown) (unknown) (no (unknown) (unknown) Stop: 05/13/22 (units (unknown) date) 16:19 unknown) (unknown) (no (unknown) (unknown) Stop: 05/13/22 (units (unknown) date) 17:23 unknown) (unknown) (no (unknown) (unknown) Substance Use Type: (unit s (unknown) date) does not use unknown) (unknown) (no (unknown) (unknown) TECHNIQUE:? (units (un known) date) unknown) (unknown) (no (unknown) (unknown) Temperature 97.6 F (units (unknown) date) 05/13/22 12:40 unknown) (unknown) (no (unknown) (unknown) Temperature 97.6 F (units (unknown) date) unknown) (unknown) (no (unknown) (unknown) Temperature (units (un known) date) unknown) (unknown) (no (unknown) (unknown) The above findings (units (unknown) date) were discussed with unknown) Dr. Sujata Graff on 323 at 5:20 p.m..? (unknown) (no (unknown) (unknown) The high (units (unkno wn) date) probability of a unknown) clinically significant, sudden or life threatening (unknown) (no (unknown) (unknown) These show patient (units (unknown) date) actually had some unknown) improvement in T-waves in 1 and aVL which (unknown) (no (unknown) (unknown) This is a (units (unkn own) date) 81-year-old female unknown) with complaint of increasing shortness of breath (unknown) (no (unknown) (unknown) This is an (units (unk nown) date) 81-year-old female unknown) who states her only medications are Epsom daily (unknown) (no (unknown) (unknown) Time Seen by (units (u nknown) date) Provider: 05/13/22 unknown) 14:15 (unknown) (no (unknown) (unknown) Total Bilirubin (units (unknown) date) (0.2-1.3) mg/dL unknown) (unknown) (no (unknown) (unknown) Total Bilirubin 0.9 (unit s (unknown) date) (0.2-1.3) mg/dL unknown) (unknown) (no (unknown) (unknown) Total Protein (units ( unknown) date) (6.3-8.2) g/dL unknown) (unknown) (no (unknown) (unknown) Total Protein 7.7 (units (unknown) date) (6.3-8.2) g/dL unknown) (unknown) (no (unknown) (unknown) Trop I [Troponin I] (unit s (unknown) date) Stat unknown) (unknown) (no (unknown) (unknown) Troponin I (units (unk nown) date) (0.01-0.034) ng/mL unknown) (unknown) (no (unknown) (unknown) Troponin I 0.020 (units (unknown) date) (0.01-0.034) ng/mL unknown) (unknown) (no (unknown) (unknown) Troponin I 0.026 (units (unknown) date) (0.01-0.034) ng/mL unknown) (unknown) (no (unknown) (unknown) Troponin I Stat (units (unknown) date) unknown) (unknown) (no (unknown) (unknown) Ur Bilirubin (units (u nknown) date) Confirm (Negative) unknown) (unknown) (no (unknown) (unknown) Ur Bilirubin (units (u nknown) date) Confirm Negative unknown) (Negative) (unknown) (no (unknown) (unknown) Ur Culture (units (unk nown) date) Indicated? Cult not unknown) indicated (unknown) (no (unknown) (unknown) Ur Culture (units (unk nown) date) Indicated? unknown) (unknown) (no (unknown) (unknown) Ur Squamous Epith (units (unknown) date) Cells (0-5/HPF) unknown) (unknown) (no (unknown) (unknown) Ur Squamous Epith (units (unknown) date) Cells 1-5 /hpf unknown) (0-5/HPF) (unknown) (no (unknown) (unknown) Urine Bacteria (units (unknown) date) (None) unknown) (unknown) (no (unknown) (unknown) Urine Bacteria (units (unknown) date) Moderate (10-30) H unknown) (None) (unknown) (no (unknown) (unknown) Urine Culture Stat (units (unknown) date) unknown) (unknown) (no (unknown) (unknown) Urine Dip (units (unkn own) date) unknown) (unknown) (no (unknown) (unknown) Urine Microscopic (units (unknown) date) Stat unknown) (unknown) (no (unknown) (unknown) Urine RBC (0-5/HPF) (unit s (unknown) date) unknown) (unknown) (no (unknown) (unknown) Urine RBC 10-30/hpf (unit s (unknown) date) H (0-5/HPF) unknown) (unknown) (no (unknown) (unknown) Urine Specific (units (unknown) date) [place] 1.025 unknown) (unknown) (no (unknown) (unknown) Urine WBC (0-5/HPF) (unit s (unknown) date) unknown) (unknown) (no (unknown) (unknown) Urine WBC (units (unkn own) date) 30-100/hpf H unknown) (0-5/HPF) (unknown) (no (unknown) (unknown) Vital Signs - 8 hr (units (unknown) date) unknown) (unknown) (no (unknown) (unknown) Vital Signs (units (un known) date) unknown) (unknown) (no (unknown) (unknown) Vital signs: (units (u nknown) date) unknown) (unknown) (no (unknown) (unknown) WBC (4.5-11.0) (units (unknown) date) X103/uL unknown) (unknown) (no (unknown) (unknown) WBC 10.9 (4.5-11.0) (unit s (unknown) date) X103/uL unknown) (unknown) (no (unknown) (unknown) XR chest 1V Stat (units (unknown) date) unknown) (unknown) (no (unknown) (unknown) [Embedded Image Not (unit s (unknown) date) Available] unknown) (unknown) (no (unknown) (unknown) [From Bactrim] (units (unknown) date) unknown) (unknown) (no (unknown) (unknown) [From Macrobid] (units (unknown) date) unknown) (unknown) (no (unknown) (unknown) [x] Data Review and (unit s (unknown) date) interpretation unknown) (unknown) (no (unknown) (unknown) [x] Documentation (units (unknown) date) unknown) (unknown) (no (unknown) (unknown) [x] Medication (units (unknown) date) orders and unknown) management (unknown) (no (unknown) (unknown) [x] Patient (units (un known) date) assessment and unknown) monitoring of vital signs (unknown) (no (unknown) (unknown) a normal renal (units (unknown) date) function, troponins unknown) 0.02 [place] [id number]. Patient had COVID (unknown) (no (unknown) (unknown) adenopathy.? (units (u nknown) date) unknown) (unknown) (no (unknown) (unknown) adjustment of mA (units (unknown) date) and/or kV according unknown) to patient size.? (unknown) (no (unknown) (unknown) alcohol intake (units (unknown) date) frequency: 0-2 unknown) drinks per day (unknown) (no (unknown) (unknown) allergies. She (units (unknown) date) smoked for a year at unknown) age 18, she has not oz of vodka nightly, no (unknown) (no (unknown) (unknown) aluminum Allergy (units (unknown) date) Intermediate unknown) Anaphylaxis Verified 05/13/22 15:46 (unknown) (no (unknown) (unknown) and a pressure on (units (unknown) date) her chest that seems unknown) to be associated with the shortness of (unknown) (no (unknown) (unknown) and below (units (unkn own) date) unknown) (unknown) (no (unknown) (unknown) and lower lobes (units (unknown) date) bilaterally. unknown) (unknown) (no (unknown) (unknown) appear intact (units ( unknown) date) unknown) (unknown) (no (unknown) (unknown) arterial (units (unkno wn) date) unknown) (unknown) (no (unknown) (unknown) as well as (units (unk nown) date) respiratory panel unknown) which is negative. Patient was given Lasix, (unknown) (no (unknown) (unknown) breath that has (units (unknown) date) been intermittent unknown) now becoming persistent. Patient states no (unknown) (no (unknown) (unknown) bronchus.? From (units (unknown) date) defects are unknown) identified extending to the segmental branches of (unknown) (no (unknown) (unknown) but includes the (units (unknown) date) following: unknown) (unknown) (no (unknown) (unknown) caliber and (units (un known) date) unknown) (unknown) (no (unknown) (unknown) cephalexin Allergy (units (unknown) date) Intermediate unknown) Anaphylaxis Verified 05/13/22 15:46 (unknown) (no (unknown) (unknown) chest moves (units (unk nown) date) symmetrically, no unknown) tachypnea accessory muscle use patient's speaks in (unknown) (no (unknown) (unknown) codeine Allergy (units (unknown) date) Intermediate unknown) Anaphylaxis Verified 05/13/22 15:46 (unknown) (no (unknown) (unknown) continue with (units ( unknown) date) oxygen support. unknown) Troponin and EKG were repeated patient did have (unknown) (no (unknown) (unknown) control, (units (unkno wn) date) unknown) (unknown) (no (unknown) (unknown) deterioration of (units (unknown) date) the [] system(s) unknown) required my full and direct attention, (unknown) (no (unknown) (unknown) discolored and she (units (unknown) date) states that has been unknown) like that for several months. She does (unknown) (no (unknown) (unknown) dynamic or other (units (unknown) date) changes. unknown) (unknown) (no (unknown) (unknown) echo which we do (units (unknown) date) not have available unknown) until tomorrow and shows right heart strain (unknown) (no (unknown) (unknown) effusion minimal (units (unknown) date) pericardial effusion unknown) no right heart strain. Patient does have (unknown) (no (unknown) (unknown) elevated BNP, heart (unit s (unknown) date) failure and unknown) requiring 9 L O2. He states if she gets an (unknown) (no (unknown) (unknown) enhancement.? (units ( unknown) date) Esophagus is normal unknown) in caliber, without hiatal hernia.? (unknown) (no (unknown) (unknown) erythema, tonsillar (unit s (unknown) date) enlargement or unknown) uvular deviation (unknown) (no (unknown) (unknown) jeet and lateral. (units (unknown) date) No elevation. unknown) Patient does not have prior for comparison. (unknown) (no (unknown) (unknown) extremities, full (units (unknown) date) range of motion, unknown) normal gait (unknown) (no (unknown) (unknown) failure with (units (u nknown) date) hypoxia unknown) (unknown) (no (unknown) (unknown) fevers or chills. (units (unknown) date) No cold cough or unknown) congestion. She is had some nausea but no (unknown) (no (unknown) (unknown) filling defect (units (unknown) date) distal aspect right unknown) main, smaller in the left main extending the (unknown) (no (unknown) (unknown) from the (units (unkno wn) date) unknown) (unknown) (no (unknown) (unknown) full sentences. She (unit s (unknown) date) Oxiimask at 9 L on unknown) my evaluation. (unknown) (no (unknown) (unknown) gelatin Allergy (units (unknown) date) Intermediate unknown) Anaphylaxis Verified 05/13/22 15:46 (unknown) (no (unknown) (unknown) he would be willing (unit s (unknown) date) to take her for unknown) intervention but the risk benefit for (unknown) (no (unknown) (unknown) heart (units (unkno wn) date) unknown) (unknown) (no (unknown) (unknown) hemoglobin is 16, (units (unknown) date) neutrophils are 89, unknown) INR was normal, sodium is 135 BUN 18 with (unknown) (no (unknown) (unknown) her home and gets (units (unknown) date) very short of breath unknown) with exertion. She has not appreciated (unknown) (no (unknown) (unknown) hydrocodone 5 (units ( unknown) date) mg-acetaminophen 325 unknown) 1 tab PO PRN PRN Pain (Scale Score 05/13/22 (unknown) (no (unknown) (unknown) hydrocodone-acetami (unit s (unknown) date) nophen 5-325 mg unknown) tablet (unknown) (no (unknown) (unknown) illicit. (units (u nknown) date) Damari is her PCP. unknown) (unknown) (no (unknown) (unknown) improved with O2 (units (unknown) date) she does not appear unknown) to be dyspneic or requiring BiPAP. Patient (unknown) (no (unknown) (unknown) increasing shortness (unit s (unknown) date) of breath for for 5 unknown) days, she is had tightness in her chest (unknown) (no (unknown) (unknown) intensity (units (unkn own) date) unknown) (unknown) (no (unknown) (unknown) intervention and (units (unknown) date) personal management. unknown) The aggregate critical care time was [] (unknown) (no (unknown) (unknown) interventional to (units (unknown) date) evaluate for unknown) potential transfer and treatment as patient has (unknown) (no (unknown) (unknown) intracranial bleed (units (unknown) date) is too high if no unknown) heart strain is noted. He asked for (unknown) (no (unknown) (unknown) iodine Allergy (units (unknown) date) Intermediate unknown) Anaphylaxis Verified 05/13/22 15:46 (unknown) (no (unknown) (unknown) iv contrast Allergy (unit s (unknown) date) Intermediate unknown) Anaphylaxis Uncoded 05/13/22 15:47 (unknown) (no (unknown) (unknown) left and (units (unkno wn) date) unknown) (unknown) (no (unknown) (unknown) left main (units (unkn own) date) unknown) (unknown) (no (unknown) (unknown) levofloxacin [From (units (unknown) date) Levaquin] Allergy unknown) Intermediate Anaphylaxis Verified 05/13/22 (unknown) (no (unknown) (unknown) main (units (unkno wn) date) unknown) (unknown) (no (unknown) (unknown) masses noted, no (units (unknown) date) hepatosplenomegaly unknown) (unknown) (no (unknown) (unknown) medications for (units (unknown) date) anything else, no unknown) history of cardiac stents. No known drug (unknown) (no (unknown) (unknown) mg tablet 1-3) (units (unknown) date) unknown) (unknown) (no (unknown) (unknown) mild distress. (units (unknown) date) unknown) (unknown) (no (unknown) (unknown) minutes. This time (units (unknown) date) is in addition to unknown) time spent performing reported procedures (unknown) (no (unknown) (unknown) movements are (units ( unknown) date) intact, nares are unknown) clear,. Throat is clear without any exudates, (unknown) (no (unknown) (unknown) nitrofurantoin (units (unknown) date) Allergy Intermediate unknown) Anaphylaxis Verified 05/13/22 15:46 (unknown) (no (unknown) (unknown) not appreciate new (units (unknown) date) swelling in her unknown) legs. She comes today she felt like her (unknown) (no (unknown) (unknown) ofloxacin [From (units (unknown) date) Floxin] Allergy unknown) Intermediate Anaphylaxis Verified 05/13/22 15:46 (unknown) (no (unknown) (unknown) over the last (units ( unknown) date) several days, unknown) patient has crackles in the bases, she is some (unknown) (no (unknown) (unknown) phase of (units (unkno wn) date) enhancement.? unknown) (unknown) (no (unknown) (unknown) potentially new EKG (unit s (unknown) date) changes I do not unknown) have prior, trope so far been negative but (unknown) (no (unknown) (unknown) projection (MIP) (units (unknown) date) coronal and sagittal unknown) reformats were then acquired through the (unknown) (no (unknown) (unknown) pulmonary apices to (unit s (unknown) date) the posterior unknown) costophrenic angles.? 3-dimensional maximum (unknown) (no (unknown) (unknown) pulmonary artery.? (units (unknown) date) Smaller filling unknown) defect is noted in the distal aspect of the (unknown) (no (unknown) (unknown) recontact after (units (unknown) date) this is completed. unknown) (unknown) (no (unknown) (unknown) right main (units (unk nown) date) pulmonary arteries.? unknown) Mild right effusion. (unknown) (no (unknown) (unknown) segmental upper and (unit s (unknown) date) lower branches unknown) bilaterally with a mild right pleural (unknown) (no (unknown) (unknown) sertraline 50 mg (units (unknown) date) tablet (Zoloft) 50 unknown) mg PO DAILY 05/13/22 05/13/22 (unknown) (no (unknown) (unknown) sertraline [Zoloft] (unit s (unknown) date) 50 mg tablet unknown) (unknown) (no (unknown) (unknown) she is requiring 9 (units (unknown) date) L of O2. Images were unknown) pushed and discussion with (unknown) (no (unknown) (unknown) she just was (units (u nknown) date) started on a new unknown) pain medication by her primary care provider to (unknown) (no (unknown) (unknown) she might pass out (units (unknown) date) or gets very unknown) lightheaded when she tries to ambulate around (unknown) (no (unknown) (unknown) shortness of breath (unit s (unknown) date) was increasing over unknown) time. Patient states she is not on (unknown) (no (unknown) (unknown) shows a little bit (units (unknown) date) of change in the unknown) right lobe suspect CHF exacerbation she is (unknown) (no (unknown) (unknown) significant (units (un known) date) increase in swelling unknown) in her extremities. Her feet are mottled and (unknown) (no (unknown) (unknown) sodium fluoride (units (unknown) date) Allergy Intermediate unknown) Anaphylaxis Verified 05/13/22 15:46 (unknown) (no (unknown) (unknown) some T-wave (units (un known) date) inversion unknown if unknown) this is new she has no priors for comparison. (unknown) (no (unknown) (unknown) soy Allergy (units (un known) date) Intermediate unknown) Anaphylaxis Verified 05/13/22 15:46 (unknown) (no (unknown) (unknown) states this is her (units (unknown) date) normal baseline for unknown) several months. (unknown) (no (unknown) (unknown) strain.? No (units (un known) date) mediastinal or hilar unknown) adenopathy.? Thoracic aorta is normal in (unknown) (no (unknown) (unknown) sulfamethoxazole (units (unknown) date) Allergy Intermediate unknown) Anaphylaxis Verified 05/13/22 15:46 (unknown) (no (unknown) (unknown) swelling but no (units (unknown) date) pitting edema in her unknown) lower extremities. Patient's chest x-ray (unknown) (no (unknown) (unknown) take 1 tablet by (units (unknown) date) mouth once daily unknown) (unknown) (no (unknown) (unknown) the upper (units (unkn own) date) unknown) (unknown) (no (unknown) (unknown) thorax.? (units (unkno wn) date) unknown) (unknown) (no (unknown) (unknown) throughout.? (units (u nknown) date) Thyroid gland is unknown) unremarkable.? No axillary or supraclavicular (unknown) (no (unknown) (unknown) trimethoprim [From (units (unknown) date) Bactrim] Allergy unknown) Intermediate Anaphylaxis Verified 05/13/22 (unknown) (no (unknown) (unknown) vomiting. No (units (u nknown) date) diaphoresis with unknown) these episodes. She notes that she feels like (unknown) (no (unknown) (unknown) was present on (units (unknown) date) earlier EKG, ST unknown) changes in lateral leads appear same with no (unknown) (no (unknown) (unknown) wean her off her (units (unknown) date) [place]. She is unsure unknown) what it is called. She states she is had Result panel 122 (unknown) (no (unknown) (unknown) (no value) (units (unk nown) date) unknown) (unknown) (no (unknown) (unknown) 05/13/22 05/13/22 (units (unknown) date) 05/13/22 Range/Units unknown) (unknown) (no (unknown) (unknown) 05/13/22 12:57 (units (unknown) date) unknown) (unknown) (no (unknown) (unknown) 05/13/22 13:11 (units (unknown) date) unknown) (unknown) (no (unknown) (unknown) 05/13/22 13:13 (units (unknown) date) unknown) (unknown) (no (unknown) (unknown) 05/13/22 13:49 (units (unknown) date) unknown) (unknown) (no (unknown) (unknown) 05/13/22 13:56 (units (unknown) date) unknown) (unknown) (no (unknown) (unknown) 05/13/22 15:10 (units (unknown) date) unknown) (unknown) (no (unknown) (unknown) 05/13/22 15:21 (units (unknown) date) unknown) (unknown) (no (unknown) (unknown) 05/13/22 15:50 (units (unknown) date) unknown) (unknown) (no (unknown) (unknown) 05/13/22 15:59 (units (unknown) date) unknown) (unknown) (no (unknown) (unknown) 05/13/22 16:30 (units (unknown) date) unknown) (unknown) (no (unknown) (unknown) 05/13/22 18:32 (units (unknown) date) unknown) (unknown) (no (unknown) (unknown) 05/13/22 23:30 (units (unknown) date) unknown) (unknown) (no (unknown) (unknown) 05/13/22 (units (unkno wn) date) Range/Units unknown) (unknown) (no (unknown) (unknown) 05/13/22 (units (unkno wn) date) unknown) (unknown) (no (unknown) (unknown) 05/14/22 05:30 (units (unknown) date) unknown) (unknown) (no (unknown) (unknown) 05/14/22 11:30 (units (unknown) date) unknown) (unknown) (no (unknown) (unknown) [id number] (units (unkno wn) date) unknown) (unknown) (no (unknown) (unknown) 1 tab PO PRN PRN (units (unknown) date) (Reason: Pain (Scale unknown) Score 1-3)) (unknown) (no (unknown) (unknown) 1 tablet five times (unit s (unknown) date) a day as needed unknown) (unknown) (no (unknown) (unknown) [address] [place] (units (unknown) date) unknown) (unknown) (no (unknown) (unknown) 12:40 05/13/22 (units (unknown) date) unknown) (unknown) (no (unknown) (unknown) 12:40 (units (unkno wn) date) unknown) (unknown) (no (unknown) (unknown) 12:44 05/13/22 (units (unknown) date) unknown) (unknown) (no (unknown) (unknown) 12:50 05/13/22 (units (unknown) date) unknown) (unknown) (no (unknown) (unknown) 12:58 (units (unkno wn) date) unknown) (unknown) (no (unknown) (unknown) 13:00 05/13/22 (units (unknown) date) unknown) (unknown) (no (unknown) (unknown) 13:00 (units (unkno wn) date) unknown) (unknown) (no (unknown) (unknown) 13:08 05/13/22 (units (unknown) date) unknown) (unknown) (no (unknown) (unknown) 13:11 13:13 13:49 (units (unknown) date) unknown) (unknown) (no (unknown) (unknown) 13:13 05/13/22 (units (unknown) date) unknown) (unknown) (no (unknown) (unknown) 13:30 05/13/22 (units (unknown) date) unknown) (unknown) (no (unknown) (unknown) 13:30 (units (unkno wn) date) unknown) (unknown) (no (unknown) (unknown) 13:49 13:49 13:49 (units (unknown) date) unknown) (unknown) (no (unknown) (unknown) 13:49 15:10 15:50 (units (unknown) date) unknown) (unknown) (no (unknown) (unknown) 14:00 05/13/22 (units (unknown) date) unknown) (unknown) (no (unknown) (unknown) 14:30 05/13/22 (units (unknown) date) unknown) (unknown) (no (unknown) (unknown) 14:55 05/13/22 (units (unknown) date) unknown) (unknown) (no (unknown) (unknown) 14:55 (units (unkno wn) date) unknown) (unknown) (no (unknown) (unknown) 15:00 05/13/22 (units (unknown) date) unknown) (unknown) (no (unknown) (unknown) 15:01 05/13/22 (units (unknown) date) unknown) (unknown) (no (unknown) (unknown) 15:01 (units (unkno wn) date) unknown) (unknown) (no (unknown) (unknown) 15:30 05/13/22 (units (unknown) date) unknown) (unknown) (no (unknown) (unknown) 15:30 (units (unkno wn) date) unknown) (unknown) (no (unknown) (unknown) 15:46 (units (unkno wn) date) unknown) (unknown) (no (unknown) (unknown) 16:00 05/13/22 (units (unknown) date) unknown) (unknown) (no (unknown) (unknown) 16:30 (units (unkno wn) date) unknown) (unknown) (no (unknown) (unknown) 16:31 05/13/22 (units (unknown) date) unknown) (unknown) (no (unknown) (unknown) 16:32 05/13/22 (units (unknown) date) unknown) (unknown) (no (unknown) (unknown) 16:32 (units (unkno wn) date) unknown) (unknown) (no (unknown) (unknown) 16:47 05/13/22 (units (unknown) date) unknown) (unknown) (no (unknown) (unknown) 16:47 (units (unkno wn) date) unknown) (unknown) (no (unknown) (unknown) 17:00 05/13/22 (units (unknown) date) unknown) (unknown) (no (unknown) (unknown) 17:01 05/13/22 (units (unknown) date) unknown) (unknown) (no (unknown) (unknown) 17:01 (units (unkno wn) date) unknown) (unknown) (no (unknown) (unknown) 17:30 05/13/22 (units (unknown) date) unknown) (unknown) (no (unknown) (unknown) 18:00 05/13/22 (units (unknown) date) unknown) (unknown) (no (unknown) (unknown) 18:00 (units (unkno wn) date) unknown) (unknown) (no (unknown) (unknown) 18:30 (units (unkno wn) date) unknown) (unknown) (no (unknown) (unknown) 18:36 05/13/22 (units (unknown) date) unknown) (unknown) (no (unknown) (unknown) 50 mg PO DAILY (units (unknown) date) unknown) (unknown) (no (unknown) (unknown) ? (units (unkno wn) date) unknown) (unknown) (no (unknown) (unknown) ABD:bowel sounds (units (unknown) date) normal, soft, unknown) non-tender, no guarding, rebound, rigidity, no (unknown) (no (unknown) (unknown) ABG Base Excess (units (unknown) date) (-2-3) mmol/L unknown) (unknown) (no (unknown) (unknown) ABG Base Excess 2.0 (unit s (unknown) date) (-2-3) mmol/L unknown) (unknown) (no (unknown) (unknown) ABG HCO3 (23-27) (units (unknown) date) mmol/L unknown) (unknown) (no (unknown) (unknown) ABG HCO3 28 H (units ( unknown) date) (23-27) mmol/L unknown) (unknown) (no (unknown) (unknown) ABG O2 Saturation (units (unknown) date) (95-100) % unknown) (unknown) (no (unknown) (unknown) ABG O2 Saturation (units (unknown) date) 98 (95-100) % unknown) (unknown) (no (unknown) (unknown) ABG Total CO2 (units ( unknown) date) (23-27) mmol/L unknown) (unknown) (no (unknown) (unknown) ABG Total CO2 30 H (units (unknown) date) (23-27) mmol/L unknown) (unknown) (no (unknown) (unknown) ABG [Arterial Blood (unit s (unknown) date) Gas] Stat unknown) (unknown) (no (unknown) (unknown) ABG pCO2 (35-45) (units (unknown) date) mmHg unknown) (unknown) (no (unknown) (unknown) ABG pCO2 54.1 H (units (unknown) date) (35-45) mmHg unknown) (unknown) (no (unknown) (unknown) ABG pH (7.35-7.45) (units (unknown) date) unknown) (unknown) (no (unknown) (unknown) ABG pH 7.33 L (units ( unknown) date) (7.35-7.45) unknown) (unknown) (no (unknown) (unknown) ABG pO2 (80-100) (units (unknown) date) mmHg unknown) (unknown) (no (unknown) (unknown) ABG pO2 107 H (units ( unknown) date) (80-100) mmHg unknown) (unknown) (no (unknown) (unknown) ALT (<35) IU/L (units (unknown) date) unknown) (unknown) (no (unknown) (unknown) ALT 24 (<35) IU/L (units (unknown) date) unknown) (unknown) (no (unknown) (unknown) APTT (26-36) (units (u nknown) date) SECONDS unknown) (unknown) (no (unknown) (unknown) APTT 31 (26-36) (units (unknown) date) SECONDS unknown) (unknown) (no (unknown) (unknown) AST (14-36) IU/L (units (unknown) date) unknown) (unknown) (no (unknown) (unknown) AST 28 (14-36) IU/L (unit s (unknown) date) unknown) (unknown) (no (unknown) (unknown) Abdomen:? (units (unkn own) date) Visualized upper unknown) abdominal solid organs appear normal in the early (unknown) (no (unknown) (unknown) Accession Number: (units (unknown) date) [id number] ?? unknown) (unknown) (no (unknown) (unknown) Acct:[id number] (units (unknown) date) unknown) (unknown) (no (unknown) (unknown) Adenovirus (PCR) (units (unknown) date) (Not Detect) unknown) (unknown) (no (unknown) (unknown) Adenovirus (PCR) (units (unknown) date) Not detected (Not unknown) Detect) (unknown) (no (unknown) (unknown) After the (units (unkn own) date) administration of unknown) intravenous contrast, 2 mm thick sections acquired (unknown) (no (unknown) (unknown) Age/Sex: 81 / F (units (unknown) date) unknown) (unknown) (no (unknown) (unknown) Albumin (3.5-5.0) (units (unknown) date) g/dL unknown) (unknown) (no (unknown) (unknown) Albumin 4.3 (units (un known) date) (3.5-5.0) g/dL unknown) (unknown) (no (unknown) (unknown) Albumin/Globulin (units (unknown) date) Ratio (1.0-2.8) unknown) (unknown) (no (unknown) (unknown) Albumin/Globulin (units (unknown) date) Ratio 1.3 (1.0-2.8) unknown) (unknown) (no (unknown) (unknown) Alcohol type: hard (units (unknown) date) liquor unknown) (unknown) (no (unknown) (unknown) Alkaline (units (unkno wn) date) Phosphatase (38-126) unknown) U/L (unknown) (no (unknown) (unknown) Alkaline (units (unkno wn) date) Phosphatase 88 unknown) (38-126) U/L (unknown) (no (unknown) (unknown) Allergies (units (unkn own) date) unknown) (unknown) (no (unknown) (unknown) Allergy/AdvReac (units (unknown) date) Type Severity unknown) Reaction Status Date / Time (unknown) (no (unknown) (unknown) [place] [address] (unit s (unknown) date) unknown) (unknown) (no (unknown) (unknown) Approved by: Shahnaz (unit s (unknown) date) Sarah Cornelius on unknown) 05/13/2022 at 17:21?? (unknown) (no (unknown) (unknown) Attestation: I (units (unknown) date) personally reviewed unknown) and interpreted this ECG as follows: (unknown) (no (unknown) (unknown) Attestation: (units (u nknown) date) unknown) (unknown) (no (unknown) (unknown) B. pertussis DNA (units (unknown) date) (PCR) (Not Detecte) unknown) (unknown) (no (unknown) (unknown) B. pertussis DNA (units (unknown) date) (PCR) Not detected unknown) (Not Detecte) (unknown) (no (unknown) (unknown) B.parapertussis DNA (unit s (unknown) date) PCR (Not Detecte) unknown) (unknown) (no (unknown) (unknown) B.parapertussis DNA (unit s (unknown) date) PCR Not detected unknown) (Not Detecte) (unknown) (no (unknown) (unknown) BUN (7-17) mg/dL (units (unknown) date) unknown) (unknown) (no (unknown) (unknown) BUN 18 H (7-17) (units (unknown) date) mg/dL unknown) (unknown) (no (unknown) (unknown) BUN/Creatinine (units (unknown) date) Ratio (6-22) unknown) (unknown) (no (unknown) (unknown) BUN/Creatinine (units (unknown) date) Ratio 20.7 (6-22) unknown) (unknown) (no (unknown) (unknown) Baso # (Auto) (units ( unknown) date) (0-100) /uL unknown) (unknown) (no (unknown) (unknown) Baso # (Auto) 0 (units (unknown) date) (0-100) /uL unknown) (unknown) (no (unknown) (unknown) Baso % (Auto) (0-2) (unit s (unknown) date) % unknown) (unknown) (no (unknown) (unknown) Baso % (Auto) 0.2 (units (unknown) date) (0-2) % unknown) (unknown) (no (unknown) (unknown) Bedside Urine (units ( unknown) date) Bilirubin + 1 unknown) (unknown) (no (unknown) (unknown) Bedside Urine (units ( unknown) date) Glucose Negative unknown) (unknown) (no (unknown) (unknown) Bedside Urine (units ( unknown) date) Ketone +/- 5 unknown) (unknown) (no (unknown) (unknown) Bedside Urine (units ( unknown) date) Leukocytes ++ 125 unknown) (unknown) (no (unknown) (unknown) Bedside Urine (units ( unknown) date) Nitrite + Positive unknown) (unknown) (no (unknown) (unknown) Bedside Urine (units ( unknown) date) Occult Blood unknown) (unknown) (no (unknown) (unknown) Bedside Urine (units ( unknown) date) Protein +++ 300 unknown) (unknown) (no (unknown) (unknown) Bedside Urine (units ( unknown) date) Urobilinogen - unknown) Negative (unknown) (no (unknown) (unknown) Bedside Urine pH 6 (units (unknown) date) unknown) (unknown) (no (unknown) (unknown) Bilateral pulmonary (unit s (unknown) date) emboli with unknown) extension into the distal aspects of both the (unknown) (no (unknown) (unknown) Blood Pressure (units (unknown) date) 107/59 L 03 unknown) 12:40 (unknown) (no (unknown) (unknown) Blood Pressure (units (unknown) date) 107/59 L 118/68 unknown) (unknown) (no (unknown) (unknown) Blood Pressure (units (unknown) date) 107/59 L unknown) (unknown) (no (unknown) (unknown) Blood Pressure (units (unknown) date) 122/83 119/66 unknown) (unknown) (no (unknown) (unknown) Blood Pressure (units (unknown) date) 122/83 unknown) (unknown) (no (unknown) (unknown) Blood Pressure (units (unknown) date) 126/67 unknown) (unknown) (no (unknown) (unknown) Blood Pressure (units (unknown) date) 126/84 unknown) (unknown) (no (unknown) (unknown) Blood Pressure (units (unknown) date) 139/85 unknown) (unknown) (no (unknown) (unknown) Blood Pressure (units (unknown) date) 141/68 H unknown) (unknown) (no (unknown) (unknown) Blood Pressure (units (unknown) date) 142/84 H 105/65 unknown) (unknown) (no (unknown) (unknown) Blood Pressure (units (unknown) date) 150/85 H 136/80 unknown) (unknown) (no (unknown) (unknown) Blood Pressure (units (unknown) date) 150/86 H unknown) (unknown) (no (unknown) (unknown) Blood Pressure (units (unknown) date) 88/47 L 142/94 H unknown) (unknown) (no (unknown) (unknown) Blood Pressure (units (unknown) date) unknown) (unknown) (no (unknown) (unknown) Bones and chest (units (unknown) date) wall:? No suspicious unknown) bony lesions.? Ribs and thoracic spine (unknown) (no (unknown) (unknown) [facility], [facility], XR unknown) CHEST 1V, 05/13/2022, 13:57. (unknown) (no (unknown) (unknown) COVID19 -Nasal (units (unknown) date) RAPID Stat unknown) (unknown) (no (unknown) (unknown) CT Scan Report (units (unknown) date) unknown) (unknown) (no (unknown) (unknown) CT angio chest PE (units (unknown) date) protocol Stat unknown) (unknown) (no (unknown) (unknown) CT scan - chest: (units (unknown) date) unknown) (unknown) (no (unknown) (unknown) Calcium (8.4-10.2) (units (unknown) date) mg/dL unknown) (unknown) (no (unknown) (unknown) Calcium 9.1 (units (un known) date) (8.4-10.2) mg/dL unknown) (unknown) (no (unknown) (unknown) Carbon Dioxide (units (unknown) date) (22-32) mmol/L unknown) (unknown) (no (unknown) (unknown) Carbon Dioxide 26 (units (unknown) date) (22-32) mmol/L unknown) (unknown) (no (unknown) (unknown) Chief Complaint: (units (unknown) date) Shortness of unknown) Breath/Dyspnea (unknown) (no (unknown) (unknown) Chlamy pneumoniae (units (unknown) date) PCR (Not Detect) unknown) (unknown) (no (unknown) (unknown) Chlamy pneumoniae (units (unknown) date) PCR Not detected unknown) (Not Detect) (unknown) (no (unknown) (unknown) Chloride (98-107) (units (unknown) date) mmol/L unknown) (unknown) (no (unknown) (unknown) Chloride 98 (units (un known) date) (98-107) mmol/L unknown) (unknown) (no (unknown) (unknown) Clinical (units (unkno wn) date) Impression: unknown) (unknown) (no (unknown) (unknown) Complete Blood (units (unknown) date) Count AUTO DIFF Stat unknown) (unknown) (no (unknown) (unknown) Comprehensive (units ( unknown) date) Metabolic Panel Stat unknown) (unknown) (no (unknown) (unknown) Congestive heart (units (unknown) date) failure, Bilateral unknown) pulmonary embolism, Acute respiratory (unknown) (no (unknown) (unknown) Coronavirus 229E (units (unknown) date) (PCR) (Not Detect) unknown) (unknown) (no (unknown) (unknown) Coronavirus 229E (units (unknown) date) (PCR) Not detected unknown) (Not Detect) (unknown) (no (unknown) (unknown) Coronavirus HKU1 (units (unknown) date) (PCR) (Not Detect) unknown) (unknown) (no (unknown) (unknown) Coronavirus HKU1 (units (unknown) date) (PCR) Not detected unknown) (Not Detect) (unknown) (no (unknown) (unknown) Coronavirus NL63 (units (unknown) date) (PCR) (Not Detect) unknown) (unknown) (no (unknown) (unknown) Coronavirus NL63 (units (unknown) date) (PCR) Not detected unknown) (Not Detect) (unknown) (no (unknown) (unknown) Coronavirus OC43 (units (unknown) date) (PCR) (Not Detect) unknown) (unknown) (no (unknown) (unknown) Coronavirus OC43 (units (unknown) date) (PCR) Not detected unknown) (Not Detect) (unknown) (no (unknown) (unknown) Course (units (unkno wn) date) unknown) (unknown) (no (unknown) (unknown) Creatinine (units (unk nown) date) (0.52-1.04) mg/dL unknown) (unknown) (no (unknown) (unknown) Creatinine 0.87 (units (unknown) date) (0.52-1.04) mg/dL unknown) (unknown) (no (unknown) (unknown) Critical Care Time (units (unknown) date) unknown) (unknown) (no (unknown) (unknown) Critical Care Time: (unit s (unknown) date) Yes unknown) (unknown) (no (unknown) (unknown) : 1940 (units (unknown) date) Acct:[id number] unknown) (unknown) (no (unknown) (unknown) : 1940 (units (unknown) date) unknown) (unknown) (no (unknown) (unknown) Date of Service: (units (unknown) date) 05/13/22 unknown) (unknown) (no (unknown) (unknown) Departure (units (unkn own) date) unknown) (unknown) (no (unknown) (unknown) Dictated by: Shahnaz (unit s (unknown) date) Sarah Cornelius on unknown) 05/13/2022 at 17:18 ? ? (unknown) (no (unknown) (unknown) Diphenhydramine HCl (unit s (unknown) date) (Diphenhydramine 50 unknown) Mg/Ml Vial) 25 mg IV NOW ONE (unknown) (no (unknown) (unknown) Discharge Plan (units (unknown) date) unknown) (unknown) (no (unknown) (unknown) Discontinued (units (u nknown) date) Medications unknown) (unknown) (no (unknown) (unknown) Discussed with (units (unknown) date) Darren hospitalist unknown) when asked that we speak with (unknown) (no (unknown) (unknown) Documented By: KB (units (unknown) date) unknown) (unknown) (no (unknown) (unknown) Documented By: RLS (units (unknown) date) unknown) (unknown) (no (unknown) (unknown) EC echo doppler (units (unknown) date) complete Stat unknown) (unknown) (no (unknown) (unknown) ECG Data (units (unkno wn) date) unknown) (unknown) (no (unknown) (unknown) ED Orders (units (unkn own) date) unknown) (unknown) (no (unknown) (unknown) EKG-12 Lead Stat (units (unknown) date) unknown) (unknown) (no (unknown) (unknown) ER Physician: (units ( unknown) date) Julien Espinoza D.O. unknown) (unknown) (no (unknown) (unknown) Emergency Report (units (unknown) date) unknown) (unknown) (no (unknown) (unknown) Entero/Rhino (PCR) (units (unknown) date) (Not Detect) unknown) (unknown) (no (unknown) (unknown) Entero/Rhino (PCR) (units (unknown) date) Not detected (Not unknown) Detect) (unknown) (no (unknown) (unknown) Eos # (Auto) (units (u nknown) date) (0-450) /uL unknown) (unknown) (no (unknown) (unknown) Eos # (Auto) 0 (units (unknown) date) (0-450) /uL unknown) (unknown) (no (unknown) (unknown) Eos % (Auto) (2-4) (units (unknown) date) % unknown) (unknown) (no (unknown) (unknown) Eos % (Auto) 0.3 L (units (unknown) date) (2-4) % unknown) (unknown) (no (unknown) (unknown) Esterase (units (unkno wn) date) unknown) (unknown) (no (unknown) (unknown) Estimated GFR > 60 (units (unknown) date) (>60) mL/min unknown) (unknown) (no (unknown) (unknown) Estimated GFR (>60) (unit s (unknown) date) mL/min unknown) (unknown) (no (unknown) (unknown) Exam Narrative: (units (unknown) date) unknown) (unknown) (no (unknown) (unknown) Exam (units (unkno wn) date) unknown) (unknown) (no (unknown) (unknown) FINDINGS:? (units (unk nown) date) unknown) (unknown) (no (unknown) (unknown) Feet do have some (units (unknown) date) discoloration are unknown) slightly mottled, hands do not. Patient (unknown) (no (unknown) (unknown) For radiation dose (units (unknown) date) reduction, the unknown) following was used:? automated exposure (unknown) (no (unknown) (unknown) Furosemide (units (unk nown) date) (Furosemide 40 Mg/4 unknown) Ml Vial) 40 mg IV NOW ONE (unknown) (no (unknown) (unknown) GEN: Obese elderly (units (unknown) date) female, alert and unknown) oriented x 3, patient appears to be in (unknown) (no (unknown) (unknown) :No CVA (units (unkn own) date) tenderness unknown) (unknown) (no (unknown) (unknown) General (units (unkno wn) date) unknown) (unknown) (no (unknown) (unknown) Globulin (1.7-4.1) (units (unknown) date) g/dL unknown) (unknown) (no (unknown) (unknown) Globulin 3.4 (units (u nknown) date) (1.7-4.1) g/dL unknown) (unknown) (no (unknown) (unknown) Glucose (80-110) (units (unknown) date) mg/dL unknown) (unknown) (no (unknown) (unknown) Glucose 133 H (units ( unknown) date) (80-110) mg/dL unknown) (unknown) (no (unknown) (unknown) HEART: Regular rate (unit s (unknown) date) and rhythm without unknown) murmur, clicks, rubs. Pulmonary VD. (unknown) (no (unknown) (unknown) HEENT: Atraumatic, (units (unknown) date) pupils are equal unknown) round reactive to light, extraocular (unknown) (no (unknown) (unknown) HPI - SOB/Dyspnea (units (unknown) date) unknown) (unknown) (no (unknown) (unknown) HPI Narrative: (units (unknown) date) unknown) (unknown) (no (unknown) (unknown) Hct (36-46) % (units ( unknown) date) unknown) (unknown) (no (unknown) (unknown) Hct 49.2 H (36-46) (units (unknown) date) % unknown) (unknown) (no (unknown) (unknown) Heparin Sodium (units (unknown) date) (Porcine) (Heparin unknown) 5,000 Unit/Ml Vial) 7,500 unit IV NOW ONE (unknown) (no (unknown) (unknown) Heparin (units (unkno wn) date) Sodium/Dextrose unknown) (Heparin Drip) 25,000 unit in 500 mls @ 39.844 mls/hr (unknown) (no (unknown) (unknown) Hgb (12.0-16.0) (units (unknown) date) g/dL unknown) (unknown) (no (unknown) (unknown) Hgb 16.1 H (units (unk nown) date) (12.0-16.0) g/dL unknown) (unknown) (no (unknown) (unknown) History of Present (units (unknown) date) Illness unknown) (unknown) (no (unknown) (unknown) Home Medications (units (unknown) date) unknown) (unknown) (no (unknown) (unknown) Human Metapneumovir (unit s (unknown) date) PCR (Not Detect) unknown) (unknown) (no (unknown) (unknown) Human Metapneumovir (unit s (unknown) date) PCR Not detected unknown) (Not Detect) (unknown) (no (unknown) (unknown) IMPRESSION:? (units (u nknown) date) unknown) (unknown) (no (unknown) (unknown) INDICATIONS:? chf, (units (unknown) date) rule out pe unknown) (unknown) (no (unknown) (unknown) INR (0.9-1.3) (units ( unknown) date) unknown) (unknown) (no (unknown) (unknown) INR 1.2 (0.9-1.3) (units (unknown) date) unknown) (unknown) (no (unknown) (unknown) IV CONT OMAR; (units (u nknown) date) Protocol unknown) (unknown) (no (unknown) (unknown) Ictotest Urine Stat (unit s (unknown) date) unknown) (unknown) (no (unknown) (unknown) Image quality:? (units (unknown) date) Excellent.? unknown) (unknown) (no (unknown) (unknown) Imaging Data (units (u nknown) date) unknown) (unknown) (no (unknown) (unknown) Influenza Type A (units (unknown) date) (PCR) (Not Detect) unknown) (unknown) (no (unknown) (unknown) Influenza Type A (units (unknown) date) (PCR) Not detected unknown) (Not Detect) (unknown) (no (unknown) (unknown) Influenza Type B (units (unknown) date) (PCR) (Not Detect) unknown) (unknown) (no (unknown) (unknown) Influenza Type B (units (unknown) date) (PCR) Not detected unknown) (Not Detect) (unknown) (no (unknown) (unknown) Initial Vital Signs (unit s (unknown) date) unknown) (unknown) (no (unknown) (unknown) Initial Vital (units ( unknown) date) Signs: unknown) (unknown) (no (unknown) (unknown) Interpretation: (units (unknown) date) unknown) (unknown) (no (unknown) (unknown) Interventional (units (unknown) date) Radiology, Dr. Olguin unknown) states at this time patient is not a candidate (unknown) (no (unknown) (unknown) [facility] (units (unknown) date) [address] unknown) [place] [address] (unknown) (no (unknown) (unknown) [facility] (units (unknown) date) unknown) (unknown) (no (unknown) (unknown) LUNGS:Lungs breath (units (unknown) date) sounds equal unknown) bilaterally, no wheezes, bilateral crackles, (unknown) (no (unknown) (unknown) Lab Data (units (unkno wn) date) unknown) (unknown) (no (unknown) (unknown) Lab Results (units (un known) date) unknown) (unknown) (no (unknown) (unknown) Labs: (units (unkno wn) date) unknown) (unknown) (no (unknown) (unknown) Lactate (0.7-2.1) (units (unknown) date) mmol/L unknown) (unknown) (no (unknown) (unknown) Lactate (Lactic (units (unknown) date) Acid) Stat unknown) (unknown) (no (unknown) (unknown) Lactate 1.9 (units (un known) date) (0.7-2.1) mmol/L unknown) (unknown) (no (unknown) (unknown) Eber Wetzel, (unit s (unknown) date) MD [Primary Care unknown) Provider] (unknown) (no (unknown) (unknown) Last Admin: (units (un known) date) 05/13/22 15:28 Dose: unknown) 40 mg (unknown) (no (unknown) (unknown) Last Admin: (units (un known) date) 05/13/22 16:25 Dose: unknown) 25 mg (unknown) (no (unknown) (unknown) Last Admin: (units (un known) date) 05/13/22 16:26 Dose: unknown) 125 mg (unknown) (no (unknown) (unknown) Last Admin: (units (un known) date) 05/13/22 17:40 Dose: unknown) 18 units/kg/hr, 39.844 mls/hr (unknown) (no (unknown) (unknown) Last Admin: (units (un known) date) 05/13/22 17:40 Dose: unknown) 7,500 unit (unknown) (no (unknown) (unknown) Limitations: no (units (unknown) date) limitations unknown) (unknown) (no (unknown) (unknown) Loc: ED (units (unkno wn) date) unknown) (unknown) (no (unknown) (unknown) Lungs and pleura:? (units (unknown) date) Mild right effusion. unknown) (unknown) (no (unknown) (unknown) Lymph # (Auto) (units (unknown) date) (6807-2900) /uL unknown) (unknown) (no (unknown) (unknown) Lymph # (Auto) 600 (units (unknown) date) L (4815-2751) /uL unknown) (unknown) (no (unknown) (unknown) Lymph % (Auto) (units (unknown) date) (25-40) % unknown) (unknown) (no (unknown) (unknown) Lymph % (Auto) 5.5 (units (unknown) date) L (25-40) % unknown) (unknown) (no (unknown) (unknown) M. pneumoniae (PCR) (unit s (unknown) date) (Not Detect) unknown) (unknown) (no (unknown) (unknown) M. pneumoniae (PCR) (unit s (unknown) date) Not detected (Not unknown) Detect) (unknown) (no (unknown) (unknown) MCH (26-34) PG (units (unknown) date) unknown) (unknown) (no (unknown) (unknown) MCH 28.4 (26-34) PG (unit s (unknown) date) unknown) (unknown) (no (unknown) (unknown) MCHC (30-36) % (units (unknown) date) unknown) (unknown) (no (unknown) (unknown) MCHC 32.8 (30-36) % (unit s (unknown) date) unknown) (unknown) (no (unknown) (unknown) MCV (80-100) fL (units (unknown) date) unknown) (unknown) (no (unknown) (unknown) MCV 86.8 (80-100) (units (unknown) date) fL unknown) (unknown) (no (unknown) (unknown) MDM - SOB/Dyspnea (units (unknown) date) unknown) (unknown) (no (unknown) (unknown) MDM Narrative (units ( unknown) date) unknown) (unknown) (no (unknown) (unknown) MR#: [id number] (units (unknown) date) unknown) (unknown) (no (unknown) (unknown) MSCL: Non-tender, (units (unknown) date) no muscle atrophy, unknown) muscles strength 5/5 upper and lower (unknown) (no (unknown) (unknown) Measure peak (units (u nknown) date) expiratory flow ONCE unknown) (unknown) (no (unknown) (unknown) Mediastinum:? Heart (units (unknown) date) size is normal, with unknown) minimal pericardial effusion.? No right (unknown) (no (unknown) (unknown) Medical decision (units (unknown) date) making narrative: unknown) (unknown) (no (unknown) (unknown) Medication (units (unk nown) date) Instructions unknown) Recorded Confirmed (unknown) (no (unknown) (unknown) Methylprednisolone (units (unknown) date) (Methylprednisolone unknown) 125 Mg/2 Ml Vial) 125 mg IV NOW ONE (unknown) (no (unknown) (unknown) Mode of arrival: (units (unknown) date) EMS unknown) (unknown) (no (unknown) (unknown) Harris # (Auto) (units ( unknown) date) (0-900) /uL unknown) (unknown) (no (unknown) (unknown) Harris # (Auto) 400 (units (unknown) date) (0-900) /uL unknown) (unknown) (no (unknown) (unknown) Harris % (Auto) (units ( unknown) date) (3-14) % unknown) (unknown) (no (unknown) (unknown) Harris % (Auto) 4.1 (units (unknown) date) (3-14) % unknown) (unknown) (no (unknown) (unknown) NEURO:CN 2-12 (units ( unknown) date) intact, sensation unknown) normal (unknown) (no (unknown) (unknown) NT-Pro-B Natriuret (units (unknown) date) Pep (<450) pg/mL unknown) (unknown) (no (unknown) (unknown) NT-Pro-B Natriuret (units (unknown) date) Pep 18152 H (<450) unknown) pg/mL (unknown) (no (unknown) (unknown) NT-proBNP (units (unkn own) date) (BNP-Adult 18+) Stat unknown) (unknown) (no (unknown) (unknown) Narrative (units (unkn own) date) unknown) (unknown) (no (unknown) (unknown) Neut # (Auto) (units ( unknown) date) (9566-8478) /uL unknown) (unknown) (no (unknown) (unknown) Neut # (Auto) 9800 (units (unknown) date) H (9365-8409) /uL unknown) (unknown) (no (unknown) (unknown) Neut % (Auto) (units ( unknown) date) (50-75) % unknown) (unknown) (no (unknown) (unknown) Neut % (Auto) 89.9 (units (unknown) date) H (50-75) % unknown) (unknown) (no (unknown) (unknown) No Action (units (unkn own) date) unknown) (unknown) (no (unknown) (unknown) Normal sinus (units (u nknown) date) rhythm, left axis unknown) deviation, rate of 98, OR 120, QRS 88 QTC 347. (unknown) (no (unknown) (unknown) Ordered: (units (unkno wn) date) unknown) (unknown) (no (unknown) (unknown) Ordering Provider: (units (unknown) date) Sujata Graff D.O. unknown) (unknown) (no (unknown) (unknown) Orders (units (unkno wn) date) unknown) (unknown) (no (unknown) (unknown) Oximask (units (unkno wn) date) unknown) (unknown) (no (unknown) (unknown) Oxygen Delivery (units (unknown) date) Method Nasal Cannula unknown) (unknown) (no (unknown) (unknown) Oxygen Delivery (units (unknown) date) Method Oximask unknown) Oximask (unknown) (no (unknown) (unknown) Oxygen Delivery (units (unknown) date) Method Oximask unknown) (unknown) (no (unknown) (unknown) Oxygen Delivery (units (unknown) date) Method Room Air unknown) 05/13/22 12:40 (unknown) (no (unknown) (unknown) Oxygen Delivery (units (unknown) date) Method Room Air unknown) Nasal Cannula Oximask (unknown) (no (unknown) (unknown) Oxygen Delivery (units (unknown) date) Method unknown) (unknown) (no (unknown) (unknown) Oxygen Flow Rate 4 (units (unknown) date) 6 unknown) (unknown) (no (unknown) (unknown) Oxygen Flow Rate 5 (units (unknown) date) unknown) (unknown) (no (unknown) (unknown) Oxygen Flow Rate 8 (units (unknown) date) 9 unknown) (unknown) (no (unknown) (unknown) Oxygen Flow Rate 9 (units (unknown) date) 11 unknown) (unknown) (no (unknown) (unknown) Oxygen Flow Rate 9 (units (unknown) date) 7 unknown) (unknown) (no (unknown) (unknown) Oxygen Flow Rate 9 (units (unknown) date) 9 unknown) (unknown) (no (unknown) (unknown) Oxygen Flow Rate 9 (units (unknown) date) unknown) (unknown) (no (unknown) (unknown) Oxygen Flow Rate (units (unknown) date) unknown) (unknown) (no (unknown) (unknown) PROCEDURE:? CT (units (unknown) date) ANGIO CHEST PE unknown) PROTOCOL (unknown) (no (unknown) (unknown) PT (10.1-12.7) (units (unknown) date) SECONDS unknown) (unknown) (no (unknown) (unknown) PT 14.1 H (units (unkn own) date) (10.1-12.7) SECONDS unknown) (unknown) (no (unknown) (unknown) PTT Partial (units (un known) date) Thromboplastin Vicente unknown) Q6H (unknown) (no (unknown) (unknown) Parainfluenza 1 (units (unknown) date) (PCR) (Not Detect) unknown) (unknown) (no (unknown) (unknown) Parainfluenza 1 (units (unknown) date) (PCR) Not detected unknown) (Not Detect) (unknown) (no (unknown) (unknown) Parainfluenza 2 (units (unknown) date) (PCR) (Not Detect) unknown) (unknown) (no (unknown) (unknown) Parainfluenza 2 (units (unknown) date) (PCR) Not detected unknown) (Not Detect) (unknown) (no (unknown) (unknown) Parainfluenza 3 (units (unknown) date) (PCR) (Not Detect) unknown) (unknown) (no (unknown) (unknown) Parainfluenza 3 (units (unknown) date) (PCR) Not detected unknown) (Not Detect) (unknown) (no (unknown) (unknown) Parainfluenza 4 (units (unknown) date) (PCR) (Not Detect) unknown) (unknown) (no (unknown) (unknown) Parainfluenza 4 (units (unknown) date) (PCR) Not detected unknown) (Not Detect) (unknown) (no (unknown) (unknown) Patient Comments: (units (unknown) date) unknown) (unknown) (no (unknown) (unknown) Patient History (units (unknown) date) unknown) (unknown) (no (unknown) (unknown) Patient change in (units (unknown) date) lateral no with unknown) inverted T-wave and RSR V1 through the read (unknown) (no (unknown) (unknown) Patient does not (units (unknown) date) have pitting edema unknown) but has some mild swelling bilaterally. (unknown) (no (unknown) (unknown) Patient's P wave (units (unknown) date) inverted in lead 3. unknown) (unknown) (no (unknown) (unknown) Patient: (units (unkno wn) date) Gely Milner MR#: unknown) M00 (unknown) (no (unknown) (unknown) Patient: (units (unkno wn) date) Gely Milner unknown) (unknown) (no (unknown) (unknown) Penicillins Allergy (unit s (unknown) date) Intermediate unknown) Anaphylaxis Verified 05/13/22 15:46 (unknown) (no (unknown) (unknown) Plt Count (150-400) (unit s (unknown) date) X103/uL unknown) (unknown) (no (unknown) (unknown) Plt Count 252 (units ( unknown) date) (150-400) X103/uL unknown) (unknown) (no (unknown) (unknown) Potassium (3.4-5.1) (unit s (unknown) date) mmol/L unknown) (unknown) (no (unknown) (unknown) Potassium 4.3 (units ( unknown) date) (3.4-5.1) mmol/L unknown) (unknown) (no (unknown) (unknown) Prescriptions: (units (unknown) date) unknown) (unknown) (no (unknown) (unknown) Prior ECG tracings: (unit s (unknown) date) available for review unknown) (unknown) (no (unknown) (unknown) Procedure: CT angio (unit s (unknown) date) chest PE protocol unknown) (unknown) (no (unknown) (unknown) Prothrombin Time (units (unknown) date) INR Stat unknown) (unknown) (no (unknown) (unknown) Pulmonary arteries:? (unit s (unknown) date) There is a filling unknown) defect in the distal aspect of the right (unknown) (no (unknown) (unknown) Pulse Oximetry 85 L (unit s (unknown) date) 05/13/22 12:40 unknown) (unknown) (no (unknown) (unknown) Pulse Oximetry 85 L (unit s (unknown) date) 87 L 91 unknown) (unknown) (no (unknown) (unknown) Pulse Oximetry 88 L (unit s (unknown) date) 96 unknown) (unknown) (no (unknown) (unknown) Pulse Oximetry 88 L (unit s (unknown) date) unknown) (unknown) (no (unknown) (unknown) Pulse Oximetry 90 L (unit s (unknown) date) unknown) (unknown) (no (unknown) (unknown) Pulse Oximetry 91 (units (unknown) date) 94 unknown) (unknown) (no (unknown) (unknown) Pulse Oximetry 93 (units (unknown) date) 95 unknown) (unknown) (no (unknown) (unknown) Pulse Oximetry 94 (units (unknown) date) 92 unknown) (unknown) (no (unknown) (unknown) Pulse Oximetry 94 (units (unknown) date) 94 unknown) (unknown) (no (unknown) (unknown) Pulse Oximetry 95 (units (unknown) date) 89 L unknown) (unknown) (no (unknown) (unknown) Pulse Oximetry 95 (units (unknown) date) 92 unknown) (unknown) (no (unknown) (unknown) Pulse Oximetry 96 (units (unknown) date) 91 unknown) (unknown) (no (unknown) (unknown) Pulse Oximetry 96 (units (unknown) date) 93 unknown) (unknown) (no (unknown) (unknown) Pulse Oximetry 96 (units (unknown) date) unknown) (unknown) (no (unknown) (unknown) Pulse Oximetry 99 (units (unknown) date) unknown) (unknown) (no (unknown) (unknown) Pulse Rate 100 H (units (unknown) date) 05/13/22 12:40 unknown) (unknown) (no (unknown) (unknown) Pulse Rate 100 H (units (unknown) date) unknown) (unknown) (no (unknown) (unknown) Pulse Rate 101 H 96 (unit s (unknown) date) H unknown) (unknown) (no (unknown) (unknown) Pulse Rate 93 H 95 (units (unknown) date) H unknown) (unknown) (no (unknown) (unknown) Pulse Rate 95 H 97 (units (unknown) date) H unknown) (unknown) (no (unknown) (unknown) Pulse Rate 95 H (units (unknown) date) unknown) (unknown) (no (unknown) (unknown) Pulse Rate 96 H 94 (units (unknown) date) H unknown) (unknown) (no (unknown) (unknown) Pulse Rate 96 H (units (unknown) date) unknown) (unknown) (no (unknown) (unknown) Pulse Rate 97 H 96 (units (unknown) date) H unknown) (unknown) (no (unknown) (unknown) Pulse Rate 99 H 97 (units (unknown) date) H unknown) (unknown) (no (unknown) (unknown) Quinolones Allergy (units (unknown) date) Intermediate unknown) Anaphylaxis Verified 05/13/22 15:46 (unknown) (no (unknown) (unknown) RBC (4.0-5.2) (units ( unknown) date) X106/uL unknown) (unknown) (no (unknown) (unknown) RBC 5.67 H (units (unk nown) date) (4.0-5.2) X106/uL unknown) (unknown) (no (unknown) (unknown) RDW (11.6-14.8) % (units (unknown) date) unknown) (unknown) (no (unknown) (unknown) RDW 13.8 (units (unkno wn) date) (11.6-14.8) % unknown) (unknown) (no (unknown) (unknown) ROS Unobtainable: (units (unknown) date) All systems reviewed unknown) + are unremarkable except as noted in HPI (unknown) (no (unknown) (unknown) RSV (PCR) (Not (units (unknown) date) Detect) unknown) (unknown) (no (unknown) (unknown) RSV (PCR) Not (units ( unknown) date) detected (Not unknown) Detect) (unknown) (no (unknown) (unknown) RT Consult Eval and (unit s (unknown) date) Treat NOW unknown) (unknown) (no (unknown) (unknown) Radiologist's (units ( unknown) date) Impression: unknown) (unknown) (no (unknown) (unknown) Referrals: (units (unk nown) date) unknown) (unknown) (no (unknown) (unknown) Related Data (units (u nknown) date) unknown) (unknown) (no (unknown) (unknown) Respiratory Panel (units (unknown) date) (Film Array) Stat unknown) (unknown) (no (unknown) (unknown) Respiratory Rate 16 (unit s (unknown) date) 16 unknown) (unknown) (no (unknown) (unknown) Respiratory Rate 19 (unit s (unknown) date) unknown) (unknown) (no (unknown) (unknown) Respiratory Rate 20 (unit s (unknown) date) 18 unknown) (unknown) (no (unknown) (unknown) Respiratory Rate 20 (unit s (unknown) date) unknown) (unknown) (no (unknown) (unknown) Respiratory Rate 22 (unit s (unknown) date) 05/13/22 12:40 unknown) (unknown) (no (unknown) (unknown) Respiratory Rate 22 (unit s (unknown) date) 19 unknown) (unknown) (no (unknown) (unknown) Respiratory Rate 22 (unit s (unknown) date) unknown) (unknown) (no (unknown) (unknown) Respiratory Rate 23 (unit s (unknown) date) 24 unknown) (unknown) (no (unknown) (unknown) Respiratory Rate 23 (unit s (unknown) date) unknown) (unknown) (no (unknown) (unknown) Respiratory Rate 24 (unit s (unknown) date) 22 unknown) (unknown) (no (unknown) (unknown) Respiratory Rate 25 (unit s (unknown) date) H 22 unknown) (unknown) (no (unknown) (unknown) Respiratory Rate (units (unknown) date) unknown) (unknown) (no (unknown) (unknown) Review of Systems (units (unknown) date) unknown) (unknown) (no (unknown) (unknown) SARS-CoV-2 (PCR) (units (unknown) date) (Negative) unknown) (unknown) (no (unknown) (unknown) SARS-CoV-2 (PCR) (units (unknown) date) Negative Not unknown) detected (Negative) (unknown) (no (unknown) (unknown) SIRS no strain on (units (unknown) date) her CT angio we did unknown) review her EKG changes, current troponins, (unknown) (no (unknown) (unknown) SKIN: See above. (units (unknown) date) unknown) (unknown) (no (unknown) (unknown) Signed By: (units (unk nown) date) unknown) (unknown) (no (unknown) (unknown) Signed (units (unkno wn) date) unknown) (unknown) (no (unknown) (unknown) Sinus rhythm 96, P (units (unknown) date) are 118, QRS 88 QTC unknown) 480. Nonspecific change patient does (unknown) (no (unknown) (unknown) Smoking Status: (units (unknown) date) Never smoker unknown) (unknown) (no (unknown) (unknown) Social History (units (unknown) date) (Reviewed 05/13/22 @ unknown) 14:48 by Sujata Graff DO) (unknown) (no (unknown) (unknown) Sodium (137-145) (units (unknown) date) mmol/L unknown) (unknown) (no (unknown) (unknown) Sodium 135 L (units (u nknown) date) (137-145) mmol/L unknown) (unknown) (no (unknown) (unknown) Source: patient and (unit s (unknown) date) EMS unknown) (unknown) (no (unknown) (unknown) Spoke with (units (unknown) date) Lana, unknown) interventionalist at [facility] asks if we can try (unknown) (no (unknown) (unknown) Stated Complaint: (units (unknown) date) Dizzy, SOB T-3 unknown) (unknown) (no (unknown) (unknown) Stop: 05/13/22 (units (unknown) date) 14:24 unknown) (unknown) (no (unknown) (unknown) Stop: 05/13/22 (units (unknown) date) 16:19 unknown) (unknown) (no (unknown) (unknown) Stop: 05/13/22 (units (unknown) date) 17:23 unknown) (unknown) (no (unknown) (unknown) Substance Use Type: (unit s (unknown) date) does not use unknown) (unknown) (no (unknown) (unknown) TECHNIQUE:? (units (un known) date) unknown) (unknown) (no (unknown) (unknown) Temperature 97.6 F (units (unknown) date) 05/13/22 12:40 unknown) (unknown) (no (unknown) (unknown) Temperature 97.6 F (units (unknown) date) unknown) (unknown) (no (unknown) (unknown) Temperature (units (un known) date) unknown) (unknown) (no (unknown) (unknown) The above findings (units (unknown) date) were discussed with unknown) Dr. Sujata Graff on 323 at 5:20 p.m..? (unknown) (no (unknown) (unknown) The high (units (unkno wn) date) probability of a unknown) clinically significant, sudden or life threatening (unknown) (no (unknown) (unknown) These show patient (units (unknown) date) actually had some unknown) improvement in T-waves in 1 and aVL which (unknown) (no (unknown) (unknown) This is a (units (unkn own) date) 81-year-old female unknown) with complaint of increasing shortness of breath (unknown) (no (unknown) (unknown) This is an (units (unk nown) date) 81-year-old female unknown) who states her only medications are Epsom daily (unknown) (no (unknown) (unknown) Time Seen by (units (u nknown) date) Provider: 05/13/22 unknown) 14:15 (unknown) (no (unknown) (unknown) Total Bilirubin (units (unknown) date) (0.2-1.3) mg/dL unknown) (unknown) (no (unknown) (unknown) Total Bilirubin 0.9 (unit s (unknown) date) (0.2-1.3) mg/dL unknown) (unknown) (no (unknown) (unknown) Total Protein (units ( unknown) date) (6.3-8.2) g/dL unknown) (unknown) (no (unknown) (unknown) Total Protein 7.7 (units (unknown) date) (6.3-8.2) g/dL unknown) (unknown) (no (unknown) (unknown) Trop I [Troponin I] (unit s (unknown) date) Stat unknown) (unknown) (no (unknown) (unknown) Troponin I (units (unk nown) date) (0.01-0.034) ng/mL unknown) (unknown) (no (unknown) (unknown) Troponin I 0.020 (units (unknown) date) (0.01-0.034) ng/mL unknown) (unknown) (no (unknown) (unknown) Troponin I 0.026 (units (unknown) date) (0.01-0.034) ng/mL unknown) (unknown) (no (unknown) (unknown) Troponin I Stat (units (unknown) date) unknown) (unknown) (no (unknown) (unknown) Ur Bilirubin (units (u nknown) date) Confirm (Negative) unknown) (unknown) (no (unknown) (unknown) Ur Bilirubin (units (u nknown) date) Confirm Negative unknown) (Negative) (unknown) (no (unknown) (unknown) Ur Culture (units (unk nown) date) Indicated? Cult not unknown) indicated (unknown) (no (unknown) (unknown) Ur Culture (units (unk nown) date) Indicated? unknown) (unknown) (no (unknown) (unknown) Ur Squamous Epith (units (unknown) date) Cells (0-5/HPF) unknown) (unknown) (no (unknown) (unknown) Ur Squamous Epith (units (unknown) date) Cells 1-5 /hpf unknown) (0-5/HPF) (unknown) (no (unknown) (unknown) Urine Bacteria (units (unknown) date) (None) unknown) (unknown) (no (unknown) (unknown) Urine Bacteria (units (unknown) date) Moderate (10-30) H unknown) (None) (unknown) (no (unknown) (unknown) Urine Culture Stat (units (unknown) date) unknown) (unknown) (no (unknown) (unknown) Urine Dip (units (unkn own) date) unknown) (unknown) (no (unknown) (unknown) Urine Microscopic (units (unknown) date) Stat unknown) (unknown) (no (unknown) (unknown) Urine RBC (0-5/HPF) (unit s (unknown) date) unknown) (unknown) (no (unknown) (unknown) Urine RBC 10-30/hpf (unit s (unknown) date) H (0-5/HPF) unknown) (unknown) (no (unknown) (unknown) Urine Specific (units (unknown) date) [place] 1.025 unknown) (unknown) (no (unknown) (unknown) Urine WBC (0-5/HPF) (unit s (unknown) date) unknown) (unknown) (no (unknown) (unknown) Urine WBC (units (unkn own) date) 30-100/hpf H unknown) (0-5/HPF) (unknown) (no (unknown) (unknown) Vital Signs - 8 hr (units (unknown) date) unknown) (unknown) (no (unknown) (unknown) Vital Signs (units (un known) date) unknown) (unknown) (no (unknown) (unknown) Vital signs: (units (u nknown) date) unknown) (unknown) (no (unknown) (unknown) WBC (4.5-11.0) (units (unknown) date) X103/uL unknown) (unknown) (no (unknown) (unknown) WBC 10.9 (4.5-11.0) (unit s (unknown) date) X103/uL unknown) (unknown) (no (unknown) (unknown) XR chest 1V Stat (units (unknown) date) unknown) (unknown) (no (unknown) (unknown) [Embedded Image Not (unit s (unknown) date) Available] unknown) (unknown) (no (unknown) (unknown) [From Bactrim] (units (unknown) date) unknown) (unknown) (no (unknown) (unknown) [From Macrobid] (units (unknown) date) unknown) (unknown) (no (unknown) (unknown) [x] Data Review and (unit s (unknown) date) interpretation unknown) (unknown) (no (unknown) (unknown) [x] Documentation (units (unknown) date) unknown) (unknown) (no (unknown) (unknown) [x] Medication (units (unknown) date) orders and unknown) management (unknown) (no (unknown) (unknown) [x] Patient (units (un known) date) assessment and unknown) monitoring of vital signs (unknown) (no (unknown) (unknown) a normal renal (units (unknown) date) function, troponins unknown) 0.02 [place] [id number]. Patient had COVID (unknown) (no (unknown) (unknown) adenopathy.? (units (u nknown) date) unknown) (unknown) (no (unknown) (unknown) adjustment of mA (units (unknown) date) and/or kV according unknown) to patient size.? (unknown) (no (unknown) (unknown) alcohol intake (units (unknown) date) frequency: 0-2 unknown) drinks per day (unknown) (no (unknown) (unknown) allergies. She (units (unknown) date) smoked for a year at unknown) age 18, she has not oz of vodka nightly, no (unknown) (no (unknown) (unknown) aluminum Allergy (units (unknown) date) Intermediate unknown) Anaphylaxis Verified 05/13/22 15:46 (unknown) (no (unknown) (unknown) ambulate the (units (u nknown) date) patient. Discussed unknown) patient's requiring 9-11 L, she has had some (unknown) (no (unknown) (unknown) and a pressure on (units (unknown) date) her chest that seems unknown) to be associated with the shortness of (unknown) (no (unknown) (unknown) and below (units (unkn own) date) unknown) (unknown) (no (unknown) (unknown) and lower lobes (units (unknown) date) bilaterally. unknown) (unknown) (no (unknown) (unknown) appear intact (units ( unknown) date) unknown) (unknown) (no (unknown) (unknown) arterial (units (unkno wn) date) unknown) (unknown) (no (unknown) (unknown) as well as (units (unk nown) date) respiratory panel unknown) which is negative. Patient was given Lasix, (unknown) (no (unknown) (unknown) back to discuss our (unit s (unknown) date) results decide if unknown) appropriate candidate for transfer. (unknown) (no (unknown) (unknown) breath that has (units (unknown) date) been intermittent unknown) now becoming persistent. Patient states no (unknown) (no (unknown) (unknown) bronchus.? From (units (unknown) date) defects are unknown) identified extending to the segmental branches of (unknown) (no (unknown) (unknown) but includes the (units (unknown) date) following: unknown) (unknown) (no (unknown) (unknown) caliber and (units (un known) date) unknown) (unknown) (no (unknown) (unknown) cephalexin Allergy (units (unknown) date) Intermediate unknown) Anaphylaxis Verified 05/13/22 15:46 (unknown) (no (unknown) (unknown) chest moves (units (unk nown) date) symmetrically, no unknown) tachypnea accessory muscle use patient's speaks in (unknown) (no (unknown) (unknown) chronic. He does (units (unknown) date) ask that we tried to unknown) at least stand her and check her blood (unknown) (no (unknown) (unknown) codeine Allergy (units (unknown) date) Intermediate unknown) Anaphylaxis Verified 05/13/22 15:46 (unknown) (no (unknown) (unknown) continue with (units ( unknown) date) oxygen support. unknown) Troponin and EKG were repeated patient did have (unknown) (no (unknown) (unknown) control, (units (unkno wn) date) unknown) (unknown) (no (unknown) (unknown) deterioration of (units (unknown) date) the [] system(s) unknown) required my full and direct attention, (unknown) (no (unknown) (unknown) discolored and she (units (unknown) date) states that has been unknown) like that for several months. She does (unknown) (no (unknown) (unknown) dynamic or other (units (unknown) date) changes. unknown) (unknown) (no (unknown) (unknown) echo which we do (units (unknown) date) not have available unknown) until tomorrow and shows right heart strain (unknown) (no (unknown) (unknown) effusion minimal (units (unknown) date) pericardial effusion unknown) no right heart strain. Patient does have (unknown) (no (unknown) (unknown) elevated BNP, heart (unit s (unknown) date) failure and unknown) requiring 9 L O2. He states if she gets an (unknown) (no (unknown) (unknown) enhancement.? (units ( unknown) date) Esophagus is normal unknown) in caliber, without hiatal hernia.? (unknown) (no (unknown) (unknown) erythema, tonsillar (unit s (unknown) date) enlargement or unknown) uvular deviation (unknown) (no (unknown) (unknown) jeet and lateral. (units (unknown) date) No elevation. unknown) Patient does not have prior for comparison. (unknown) (no (unknown) (unknown) extremities, full (units (unknown) date) range of motion, unknown) normal gait (unknown) (no (unknown) (unknown) failure with (units (u nknown) date) hypoxia unknown) (unknown) (no (unknown) (unknown) fevers or chills. (units (unknown) date) No cold cough or unknown) congestion. She is had some nausea but no (unknown) (no (unknown) (unknown) filling defect (units (unknown) date) distal aspect right unknown) main, smaller in the left main extending the (unknown) (no (unknown) (unknown) from the (units (unkno wn) date) unknown) (unknown) (no (unknown) (unknown) full sentences. She (unit s (unknown) date) Oxiimask at 9 L on unknown) my evaluation. (unknown) (no (unknown) (unknown) gelatin Allergy (units (unknown) date) Intermediate unknown) Anaphylaxis Verified 05/13/22 15:46 (unknown) (no (unknown) (unknown) have some dynamic (units (unknown) date) change T-wave unknown) inversion 2 3 AVF, improved in 1 aVL, lateral (unknown) (no (unknown) (unknown) he would be willing (unit s (unknown) date) to take her for unknown) intervention but the risk benefit for (unknown) (no (unknown) (unknown) heart (units (unkno wn) date) unknown) (unknown) (no (unknown) (unknown) hemoglobin is 16, (units (unknown) date) neutrophils are 89, unknown) INR was normal, sodium is 135 BUN 18 with (unknown) (no (unknown) (unknown) her home and gets (units (unknown) date) very short of breath unknown) with exertion. She has not appreciated (unknown) (no (unknown) (unknown) hydrocodone 5 (units ( unknown) date) mg-acetaminophen 325 unknown) 1 tab PO PRN PRN Pain (Scale Score 05/13/22 (unknown) (no (unknown) (unknown) hydrocodone-acetami (unit s (unknown) date) nophen 5-325 mg unknown) tablet (unknown) (no (unknown) (unknown) illicit. (units (u nknown) date) Damari is her PCP. unknown) (unknown) (no (unknown) (unknown) improved with O2 (units (unknown) date) she does not appear unknown) to be dyspneic or requiring BiPAP. Patient (unknown) (no (unknown) (unknown) increasing shortness (unit s (unknown) date) of breath for for 5 unknown) days, she is had tightness in her chest (unknown) (no (unknown) (unknown) intensity (units (unkn own) date) unknown) (unknown) (no (unknown) (unknown) intervention and (units (unknown) date) personal management. unknown) The aggregate critical care time was [] (unknown) (no (unknown) (unknown) interventional to (units (unknown) date) evaluate for unknown) potential transfer and treatment as patient has (unknown) (no (unknown) (unknown) intracranial bleed (units (unknown) date) is too high if no unknown) heart strain is noted. He asked for (unknown) (no (unknown) (unknown) iodine Allergy (units (unknown) date) Intermediate unknown) Anaphylaxis Verified 05/13/22 15:46 (unknown) (no (unknown) (unknown) iv contrast Allergy (unit s (unknown) date) Intermediate unknown) Anaphylaxis Uncoded 05/13/22 15:47 (unknown) (no (unknown) (unknown) leads appear (units (u nknown) date) similar. unknown) (unknown) (no (unknown) (unknown) left and (units (unkno wn) date) unknown) (unknown) (no (unknown) (unknown) left main (units (unkn own) date) unknown) (unknown) (no (unknown) (unknown) levofloxacin [From (units (unknown) date) Levaquin] Allergy unknown) Intermediate Anaphylaxis Verified 05/13/22 (unknown) (no (unknown) (unknown) lows but blood (units (unknown) date) pressures have been unknown) improved here. Patient labs, CT findings (unknown) (no (unknown) (unknown) main (units (unkno wn) date) unknown) (unknown) (no (unknown) (unknown) masses noted, no (units (unknown) date) hepatosplenomegaly unknown) (unknown) (no (unknown) (unknown) medications for (units (unknown) date) anything else, no unknown) history of cardiac stents. No known drug (unknown) (no (unknown) (unknown) mg tablet 1-3) (units (unknown) date) unknown) (unknown) (no (unknown) (unknown) mild distress. (units (unknown) date) unknown) (unknown) (no (unknown) (unknown) minutes. This time (units (unknown) date) is in addition to unknown) time spent performing reported procedures (unknown) (no (unknown) (unknown) movements are (units ( unknown) date) intact, nares are unknown) clear,. Throat is clear without any exudates, (unknown) (no (unknown) (unknown) nitrofurantoin (units (unknown) date) Allergy Intermediate unknown) Anaphylaxis Verified 05/13/22 15:46 (unknown) (no (unknown) (unknown) not appreciate new (units (unknown) date) swelling in her unknown) legs. She comes today she felt like her (unknown) (no (unknown) (unknown) ofloxacin [From (units (unknown) date) Floxin] Allergy unknown) Intermediate Anaphylaxis Verified 05/13/22 15:46 (unknown) (no (unknown) (unknown) over the last (units ( unknown) date) several days, unknown) patient has crackles in the bases, she is some (unknown) (no (unknown) (unknown) phase of (units (unkno wn) date) enhancement.? unknown) (unknown) (no (unknown) (unknown) potentially new EKG (unit s (unknown) date) changes I do not unknown) have prior, trope so far been negative but (unknown) (no (unknown) (unknown) pressure he is (units (unknown) date) going to consult unknown) with the interventional team and will call me (unknown) (no (unknown) (unknown) projection (MIP) (units (unknown) date) coronal and sagittal unknown) reformats were then acquired through the (unknown) (no (unknown) (unknown) pulmonary apices to (unit s (unknown) date) the posterior unknown) costophrenic angles.? 3-dimensional maximum (unknown) (no (unknown) (unknown) pulmonary artery.? (units (unknown) date) Smaller filling unknown) defect is noted in the distal aspect of the (unknown) (no (unknown) (unknown) recontact after (units (unknown) date) this is completed. unknown) (unknown) (no (unknown) (unknown) right main (units (unk nown) date) pulmonary arteries.? unknown) Mild right effusion. (unknown) (no (unknown) (unknown) segmental upper and (unit s (unknown) date) lower branches unknown) bilaterally with a mild right pleural (unknown) (no (unknown) (unknown) sertraline 50 mg (units (unknown) date) tablet (Zoloft) 50 unknown) mg PO DAILY 05/13/22 05/13/22 (unknown) (no (unknown) (unknown) sertraline [Zoloft] (unit s (unknown) date) 50 mg tablet unknown) (unknown) (no (unknown) (unknown) she is requiring 9 (units (unknown) date) L of O2. Images were unknown) pushed and discussion with (unknown) (no (unknown) (unknown) she just was (units (u nknown) date) started on a new unknown) pain medication by her primary care provider to (unknown) (no (unknown) (unknown) she might pass out (units (unknown) date) or gets very unknown) lightheaded when she tries to ambulate around (unknown) (no (unknown) (unknown) shortness of breath (unit s (unknown) date) was increasing over unknown) time. Patient states she is not on (unknown) (no (unknown) (unknown) shows a little bit (units (unknown) date) of change in the unknown) right lobe suspect CHF exacerbation she is (unknown) (no (unknown) (unknown) significant (units (un known) date) increase in swelling unknown) in her extremities. Her feet are mottled and (unknown) (no (unknown) (unknown) sodium fluoride (units (unknown) date) Allergy Intermediate unknown) Anaphylaxis Verified 05/13/22 15:46 (unknown) (no (unknown) (unknown) some T-wave (units (un known) date) inversion unknown if unknown) this is new she has no priors for comparison. (unknown) (no (unknown) (unknown) soy Allergy (units (un known) date) Intermediate unknown) Anaphylaxis Verified 05/13/22 15:46 (unknown) (no (unknown) (unknown) states this is her (units (unknown) date) normal baseline for unknown) several months. (unknown) (no (unknown) (unknown) strain.? No (units (un known) date) mediastinal or hilar unknown) adenopathy.? Thoracic aorta is normal in (unknown) (no (unknown) (unknown) sulfamethoxazole (units (unknown) date) Allergy Intermediate unknown) Anaphylaxis Verified 05/13/22 15:46 (unknown) (no (unknown) (unknown) swelling but no (units (unknown) date) pitting edema in her unknown) lower extremities. Patient's chest x-ray (unknown) (no (unknown) (unknown) take 1 tablet by (units (unknown) date) mouth once daily unknown) (unknown) (no (unknown) (unknown) the upper (units (unkn own) date) unknown) (unknown) (no (unknown) (unknown) thorax.? (units (unkno wn) date) unknown) (unknown) (no (unknown) (unknown) throughout.? (units (u nknown) date) Thyroid gland is unknown) unremarkable.? No axillary or supraclavicular (unknown) (no (unknown) (unknown) to ambulate the (units (unknown) date) patient or get unknown) orthostatics. Discussed my reluctant to try to (unknown) (no (unknown) (unknown) trimethoprim [From (units (unknown) date) Bactrim] Allergy unknown) Intermediate Anaphylaxis Verified 05/13/22 (unknown) (no (unknown) (unknown) vomiting. No (units (u nknown) date) diaphoresis with unknown) these episodes. She notes that she feels like (unknown) (no (unknown) (unknown) was present on (units (unknown) date) earlier EKG, ST unknown) changes in lateral leads appear same with no (unknown) (no (unknown) (unknown) wean her off her (units (unknown) date) Epsom. She is unsure unknown) what it is called. She states she is had (unknown) (no (unknown) (unknown) were all reviewed (units (unknown) date) he suspect possible unknown) RV dysfunction by CT but thinks it maybe Result panel 123 (unknown) (no (unknown) (unknown) >100,000 cfu/ml (unkno wn) date) (unknown) (no (unknown) (unknown) GNBGram negative (units (unknown) date) bacilli unknown) (unknown) (no (unknown) (unknown) Identification (units (unknown) date) and Sensitivity to unknown) Follow Result panel 124 (unknown) (no date) (unknown) (unknown) >100,000 cfu/ml (unkn own) (unknown) (no date) (unknown) (unknown) >=32 (units (unkn own) unknown) (unknown) (no date) (unknown) (unknown) <=0.12 (units (unkn own) unknown) (unknown) (no date) (unknown) (unknown) <=0.25 (units (unkn own) unknown) (unknown) (no date) (unknown) (unknown) <=0.5 (units (unkn own) unknown) (unknown) (no date) (unknown) (unknown) <=1 (units (unkn own) unknown) (unknown) (no date) (unknown) (unknown) <=20 (units (unkn own) unknown) (unknown) (no date) (unknown) (unknown) <=4 (units (unkn own) unknown) (unknown) (no date) (unknown) (unknown) 128 (units (unkn own) unknown) (unknown) (no date) (unknown) (unknown) 16 (units (unkn own) unknown) (unknown) (no date) (unknown) (unknown) 2 (units (unkn own) unknown) (unknown) (no date) (unknown) (unknown) 8 (units (unkn own) unknown) (unknown) (no date) (unknown) (unknown) No Further (units (un known) Workup unknown) (unknown) (no date) (unknown) (unknown) PROMIRProteus (units (unknown) mirabilis unknown) Social History date description facility 2022-05-13 00:00 Never smoked tobacco (finding) [facility] Vital Signs date measurement value units 2022-05-13 00:00 BMI 39.4 kg/m2 2022-05-13 00:00 BP_diastolic 68 mmHg 2022-05-13 00:00 BP_systolic 133 mmHg 2022-05-13 00:00 heart_rate 94 /min 2022-05-13 00:00 height_metric 167.64 cm 2022-05-13 00:00 height_standard 66 in 2022-05-13 00:00 o2_saturation 92 % 2022-05-13 00:00 respiration_rate 20 /min 2022-05-13 00:00 temperature_metric 36.44 C 2022-05-13 00:00 temperature_standard 97.6 F 2022-05-13 00:00 weight_metric 110.67 kg 2022-05-13 00:00 weight_standard 243.99 lb
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
[2022-05-30] MEDS ORDERED: iohexoL-300 100 ML VIAL ONE (19:58)
[2022-05-30 20:40] LABS: BASOPHILS # (AUTO) 0.1 10^3/uL (0.0-0.1); EOSINOPHILS # (AUTO) 0.2 10^3/uL (0.0-0.7); EOSINOPHILS % (AUTO) 2.7 %; HGB - HEMOGLOBIN 15.7 g/dL (12.0-16.0); LYMPHOCYTES # (AUTO) 1.8 10^3/uL (1.5-3.5); LYMPHOCYTES % (AUTO) 20.4 %; MEAN CORPUSCULAR HEMOGLOBIN 27.5 pg (27.0-31.0); MEAN CORPUSCULAR HGB CONC 31.4 g/dL (32.0-36.0); MEAN CORPUSCULAR VOLUME 87.6 fL (81.0-99.0); MONOCYTES # (AUTO) 0.7 10^3/uL (0.0-1.0); MONOCYTES % (AUTO) 8.1 %; NEUTROPHILS # (AUTO) 5.9 10^3/uL (1.5-6.6); NEUTROPHILS % (AUTO) 67.5 %; PLT - PLATELET COUNT 252 10^3/uL (130-450); RED BLOOD COUNT 5.71 10^6/uL (4.20-5.40); RED CELL DISTRIBUTION WIDTH 13.8 % (12.0-15.0); WHITE BLOOD COUNT 8.8 x10^3/uL (4.8-10.8)
[2022-05-30 20:56] LABS: ALBUMIN 3.6 g/dL (3.2-5.5); ALBUMIN/GLOBULIN RATIO 1.1 (1.0-2.2); BILIRUBIN,TOTAL 0.5 mg/dL (0.2-1.0); CALCIUM 9.2 mg/dL (8.5-10.3); CREATININE 0.6 mg/dL (0.4-1.0); POTASSIUM 3.1 mmol/L (3.5-5.0)
[2022-05-30] MEDS ORDERED: iohexoL-300 100 ML VIAL IVP ONE (21:31)
--- NOTE | 2022-05-30 21:48 | CT Report ---
PROCEDURE: ANGIO CHEST W/WO INDICATIONS: increased pain, recent PE CONTRAST: 100 ML OMNI TECHNIQUE: After the administration of intravenous contrast, 2 mm axial images were acquired from the pulmonary apices to the posterior costophrenic angles during the arterial phase. In addition, 1 mm lung kernel and 5 mm soft tissue kernel reconstructions were performed. 3-dimensional coronal oblique maximum int ensity projection (MIP) reformats, 8 mm axial MIP, and 5 mm coronal and sagittal MPR reformats were t hen performed through the thorax. For radiation dose reduction, the following was used: automated exp osure control, adjustment of mA and/or kV according to patient size. COMPARISON: None available at the time of this dictation. FINDINGS: Image quality: Excellent. Pulmonary arteries: Within the left lower lobe, there are mild nonocclusive segmental filling defects . Within the right upper lobe, nonocclusive segmental filling defects are seen. The right lower lobe pulmonary arteries are abnormal and appear truncated. A few segmental filling de fects are seen. The main pulmonary trunk is enlarged, measuring 4.7 cm. Lungs and pleura: Areas of pleural thickening can be seen, which are worst involving the medial left lower lobe, as on series 5 image 109 measuring up to 3.8 cm. An additional right lower lobe focus is seen laterally measuring 12 mm, as on series 5 image 101. No pleural effusions or pneumothorax. Cent ral and peripheral airways are patent. Mediastinum: Heart size is normal, without pericardial effusion. No mediastinal or hilar adenopathy . Thoracic aorta is normal in caliber and enhancement. Esophagus is normal in caliber. There is a small hiatal hernia. Bones and chest wall: No suspicious bony lesions. Ribs and thoracic spine appear intact throughout. Age-appropriate degenerative changes are seen. No axillary or supraclavicular adenopathy. The th yroid is normal in size and there are no incidental findings. Abdomen: 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 clips are seen. The right renal pelvis is dilated. Within the right upper pelvis, there is a large 2.5 cm stone is seen. The visualized portions of the upper abdominal struct ures are otherwise within normal limits. IMPRESSION: A few segmental nonocclusive filling defects are seen, which are consistent with resolving pulmonary embolism. The main pulmonary trunk is enlarged. Areas of subpleural thickening can be seen. Differential diagnosis includes an inflammatory process a nd (less likely) neoplasm. Please consider follow-up chest CT with IV contrast in 6-12 weeks for further evaluation. Additional findings: Small hiatal hernia 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 2.5 cm stone within the left renal pelvis which is believed to be nonobstructing The right renal pelvis is dilated Reviewed by: Marty Vázquez MD on 05/30/2022 8:47 PM AKDT Approved by: Marty Vázquez MD on 05/30/2022 8:47 PM AKDT Station ID: [id number]
[2022-05-30] MEDS ORDERED: POTASSIUM CHLORIDE 20 MEQ TABLET PO STA (21:57)
[2022-05-30 22:06] VITALS: BP 133/78
== END 2022-05-30 22:27 | disposition home or self-care (01) ==
LOC: EDUNIT# → ED 19:06
DX: R07.9 Chest pain, unspecified (principal)
CPT/HCPCS: 36415; 71275; 80053; 83690; 84484; 85025; 93005; 99284; A9270; Q9967

== ENCOUNTER 2022-05-30 22:33 | Outpatient (CLI) | payer MEDICARE | END 2022-05-30 22:34 | LOC: EMS 22:33 | PROVIDERS: ATTEND Emergency Medicine | DX: R41.0 Disorientation, unspecified (principal); R07.9 Chest pain, unspecified; M79.603 Pain in arm, unspecified | CPT/HCPCS: A0425; A0428 ==

== ENCOUNTER 2022-06-08 08:49 | Outpatient (CLI) | payer MEDICARE | END 2022-06-08 09:15 | disposition critical access hospital (66) | LOC: EMS 08:49 | DX: R07.9 Chest pain, unspecified (principal) | CPT/HCPCS: A0425; A0429 ==

== ENCOUNTER 2022-06-08 08:54 | Emergency (ER) | payer MEDICARE ==
--- NOTE | 2022-06-08 09:07 | ED Physician Documentation ---
History of Present Illness - Stated complaint Stated Complaint: CP - History obtained from History obtained from: Patient - History of Present Illness Pain level max: 2 Pain level now: 2 - Additonal information Additional information: Patient is an 81-year-old female who presents to the emergency department complaining of chest pain today. She states that she was recently admitted to [facility] in [place]. She states she was transferred to "4 different hospitals". She states that she has something in her heart that they cannot fix and they told her that next time it happened she would . Her chart from [facility] states that she was there for a pulmonary embolism. She states that she did not have a pulmonary embolism. She states that today she d eveloped a mild substernal chest pain, described as tightness. She states that she had a heart attack before but does not have any stents or bypasses. She states this feels different. Of note patient has been on 24/7 oxygen since being discharged from the hospital, but it was discontinued 3 days ago. Unclear why the oxygen was discontinued. Going through the patient records from care [facility] in [facility], she had a hospital encounter from 05 14-05 22 for acute cystitis with hematuria, acute pulmonary embolism with acute cor pulmonale, right-sided heart failure, acute hypoxemic respiratory failure, acute DVT of bilateral lower extremities, paroxysmal atrial fibrillation, hypovolemia, pulmonary hypertension. PD PAST MEDICAL HISTORY - Past Medical History Cardiovascular: None Respiratory: Sleep apnea Endocrine/Autoimmune: Other GI: Chronic diarrhea : Chronic bladder infection, Kidney stones HEENT: None Musculoskeletal: Fibromyalgia Derm: None - Past Surgical History General: 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, Other /RADIOLOGY RN: section HEENT: Tonsil/Adenoidectomy - Present Medications Home Medications: Ambulatory Orders Medication Instructions Recorded Confirmed Apixaban [Eliquis] 5 mg PO BID 06/08/22 06/08/22 Sertraline HCl [Zoloft] 50 mg PO DAILY 06/08/22 06/08/22 dilTIAZem HCL [Diltiazem 24Hr ER 240 mg PO DAILY 06/08/22 06/08/22 (Xr)] - Allergies Allergies/Adverse Reactions: Allergies Allergy/AdvReac Type Severity Reaction Status Date / Time aluminum Allergy Anaphylaxis Verified 06/08/22 09:32 cephalexin Allergy Edema Verified 06/08/22 09:32 iodine Allergy Anaphylaxis Verified 06/08/22 09:32 levofloxacin Allergy Edema Verified 06/08/22 09:32 nitrofurantoin Allergy Edema Verified 06/08/22 09:32 nitrofurantoin Allergy Edema Verified 06/08/22 09:32 macrocrystalline * [From Macrobid] ofloxacin [From Floxin] Allergy Edema Verified 06/08/22 09:32 Penicillins Allergy Anaphylaxis Verified 06/08/22 09:32 sulfamethoxazole Allergy Edema Verified 06/08/22 09:32 trimethoprim Allergy Edema Verified 06/08/22 09:32 IV Contrast Allergy Edema Uncoded 06/08/22 09:32 - Social History Does the pt smoke?: No Smoking Status: Never smoker Does the pt drink ETOH?: No Does the pt have substance abuse?: No - Immunizations Immunizations are current?: Yes PD ED PE NORMAL - Vitals Vital signs reviewed: Yes - General General: Alert and oriented X 3, No acute distress - HEENT HEENT: Moist mucous membranes - Neck Neck: Supple, no meningeal sign - Cardiac Cardiac: RRR, Strong equal pulses - Respiratory Respiratory: No respiratory distress, Clear bilaterally - Abdomen Abdomen: Soft, Non tender, Non distended - Back Back: No CVA TTP, No spinal TTP - Derm Derm: Warm and dry - Extremities Extremities: No calf tenderness / cord, Other (1+ B LE edema) - Neuro Neuro: Alert and oriented X 3 - Psych Psych: Normal mood, Normal affect Results - Vitals Vitals: Vital Signs - 24 hr 06/08/22 06/08/22 06/08/22 09:01 09:24 10:05 Temperature 36.6 C Heart Rate 76 81 83 Respiratory 18 17 22 Rate Blood Pressure 152/83 H 156/92 H O2 Saturation 99 100 100 If not protocol 3 3 : Oxygen Flow, liters/minute 06/08/22 06/08/22 06/08/22 10:26 11:21 11:55 Temperature Heart Rate 88 85 87 Respiratory 18 16 19 Rate Blood Pressure 156/92 H 138/110 H 150/95 H O2 Saturation 100 100 100 If not protocol 3 3 3 : Oxygen Flow, liters/minute Oxygen O2 Source Room air Oxygen Flow Rate 3 - EKG (time done) 0857 EKG releavant findings:: EKG personally interpreted by author of this note. Relevant findings are: Rate: Rate (enter#) (75) Rhythm: NSR [place]: Normal Intervals: Normal [place] Ischemia: T wave inversion (III, v1-2) - Labs Labs: Laboratory Tests 06/08/22 06/08/22 06/08/22 09:32 09:32 09:32 WBC 6.0 RBC 5.70 H Hgb 15.7 Hct 50.3 H MCV 88.2 MCH 27.5 MCHC 31.2 L RDW 14.2 Plt Count 253 MPV 10.0 Neut # (Auto) 3.8 Lymph # (Auto) 1.4 L [place] # (Auto) 0.5 Eos # (Auto) 0.2 Baso # (Auto) 0.1 Absolute Nucleated RBC 0.00 Nucleated RBC % 0.0 Sodium 140 Potassium 3.3 L Chloride 105 Carbon Dioxide 29 Anion Gap 6.0 BUN 7 Creatinine 0.5 Estimated GFR (MDRD) 118 Glucose 104 H Calcium 9.1 Total Bilirubin 0.7 AST 26 ALT 24 Alkaline Phosphatase 66 Troponin I High Sens 4.8 Total Protein 6.8 Albumin 3.6 Globulin 3.2 Albumin/Globulin Ratio 1.1 Lipase 27 06/08/22 11:09 WBC RBC Hgb Hct MCV MCH MCHC RDW Plt Count MPV Neut # (Auto) Lymph # (Auto) [place] # (Auto) Eos # (Auto) Baso # (Auto) Absolute Nucleated RBC Nucleated RBC % Sodium Potassium Chloride Carbon Dioxide Anion Gap BUN Creatinine Estimated GFR (MDRD) Glucose Calcium Total Bilirubin AST ALT Alkaline Phosphatase Troponin I High Sens 4.4 Total Protein Albumin Globulin Albumin/Globulin Ratio Lipase - Rads (name of study) cxr Relevant Findings:: Final report received, See rad report (no acute abnormalities) PD Medical Decision Making - ED course Complexity details: reviewed results, re-evaluated patient, considered differential (No ST elevation ND, no aortic dissection, no tension pneumothorax, no aortic aneurysm), d/w patient ED course: Reviewing the records from [facility] in [place], it appears that the patient had a bilateral pulmonary embolism. She was anticoagulated. There were no procedures performed. She had recurrent chest pain but cardiac enzymes were always negative. She had an echocardiogram on 05/14/2022 that showed pulmonary hypertension, right-sided heart failure. Left ventricle was normal, EF 65%. The right ventricle is severely enlarged with severely reduced right ventricular systolic function. She also had A-fib RVR, was controlled with diltiazem. She also had bilateral distal lower extremity DVTs. And acute hypoxic respiratory failure due to acute bilateral central pulmonary emboli with cor pulmonale. Pulmonary hypertension. Negative high-sensitivity troponin x2. No acute findings on EKG, chest x-ray. Symptoms resolved and she was was placed back on her usual oxygen. Recommend that she continue this at her retirement. Patient is well-appearing, nontoxic. Afebrile. No respiratory distress. Does have mild hypoxia, 87-88 while lying in bed. Likely residual symptoms from her massive PE that she recently had. Patient counseled regarding signs and symptoms for which I believe and urgent re-evaluation would be necessary. Patient with good understanding of and agreement to plan and is comfortable going home at this time This document was made in part using voice recognition software. While efforts are made to proofread this document, sound alike and grammatical errors may occur. Patient had a recent CT scan here that did not show any recurrence of her PE Departure - Departure Disposition: 01 Home, Self Care Clinical Impression: Chest pain Qualifiers: Chest pain type: unspecified Qualified Code(s): R07.9 - Chest pain, unspecified Condition: Good Instructions: ED Chest Pain NonCardiac Follow-Up: Jason Claros MD [Primary Care Provider] - Within 3 Days Comments: It appears that your chest pain is likely due to the large pulmonary embolisms that you had recently. Please follow-up with your doctor for further care. Please stay on the Eliquis. It is recommended that you go back on nasal cannula oxygen at all time as well while your lungs continue to heal. Discharge Date/Time: 06/08/22 12:06
--- OUTSIDE RECORDS SUMMARY | 2022-06-08 09:36 | EXTERNAL MEDICAL SUMMARY RPT | Continuity of Care Document ---
:1940 Author Organization [facility] Address [address] [place] [address] Phone Care Team Providers Name Role Phone Eber Wetzel Unavailable Unavailable Allergies and Intolerances date description facility type (no date) Penicillins [facility] (unknown) (no date) Quinolones [facility] (unknown) (no date) aluminum [facility] (unknown) (no date) cephalexin [facility] (unknown) (no date) codeine [facility] (unknown) (no date) gelatin [facility] (unknown) (no date) iodine [facility] (unknown) (no date) levofloxacin [facility] (unknown) (no date) nitrofurantoin [facility] (unknown) (no date) ofloxacin [facility] (unknown) (no date) sodium fluoride [facility] (unknown) (no date) soy [facility] (unknown) (no date) sulfamethoxazole [facility] (unknown) (no date) trimethoprim [facility] (unknown) Encounters No information. Functional Status No information. Immunizations No information. Medications date description facility 2022-05-13 00:00 Sertraline [facility] 2022-05-13 00:00 Hydrocodone-Acetaminophen [facility] Problems date description facility 2022-05-13 00:00 Bilateral pulmonary embolism [facility] 2022-05-13 00:00 Congestive heart failure [facility] 2022-05-13 00:00 Acute respiratory failure with hypoxia [facility] Procedures date description facility 2022-05-13 00:00 X-ray of chest, single view [facility] 2022-05-13 00:00 [facility] 2022-05-13 00:00 Computed tomography angiography of ches t with [facility] contrast for pulmonary embolus Results/Labs test [...] known) unknown) (unknown) (no date) (unknown) (unknown) [id number] (units (unkn own) unknown) (unknown) (no date) (unknown) (unknown) 05/13/22 (units (unkn own) unknown) (unknown) (no date) (unknown) (unknown) [address] (units (unk nown) [address] unknown) (unknown) (no date) (unknown) (unknown) Accession (units (unk nown) Number: unknown) [id number] (unknown) (no date) (unknown) (unknown) Age/Sex: 81 / (units (unknown) F Date of unknown) Service: (unknown) (no date) (unknown) (unknown) [place] (units (unknown) [id number] unknown) (unknown) (no date) (unknown) (unknown) Approved by: (units ( unknown) Jayson unknown) Sraah Moore on 05/13/2022 at 17:46 (unknown) (no date) (unknown) (unknown) Bones and (units (unk nown) chest wall: No unknown) suspicious bony lesions. Overlying soft tissues (unknown) (no date) (unknown) (unknown) COMPARISON: (units (u nknown) [facility]) [facility], CR, XR CHEST 2V, 06/08/2018, 14:52. (unknown) (no date) (unknown) (unknown) : (units (unkn own) 1940 unknown) Acct:[id number] (unknown) (no date) (unknown) (unknown) Dictated by: (units ( unknown) Martelle unknown) Sarah Moore on 05/13/2022 at 17:45 (unknown) (no date) (unknown) (unknown) FINDINGS: (units (unk nown) unknown) (unknown) (no date) (unknown) (unknown) IMPRESSION: (units (u nknown) Cardiomegaly. unknown) No evidence acute pulmonary process. (unknown) (no date) (unknown) (unknown) INDICATIONS: (units ( unknown) Shortness of unknown) breath (unknown) (no date) (unknown) (unknown) [facility] (units (unkn own) [facility] unknown) (unknown) (no date) (unknown) (unknown) [...] unknown) (unknown) (unknown) (no date) (unknown) (unknown) 24902 pg/ml (unkn own) (unknown) (no date) (unknown) (unknown) 37065 pg/ml (unkn own) (unknown) (no date) (unknown) [...] wn) date) unknown) (unknown) (no (unknown) (unknown) [id number] (units (unkno wn) date) unknown) (unknown) (no [...] (unknown) (unknown) : 1940 (units (unknown) date) Acct:[id number] unknown) (unknown) (no (unknown) (unknown) Date of [...] (unknown) date) unknown) (unknown) (no (unknown) (unknown) [facility] (units (unknown) date) [address] unknown) [place] [address] (unknown) (no (unknown) (unknown) LUNGS:Lungs breath (units [...] (unknown) Lymph # (Auto) (units (unknown) date) (8719-1812) /uL unknown) (unknown) (no (unknown) (unknown) Lymph # (Auto) 600 (units (unknown) date) L (0045-2173) /uL unknown) (unknown) (no (unknown) (unknown) Lymph [...] date) EMS unknown) (unknown) (no (unknown) (unknown) Mayes # (Auto) (units ( unknown) date) (0-900) /uL unknown) (unknown) (no (unknown) (unknown) Mayes # (Auto) 400 (units (unknown) date) (0-900) /uL unknown) (unknown) (no (unknown) (unknown) Mayes % (Auto) (units ( unknown) date) (3-14) % unknown) (unknown) (no (unknown) (unknown) Mayes % (Auto) 4.1 (units (unknown) date) (3-14) % unknown) (unknown) (no (unknown) (unknown) NEURO:CN 2-12 (units ( unknown) date) intact, sensation unknown) normal (unknown) (no (unknown) (unknown) NT-Pro-B Natriuret (units (unknown) date) Pep (<450) pg/mL unknown) (unknown) (no (unknown) (unknown) NT-Pro-B Natriuret (units (unknown) date) Pep 42331 H (<450) unknown) pg/mL (unknown) (no (unknown) (unknown) NT-proBNP (units (unkn own) date) (BNP-Adult 18+) Stat unknown) (unknown) (no (unknown) (unknown) Narrative (units (unkn own) date) unknown) (unknown) (no (unknown) (unknown) Neut # (Auto) (units ( unknown) date) (2140-5570) /uL unknown) (unknown) (no (unknown) (unknown) Neut # (Auto) 9800 (units (unknown) date) H (8548-3456) /uL unknown) (unknown) (no (unknown) (unknown) Neut % (Auto) (units ( unknown) date) (50-75) % unknown) (unknown) (no (unknown) (unknown) Neut % (Auto) 89.9 (units (unknown) date) H (50-75) % unknown) (unknown) (no (unknown) (unknown) Normal sinus (units (u nknown) date) rhythm, left axis unknown) deviation, rate of 98, CT 120, QRS 88 QTC 347. (unknown) (no [...] unknown) who states her only medications are [place] daily (unknown) (no (unknown) (unknown) Time Seen [...] wean her off her (units (unknown) date) [place]. She is unsure unknown) what it is [...] wn) date) unknown) (unknown) (no (unknown) (unknown) [id number] (units (unkno wn) date) unknown) (unknown) (no [...] (unknown) (unknown) : 1940 (units (unknown) date) Acct:[id number] unknown) (unknown) (no (unknown) (unknown) Date of [...] (unknown) date) unknown) (unknown) (no (unknown) (unknown) [facility] (units (unknown) date) [address] unknown) [place] [address] (unknown) (no (unknown) (unknown) LUNGS:Lungs breath (units [...] (unknown) Lymph # (Auto) (units (unknown) date) (7572-9697) /uL unknown) (unknown) (no (unknown) (unknown) Lymph # (Auto) 600 (units (unknown) date) L (2883-3274) /uL unknown) (unknown) (no (unknown) (unknown) Lymph [...] date) EMS unknown) (unknown) (no (unknown) (unknown) Mayes # (Auto) (units ( unknown) date) (0-900) /uL unknown) (unknown) (no (unknown) (unknown) Mayes # (Auto) 400 (units (unknown) date) (0-900) /uL unknown) (unknown) (no (unknown) (unknown) Mayes % (Auto) (units ( unknown) date) (3-14) % unknown) (unknown) (no (unknown) (unknown) Mayes % (Auto) 4.1 (units (unknown) date) (3-14) % unknown) (unknown) (no (unknown) (unknown) NEURO:CN 2-12 (units ( unknown) date) intact, sensation unknown) normal (unknown) (no (unknown) (unknown) NT-Pro-B Natriuret (units (unknown) date) Pep (<450) pg/mL unknown) (unknown) (no (unknown) (unknown) NT-Pro-B Natriuret (units (unknown) date) Pep 16216 H (<450) unknown) pg/mL (unknown) (no (unknown) (unknown) NT-proBNP (units (unkn own) date) (BNP-Adult 18+) Stat unknown) (unknown) (no (unknown) (unknown) Narrative (units (unkn own) date) unknown) (unknown) (no (unknown) (unknown) Neut # (Auto) (units ( unknown) date) (7908-1680) /uL unknown) (unknown) (no (unknown) (unknown) Neut # (Auto) 9800 (units (unknown) date) H (6352-7149) /uL unknown) (unknown) (no (unknown) (unknown) Neut % (Auto) (units ( unknown) date) (50-75) % unknown) (unknown) (no (unknown) (unknown) Neut % (Auto) 89.9 (units (unknown) date) H (50-75) % unknown) (unknown) (no (unknown) (unknown) Normal sinus (units (u nknown) date) rhythm, left axis unknown) deviation, rate of 98, CT 120, QRS 88 QTC 347. (unknown) (no [...] unknown) who states her only medications are [place] daily (unknown) (no (unknown) (unknown) Time Seen [...] wean her off her (units (unknown) date) [place]. She is unsure unknown) what it is [...] wn) date) unknown) (unknown) (no (unknown) (unknown) [id number] (units (unkno wn) date) unknown) (unknown) (no [...] (unknown) (unknown) : 1940 (units (unknown) date) Acct:[id number] unknown) (unknown) (no (unknown) (unknown) Date of [...] (unknown) date) unknown) (unknown) (no (unknown) (unknown) [facility] (units (unknown) date) [address] [place] [address] Street unknown) [place] [address] (unknown) (no (unknown) (unknown) LUNGS:Lungs breath (units [...] (unknown) Lymph # (Auto) (units (unknown) date) (3202-5668) /uL unknown) (unknown) (no (unknown) (unknown) Lymph # (Auto) 600 (units (unknown) date) L (7758-1299) /uL unknown) (unknown) (no (unknown) (unknown) Lymph [...] date) EMS unknown) (unknown) (no (unknown) (unknown) Mayes # (Auto) (units ( unknown) date) (0-900) /uL unknown) (unknown) (no (unknown) (unknown) Mayes # (Auto) 400 (units (unknown) date) (0-900) /uL unknown) (unknown) (no (unknown) (unknown) Mayes % (Auto) (units ( unknown) date) (3-14) % unknown) (unknown) (no (unknown) (unknown) Mayes % (Auto) 4.1 (units (unknown) date) (3-14) % unknown) (unknown) (no (unknown) (unknown) NEURO:CN 2-12 (units ( unknown) date) intact, sensation unknown) normal (unknown) (no (unknown) (unknown) NT-Pro-B Natriuret (units (unknown) date) Pep (<450) pg/mL unknown) (unknown) (no (unknown) (unknown) NT-Pro-B Natriuret (units (unknown) date) Pep 38966 H (<450) unknown) pg/mL (unknown) (no (unknown) (unknown) NT-proBNP (units (unkn own) date) (BNP-Adult 18+) Stat unknown) (unknown) (no (unknown) (unknown) Narrative (units (unkn own) date) unknown) (unknown) (no (unknown) (unknown) Neut # (Auto) (units ( unknown) date) (2526-0873) /uL unknown) (unknown) (no (unknown) (unknown) Neut # (Auto) 9800 (units (unknown) date) H (3313-9440) /uL unknown) (unknown) (no (unknown) (unknown) Neut % (Auto) (units ( unknown) date) (50-75) % unknown) (unknown) (no (unknown) (unknown) Neut % (Auto) 89.9 (units (unknown) date) H (50-75) % unknown) (unknown) (no (unknown) (unknown) Normal sinus (units (u nknown) date) rhythm, left axis unknown) deviation, rate of 98, CT 120, QRS 88 QTC 347. (unknown) (no [...] unknown) who states her only medications are [place] daily (unknown) (no (unknown) (unknown) Time Seen [...] troponins unknown) 0.02 [place] [address]. Patient had COVID (unknown) (no (unknown) (unknown) [...] wean her off her (units (unknown) date) [place]. She is unsure unknown) what it is [...] nown) date) unknown) (unknown) (no (unknown) (unknown) [id number] (units (unkno wn) date) unknown) (unknown) (no (unknown) (unknown) 05/13/22 (units (unkno wn) date) unknown) (unknown) (no (unknown) (unknown) [address] [place] [address] (units (unknown) date) unknown) (unknown) (no (unknown) (unknown) Abdomen: (units (unkno wn) date) Visualized upper unknown) abdominal solid organs appear normal in the early (unknown) (no (unknown) (unknown) Accession Number: (units (unknown) date) [id number] unknown) (unknown) (no (unknown) (unknown) After the (units (unkn own) date) administration of unknown) intravenous contrast, 2 mm thick sections acquired (unknown) (no (unknown) (unknown) Age/Sex: 81 / F (units (unknown) date) Date of Service: unknown) (unknown) (no (unknown) (unknown) [place], [place] (units ( unknown) date) [address] unknown) (unknown) (no (unknown) (unknown) Approved by: [...] (unknown) (unknown) COMPARISON: (units (un known) date) [facility], unknown) CR, XR CHEST 1V, 05/13/2022, 13:57. (unknown) (no (unknown) (unknown) CT Scan Report (units (unknown) date) unknown) (unknown) (no (unknown) (unknown) : 1940 (units (unknown) date) Acct:[id number] unknown) (unknown) (no (unknown) (unknown) Dictated by: [...] date) Excellent. unknown) (unknown) (no (unknown) (unknown) [facility] (units (unknown) date) unknown) (unknown) (no [...] (unknown) date) unknown) (unknown) (no (unknown) (unknown) [id number] (units (unkno wn) date) unknown) (unknown) (no [...] (unknown) (unknown) : 1940 (units (unknown) date) Acct:[id number] unknown) (unknown) (no (unknown) (unknown) Date of [...] date) Radiology unknown) (unknown) (no (unknown) (unknown) [facility] (units (unknown) date) [address] unknown) [place] [address] (unknown) (no (unknown) (unknown) LUNGS:Lungs breath (units [...] (unknown) Lymph # (Auto) (units (unknown) date) (6660-5528) /uL unknown) (unknown) (no (unknown) (unknown) Lymph # (Auto) 600 (units (unknown) date) L (9080-0542) /uL unknown) (unknown) (no (unknown) (unknown) Lymph [...] date) EMS unknown) (unknown) (no (unknown) (unknown) Mayes # (Auto) (units ( unknown) date) (0-900) /uL unknown) (unknown) (no (unknown) (unknown) Mayes # (Auto) 400 (units (unknown) date) (0-900) /uL unknown) (unknown) (no (unknown) (unknown) Mayes % (Auto) (units ( unknown) date) (3-14) % unknown) (unknown) (no (unknown) (unknown) Mayes % (Auto) 4.1 (units (unknown) date) (3-14) % unknown) (unknown) (no (unknown) (unknown) NEURO:CN 2-12 (units ( unknown) date) intact, sensation unknown) normal (unknown) (no (unknown) (unknown) NT-Pro-B Natriuret (units (unknown) date) Pep (<450) pg/mL unknown) (unknown) (no (unknown) (unknown) NT-Pro-B Natriuret (units (unknown) date) Pep 90705 H (<450) unknown) pg/mL (unknown) (no (unknown) (unknown) NT-proBNP (units (unkn own) date) (BNP-Adult 18+) Stat unknown) (unknown) (no (unknown) (unknown) Narrative (units (unkn own) date) unknown) (unknown) (no (unknown) (unknown) Neut # (Auto) (units ( unknown) date) (8699-3360) /uL unknown) (unknown) (no (unknown) (unknown) Neut # (Auto) 9800 (units (unknown) date) H (3577-0298) /uL unknown) (unknown) (no (unknown) (unknown) Neut % (Auto) (units ( unknown) date) (50-75) % unknown) (unknown) (no (unknown) (unknown) Neut % (Auto) 89.9 (units (unknown) date) H (50-75) % unknown) (unknown) (no (unknown) (unknown) No Action (units (unkn own) date) unknown) (unknown) (no (unknown) (unknown) Normal sinus (units (u nknown) date) rhythm, left axis unknown) deviation, rate of 98, CT 120, QRS 88 QTC 347. (unknown) (no [...] unknown) who states her only medications are [place] daily (unknown) (no (unknown) (unknown) Time Seen [...] (unknown) (unknown) Urine Specific (units (unknown) date) [place] 1.025 unknown) (unknown) (no (unknown) (unknown) Urine [...] troponins unknown) 0[place]02 [place] [address]. Patient had COVID (unknown) (no (unknown) (unknown) [...] wean her off her (units (unknown) date) [place]. She is unsure unknown) what it is [...] (unknown) date) unknown) (unknown) (no (unknown) (unknown) [id number] (units (unkno wn) date) unknown) (unknown) (no [...] (unknown) (unknown) : 1940 (units (unknown) date) Acct:[id number] unknown) (unknown) (no (unknown) (unknown) Date of [...] date) Radiology unknown) (unknown) (no (unknown) (unknown) [facility] (units (unknown) date) [address] unknown) [place] [address] (unknown) (no (unknown) (unknown) LUNGS:Lungs breath (units [...] (unknown) Lymph # (Auto) (units (unknown) date) (0122-5099) /uL unknown) (unknown) (no (unknown) (unknown) Lymph # (Auto) 600 (units (unknown) date) L (8552-0467) /uL unknown) (unknown) (no (unknown) (unknown) Lymph [...] date) EMS unknown) (unknown) (no (unknown) (unknown) Mayes # (Auto) (units ( unknown) date) (0-900) /uL unknown) (unknown) (no (unknown) (unknown) Mayes # (Auto) 400 (units (unknown) date) (0-900) /uL unknown) (unknown) (no (unknown) (unknown) Mayes % (Auto) (units ( unknown) date) (3-14) % unknown) (unknown) (no (unknown) (unknown) Mayes % (Auto) 4.1 (units (unknown) date) (3-14) % unknown) (unknown) (no (unknown) (unknown) NEURO:CN 2-12 (units ( unknown) date) intact, sensation unknown) normal (unknown) (no (unknown) (unknown) NT-Pro-B Natriuret (units (unknown) date) Pep (<450) pg/mL unknown) (unknown) (no (unknown) (unknown) NT-Pro-B Natriuret (units (unknown) date) Pep 72845 H (<450) unknown) pg/mL (unknown) (no (unknown) (unknown) NT-proBNP (units (unkn own) date) (BNP-Adult 18+) Stat unknown) (unknown) (no (unknown) (unknown) Narrative (units (unkn own) date) unknown) (unknown) (no (unknown) (unknown) Neut # (Auto) (units ( unknown) date) (6675-5036) /uL unknown) (unknown) (no (unknown) (unknown) Neut # (Auto) 9800 (units (unknown) date) H (7579-6204) /uL unknown) (unknown) (no (unknown) (unknown) Neut % (Auto) (units ( unknown) date) (50-75) % unknown) (unknown) (no (unknown) (unknown) Neut % (Auto) 89.9 (units (unknown) date) H (50-75) % unknown) (unknown) (no (unknown) (unknown) No Action (units (unkn own) date) unknown) (unknown) (no (unknown) (unknown) Normal sinus (units (u nknown) date) rhythm, left axis unknown) deviation, rate of 98, CT 120, QRS 88 QTC 347. (unknown) (no [...] unknown) who states her only medications are [place] daily (unknown) (no (unknown) (unknown) Time Seen [...] (unknown) (unknown) Urine Specific (units (unknown) date) [place] 1.025 unknown) (unknown) (no (unknown) (unknown) Urine [...] troponins unknown) 0.02 [place] [address]. Patient had COVID (unknown) (no (unknown) (unknown) [...] wean her off her (units (unknown) date) [place]. She is unsure unknown) what it is [...] (unknown) date) unknown) (unknown) (no (unknown) (unknown) [id number] (units (unkno wn) date) unknown) (unknown) (no (unknown) (unknown) 1 tab PO PRN PRN (units (unknown) date) (Reason: Pain (Scale unknown) Score 1-3)) (unknown) (no (unknown) (unknown) 1 tablet five times (unit s (unknown) date) a day as needed unknown) (unknown) (no (unknown) (unknown) [address] [place] [address] (units (unknown) date) unknown) (unknown) (no (unknown) [...] (unknown) (unknown) Accession Number: (units (unknown) date) [id number] ?? unknown) (unknown) (no (unknown) (unknown) Acct:[id number] (units (unknown) date) unknown) (unknown) (no (unknown) [...] / Time (unknown) (no (unknown) (unknown) [place] [address] (unit s (unknown) date) unknown) (unknown) (no [...] thoracic spine (unknown) (no (unknown) (unknown) COMPARISON:? [facility] (unit s (unknown) date) [facility], , XR unknown) CHEST 1V, 05/13/2022, [...] (unknown) (unknown) : 1940 (units (unknown) date) Acct:[id number] unknown) (unknown) (no (unknown) (unknown) : 1940 [...] not a candidate (unknown) (no (unknown) (unknown) [facility] (units (unknown) date) [address] unknown) [place] [address] (unknown) (no (unknown) (unknown) [facility] (units (unknown) date) unknown) (unknown) (no [...] (unknown) Lymph # (Auto) (units (unknown) date) (1263-3624) /uL unknown) (unknown) (no (unknown) (unknown) Lymph # (Auto) 600 (units (unknown) date) L (8676-8622) /uL unknown) (unknown) (no (unknown) (unknown) Lymph [...] date) unknown) (unknown) (no (unknown) (unknown) MR#: [id number] (units (unknown) date) unknown) (unknown) (no (unknown) [...] date) EMS unknown) (unknown) (no (unknown) (unknown) Mayes # (Auto) (units ( unknown) date) (0-900) /uL unknown) (unknown) (no (unknown) (unknown) Mayes # (Auto) 400 (units (unknown) date) (0-900) /uL unknown) (unknown) (no (unknown) (unknown) Mayes % (Auto) (units ( unknown) date) (3-14) % unknown) (unknown) (no (unknown) (unknown) Mayes % (Auto) 4.1 (units (unknown) date) (3-14) % unknown) (unknown) (no (unknown) (unknown) NEURO:CN 2-12 (units ( unknown) date) intact, sensation unknown) normal (unknown) (no (unknown) (unknown) NT-Pro-B Natriuret (units (unknown) date) Pep (<450) pg/mL unknown) (unknown) (no (unknown) (unknown) NT-Pro-B Natriuret (units (unknown) date) Pep 02975 H (<450) unknown) pg/mL (unknown) (no (unknown) (unknown) NT-proBNP (units (unkn own) date) (BNP-Adult 18+) Stat unknown) (unknown) (no (unknown) (unknown) Narrative (units (unkn own) date) unknown) (unknown) (no (unknown) (unknown) Neut # (Auto) (units ( unknown) date) (4892-1648) /uL unknown) (unknown) (no (unknown) (unknown) Neut # (Auto) 9800 (units (unknown) date) H (6562-3439) /uL unknown) (unknown) (no (unknown) (unknown) Neut % (Auto) (units ( unknown) date) (50-75) % unknown) (unknown) (no (unknown) (unknown) Neut % (Auto) 89.9 (units (unknown) date) H (50-75) % unknown) (unknown) (no (unknown) (unknown) No Action (units (unkn own) date) unknown) (unknown) (no (unknown) (unknown) Normal sinus (units (u nknown) date) rhythm, left axis unknown) deviation, rate of 98, CT 120, QRS 88 QTC 347. (unknown) (no [...] unknown) who states her only medications are [place] daily (unknown) (no (unknown) (unknown) Time Seen [...] (unknown) (unknown) Urine Specific (units (unknown) date) [place] 1.025 unknown) (unknown) (no (unknown) (unknown) Urine [...] troponins unknown) 0[place]02 [place] [address] Patient had COVID (unknown) (no (unknown) (unknown) [...] wean her off her (units (unknown) date) [place]. She is unsure unknown) what it is [...] (unknown) date) unknown) (unknown) (no (unknown) (unknown) [id number] (units (unkno wn) date) unknown) (unknown) (no (unknown) (unknown) 1 tab PO PRN PRN (units (unknown) date) (Reason: Pain (Scale unknown) Score 1-3)) (unknown) (no (unknown) (unknown) 1 tablet five times (unit s (unknown) date) a day as needed unknown) (unknown) (no (unknown) (unknown) [address] (units (unknown) date) unknown) (unknown) (no (unknown) [...] (unknown) (unknown) Accession Number: (units (unknown) date) [id number] ?? unknown) (unknown) (no (unknown) (unknown) Acct:[id number] (units (unknown) date) unknown) (unknown) (no (unknown) [...] Time (unknown) (no (unknown) (unknown) [place] [address] (unit s (unknown) date) unknown) (unknown) (no [...] thoracic spine (unknown) (no (unknown) (unknown) COMPARISON:? [facility] (unit s (unknown) date) [facility], , XR unknown) CHEST 1V, 05/13/2022, [...] (unknown) (unknown) : 1940 (units (unknown) date) Acct:[id number] unknown) (unknown) (no (unknown) (unknown) : 1940 [...] not a candidate (unknown) (no (unknown) (unknown) [facility] (units (unknown) date) [address] unknown) [place] [address] (unknown) (no (unknown) (unknown) [facility] (units (unknown) date) unknown) (unknown) (no [...] (unknown) Lymph # (Auto) (units (unknown) date) (3174-0566) /uL unknown) (unknown) (no (unknown) (unknown) Lymph # (Auto) 600 (units (unknown) date) L (2548-7415) /uL unknown) (unknown) (no (unknown) (unknown) Lymph [...] date) unknown) (unknown) (no (unknown) (unknown) MR#: [id number] (units (unknown) date) unknown) (unknown) (no (unknown) [...] date) EMS unknown) (unknown) (no (unknown) (unknown) Mayes # (Auto) (units ( unknown) date) (0-900) /uL unknown) (unknown) (no (unknown) (unknown) Mayes # (Auto) 400 (units (unknown) date) (0-900) /uL unknown) (unknown) (no (unknown) (unknown) Mayes % (Auto) (units ( unknown) date) (3-14) % unknown) (unknown) (no (unknown) (unknown) Mayes % (Auto) 4.1 (units (unknown) date) (3-14) % unknown) (unknown) (no (unknown) (unknown) NEURO:CN 2-12 (units ( unknown) date) intact, sensation unknown) normal (unknown) (no (unknown) (unknown) NT-Pro-B Natriuret (units (unknown) date) Pep (<450) pg/mL unknown) (unknown) (no (unknown) (unknown) NT-Pro-B Natriuret (units (unknown) date) Pep 65214 H (<450) unknown) pg/mL (unknown) (no (unknown) (unknown) NT-proBNP (units (unkn own) date) (BNP-Adult 18+) Stat unknown) (unknown) (no (unknown) (unknown) Narrative (units (unkn own) date) unknown) (unknown) (no (unknown) (unknown) Neut # (Auto) (units ( unknown) date) (8073-0039) /uL unknown) (unknown) (no (unknown) (unknown) Neut # (Auto) 9800 (units (unknown) date) H (3521-3246) /uL unknown) (unknown) (no (unknown) (unknown) Neut % (Auto) (units ( unknown) date) (50-75) % unknown) (unknown) (no (unknown) (unknown) Neut % (Auto) 89.9 (units (unknown) date) H (50-75) % unknown) (unknown) (no (unknown) (unknown) No Action (units (unkn own) date) unknown) (unknown) (no (unknown) (unknown) Normal sinus (units (u nknown) date) rhythm, left axis unknown) deviation, rate of 98, CT 120, QRS 88 QTC 347. (unknown) (no [...] unknown) who states her only medications are [place] daily (unknown) (no (unknown) (unknown) Time Seen [...] (unknown) (unknown) Urine Specific (units (unknown) date) [place] 1.025 unknown) (unknown) (no (unknown) (unknown) Urine [...] troponins unknown) 0.02 [place] [address]. Patient had COVID (unknown) (no (unknown) (unknown) [...] wean her off her (units (unknown) date) [place]. She is unsure unknown) what it is [...] (unknown) date) unknown) (unknown) (no (unknown) (unknown) [id number] (units (unkno wn) date) unknown) (unknown) (no (unknown) (unknown) 1 tab PO PRN PRN (units (unknown) date) (Reason: Pain (Scale unknown) Score 1-3)) (unknown) (no (unknown) (unknown) 1 tablet five times (unit s (unknown) date) a day as needed unknown) (unknown) (no (unknown) (unknown) [address] (units (unknown) date) unknown) (unknown) (no (unknown) [...] (unknown) (unknown) Accession Number: (units (unknown) date) [id number] ?? unknown) (unknown) (no (unknown) (unknown) Acct:[id number] (units (unknown) date) unknown) (unknown) (no (unknown) [...] Date / Time (unknown) (no (unknown) (unknown) [place] [address] (unit s (unknown) date) unknown) (unknown) (no [...] (unknown) (unknown) : 1940 (units (unknown) date) Acct:[id number] unknown) (unknown) (no (unknown) (unknown) : 1940 [...] not a candidate (unknown) (no (unknown) (unknown) [facility] (units (unknown) date) [address] unknown) [place] [address] (unknown) (no (unknown) (unknown) [facility] (units (unknown) date) unknown) (unknown) (no [...] (unknown) Lymph # (Auto) (units (unknown) date) ([id number]) /uL unknown) (unknown) (no (unknown) (unknown) Lymph # (Auto) 600 (units (unknown) date) L (4344-1565) /uL unknown) (unknown) (no (unknown) (unknown) Lymph [...] date) unknown) (unknown) (no (unknown) (unknown) MR#: [id number] (units (unknown) date) unknown) (unknown) (no (unknown) [...] date) EMS unknown) (unknown) (no (unknown) (unknown) Mayes # (Auto) (units ( unknown) date) (0-900) /uL unknown) (unknown) (no (unknown) (unknown) Mayes # (Auto) 400 (units (unknown) date) (0-900) /uL unknown) (unknown) (no (unknown) (unknown) [place] % (Auto) (units ( unknown) date) (3-14) % unknown) (unknown) (no (unknown) (unknown) Mayes % (Auto) 4.1 (units (unknown) date) (3-14) % unknown) (unknown) (no (unknown) (unknown) NEURO:CN 2-12 (units ( unknown) date) intact, sensation unknown) normal (unknown) (no (unknown) (unknown) NT-Pro-B Natriuret (units (unknown) date) Pep (<450) pg/mL unknown) (unknown) (no (unknown) (unknown) NT-Pro-B Natriuret (units (unknown) date) Pep 31716 H (<450) unknown) pg/mL (unknown) (no (unknown) (unknown) NT-proBNP (units (unkn own) date) (BNP-Adult 18+) Stat unknown) (unknown) (no (unknown) (unknown) Narrative (units (unkn own) date) unknown) (unknown) (no (unknown) (unknown) Neut # (Auto) (units ( unknown) date) (5577-8732) /uL unknown) (unknown) (no (unknown) (unknown) Neut # (Auto) 9800 (units (unknown) date) H (7040-7355) /uL unknown) (unknown) (no (unknown) (unknown) Neut % (Auto) (units ( unknown) date) (50-75) % unknown) (unknown) (no (unknown) (unknown) Neut % (Auto) 89.9 (units (unknown) date) H (50-75) % unknown) (unknown) (no (unknown) (unknown) No Action (units (unkn own) date) unknown) (unknown) (no (unknown) (unknown) Normal sinus (units (u nknown) date) rhythm, left axis unknown) deviation, rate of 98, CT 120, QRS 88 QTC 347. 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 Patient had COVID (unknown) (no (unknown) (unknown) [...] wean her off her (units (unknown) date) [place]. She is unsure unknown) what it is [...] facility 2022-05-13 00:00 Never smoked tobacco (finding) [facility] Vital Signs date measurement value units [...]
[2022-06-08 09:37] LABS: BASOPHILS # (AUTO) 0.1 10^3/uL (0.0-0.1); BASOPHILS % (AUTO) 1.3 %; EOSINOPHILS # (AUTO) 0.2 10^3/uL (0.0-0.7); HCT - HEMATOCRIT 50.3 % (37.0-47.0); HGB - HEMOGLOBIN 15.7 g/dL (12.0-16.0); LYMPHOCYTES # (AUTO) 1.4 10^3/uL (1.5-3.5); MEAN CORPUSCULAR HEMOGLOBIN 27.5 pg (27.0-31.0); MEAN CORPUSCULAR HGB CONC 31.2 g/dL (32.0-36.0); MEAN CORPUSCULAR VOLUME 88.2 fL (81.0-99.0); MONOCYTES # (AUTO) 0.5 10^3/uL (0.0-1.0); MONOCYTES % (AUTO) 7.5 %; NEUTROPHILS # (AUTO) 3.8 10^3/uL (1.5-6.6); NEUTROPHILS % (AUTO) 63.7 %; PLT - PLATELET COUNT 253 10^3/uL (130-450); RED CELL DISTRIBUTION WIDTH 14.2 % (12.0-15.0)
--- NOTE | 2022-06-08 09:39 | XRAY Report ---
PROCEDURE: Chest 1 View X-Ray INDICATIONS: Chest Pain TECHNIQUE: One view of the chest was acquired. COMPARISON: CT chest 05/30/2022 FINDINGS: Surgical changes and devices: None. Lungs and pleura: No pleural effusions or pneumothorax. Lungs are clear. Mediastinum: Mediastinal contours appear normal. Heart size is normal. Bones and chest wall: No suspicious bony lesions. Overlying soft tissues appear unremarkable. IMPRESSION: No acute pulmonary process. Reviewed by: Shahnaz Cornelius MD on 06/08/2022 9:38 AM PDT Approved by: Shahnaz Cornelius MD on 06/08/2022 9:38 AM PDT Station ID: [id number]
[2022-06-08 09:54] LABS: ALBUMIN 3.6 g/dL (3.2-5.5); ALBUMIN/GLOBULIN RATIO 1.1 (1.0-2.2); BILIRUBIN,TOTAL 0.7 mg/dL (0.2-1.0); CALCIUM 9.1 mg/dL (8.5-10.3); CREATININE 0.5 mg/dL (0.4-1.0); POTASSIUM 3.3 mmol/L (3.5-5.0); TOTAL PROTEIN 6.8 g/dL (6.7-8.2)
[2022-06-08 11:56] VITALS: BP 150/95
== END 2022-06-08 12:06 | disposition home or self-care (01) ==
LOC: EDUNIT# → ED 08:54
DX: R07.9 Chest pain, unspecified (principal)
CPT/HCPCS: 36415; 80053; 83690; 84484; 85025; 93005; 99283; 99284

== ENCOUNTER 2022-08-10 14:12 | Outpatient (CLI) | payer MEDICARE, MEDICAID | END 2022-08-10 14:13 | disposition critical access hospital (66) | LOC: EMS 14:12 | DX: R52 Pain, unspecified (principal); R25.1 Tremor, unspecified; R53.1 Weakness; R53.83 Other fatigue | CPT/HCPCS: A0425; A0429 ==

== ENCOUNTER 2022-08-10 14:31 | Emergency (ER) | payer MEDICARE, MEDICAID ==
[2022-08-10] MEDS ORDERED: IBUPROFEN 800 MG TABLET PO STA (14:49)
[2022-08-10] MEDS ORDERED: SODIUM CHLORIDE 0.9% 1,000 ML IV STA ×2 (14:49→16:20)
[2022-08-10] MEDS ORDERED: ACETAMINOPHEN 325 MG TABLET PO STA (14:49)
--- NOTE | 2022-08-10 15:18 | XRAY Report ---
PROCEDURE: Chest 1 View X-Ray INDICATIONS: chest pain TECHNIQUE: One view of the chest was acquired. COMPARISON: 06/08/2022 FINDINGS: Surgical changes and devices: None. Lungs and pleura: No pleural effusions or pneumothorax. Lungs are clear. Mediastinum: Mediastinal contours appear normal. Heart size is normal. Bones and chest wall: No suspicious bony lesions. Overlying soft tissues appear unremarkable. IMPRESSION: No acute cardiopulmonary process. Reviewed by: Jayson Moore MD on 08/10/2022 3:17 PM PDT Approved by: Jayson Moore MD on 08/10/2022 3:17 PM PDT Station ID: [id number]
--- NOTE | 2022-08-10 15:28 | ED Physician Documentation ---
History of Present Illness - Stated complaint Stated Complaint: PAIN/WEAKNESS - Chief complaint Chief Complaint: General - History obtained from History obtained from: Patient - Additonal information Additional information: The patient is brought to the emergency department by EMS for chief complaint of being weak and shaky for the last few days. She is also had a runny nose and a cough. The patient was found to have a fever en route. She states she has had a decreased appetite for the last several days. She is lives at an assisted living facility. Medics report the patient also has a history of alcohol abuse. No other complaints at this time. Patient denies nausea or vomiting. No diarrhea. 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 HEENT: Tonsil/Adenoidectomy - Present Medications Home Medications: Ambulatory Orders Medication Instructions Recorded Confirmed Apixaban [Eliquis] 5 mg PO BID 06/08/22 06/08/22 Sertraline HCl [Zoloft] 50 mg PO DAILY 06/08/22 06/08/22 dilTIAZem HCL [Diltiazem 24Hr ER 240 mg PO DAILY 06/08/22 06/08/22 (Xr)] - Allergies Allergies/Adverse Reactions: Allergies Allergy/AdvReac Type Severity Reaction Status Date / Time aluminum Allergy Anaphylaxis Verified 06/08/22 09:32 cephalexin Allergy Edema Verified 06/08/22 09:32 iodine Allergy Anaphylaxis Verified 06/08/22 09:32 levofloxacin Allergy Edema Verified 06/08/22 09:32 nitrofurantoin Allergy Edema Verified 06/08/22 09:32 nitrofurantoin Allergy Edema Verified 06/08/22 09:32 macrocrystalline * [From Macrobid] ofloxacin [From Floxin] Allergy Edema Verified 06/08/22 09:32 Penicillins Allergy Anaphylaxis Verified 06/08/22 09:32 sulfamethoxazole Allergy Edema Verified 06/08/22 09:32 trimethoprim Allergy Edema Verified 06/08/22 09:32 IV Contrast Allergy Edema Uncoded 06/08/22 09:32 - Social History Does the pt smoke?: No Smoking Status: Never smoker Does the pt drink ETOH?: No Does the pt have substance abuse?: No - Immunizations Immunizations are current?: Yes - POLST Patient has POLST: Yes PD ED PE NORMAL - Vitals Vital signs reviewed: Yes - General General: No acute distress, Well developed/nourished, Other (Alert, answers questions appropriately.) - HEENT HEENT: Atraumatic, PERRL, EOMI, Moist mucous membranes - Neck Neck: Supple, no meningeal sign - Cardiac Cardiac: RRR, No murmur - Respiratory Respiratory: No respiratory distress, Clear bilaterally - Abdomen Abdomen: Soft, Non tender, Non distended - Derm Derm: Normal color, Warm and dry, No rash - Extremities Extremities: No deformity, No edema - Neuro Neuro: Other (Alert and otherwise grossly intact.) - Psych Psych: Normal mood, Normal affect Results - Vitals Vitals: Vital Signs - 24 hr 08/10/22 08/10/22 14:37 17:07 Temperature 38.0 C H Heart Rate 100 75 Respiratory 16 18 Rate Blood Pressure 140/100 H 142/98 H O2 Saturation 92 93 Oxygen O2 Source Nasal cannula - Labs Labs: Laboratory Tests 08/10/22 08/10/22 08/10/22 15:40 15:40 15:40 WBC 11.8 H RBC 5.07 Hgb 14.0 Hct 42.2 MCV 83.2 MCH 27.6 MCHC 33.2 RDW 15.8 H Plt Count 181 MPV 10.4 Neut # (Auto) 9.9 H Lymph # (Auto) 0.5 L [place] # (Auto) 1.3 H Eos # (Auto) 0.0 Baso # (Auto) 0.0 Absolute Nucleated RBC 0.00 Nucleated RBC % 0.0 Sodium 133 L Potassium 3.6 Chloride 98 L Carbon Dioxide 26 Anion Gap 9.0 BUN 14 Creatinine 0.8 Estimated GFR (MDRD) 69 L Glucose 126 H Lactic Acid Calcium 8.5 Total Bilirubin 1.0 AST 17 ALT 14 Alkaline Phosphatase 55 Total Protein 7.0 Albumin 3.5 Globulin 3.5 Albumin/Globulin Ratio 1.0 Lipase 28 Urine Color Urine Clarity Urine pH Ur Specific [place] Urine Protein Urine Glucose (UA) Urine Ketones Urine Occult Blood Urine Nitrite Urine Bilirubin Urine Urobilinogen Ur Leukocyte Esterase Urine RBC Urine WBC Urine WBC Clumps Ur Squamous Epith Cells Amorphous Sediment Urine Bacteria Ur Microscopic Review Urine Culture Comments Nasal Adenovirus (PCR) Nasal B. parapertussis DNA (PCR) Nasal Coronavir 229E PCR Nasal Coronavir HKU1 PCR Nasal Coronavir NL63 PCR Nasal Coronavir OC43 PCR Nasal Enterovir/Rhinovir PCR Nasal Influenza B PCR Nasal Influenza A PCR Nasal Parainfluen 1 PCR Nasal Parainfluen 2 PCR Nasal Parainfluen 3 PCR Nasal Parainfluen 4 PCR Nasal RSV (PCR) Nasal B.pertussis DNA PCR Nasal C.pneumoniae (PCR) Raimundo Human Metapneumo PCR Nasal M.pneumoniae (PCR) Nasal SARS-CoV-2 (PCR) Ethyl Alcohol < 5.0 08/10/22 08/10/22 08/10/22 15:40 16:24 16:28 WBC RBC Hgb Hct MCV MCH MCHC RDW Plt Count MPV Neut # (Auto) Lymph # (Auto) [place] # (Auto) Eos # (Auto) Baso # (Auto) Absolute Nucleated RBC Nucleated RBC % Sodium Potassium Chloride Carbon Dioxide Anion Gap BUN Creatinine Estimated GFR (MDRD) Glucose Lactic Acid 0.9 Calcium Total Bilirubin AST ALT Alkaline Phosphatase Total Protein Albumin Globulin Albumin/Globulin Ratio Lipase Urine Color DARK YELLOW Urine Clarity CLOUDY Urine pH 7.0 Ur Specific [place] 1.020 Urine Protein 100 H Urine Glucose (UA) NEGATIVE Urine Ketones 15 H Urine Occult Blood LARGE H Urine Nitrite POSITIVE H Urine Bilirubin NEGATIVE Urine Urobilinogen 4 H Ur Leukocyte Esterase LARGE H Urine RBC TNTC H Urine WBC >25 H Urine WBC Clumps PRESENT Ur Squamous Epith Cells MANY Squamous H Amorphous Sediment Few Urine Bacteria Many H Ur Microscopic Review INDICATED Urine Culture Comments NOT INDICATED Nasal Adenovirus (PCR) NOT DETECTED Nasal B. parapertussis DNA (PCR) NOT DETECTED Nasal Coronavir 229E PCR NOT DETECTED Nasal Coronavir HKU1 PCR NOT DETECTED Nasal Coronavir NL63 PCR NOT DETECTED Nasal Coronavir OC43 PCR NOT DETECTED Nasal Enterovir/Rhinovir PCR NOT DETECTED Nasal Influenza B PCR NOT DETECTED Nasal Influenza A PCR NOT DETECTED Nasal Parainfluen 1 PCR NOT DETECTED Nasal Parainfluen 2 PCR NOT DETECTED Nasal Parainfluen 3 PCR NOT DETECTED Nasal Parainfluen 4 PCR NOT DETECTED Nasal RSV (PCR) NOT DETECTED Nasal B.pertussis DNA PCR NOT DETECTED Nasal C.pneumoniae (PCR) NOT DETECTED Raimundo Human Metapneumo PCR NOT DETECTED Nasal M.pneumoniae (PCR) NOT DETECTED Nasal SARS-CoV-2 (PCR) NOT DETECTED Ethyl Alcohol PD Medical Decision Making - ED course Complexity details: reviewed results, re-evaluated patient, considered differential, d/w patient ED course: The patient was found to be febrile here in the emergency department and was treated as such with ibuprofen, Tylenol, and IV fluids. She was worked up with laboratory studies, including CBC, ER abdominal panel, lactic acid level, as well as respiratory PCR panel, chest x-ray, and urinalysis. Her work-up showed a mildly elevated white blood cell count but otherwise negative except for a strongly positive, but contaminated, urinalysis. Blood cultures were also pending at this time. I felt the patient should be treated but she had every conceivable oral antibiotic except for fosfomycin listed as an allergy. When I went to try to ask her about these antibiotics what actually happened when she had them, she told me that she "blacks out" with penicillin, but cannot tell me any other allergic symptoms that happen. She had no idea why the other antibiotics were on the list and could not tell me anything about what happens with those. The patient has "edema" or anaphylaxis listed for every single antibiotic but the nature of this edema is unclear. At this point, I have discussed with the patient that she needs to be very clear about her symptoms that she is interpreting as an allergy, since she is putting herself in a very difficult position when it comes to treating infection. At this point in time, given that she has a fever, I will opt to treat her with a single dose of fosfomycin 3 g p.o. The patient stable for discharge home. She is feeling much better after defervescence and hydration with 2 L of normal saline. We have discussed the usual indications for follow-up and return. Departure - Departure Disposition: 01 Home, Self Care Clinical Impression: Urinary tract infection Qualifiers: Urinary tract infection type: acute cystitis Hematuria presence: with hematuria Qualified Code(s): N30.01 - Acute cystitis with hematuria Condition: Stable Instructions: ED UTI Cystitis Female Comments: You have been given 2 bags of IV fluids here in the emergency department, and have been evaluated with laboratory studies, respiratory viral panel, chest x- ray, and urinalysis. Your urinalysis was positive for infection and as such, you are in need of antibiotics. However, since you have a "allergy" listed to any possible oral antibiotic that you can take at home, this has made treatment options very limited. We have given you a single dose regimen of an antibiotic called fosfomycin here in the emergency department. This is effective against a urinary tract infection as a single dose. However, you will probably still feel somewhat sick for the next few days. If you run fevers or have body aches, you should take ibuprofen 600 mg every 6 hours and Tylenol/acetaminophen 650 mg every 4 hours. You should also drink 8 to 10 cups of water every day to be sure you stay hydrated. Please follow-up with your primary care physician as needed.
[2022-08-10 15:48] LABS: BASOPHILS % (AUTO) 0.3 %; HCT - HEMATOCRIT 42.2 % (37.0-47.0); LYMPHOCYTES # (AUTO) 0.5 10^3/uL (1.5-3.5); LYMPHOCYTES % (AUTO) 4.3 %; MEAN CORPUSCULAR HEMOGLOBIN 27.6 pg (27.0-31.0); MEAN CORPUSCULAR HGB CONC 33.2 g/dL (32.0-36.0); MEAN CORPUSCULAR VOLUME 83.2 fL (81.0-99.0); MEAN PLATELET VOLUME 10.4 fL (7.9-10.8); MONOCYTES # (AUTO) 1.3 10^3/uL (0.0-1.0); NEUTROPHILS # (AUTO) 9.9 10^3/uL (1.5-6.6); NEUTROPHILS % (AUTO) 83.9 %; PLT - PLATELET COUNT 181 10^3/uL (130-450); RED BLOOD COUNT 5.07 10^6/uL (4.20-5.40); RED CELL DISTRIBUTION WIDTH 15.8 % (12.0-15.0); WHITE BLOOD COUNT 11.8 x10^3/uL (4.8-10.8)
[2022-08-10 16:22] LABS: ALBUMIN 3.5 g/dL (3.2-5.5); CALCIUM 8.5 mg/dL (8.5-10.3); CREATININE 0.8 mg/dL (0.4-1.0); POTASSIUM 3.6 mmol/L (3.5-5.0)
[2022-08-10 16:34] LABS: GLUCOSE, URINE (UA) NEGATIVE (NEGATIVE); KETONES,URINE (UA) 15 mg/dL (NEGATIVE); LEUKOCYTE ESTERASE, URINE LARGE (NEGATIVE); NITRITE,URINE POSITIVE (NEGATIVE); OCCULT BLOOD,URINE LARGE (NEGATIVE); PROTEIN,URINE 100 mg/dL (NEGATIVE); UROBILINOGEN,URINE 4 E.U./dL (NORMAL)
[2022-08-10 16:58] LABS: BILIRUBIN,URINE NEGATIVE (NEGATIVE); CLARITY,URINE CLOUDY (CLEAR); ICTOTEST,URINE NEGATIVE
[2022-08-10 16:59] LABS: RBC,URINE TNTC /HPF (0-5); WBC CLUMPS,URINE PRESENT; WBC,URINE >25 /HPF (0-5)
[2022-08-10 17:00] LABS: AMORPHOUS SEDIMENT,UR Few /LPF; BACTERIA,URINE Many /HPF (None Seen); SQUAMOUS EPITHELIAL CELL,UR MANY Squamous (<= Few)
[2022-08-10 17:40] LABS: CORONAVIRUS 229E-RESP PCR NOT DETECTED; CORONAVIRUS HKU1-RESP PCR NOT DETECTED; CORONAVIRUS NL63-RESP PCR NOT DETECTED; CORONAVIRUS OC43-RESP PCR NOT DETECTED; HUMAN METAPNEUMOVIRUS NOT DETECTED; SARS-CoV-2 -RESP PCR PANEL NOT DETECTED
[2022-08-10 17:41] LABS: B. PARAPERTUSSIS- RESP PCR PAN NOT DETECTED; B. PERTUSSIS- RESP PCR PANEL NOT DETECTED; C. PNEUMONIAE- RESP PCR PANEL NOT DETECTED; INFLUENZA A- RESP PCR PANEL NOT DETECTED; INFLUENZA B - RESP PCR PANEL NOT DETECTED; M. PNEUMONIAE- RESP PCR PANEL NOT DETECTED; PARAINFLUENZA VIRUS 1 NOT DETECTED; PARAINFLUENZA VIRUS 2 NOT DETECTED; PARAINFLUENZA VIRUS 3 NOT DETECTED; PARAINFLUENZA VIRUS 4 NOT DETECTED; RHINOVIRUS/ENTEROVIRUS NOT DETECTED; RSV- RESP PCR PANEL NOT DETECTED
[2022-08-10] MEDS ORDERED: FOSFOMYCIN TROMETHAMINE 3 GM PACKET PO STA (17:47)
[2022-08-10 19:11] VITALS: BP 142/95
--- NOTE | 2022-08-11 06:30 | ED Physician Documentation ---
ED Addendum - Addendum Addendum: 08/11/22 06:28 Our RN Lynne got a call from lab overnight that the patient never had her blood cultures drawn prior to discharge. On chart review it looks like her ED doctor from yesterday intended for her to have blood cultures therefore a call was placed to Ms. Hong's home requesting her to come back to have the blood culture drawn. She did not answer her phone and a message was left after positive identification of her identity by voicemail machine. I have left a note with our SAMI Soto to try to contact her later in the day.
== END 2022-08-10 22:27 | disposition home or self-care (01) ==
LOC: ED 14:31
DX: N30.01 Acute cystitis with hematuria (principal); Z20.822 Contact with and (suspected) exposure to COVID-19; Z79.01 Long term (current) use of anticoagulants; Z79.899 Other long term (current) drug therapy
CPT/HCPCS: 36415; 71045; 80053; 81001; 83605; 83690; 85025; 87633; 99283; 99284; A9270; G0480; J8499; 80320; 81003; 87040; 87086

== ENCOUNTER 2022-08-10 20:38 | Outpatient (CLI) | payer MEDICARE, MEDICAID | END 2022-08-10 20:39 | disposition home or self-care (01) | LOC: EMS 20:38 | PROVIDERS: ATTEND Emergency Medicine | DX: R41.0 Disorientation, unspecified (principal); F03.90 Unspecified dementia, unspecified severity, without behavioral disturbance, psychotic disturbance, mood disturbance, and anxiety | CPT/HCPCS: A0425; A0428 ==

== ENCOUNTER 2022-08-14 09:46 | Outpatient (CLI) | payer MEDICARE, MEDICAID | END 2022-08-14 23:59 | disposition critical access hospital (66) | LOC: EMS 09:46 | DX: R07.9 Chest pain, unspecified (principal); R63.0 Anorexia | CPT/HCPCS: A0425; A0429 ==

== ENCOUNTER 2022-08-14 10:06 | Emergency (ER) | payer MEDICARE, MEDICAID ==
--- NOTE | 2022-08-14 10:18 | ED Physician Documentation ---
History of Present Illness - Stated complaint Stated Complaint: CHEST PX - Chief complaint Chief Complaint: Cardiac - History obtained from History obtained from: Patient, EMS - History of Present Illness Timing: How many hours ago (6) Pain level max: 3 Pain level now: 1 - Additonal information Additional information: Patient is an 82-year-old female who presents to the emergency department complaining of chest pain. Described as sharp and in the left upper chest. Reproducible with palpation and movement. She lives at [facility]. No cough. No congestion. No fevers. Denies any traumas or falls. Patient denies any cardiac history. No history of heart attacks, stents, bypasses. She states the pain started at about 430 this morning. Review of Systems Constitutional: denies: Fever Ears: denies: Ear pain Nose: denies: Rhinorrhea / runny nose, Congestion Respiratory: denies: Dyspnea, Cough, Wheezing GI: denies: Nausea, Vomiting, Diarrhea : denies: Dysuria Skin: denies: Rash Musculoskeletal: denies: Neck pain, Back pain Neurologic: denies: Headache 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, 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 HEENT: Tonsil/Adenoidectomy - Present Medications Home Medications: Ambulatory Orders Medication Instructions Recorded Confirmed Apixaban [Eliquis] 5 mg PO BID 06/08/22 08/14/22 Sertraline HCl [Zoloft] 50 mg PO DAILY 06/08/22 08/14/22 dilTIAZem HCL [Diltiazem 24Hr ER 240 mg PO DAILY 06/08/22 08/14/22 (Xr)] Metoprolol Succinate [Kapspargo 12.5 mg PO DAILY 08/14/22 08/14/22 Sprinkle] - Allergies Allergies/Adverse Reactions: Allergies Allergy/AdvReac Type Severity Reaction Status Date / Time aluminum Allergy Anaphylaxis Verified 08/14/22 10:17 cephalexin Allergy Edema Verified 08/14/22 10:17 iodine Allergy Anaphylaxis Verified 08/14/22 10:17 levofloxacin Allergy Edema Verified 08/14/22 10:17 nitrofurantoin Allergy Edema Verified 08/14/22 10:17 nitrofurantoin Allergy Edema Verified 08/14/22 10:17 macrocrystalline * [From Macrobid] ofloxacin [From Floxin] Allergy Edema Verified 08/14/22 10:17 Penicillins Allergy Anaphylaxis Verified 08/14/22 10:17 sulfamethoxazole Allergy Edema Verified 08/14/22 10:17 trimethoprim Allergy Edema Verified 08/14/22 10:17 IV Contrast Allergy Edema Uncoded 08/14/22 10:17 - Social History Does the pt smoke?: No Smoking Status: Never smoker Does the pt drink ETOH?: No Does the pt have substance abuse?: No - Immunizations Immunizations are current?: Yes - POLST Patient has POLST: Yes PD ED PE NORMAL - Vitals Vital signs reviewed: Yes - General General: Alert and oriented X 3, No acute distress - HEENT HEENT: PERRL, Moist mucous membranes - Neck Neck: Supple, no meningeal sign - Cardiac Cardiac: RRR, Strong equal pulses - Respiratory Respiratory: No respiratory distress, Clear bilaterally - Abdomen Abdomen: Soft, Non tender, Non distended - Derm Derm: Warm and dry - Extremities Extremities: No edema, No calf tenderness / cord - Neuro Neuro: Alert and oriented X 3 - Psych Psych: Normal mood, Normal affect - Free text exam Free text exam: Tender to palpation over the left anterior chest wall and left lateral ribs, reproduces the patient's pain. No crepitus. No ecchymosis. Results - Vitals Vitals: Vital Signs - 24 hr 08/14/22 08/14/22 08/14/22 10:14 10:53 11:19 Temperature 36.9 C Heart Rate 103 H 96 103 H Respiratory 24 24 22 Rate Blood Pressure 148/72 H 121/77 130/73 O2 Saturation 94 94 92 08/14/22 08/14/22 11:30 12:15 Temperature Heart Rate 87 96 Respiratory 21 23 Rate Blood Pressure 113/72 105/78 O2 Saturation 95 93 Oxygen O2 Source Room air - EKG (time done) 1015 EKG releavant findings:: EKG personally interpreted by author of this note. Relevant findings are: Rate: Rate (enter#) (100) Rhythm: Sinus tachycardia [place]: Normal Intervals: Normal CO QRS: Normal Ischemia: Normal ST segments - Labs Labs: Laboratory Tests 08/14/22 08/14/22 08/14/22 10:33 10:33 10:33 WBC 15.0 H RBC 5.08 Hgb 13.9 Hct 41.8 MCV 82.3 MCH 27.4 MCHC 33.3 RDW 15.8 H Plt Count 267 MPV 10.0 Neut # (Auto) 12.5 H Lymph # (Auto) 1.0 L [place] # (Auto) 1.1 H Eos # (Auto) 0.2 Baso # (Auto) 0.1 Absolute Nucleated RBC 0.00 Nucleated RBC % 0.0 Sodium 138 Potassium 2.8 L Chloride 99 L Carbon Dioxide 25 Anion Gap 14.0 H BUN 11 Creatinine 0.6 Estimated GFR (MDRD) 95 Glucose 109 H Calcium 8.3 L Total Bilirubin 1.3 H AST 20 ALT 18 Alkaline Phosphatase 64 Troponin I High Sens 14.1 Total Protein 6.6 L Albumin 2.8 L Globulin 3.8 Albumin/Globulin Ratio 0.7 L Lipase 25 - Rads (name of study) Chest x-ray Relevant Findings:: Final report received, See rad report PD Medical Decision Making - ED course Complexity details: reviewed results, re-evaluated patient, considered differential (No ST elevation [place], no aortic dissection, no PE, no tension pneumothorax, no aortic aneurysm), d/w patient ED course: 82-year-old female with reproducible left upper chest wall pain. She points to a spot with a single finger. This is exactly where her pain is with palpation. No acute findings on EKG, laboratory testing. No evidence of PE, ACS. Patient is well-appearing, nontoxic. Afebrile. Declines anything for pain at this time. We will have her follow-up with her doctor for further care. There is no change in pain with exertion. Negative high sensitive troponin after approximately 6 hours of pain. Patient counseled regarding signs and symptoms for which I believe and urgent re-evaluation would be necessary. Patient with good understanding of and agreement to plan and is comfortable going home at this time This document was made in part using voice recognition software. While efforts are made to proofread this document, sound alike and grammatical errors may occur. Departure - Departure Disposition: 01 Home, Self Care Clinical Impression: Chest wall pain, Hypokalemia Condition: Good Instructions: ED Chest Pain Costochondritis Follow-Up: Your,doctor in 1 week [Other] Comments: Please follow-up with your doctor for further care. Please return if you worsen. Your testing today does not show any acute abnormalities. Your potassium levels were slightly low, so your potassium was replaced. You can use Motrin or Tylenol as needed for pain. Your potassium level should be rechecked in 1 week with your doctor. Discharge Date/Time: 08/14/22 12:27
[2022-08-14 10:39] LABS: BASOPHILS # (AUTO) 0.1 10^3/uL (0.0-0.1); BASOPHILS % (AUTO) 0.5 %; EOSINOPHILS # (AUTO) 0.2 10^3/uL (0.0-0.7); EOSINOPHILS % (AUTO) 1.1 %; HCT - HEMATOCRIT 41.8 % (37.0-47.0); HGB - HEMOGLOBIN 13.9 g/dL (12.0-16.0); LYMPHOCYTES % (AUTO) 6.6 %; MEAN CORPUSCULAR HEMOGLOBIN 27.4 pg (27.0-31.0); MEAN CORPUSCULAR HGB CONC 33.3 g/dL (32.0-36.0); MEAN CORPUSCULAR VOLUME 82.3 fL (81.0-99.0); MONOCYTES # (AUTO) 1.1 10^3/uL (0.0-1.0); MONOCYTES % (AUTO) 7.4 %; NEUTROPHILS # (AUTO) 12.5 10^3/uL (1.5-6.6); NEUTROPHILS % (AUTO) 83.4 %; PLT - PLATELET COUNT 267 10^3/uL (130-450); RED BLOOD COUNT 5.08 10^6/uL (4.20-5.40); RED CELL DISTRIBUTION WIDTH 15.8 % (12.0-15.0)
--- NOTE | 2022-08-14 10:41 | XRAY Report ---
PROCEDURE: Chest 1 View X-Ray INDICATIONS: Chest Pain TECHNIQUE: One view of the chest was acquired. COMPARISON: None. FINDINGS: Surgical changes and devices: None. Lungs and pleura: No pleural effusions or pneumothorax. Lungs are clear. Mediastinum: Mediastinal contours appear normal. Heart size is normal. Bones and chest wall: No suspicious bony lesions. Overlying soft tissues appear unremarkable. IMPRESSION: No acute cardiopulmonary process. Reviewed by: Derick Franco on 08/14/2022 10:39 AM PDT Approved by: Derick Franco on 08/14/2022 10:39 AM PDT Station ID: [id number]
[2022-08-14 10:53] LABS: ALBUMIN 2.8 g/dL (3.2-5.5); ALBUMIN/GLOBULIN RATIO 0.7 (1.0-2.2); BILIRUBIN,TOTAL 1.3 mg/dL (0.2-1.0); CALCIUM 8.3 mg/dL (8.5-10.3); CREATININE 0.6 mg/dL (0.4-1.0); POTASSIUM 2.8 mmol/L (3.5-5.0); TOTAL PROTEIN 6.6 g/dL (6.7-8.2)
[2022-08-14] MEDS ORDERED: POTASSIUM BICARB 25 MEQ TABLET PO STA (11:17)
[2022-08-14 12:17] VITALS: BP 105/78
== END 2022-08-14 12:27 | disposition home or self-care (01) ==
LOC: EDUNIT# → EDBD → ED 10:06
DX: R07.89 Other chest pain (principal); E87.6 Hypokalemia
CPT/HCPCS: 36415; 71045; 80053; 83690; 84484; 85025; 93005; 99283; 99284; A9270

== ENCOUNTER 2022-08-14 12:24 | Outpatient (CLI) | payer MEDICARE, MEDICAID | END 2022-08-14 23:59 | disposition home or self-care (01) | LOC: EMS 12:24 | PROVIDERS: ATTEND Emergency Medicine | DX: R41.0 Disorientation, unspecified (principal); F03.90 Unspecified dementia, unspecified severity, without behavioral disturbance, psychotic disturbance, mood disturbance, and anxiety | CPT/HCPCS: A0425; A0428 ==

== ENCOUNTER 2022-08-17 16:31 | Outpatient (CLI) | payer MEDICARE, MEDICAID | END 2022-08-17 16:32 | disposition critical access hospital (66) | LOC: EMS 16:31 | DX: R53.81 Other malaise (principal); R53.1 Weakness | CPT/HCPCS: A0425; A0429 ==

== ENCOUNTER 2022-08-17 16:53 | Inpatient (IN) | payer MEDICARE, MEDICAID ==
[2022-08-17 17:37] LABS: BASOPHILS # (AUTO) 0.1 10^3/uL (0.0-0.1); BASOPHILS % (AUTO) 0.9 %; EOSINOPHILS % (AUTO) 0.3 %; HCT - HEMATOCRIT 43.4 % (37.0-47.0); HGB - HEMOGLOBIN 14.3 g/dL (12.0-16.0); LYMPHOCYTES # (AUTO) 0.9 10^3/uL (1.5-3.5); LYMPHOCYTES % (AUTO) 7.7 %; MEAN CORPUSCULAR HEMOGLOBIN 26.7 pg (27.0-31.0); MEAN CORPUSCULAR HGB CONC 32.9 g/dL (32.0-36.0); MEAN CORPUSCULAR VOLUME 81.1 fL (81.0-99.0); MEAN PLATELET VOLUME 9.9 fL (7.9-10.8); MONOCYTES # (AUTO) 0.9 10^3/uL (0.0-1.0); PLT - PLATELET COUNT 411 10^3/uL (130-450); RED BLOOD COUNT 5.35 10^6/uL (4.20-5.40); RED CELL DISTRIBUTION WIDTH 15.9 % (12.0-15.0); WHITE BLOOD COUNT 11.4 x10^3/uL (4.8-10.8)
--- OUTSIDE RECORDS SUMMARY | 2022-08-17 17:45 | EXTERNAL MEDICAL SUMMARY RPT | Continuity of Care Document ---
Author Name Unknown Address [address] [place] [address] Phone Organization [facility] Address [address] [place] [address] Phone Results/Labs test date author facility value unit interpretation Result panel 1 (unknown) (no date) (unknown) (unknown) 107 mmhg (unknown ) (unknown) (no date) (unknown) (unknown) 2.0 mmol/l (unknown ) (unknown) (no date) (unknown) (unknown) 28 mmol/l (unknown ) (unknown) (no date) (unknown) (unknown) 30 mmol/l (unknown ) (unknown) (no date) (unknown) (unknown) 54.1 mmhg (unknown ) (unknown) (no date) (unknown) (unknown) 7.33 (units unknown) (unknown) (unknown) (no date) (unknown) (unknown) 7.33 (units unknown) (unknown) (unknown) (no date) (unknown) (unknown) 98 % (unknown )
--- NOTE | 2022-08-17 17:48 | ED Physician Documentation ---
PD HPI ALTERED MENTAL STATUS - Stated complaint Stated Complaint: AMS - Chief complaint Chief Complaint: Fever - History obtained from History obtained from: Patient, EMS - History of Present Illness Timing - onset: Today Timing - duration: Days (1) Timing - details: Gradual onset Quality / character: Confused, Disoriented Associated symptoms: Fever. No: Cough, NVD, Urinary sx Basline status: Confused (mildly at baseline) Recently seen: Emergency Dept (seen recently for chest pain) - Additional information Additional information: 82-year-old female has a history of dementia and confusion, she was more con fused than usual today at her [facility]. No falls. She was seen recently for chest pain. She has no chest pain today. Had a temperature of 102 today her [facility]. Patient states that she has no pain. Review of Systems Unable to obtain: Dementia Constitutional: reports: Fever Nose: denies: Rhinorrhea / runny nose, Congestion Respiratory: denies: Cough GI: denies: Vomiting, Diarrhea : denies: Dysuria, Frequency, Hesitancy Skin: denies: Rash Musculoskeletal: denies: Neck pain, Back pain Neurologic: denies: Headache PD PAST MEDICAL HISTORY - Past Medical History Past Medical History: Yes Cardiovascular: None Respiratory: Sleep apnea Endocrine/Autoimmune: Other GI: Chronic diarrhea : Chronic bladder infection, Kidney stones HEENT: None Psych: Depression Musculoskeletal: Fibromyalgia Derm: None - Past Surgical History Past Surgical History: Yes General: 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, 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 HEENT: Tonsil/Adenoidectomy - Present Medications Home Medications: Ambulatory Orders Medication Instructions Recorded Confirmed Apixaban [Eliquis] 5 mg PO BID 06/08/22 08/17/22 Sertraline HCl [Zoloft] 50 mg PO DAILY 06/08/22 08/17/22 dilTIAZem HCL [Diltiazem 24Hr ER 240 mg PO DAILY 06/08/22 08/17/22 (Xr)] Metoprolol Succinate [Kapspargo 12.5 mg PO DAILY 08/14/22 08/17/22 Sprinkle] Acetaminophen [Tylenol] 650 mg PO Q6H PRN 08/17/22 08/17/22 Albuterol Sulf [Ventolin Hfa 1 - 2 puffs INH Q4HR PRN 08/17/22 08/17/22 Inhaler] - Allergies Allergies/Adverse Reactions: Allergies Allergy/AdvReac Type Severity Reaction Status Date / Time aluminum Allergy Anaphylaxis Verified 08/14/22 10:17 cephalexin Allergy Edema Verified 08/14/22 10:17 iodine Allergy Anaphylaxis Verified 08/14/22 10:17 levofloxacin Allergy Edema Verified 08/14/22 10:17 nitrofurantoin Allergy Edema Verified 08/14/22 10:17 nitrofurantoin Allergy Edema Verified 08/14/22 10:17 macrocrystalline * [From Macrobid] ofloxacin [From Floxin] Allergy Edema Verified 08/14/22 10:17 Penicillins Allergy Anaphylaxis Verified 08/14/22 10:17 sulfamethoxazole Allergy Edema Verified 08/14/22 10:17 trimethoprim Allergy Edema Verified 08/14/22 10:17 IV Contrast Allergy Edema Uncoded 08/14/22 10:17 - Social History Does the pt smoke?: No Smoking Status: Never smoker Does the pt drink ETOH?: No Does the pt have substance abuse?: No - Immunizations Immunizations are current?: Yes - POLST Patient has POLST: Yes PD ED PE NORMAL - Vitals Vital signs reviewed: Yes - General General: No acute distress, Well developed/nourished, Other (Alert, not oriented to place or time) - HEENT HEENT: Atraumatic, PERRL, Moist mucous membranes - Neck Neck: Supple, no meningeal sign, No bony TTP - Cardiac Cardiac: RRR, Strong equal pulses - Respiratory Respiratory: No respiratory distress, Clear bilaterally - Abdomen Abdomen: Other (Mild diffuse tenderness to palpation, no peritoneal signs) - Back Back: No CVA TTP, No spinal TTP - Derm Derm: Warm and dry, No rash - Extremities Extremities: No edema, No calf tenderness / cord - Neuro Neuro: Other (Alert, oriented to person only) Results - Vitals Vitals: Vital Signs - 24 hr 08/17/22 08/17/22 08/17/22 17:01 17:06 19:00 Temperature 38.5 C H Heart Rate 107 H 110 H 104 H Respiratory 20 24 Rate Blood Pressure 122/51 L 133/70 H O2 Saturation 88 L 93 94 If not protocol 2 : Oxygen Flow, liters/minute 08/17/22 08/17/22 08/17/22 19:19 20:11 20:33 Temperature 38.4 C H 37.7 C Heart Rate 102 H 97 Respiratory 31 H 28 H Rate Blood Pressure 133/70 H 127/81 H O2 Saturation 94 92 If not protocol 2 2 : Oxygen Flow, liters/minute Oxygen O2 Source Nasal cannula - Labs Labs: Laboratory Tests 08/17/22 08/17/22 08/17/22 17:30 17:30 17:30 WBC 11.4 H RBC 5.35 Hgb 14.3 Hct 43.4 MCV 81.1 MCH 26.7 L MCHC 32.9 RDW 15.9 H Plt Count 411 MPV 9.9 Neut # (Auto) 9.0 H Lymph # (Auto) 0.9 L Ogle # (Auto) 0.9 Eos # (Auto) 0.0 Baso # (Auto) 0.1 Absolute Nucleated RBC 0.00 Nucleated RBC % 0.0 PT 15.6 H INR 1.4 H APTT 27.3 Sodium 137 Potassium 3.1 L Chloride 98 L Carbon Dioxide 27 Anion Gap 12.0 BUN 11 Creatinine 0.8 Estimated GFR (MDRD) 69 L Glucose 108 H Lactic Acid Calcium 8.5 Total Bilirubin 1.0 AST 23 ALT 20 Alkaline Phosphatase 65 Total Protein 7.2 Albumin 3.1 L Globulin 4.1 Albumin/Globulin Ratio 0.8 L Lipase 25 Urine Color Urine Clarity Urine pH Ur Specific [place] Urine Protein Urine Glucose (UA) Urine Ketones Urine Occult Blood Urine Nitrite Urine Bilirubin Urine Urobilinogen Ur Leukocyte Esterase Urine RBC Urine WBC Ur Squamous Epith Cells Urine Bacteria Ur Microscopic Review Urine Culture Comments Nasal Adenovirus (PCR) Nasal B. parapertussis DNA (PCR) Nasal Coronavir 229E PCR Nasal Coronavir HKU1 PCR Nasal Coronavir NL63 PCR Nasal Coronavir OC43 PCR Nasal Enterovir/Rhinovir PCR Nasal Influenza B PCR Nasal Influenza A PCR Nasal Parainfluen 1 PCR Nasal Parainfluen 2 PCR Nasal Parainfluen 3 PCR Nasal Parainfluen 4 PCR Nasal RSV (PCR) Nasal B.pertussis DNA PCR Nasal C.pneumoniae (PCR) Raimundo Human Metapneumo PCR Nasal M.pneumoniae (PCR) Nasal SARS-CoV-2 (PCR) 08/17/22 08/17/22 08/17/22 17:30 17:30 18:01 WBC RBC Hgb Hct MCV MCH MCHC RDW Plt Count MPV Neut # (Auto) Lymph # (Auto) Ogle # (Auto) Eos # (Auto) Baso # (Auto) Absolute Nucleated RBC Nucleated RBC % PT INR APTT Sodium Potassium Chloride Carbon Dioxide Anion Gap BUN Creatinine Estimated GFR (MDRD) Glucose Lactic Acid 0.8 Calcium Total Bilirubin AST ALT Alkaline Phosphatase Total Protein Albumin Globulin Albumin/Globulin Ratio Lipase Urine Color DARK YELLOW Urine Clarity CLOUDY Urine pH 6.5 Ur Specific [place] 1.020 Urine Protein 100 H Urine Glucose (UA) NEGATIVE Urine Ketones >=80 H Urine Occult Blood LARGE H Urine Nitrite POSITIVE H Urine Bilirubin SMALL H Urine Urobilinogen 1 (NORMAL) Ur Leukocyte Esterase LARGE H Urine RBC TNTC H Urine WBC >25 H Ur Squamous Epith Cells FEW Squamous Urine Bacteria Many H Ur Microscopic Review INDICATED Urine Culture Comments INDICATED Nasal Adenovirus (PCR) NOT DETECTED Nasal B. parapertussis DNA (PCR) NOT DETECTED Nasal Coronavir 229E PCR NOT DETECTED Nasal Coronavir HKU1 PCR NOT DETECTED Nasal Coronavir NL63 PCR NOT DETECTED Nasal Coronavir OC43 PCR NOT DETECTED Nasal Enterovir/Rhinovir PCR NOT DETECTED Nasal Influenza B PCR NOT DETECTED Nasal Influenza A PCR NOT DETECTED Nasal Parainfluen 1 PCR NOT DETECTED Nasal Parainfluen 2 PCR NOT DETECTED Nasal Parainfluen 3 PCR NOT DETECTED Nasal Parainfluen 4 PCR NOT DETECTED Nasal RSV (PCR) NOT DETECTED Nasal B.pertussis DNA PCR NOT DETECTED Nasal C.pneumoniae (PCR) NOT DETECTED Raimundo Human Metapneumo PCR NOT DETECTED Nasal M.pneumoniae (PCR) NOT DETECTED Nasal SARS-CoV-2 (PCR) NOT DETECTED - Rads (name of study) CT abdomen pelvis Relevant Findings:: Final report received, See rad report Chest x-ray Relevant Findings:: Final report received, See rad report PD Medical Decision Making - ED course Complexity details: reviewed results, re-evaluated patient, considered differential, d/w patient ED course: 82-year-old female with metabolic encephalopathy, likely secondary to fever and UTI. We will treat as pyelonephritis. Blood cultures were drawn. Lactate is normal. She was given IV fluids. She is mildly hypoxic and was placed on 2 L of oxygen. She does have a history of dementia but her mental status is quite a bit worse than even 2 days ago when I saw her. We will admit the patient for further care. Discussed the case with the nighttime hospitalist via telehealth. Patient will be admitted. This document was made in part using voice recognition software. While efforts are made to proofread this document, sound alike and grammatical errors may occur. Departure - Departure Disposition: 66 [facility] DC/Xfer Clinical Impression: Metabolic encephalopathy UTI (urinary tract infection) Qualifiers: Urinary tract infection type: acute pyelonephritis Qualified Code(s): N10 - Acute pyelonephritis Fever Qualifiers: Fever type: unspecified Qualified Code(s): R50.9 - Fever, unspecified Altered mental status Qualifiers: Altered mental status type: unspecified Qualified Code(s): R41.82 - Altered mental status, unspecified Condition: Stable
[2022-08-17 17:49] LABS: ALBUMIN 3.1 g/dL (3.2-5.5); ALBUMIN/GLOBULIN RATIO 0.8 (1.0-2.2); CALCIUM 8.5 mg/dL (8.5-10.3); CREATININE 0.8 mg/dL (0.4-1.0); POTASSIUM 3.1 mmol/L (3.5-5.0); TOTAL PROTEIN 7.2 g/dL (6.7-8.2)
--- NOTE | 2022-08-17 17:52 | XRAY Report ---
PROCEDURE: Chest 1 View X-Ray INDICATIONS: fever TECHNIQUE: One view of the chest was acquired. COMPARISON: Chest x-ray 08/14/2022. FINDINGS: Surgical changes and devices: 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 clips. Lungs and pleura: No pleural effusions or pneumothorax. Lungs are clear. Mediastinum: Mediastinal contours appear normal. Heart size is normal. Bones and chest wall: No suspicious bony lesions. Overlying soft tissues appear unremarkable. IMPRESSION: No acute cardiopulmonary process. Reviewed by: Shahnaz Cornelius MD on 08/17/2022 5:51 PM PDT Approved by: Shahnaz Cornelius MD on 08/17/2022 5:51 PM PDT Station ID: [id number]
[2022-08-17 18:13] LABS: INR 1.4 (0.8-1.2); PT - PROTHROMBIN TIME 15.6 secs (9.9-12.6)
[2022-08-17 18:13] LABS: GLUCOSE, URINE (UA) NEGATIVE (NEGATIVE); KETONES,URINE (UA) >=80 mg/dL (NEGATIVE); LEUKOCYTE ESTERASE, URINE LARGE (NEGATIVE); NITRITE,URINE POSITIVE (NEGATIVE); OCCULT BLOOD,URINE LARGE (NEGATIVE); PH,URINE 6.5 PH (5.0-7.5); PROTEIN,URINE 100 mg/dL (NEGATIVE); UROBILINOGEN,URINE 1 (NORMAL) E.U./dL (NORMAL)
[2022-08-17 18:16] LABS: BILIRUBIN,URINE SMALL (NEGATIVE); CLARITY,URINE CLOUDY (CLEAR); ICTOTEST,URINE POSITIVE
[2022-08-17 18:20] LABS: PARTIAL THROMBOPLASTIN TIME 27.3 secs (24.9-33.3)
[2022-08-17 18:26] LABS: BACTERIA,URINE Many /HPF (None Seen); RBC,URINE TNTC /HPF (0-5); SQUAMOUS EPITHELIAL CELL,UR FEW Squamous (<= Few); WBC,URINE >25 /HPF (0-5)
[2022-08-17 18:33] LABS: B. PARAPERTUSSIS- RESP PCR PAN NOT DETECTED; B. PERTUSSIS- RESP PCR PANEL NOT DETECTED; C. PNEUMONIAE- RESP PCR PANEL NOT DETECTED; CORONAVIRUS 229E-RESP PCR NOT DETECTED; CORONAVIRUS HKU1-RESP PCR NOT DETECTED; CORONAVIRUS NL63-RESP PCR NOT DETECTED; CORONAVIRUS OC43-RESP PCR NOT DETECTED; HUMAN METAPNEUMOVIRUS NOT DETECTED; INFLUENZA A- RESP PCR PANEL NOT DETECTED; INFLUENZA B - RESP PCR PANEL NOT DETECTED; M. PNEUMONIAE- RESP PCR PANEL NOT DETECTED; PARAINFLUENZA VIRUS 1 NOT DETECTED; PARAINFLUENZA VIRUS 2 NOT DETECTED; PARAINFLUENZA VIRUS 3 NOT DETECTED; PARAINFLUENZA VIRUS 4 NOT DETECTED; RHINOVIRUS/ENTEROVIRUS NOT DETECTED; RSV- RESP PCR PANEL NOT DETECTED; SARS-CoV-2 -RESP PCR PANEL NOT DETECTED
[2022-08-17] MEDS ORDERED: cefTRIAXone 1 GM VIAL IVP STA (18:49)
[2022-08-17] MEDS ORDERED: iohexoL-300 100 ML VIAL ONE (19:26)
--- NOTE | 2022-08-17 20:15 | CT Report ---
PROCEDURE: ABDOMEN/PELVIS W INDICATIONS: fever, UTI, abd pain CONTRAST: 100mL Omni 300 TECHNIQUE: After the administration of IV contrast, 5 mm thick sections acquired from the diaphragms to the symp hysis. 5 mm thick coronal and sagittal reformats were acquired. For radiation dose reduction, the f ollowing was used: automated exposure control, adjustment of mA and/or kV according to patient size. COMPARISON: Chest x-ray 08/17/2022, CT chest 05/30/2022 FINDINGS: Image quality: Excellent. Lung bases and heart: Minimal to mild left effusion. Liver: No solid mass. Gallbladder and biliary tree: Gallbladder has been removed. Common bile duct is prominent measuring 1 .1 cm. Spleen: No splenomegaly. Pancreas: No pancreatic ductal dilation. Adrenals: No adrenal nodule. Kidneys and ureters: There is a 2.1 x 2.0 cm calcification, Hounsfield units 139 within the right zak al pelvis, previously present. Prominent hydronephrosis is present. Its appears unchanged. Bowel and peritoneum: No bowel distension. No pathologic free fluid. Colonic diverticula are present without inflammatory change. Lymph nodes: No central or retroperitoneal adenopathy. Vessels: No infrarenal aortic aneurysm. PELVIS Reproductive organs: Unremarkable. Bladder: No abnormal wall thickening, accounting for underdistension. Pelvic lymph nodes: No pelvic adenopathy by size criteria. Bones: No aggressive osseous abnormality. Other: No significant ventral or inguinal hernia. IMPRESSION: Persistent appearance of left renal pelvis down with hydronephrosis. There is overall relatively stab le compared to 05/30/2022. Diverticulosis. Reviewed by: Shahnaz Cornelius MD on 08/17/2022 8:14 PM PDT Approved by: Shahnaz Cornelius MD on 08/17/2022 8:14 PM PDT Station ID: [id number]
[2022-08-17] MEDS ORDERED: SODIUM CHLORIDE FLUSH 0.9% 10 ML SYRINGE IVP PRN (21:20)
[2022-08-17] MEDS ORDERED: ZOLPIDEM 5 MG TABLET PO PRN (21:20)
[2022-08-17] MEDS ORDERED: ONDANSETRON 4 MG/2 ML VIAL IVP PRN (21:20)
[2022-08-17] MEDS ORDERED: MAGNESIUM SULFATE 2 GRAM 2 GM/50 ML BAG IV ONE (21:29)
[2022-08-17] MEDS ORDERED: iohexoL-300 100 ML VIAL IVP ONE (21:29)
[2022-08-17] MEDS ORDERED: POTASSIUM CHLORIDE 20 MEQ TABLET PO STA (21:30)
--- NOTE | 2022-08-17 21:34 | HISTORY & PHYSICAL EXAMINATION ---
Chief Complaint - Chief Complaint Chief Complaint: Change in mental status History of Present Illness - Admitted From Admitted From:: snf - History Obtained From Records Reviewed: yES History obtained from: Patient and ER MD and review of records Exam Limitations: None - History of Present Illness HPI Comment/Other: 82-year-old female has a history of dementia and confusion, she was more confused than usual today at her detention. No falls. She was seen recently for chest pain. She has no chest pain today. Had a temperature of 102 today her detention. Patient states that she has no pain.Patient was in ER 3 days ago for chest pain at that time she was AOA x 3 as per ER MD. Patient seen by me on video informed we are both in different locations and I am her telephysician, she acknowledges is slow to respond but seems to understand, unsure med allergies has few but unable to remember , wants to be full code, feels better, then earlier today VS HR 97 BP 127/71 RR 18 Sat 95% on 2 liters on oxygen History - Past Medical History Cardiovascular: reports: None Respiratory: reports: Sleep apnea Endocrine/Autoimmune: reports: Other GI: reports: Chronic diarrhea : reports: Chronic bladder infection, Kidney stones HEENT: reports: None Psych: reports: Depression Musculoskeletal: reports: Fibromyalgia Derm: reports: None MRSA Hx?: No - Past Surgical History General: reports: 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, 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 HEENT: reports: Tonsil/Adenoidectomy - POLST Patient has POLST: Yes Meds/Allgy - Home Medications Home Medications: Ambulatory Orders Medication Instructions Recorded Confirmed Apixaban [Eliquis] 5 mg PO BID 06/08/22 08/17/22 Sertraline HCl [Zoloft] 50 mg PO DAILY 06/08/22 08/17/22 dilTIAZem HCL [Diltiazem 24Hr ER 240 mg PO DAILY 06/08/22 08/17/22 (Xr)] Metoprolol Succinate [Kapspargo 12.5 mg PO DAILY 08/14/22 08/17/22 Sprinkle] Acetaminophen [Tylenol] 650 mg PO Q6H PRN 08/17/22 08/17/22 Albuterol Sulf [Ventolin Hfa 1 - 2 puffs INH Q4HR PRN 08/17/22 08/17/22 Inhaler] - Allergies Allergies/Adverse Reactions: Allergies Allergy/AdvReac Type Severity Reaction Status Date / Time aluminum Allergy Anaphylaxis Verified 08/14/22 10:17 cephalexin Allergy Edema Verified 08/14/22 10:17 iodine Allergy Anaphylaxis Verified 08/14/22 10:17 levofloxacin Allergy Edema Verified 08/14/22 10:17 nitrofurantoin Allergy Edema Verified 08/14/22 10:17 nitrofurantoin Allergy Edema Verified 08/14/22 10:17 macrocrystalline * [From Macrobid] ofloxacin [From Floxin] Allergy Edema Verified 08/14/22 10:17 Penicillins Allergy Anaphylaxis Verified 08/14/22 10:17 sulfamethoxazole Allergy Edema Verified 08/14/22 10:17 trimethoprim Allergy Edema Verified 08/14/22 10:17 IV Contrast Allergy Edema Uncoded 08/14/22 10:17 Review of Systems - Constitutional Constitutional: reports: Fever - Genitourinary Genitourinary: reports: Dysuria, Urgency Prior Level of Functionality: Semi independent at [facility] Exam - Vital Signs Vital Signs: Vital Signs x48h Temp Pulse Resp BP Pulse Ox O2 Flow Rate 08/17/22 21:20 96 18 127/81 H 95 2.5 08/17/22 20:33 37.7 C 08/17/22 20:11 97 28 H 127/81 H 92 2 08/17/22 19:19 38.4 C H 102 H 31 H 133/70 H 94 2 08/17/22 19:00 104 H 24 133/70 H 94 08/17/22 17:06 110 H 93 2 08/17/22 17:01 38.5 C H 107 H 20 122/51 L 88 L - Physical Exam General Appearance: positive: No acute distress Eyes Bilateral: positive: PERRL, EOMI Neck: positive: Nml inspection, Thyroid nml Cardiovascular: positive: Regular rate & rhythm, No murmur Abdomen: positive: No organomegaly, Nml bowel sounds Rectal: positive: Black stool Skin: positive: Color nml, No rash Neurologic/Psychiatric: positive: CN's nml (2-12), Motor nml, Sensation nml Sepsis Event Note (H) - Evaluation Current Stage of Sepsis: Ruled out Conclusion/Plan - Problem List (1) Altered mental status Conclusion/Plan: Likely from underlying UTI and Fever Also electrolyte imbalance Able to repond simple one line questions Moving all 4 ext Hydration Supportive care Rest Qualifiers: Altered mental status type: unspecified Qualified Code(s): R41.82 - Altered mental status, unspecified (2) Fever Conclusion/Plan: 102 on arrival to ER Improving Tylenol IVF Qualifiers: Fever type: unspecified Qualified Code(s): R50.9 - Fever, unspecified (3) Urinary tract infection Conclusion/Plan: Urine Culture and sensitivity Rocephin CT scan shows old left hydoneprhosis which is unchanged from past no new stones identified Have asked RN for bladder scan and if > 300 cc of urine then [address] [facility] prn Continue supportive care ? P A fib Continue Cardizem Resume Metoprolol in am Continue Eliquis Hx of ASthma Duonebs prn DVT Priophylaxis On Eliqus Qualifiers: Urinary tract infection type: acute pyelonephritis Qualified Code(s): N10 - Acute pyelonephritis - Lab Results Fish Bones: 08/17/22 17:30 08/17/22 17:30 - Diagnostic Imaging Results Diagnostic Imaging Results: positive: Prelim report reviewed - EKG Results EKG Interpreted Independently: No EKG Comparison: Old EKG unavailable
[2022-08-17] MEDS: SODIUM CHLORIDE FLUSH 0.9% 10 ML SYRINGE IVP SCH (22:53)
[2022-08-17] MEDS: SODIUM CHLORIDE 0.9% 1,000 ML IV SCH (23:00)
[2022-08-17] MEDS: ACETAMINOPHEN 325 MG TABLET PO PRN (23:09)
--- NOTE | 2022-08-18 07:47 | PROVIDER PROGRESS NOTE ---
Assessment/Plan - Problem List (1) Gram-negative bacteremia Assessment/Plan: Etiology of this appears to be her UTI. Rocephin 1 g x 1 was ordered by admitting telemedicine night doctor Plan: We will increase Rocephin to 2 g and continue it daily We will repeat blood cultures tomorrow to assure they are negative (2) Urinary tract infection Conclusion/Plan: CT scan shows old left hydoneprhosis which is unchanged from past, no new stones identified Pt was started on Rocephin Ordered bladder scan and if > 300 cc of urine then place [facility] prn Plan: Await urine Culture and sensitivities Cont antibx and a probiotic (3) Altered mental status Conclusion/Plan: Likely from underlying UTI and fever, also electrolyte imbalance. At admission she was able to respond simple one line questions and he is moving all 4 extrem. Today she has improved, is awake, conversant, pleasant, ablr to feed herself. Plan: Cont iv hydration Cont to treat the infection Qualifiers: Altered mental status type: unspecified Qualified Code(s): R41.82 - Altered mental status, unspecified (4) Parox A fib Plan: Continue Cardizem Resume Metoprolol in am Continue Eliquis (5) Hx of Asthma Plan: Duonebs prn - Current Meds Current Meds: Current Medications Generic Name Dose Route Start Last Admin Trade Name Freq PRN Reason Stop Dose Admin Acetaminophen 650 mg 08/17/22 21:10 08/17/22 23:09 Acetaminophen 325 Mg Tablet PO 650 mg Q6H PRN Administration PRN PAIN &/OR FEVER Sodium Chloride 1,000 mls @ 100 mls/hr 08/17/22 22:00 08/17/22 23:00 Normal Saline 0.9% IV 100 mls/hr .Q10H OMAR Administration Sodium Chloride 10 ml 08/18/22 01:00 08/17/22 22:53 Sodium Chloride Flush 0.9% 10 Ml Syringe IVP 10 ml 0100,0900,1700 OMAR Administration - Lab Result Fish Bone Diagrams: 08/18/22 09:28 08/18/22 09:28 - Additional Planning My Orders: My Active Orders 08/18/22 09:00 [email or web address] [Rocephin] 2 gm Sodium Chloride 0.9% Minibag [Normal Saline 0.9% Minibag] 100 ml IV DAILY Subjective - Subjective Patient Reports: Resting Comfortably Objective Vital Signs: Vital Signs - 24 hr 08/17/22 08/17/22 08/17/22 17:01 17:06 19:00 Temperature 38.5 C H Heart Rate 107 H 110 H 104 H Heart Rate [ Brachial] Heart Rate [ Monitoring electrodes] Respiratory 20 24 Rate Blood Pressure 122/51 L 133/70 H Blood Pressure [Right Brachial artery] O2 Saturation 88 L 93 94 If not protocol 2 : Oxygen Flow, liters/minute 08/17/22 08/17/22 08/17/22 19:19 20:11 20:33 Temperature 38.4 C H 37.7 C Heart Rate 102 H 97 Heart Rate [ Brachial] Heart Rate [ Monitoring electrodes] Respiratory 31 H 28 H Rate Blood Pressure 133/70 H 127/81 H Blood Pressure [Right Brachial artery] O2 Saturation 94 92 If not protocol 2 2 : Oxygen Flow, liters/minute 08/17/22 08/17/22 08/17/22 21:10 21:20 22:35 Temperature 37.5 C Heart Rate 96 Heart Rate [ Brachial] Heart Rate [ 96 Monitoring electrodes] Respiratory 18 18 Rate Blood Pressure 127/81 H Blood Pressure 90/65 [Right Brachial artery] O2 Saturation 87 L 95 92 If not protocol 2.5 2 : Oxygen Flow, liters/minute 08/18/22 08/18/22 08/18/22 01:30 05:23 07:29 Temperature 37.2 C Heart Rate Heart Rate [ 93 Brachial] Heart Rate [ Monitoring electrodes] Respiratory 20 Rate Blood Pressure Blood Pressure 109/46 L [Right Brachial artery] O2 Saturation 97 If not protocol 2 2 2 : Oxygen Flow, liters/minute Oxygen O2 Source Nasal cannula I&O (Last 24 Hrs): Intake and Output Totals x24h 08/16/22 08/17/22 08/18/22 23:59 23:59 23:59 Intake Total 450 550 Output Total 650 Balance 450 -100 General: Alert, No acute distress HEENT: Atraumatic, Mucous membr. moist/pink Neck: Supple, No JVD Neuro: Alert, Non Focal Cardiovascular: No murmurs Respiratory: No respiratory distress Abdomen: Soft Extremities: No tenderness/swelling - Results Results: Laboratory Results WBC 11.4 x10^3/uL (4.8-10.8) H 08/17/22 17:30 RBC 5.35 10^6/uL (4.20-5.40) 08/17/22 17:30 Hgb 14.3 g/dL (12.0-16.0) 08/17/22 17: Hct 43.4 % (37.0-47.0) 08/17/22 17: MCV 81.1 fL (81.0-99.0) 08/17/22 17: MCH 26.7 pg (27.0-31.0) L 08/17/22 17: MCHC 32.9 g/dL (32.0-36.0) 08/17/22: RDW 15.9 % (12.0-15.0) H 08/17/22: Plt Count 411 10^3/uL (130-450) 08/17/22 17: MPV 9.9 fL (7.9-10.8) 08/17/22: Neut # (Auto) 9.0 10^3/uL (1.5-6.6) H 08/17/22: Lymph # (Auto) 0.9 10^3/uL (1.5-3.5) L 08/17/22 17: Mccreary # (Auto) 0.9 10^3/uL (0.0-1.0) 08/17/22: Eos # (Auto) 0.0 10^3/uL (0.0-0.7) 08/17/22: Baso # (Auto) 0.1 10^3/uL (0.0-0.1) 08/17/22: Absolute Nucleated RBC 0.00 x10^3/uL 08/17/22: Nucleated RBC % 0.0 /100WBC 08/17/22 17: PT 15.6 secs (9.9-12.6) H 08/17/22 17: INR 1.4 (0.8-1.2) H 08/17/22 17: APTT 27.3 secs (24.9-33.3) 08/17/22 17: Sodium 137 mmol/L (135-145) 08/17/22 17: Potassium 3.1 mmol/L (3.5-5.0) L 08/17/22 17:30 Chloride 98 mmol/L (101-111) L 08/17/22 17:30 Carbon Dioxide 27 mmol/L (21-32) 08/17/22 17:30 Anion Gap 12.0 (6-13) 08/17/22 17:30 BUN 11 mg/dL (6-20) 08/17/22 17:30 Creatinine 0.8 mg/dL (0.4-1.0) 08/17/22 17:30 Estimated GFR (MDRD) 69 (>89) L 08/17/22 17:30 Glucose 108 mg/dL (70-100) H 08/17/22 17:30 Lactic Acid 0.8 mmol/L (0.5-2.2) 08/17/22 17:30 Calcium 8.5 mg/dL (8.5-10.3) 08/17/22 17:30 Total Bilirubin 1.0 mg/dL (0.2-1.0) 08/17/22 17:30 AST 23 IU/L (10-42) 08/17/22 17:30 ALT 20 IU/L (10-60) 08/17/22 17:30 Alkaline Phosphatase 65 IU/L (42-121) 08/17/22 17:30 Total Protein 7.2 g/dL (6.7-8.2) 08/17/22 17:30 Albumin 3.1 g/dL (3.2-5.5) L 08/17/22 17:30 Globulin 4.1 g/dL (2.1-4.2) 08/17/22 17:30 Albumin/Globulin Ratio 0.8 (1.0-2.2) L 08/17/22 17:30 Lipase 25 U/L (22-51) 08/17/22 17:30 Urine Color DARK YELLOW 08/17/22 18:01 Urine Clarity CLOUDY (CLEAR) 08/17/22 18: Urine pH 6.5 PH (5.0-7.5) 08/17/22 18:01 Ur Specific Peculiar 1.020 (1.002-1.030) 08/17/22 18:01 Urine Protein 100 mg/dL (NEGATIVE) H 08/17/22 18:01 Urine Glucose (UA) NEGATIVE mg/dL (NEGATIVE) 08/17/22 18:01 Urine Ketones >=80 mg/dL (NEGATIVE) H 08/17/22 18:01 Urine Occult Blood LARGE (NEGATIVE) H 08/17/22 18:01 Urine Nitrite POSITIVE (NEGATIVE) H 08/17/22 18:01 Urine Bilirubin SMALL (NEGATIVE) H 08/17/22 18:01 Urine Urobilinogen 1 (NORMAL) E.U./dL (NORMAL) 08/17/22 18:01 Ur Leukocyte Esterase LARGE (NEGATIVE) H 08/17/22 18:01 Urine RBC TNTC /HPF (0-5) H 08/17/22 18:01 Urine WBC >25 /HPF (0-5) H 08/17/22 18:01 Ur Squamous Epith Cells FEW Squamous (<= Few) 08/17/22 18:01 Urine Bacteria Many /HPF (None Seen) H 08/17/22 18:01 Ur Microscopic Review INDICATED 08/17/22 18:01 Urine Culture Comments INDICATED 08/17/22 18:01 Nasal Adenovirus (PCR) NOT DETECTED 08/17/22 17:30 Nasal B. parapertussis DNA (PCR) NOT DETECTED 08/17/22 17:30 Nasal Coronavir 229E PCR NOT DETECTED 08/17/22 17:30 Nasal Coronavir HKU1 PCR NOT DETECTED 08/17/22 17:30 Nasal Coronavir NL63 PCR NOT DETECTED 08/17/22 17:30 Nasal Coronavir OC43 PCR NOT DETECTED 08/17/22 17:30 Nasal Enterovir/Rhinovir PCR NOT DETECTED 08/17/22 17:30 Nasal Influenza B PCR NOT DETECTED 08/17/22 17:30 Nasal Influenza A PCR NOT DETECTED 08/17/22 17:30 Nasal Parainfluen 1 PCR NOT DETECTED 08/17/22 17:30 Nasal Parainfluen 2 PCR NOT DETECTED 08/17/22 17:30 Nasal Parainfluen 3 PCR NOT DETECTED 08/17/22 17:30 Nasal Parainfluen 4 PCR NOT DETECTED 08/17/22 17:30 Nasal RSV (PCR) NOT DETECTED 08/17/22 17:30 Nasal B.pertussis DNA PCR NOT DETECTED 08/17/22 17:30 Nasal C.pneumoniae (PCR) NOT DETECTED 08/17/22 17:30 Raimundo Human Metapneumo PCR NOT DETECTED 08/17/22 17:30 Nasal M.pneumoniae (PCR) NOT DETECTED 06/12/23 17:30 Nasal SARS-CoV-2 (PCR) NOT DETECTED 08/17/22 17:30 Sepsis Event Note (H) - Evaluation Current Stage of Sepsis: Ruled out
[2022-08-18] MEDS ORDERED: cefTRIAXone 1 GM in SODIUM CHLORIDE 0.9% MINIBAG 100 ML IV SCH (09:00)
[2022-08-18] MEDS ORDERED: TOPIRAMATE 25 MG TABLET PO SCH (09:00)
[2022-08-18 09:36] LABS: BASOPHILS # (AUTO) 0.1 10^3/uL (0.0-0.1); BASOPHILS % (AUTO) 0.7 %; EOSINOPHILS % (AUTO) 0.4 %; HCT - HEMATOCRIT 42.8 % (37.0-47.0); HGB - HEMOGLOBIN 13.8 g/dL (12.0-16.0); LYMPHOCYTES # (AUTO) 0.9 10^3/uL (1.5-3.5); LYMPHOCYTES % (AUTO) 7.9 %; MEAN CORPUSCULAR HEMOGLOBIN 26.7 pg (27.0-31.0); MEAN CORPUSCULAR HGB CONC 32.2 g/dL (32.0-36.0); MEAN CORPUSCULAR VOLUME 82.8 fL (81.0-99.0); MEAN PLATELET VOLUME 9.9 fL (7.9-10.8); MONOCYTES # (AUTO) 0.8 10^3/uL (0.0-1.0); MONOCYTES % (AUTO) 7.5 %; NEUTROPHILS # (AUTO) 8.8 10^3/uL (1.5-6.6); NEUTROPHILS % (AUTO) 81.2 %; PLT - PLATELET COUNT 344 10^3/uL (130-450); RED BLOOD COUNT 5.17 10^6/uL (4.20-5.40); RED CELL DISTRIBUTION WIDTH 16.3 % (12.0-15.0); WHITE BLOOD COUNT 10.8 x10^3/uL (4.8-10.8)
[2022-08-18 09:54] LABS: ALBUMIN 2.8 g/dL (3.2-5.5); ALBUMIN/GLOBULIN RATIO 0.7 (1.0-2.2); BILIRUBIN,TOTAL 0.7 mg/dL (0.2-1.0); CALCIUM 8.1 mg/dL (8.5-10.3); CREATININE 0.6 mg/dL (0.4-1.0); POTASSIUM 3.6 mmol/L (3.5-5.0); TOTAL PROTEIN 6.6 g/dL (6.7-8.2)
[2022-08-18] MEDS: cefTRIAXone 2 GM in SODIUM CHLORIDE 0.9% MINIBAG 100 ML IV SCH (10:16)
[2022-08-18] MEDS: NYSTATIN POWDER 15 GM TOP SCH ×2 (10:17→20:51)
[2022-08-18] MEDS: SODIUM CHLORIDE 0.9% 1,000 ML IV SCH ×2 (10:17→22:47)
[2022-08-18] MEDS: APIXABAN 5 MG TABLET PO SCH ×2 (10:18→20:51)
[2022-08-18] MEDS: METOPROLOL SUCCINATE 25 MG TABLET PO SCH (10:18)
[2022-08-18] MEDS: diltiaZEM CD 240 MG CAPSULE PO SCH (10:19)
[2022-08-18] MEDS: ACETAMINOPHEN 325 MG TABLET PO PRN (10:19)
[2022-08-18] MEDS: SODIUM CHLORIDE FLUSH 0.9% 10 ML SYRINGE IVP SCH ×2 (10:19→20:43)
[2022-08-18] MEDS: SERTRALINE 50 MG TABLET PO SCH (10:19)
[2022-08-18] MEDS: HYDROcod/ACETAM 5/325 MG TABLET PO PRN (13:03)
--- NOTE | 2022-08-18 14:04 | PHARMACY PROGRESS NOTE ---
- Best Possible Medication History Admit Date and Time: 08/17/222119 Processed by: Pharmacy Medication History completed: Yes Patient Interview: Pt unable to participate Secondary Source(s): Pharmacy records, Insurance records Patient seemed altered during interview. She states she barely takes any medications at all but was unable to recall any names. When I prompted her with the medications I could see on her recent fill history, the patient denied taking any of them "to avoid side effects." She claimed she is an "aspirin only gal." Due to patient's status, medication list updated using recently prescribed/filled medications from this month. As the person ultimately responsible for medication therapy, providers are able to order a medication from an existing home medication list in [facility] via the "Reconcile Routine" prior to Confirmation of that medication by life support technician. Such practice is discouraged except when the physician, in their clinical judgment, deems that a medical need exists for a medication without regard to previous use.
[2022-08-19] MEDS: SODIUM CHLORIDE FLUSH 0.9% 10 ML SYRINGE IVP SCH ×3 (01:19→16:04)
[2022-08-19] MEDS: METOPROLOL SUCCINATE 25 MG TABLET PO SCH (08:00)
[2022-08-19] MEDS: APIXABAN 5 MG TABLET PO SCH ×2 (08:01→20:51)
[2022-08-19] MEDS: cefTRIAXone 2 GM in SODIUM CHLORIDE 0.9% MINIBAG 100 ML IV SCH (08:01)
[2022-08-19] MEDS: diltiaZEM CD 240 MG CAPSULE PO SCH (08:01)
[2022-08-19] MEDS: NYSTATIN POWDER 15 GM TOP SCH ×2 (08:01→20:51)
[2022-08-19] MEDS: SERTRALINE 50 MG TABLET PO SCH (08:03)
[2022-08-19] MEDS: SODIUM CHLORIDE 0.9% 1,000 ML IV SCH ×2 (10:11→20:36)
--- NOTE | 2022-08-19 14:34 | PROVIDER PROGRESS NOTE ---
Assessment/Plan - Problem List (1) Bacteremia due to Proteus species Assessment/Plan: Etiology of this appears to be her UTI. Rocephin 1 g x 1 was ordered by admitting telemedicine night doctor I increased Rocephin to 2 g Plan I will order repeat blood culture today to assure they are negative Continue Rocephin 2 g daily (2) Urinary tract infection Conclusion/Plan: CT scan shows old left hydroneprhosis which is unchanged from past, no new stones identified. Pt was started on Rocephin. Proteus is growing in the urinary culture as well as the blood Ordered bladder scan and if > 300 cc of [address] then [address] [facility] prn Plan: Start Pyridium for UTI sx Await urine Culture and sensitivities Cont antibx and a probiotic (3) Parox A fib Plan: Continue Cardizem Continue Metoprolol Continue Eliquis (4) Hx of Asthma Plan: Ordered Duonebs prn (5) Altered mental status Conclusion/Plan: RESOLVED Likely from underlying UTI and fever, also electrolyte imbalance. At admission she was able to respond simple one line questions and he is moving all 4 extrem. Since 08/18 she has improved, is awake, conversant, pleasant, able to feed herself. Plan: Cont iv hydration Cont to treat the infection Qualifiers: Altered mental status type: unspecified Qualified Code(s): R41.82 - Altered mental status, unspecified - Current Meds Current Meds: Current Medications Generic Name Dose Route Start Last Admin Trade Name Freq PRN Reason Stop Dose Admin Acetaminophen 650 mg 08/17/22 21:10 08/18/22 10:19 Acetaminophen 325 Mg Tablet PO 650 mg Q6H PRN Administration PRN PAIN &/OR FEVER Hydrocodone Bitart/Acetaminophen 1 tab 08/17/22 21:20 08/18/22 13:03 Hydrocod/Acetam 5/325 Mg Tablet PO 1 tab Q4HR PRN Administration Pain 5 to 7 Apixaban 5 mg 08/18/22 09:00 08/19/22 08:01 Apixaban 5 Mg Tablet PO 5 mg BID OMAR Administration Diltiazem HCl 240 mg 08/18/22 09:00 08/19/22 08:01 Diltiazem Cd 240 Mg Capsule PO 240 mg DAILY OMAR Administration Sodium Chloride 1,000 mls @ 100 mls/hr 08/17/22 22:00 08/19/22 10:11 Normal Saline 0.9% IV 100 mls/hr .Q10H OMAR Administration Ceftriaxone Sodium 2 gm/ 100 mls @ 200 mls/hr 08/18/22 09:00 08/19/22 08:35 Sodium Chloride IV Infused DAILY OMAR Infusion Metoprolol Succinate 12.5 mg 08/18/22 09:00 08/19/22 08:00 Metoprolol Succinate 25 Mg Tablet PO 12.5 mg DAILY OMAR Administration Nystatin 1 applic 08/18/22 09:00 08/19/22 08:01 Nystatin Powder 15 Gm TOP 1 applic BID OMAR Administration Sertraline HCl 50 mg 08/18/22 09:00 08/19/22 08:03 Sertraline 50 Mg Tablet PO 50 mg DAILY OMAR Administration Sodium Chloride 10 ml 08/18/22 01:00 08/19/22 08:02 Sodium Chloride Flush 0.9% 10 Ml Syringe IVP Not Given 0100,0900,1700 OMAR - Lab Result Fish Bone Diagrams: 08/18/22 09:28 08/18/22 09:28 - Additional Planning My Orders: My Active Orders 08/19/22 Evaluate and Treat OT [OT] Routine Evaluate and Treat PT [PT] Routine 08/19/22 09:34 CULTURE, BLOOD #1 [RM] Stat 08/19/22 Lunch Regular Diet [DIET] 08/19/22 14:32 Phenazopyridine [Pyridium] 100 mg PO TID 08/19/22 17:00 Multivitamin W/Minerals [Theragran M] 1 tab PO DAILYWM Subjective - Subjective Patient Reports: Feeling Better (Has more energy, worked withPT), Itching (Patient complains of urinary pain, urgency and "feels like live squirrels down there") Objective Vital Signs: Vital Signs - 24 hr 08/18/22 08/18/22 08/18/22 15:42 15:54 22:00 Temperature 36.5 C Heart Rate [ 69 68 Brachial] Heart Rate [ Sitting] Heart Rate [ Supine] Respiratory 18 18 Rate Blood Pressure 110/54 L 114/42 L [Right Brachial artery] Blood Pressure [Sitting] Blood Pressure [Supine] O2 Saturation 94 97 O2 Saturation [ Sitting] O2 Saturation [ Supine] If not protocol 1.5 2 2 : Oxygen Flow, liters/minute 08/18/22 08/19/2223 23:49 00:09 07:25 Temperature 37.4 C 36.9 C Heart Rate [ 96 79 Brachial] Heart Rate [ Sitting] Heart Rate [ Supine] Respiratory 20 18 Rate Blood Pressure 123/55 L 111/53 L [Right Brachial artery] Blood Pressure [Sitting] Blood Pressure [Supine] O2 Saturation 96 97 O2 Saturation [ Sitting] O2 Saturation [ Supine] If not protocol 2 1 1.5 : Oxygen Flow, liters/minute 08/19/22 08/19/22 08/19/22 07:27 10:35 11:05 Temperature Heart Rate [ Brachial] Heart Rate [ 83 83 Sitting] Heart Rate [ 71 71 Supine] Respiratory Rate Blood Pressure [Right Brachial artery] Blood Pressure 157/78 H 157/78 H [Sitting] Blood Pressure 117/59 L 117/59 L [Supine] O2 Saturation O2 Saturation [ 92 Sitting] O2 Saturation [ 96 Supine] If not protocol 1 : Oxygen Flow, liters/minute Oxygen O2 Source Nasal cannula I&O (Last 24 Hrs): Intake and Output Totals x24h 08/17/22 08/18/22 08/19/22 23:59 23:59 23:59 Intake Total 450 3972.000 1720 Output Total 1350 1700 Balance 450 2622.000 20 General: Alert, Oriented x3 HEENT: Mucous membr. moist/pink Neck: Supple, No JVD Neuro: Alert, Non Focal Cardiovascular: No murmurs Respiratory: No respiratory distress Abdomen: Soft, No tenderness Extremities: No clubbing, No edema - Results Results: Laboratory Results WBC 10.8 x10^3/uL (4.8-10.8) 08/18/22 09:28 RBC 5.17 10^6/uL (4.20-5.40) 08/18/22 09:28 Hgb 13.8 g/dL (12.0-16.0) 08/18/22 09:28 Hct 42.8 % (37.0-47.0) 08/18/22 09:28 MCV 82.8 fL (81.0-99.0) 08/18/22 09:28 MCH 26.7 pg (27.0-31.0) L 08/18/22 09:28 MCHC 32.2 g/dL (32.0-36.0) 08/18/22 09:28 RDW 16.3 % (12.0-15.0) H 08/18/22 09:28 Plt Count 344 10^3/uL (130-450) 08/18/22 09:28 MPV 9.9 fL (7.9-10.8) 08/18/22 09:28 Neut # (Auto) 8.8 10^3/uL (1.5-6.6) H 08/18/22 09:28 Lymph # (Auto) 0.9 10^3/uL (1.5-3.5) L 08/18/22 09:28 [place] # (Auto) 0.8 10^3/uL (0.0-1.0) 08/18/22: Eos # (Auto) 0.0 10^3/uL (0.0-0.7) 08/18/22 09: Baso # (Auto) 0.1 10^3/uL (0.0-0.1) 08/18/22 09: Absolute Nucleated RBC 0.00 x10^3/uL 08/18/22 09: Nucleated RBC % 0.0 /100WBC 08/18/22 09: PT 15.6 secs (9.9-12.6) H 08/17/22 17:30 INR 1.4 (0.8-1.2) H 08/17/22 17:30 APTT 27.3 secs (24.9-33.3) 08/17/22 17:30 Sodium 137 mmol/L (135-145) 08/18/22 09:28 Potassium 3.6 mmol/L (3.5-5.0) 08/18/22 09:28 Chloride 96 mmol/L (101-111) L 08/18/22 09:28 Carbon Dioxide 30 mmol/L (21-32) 08/18/22 09:28 Anion Gap 11.0 (6-13) 08/18/22 09:28 BUN 10 mg/dL (6-20) 08/18/22 09:28 Creatinine 0.6 mg/dL (0.4-1.0) 08/18/22 09:28 Estimated GFR (MDRD) 95 (>89) 08/18/22 09:28 Glucose 160 mg/dL (70-100) H 08/18/22 09:28 Lactic Acid 0.8 mmol/L (0.5-2.2) 08/17/22 17:30 Calcium 8.1 mg/dL (8.5-10.3) L 08/18/22 09:28 Total Bilirubin 0.7 mg/dL (0.2-1.0) 08/18/22 09:28 AST 19 IU/L (10-42) 08/18/22 09:28 ALT 17 IU/L (10-60) 08/18/22 09:28 Alkaline Phosphatase 59 IU/L (42-121) 08/18/22 09:28 Total Protein 6.6 g/dL (6.7-8.2) L 08/18/22 09:28 Albumin 2.8 g/dL (3.2-5.5) L 08/18/22 09:28 Globulin 3.8 g/dL (2.1-4.2) 08/18/22 09:28 Albumin/Globulin Ratio 0.7 (1.0-2.2) L 08/18/22 09: Lipase 25 U/L (22-51) 08/17/22 17:30 Urine Color DARK YELLOW 08/17/22 18:01 Urine Clarity CLOUDY (CLEAR) 08/17/22 18:01 Urine pH 6.5 PH (5.0-7.5) 08/17/22 18:01 Ur Specific Wirt 1.020 (1.002-1.030) 08/17/22 18:01 Urine Protein 100 mg/dL (NEGATIVE) H 08/17/22 18:01 Urine Glucose (UA) NEGATIVE mg/dL (NEGATIVE) 08/17/22 18:01 Urine Ketones >=80 mg/dL (NEGATIVE) H 08/17/22 18:01 Urine Occult Blood LARGE (NEGATIVE) H 08/17/22 18:01 Urine Nitrite POSITIVE (NEGATIVE) H 08/17/22 18:01 Urine Bilirubin SMALL (NEGATIVE) H 08/17/22 18:01 Urine Urobilinogen 1 (NORMAL) E.U./dL (NORMAL) 08/17/22 18:01 Ur Leukocyte Esterase LARGE (NEGATIVE) H 08/17/22 18:01 Urine RBC TNTC /HPF (0-5) H 08/17/22 18:01 Urine WBC >25 /HPF (0-5) H 08/17/22 18:01 Ur Squamous Epith Cells FEW Squamous (<= Few) 08/17/22 18:01 Urine Bacteria Many /HPF (None Seen) H 08/17/22 18:01 Ur Microscopic Review INDICATED 08/17/22 18:01 Urine Culture Comments INDICATED 08/17/22 18:01 Nasal Adenovirus (PCR) NOT DETECTED 08/17/22 17:30 Nasal B. parapertussis DNA (PCR) NOT DETECTED 08/17/22 17:30 Nasal Coronavir 229E PCR NOT DETECTED 08/17/22 17:30 Nasal Coronavir HKU1 PCR NOT DETECTED 08/17/22 17:30 Nasal Coronavir NL63 PCR NOT DETECTED 08/17/22 17:30 Nasal Coronavir OC43 PCR NOT DETECTED 08/17/22 17:30 Nasal Enterovir/Rhinovir PCR NOT DETECTED 08/17/22 17:30 Nasal Influenza B PCR NOT DETECTED 08/17/22 17:30 Nasal Influenza A PCR NOT DETECTED 08/17/22 17:30 Nasal Parainfluen 1 PCR NOT DETECTED 08/17/22 17:30 Nasal Parainfluen 2 PCR NOT DETECTED 08/17/22 17:30 Nasal Parainfluen 3 PCR NOT DETECTED 08/17/22 17:30 Nasal Parainfluen 4 PCR NOT DETECTED 08/17/22 17:30 Nasal RSV (PCR) NOT DETECTED 08/17/22 17:30 Nasal B.pertussis DNA PCR NOT DETECTED 08/17/22 17:30 Nasal C.pneumoniae (PCR) NOT DETECTED 08/17/22 17:30 Raimundo Human Metapneumo PCR NOT DETECTED 08/17/22 17:30 Nasal M.pneumoniae (PCR) NOT DETECTED 08/17/22 17:30 Nasal SARS-CoV-2 (PCR) NOT DETECTED 08/17/22 17:30 Sepsis Event Note (H) - Evaluation Current Stage of Sepsis: Ruled out
[2022-08-19] MEDS: MULTIVITAMIN W/MINERALS TABLET PO SCH (16:04)
[2022-08-19] MEDS: PHENAZOPYRIDINE 100 MG TABLET PO SCH ×2 (16:04→20:53)
[2022-08-19] MEDS: HYDROcod/ACETAM 5/325 MG TABLET PO PRN (16:21)
[2022-08-20] MEDS: SODIUM CHLORIDE FLUSH 0.9% 10 ML SYRINGE IVP SCH ×4 (00:44→22:09)
[2022-08-20] MEDS: PHENAZOPYRIDINE 100 MG TABLET PO SCH ×3 (05:28→22:09)
[2022-08-20 06:29] LABS: BASOPHILS # (AUTO) 0.1 10^3/uL (0.0-0.1); BASOPHILS % (AUTO) 0.8 %; EOSINOPHILS # (AUTO) 0.2 10^3/uL (0.0-0.7); EOSINOPHILS % (AUTO) 1.9 %; HCT - HEMATOCRIT 42.3 % (37.0-47.0); HGB - HEMOGLOBIN 13.2 g/dL (12.0-16.0); LYMPHOCYTES # (AUTO) 1.5 10^3/uL (1.5-3.5); MEAN CORPUSCULAR HEMOGLOBIN 26.4 pg (27.0-31.0); MEAN CORPUSCULAR HGB CONC 31.2 g/dL (32.0-36.0); MEAN CORPUSCULAR VOLUME 84.6 fL (81.0-99.0); MEAN PLATELET VOLUME 10.6 fL (7.9-10.8); MONOCYTES # (AUTO) 0.9 10^3/uL (0.0-1.0); NEUTROPHILS # (AUTO) 7.6 10^3/uL (1.5-6.6); NEUTROPHILS % (AUTO) 72.4 %; PLT - PLATELET COUNT 368 10^3/uL (130-450); WHITE BLOOD COUNT 10.4 x10^3/uL (4.8-10.8)
[2022-08-20 06:43] LABS: CALCIUM 8.5 mg/dL (8.5-10.3); CREATININE 0.5 mg/dL (0.4-1.0); POTASSIUM 3.4 mmol/L (3.5-5.0)
[2022-08-20] MEDS ORDERED: POTASSIUM BICARB 25 MEQ TABLET PO ONE (07:38)
[2022-08-20] MEDS: MULTIVITAMIN W/MINERALS TABLET PO SCH (08:52)
[2022-08-20] MEDS: cefTRIAXone 2 GM in SODIUM CHLORIDE 0.9% MINIBAG 100 ML IV SCH (08:52)
[2022-08-20] MEDS: SERTRALINE 50 MG TABLET PO SCH (08:52)
[2022-08-20] MEDS: diltiaZEM CD 240 MG CAPSULE PO SCH (08:53)
[2022-08-20] MEDS: METOPROLOL SUCCINATE 25 MG TABLET PO SCH (08:53)
[2022-08-20] MEDS: NYSTATIN POWDER 15 GM TOP SCH ×2 (08:53→22:10)
[2022-08-20] MEDS: APIXABAN 5 MG TABLET PO SCH ×2 (08:53→22:09)
--- NOTE | 2022-08-20 11:57 | PROVIDER PROGRESS NOTE ---
Assessment/Plan - Problem List (1) Bacteremia due to Proteus species Assessment/Plan: Etiology of this is her UTI. Rocephin 1 g x 1 was ordered by admitting [facility] night doctor. I increased Rocephin to 2 g daily Repeat blood culture were drawn yesterday 08/19, to assure they are negative Plan: Will transition iv Rocephin to Levofloxacin 750 mg daily orally, based on this Proteus' sensitivities Will plan a 7 day total course of antibx If her WBC is normal and the final blood cx repeat is neg, anticipate discharge soon (2) Urinary tract infection Conclusion/Plan: CT scan shows old left hydroneprhosis which is unchanged from past, no new stones identified. Pt was started on iv Rocephin. Proteus is growing in the urinary culture as well as the blood Started Pyridium for UTI sx Plan: Will transition iv Rocephin to Levoflox orally, based on sensitivities Will plan a 7 day total course of antibx (3) Urinary retention Ordered bladder scan and if > 300 cc of urine then place bradford prn Plan: We will order bladder training by clamping the Bradford every 2 hours every 4 hours and hopefully discontinue Bradford tonight (4) Parox A fib Plan: Continue Cardizem Continue Metoprolol Continue Eliquis (5) Hx of Asthma Patient is describing shortness of breath with activity but has no wheezing Plan: Ordered Duonebs prn PT and OT to work with the patient, assess her SOB and O2 sats (6) Altered mental status Conclusion/Plan: RESOLVED Likely from underlying UTI and fever, also electrolyte imbalance on top of poor memory. At admission she was able to respond simple one line questions and he is moving all 4 extrem. Since 08/18 she has improved, is awake, conversant, pleasant, able to feed herself, ambulate. Plan: Cont to treat the infection PT and OT to work with pt Qualifiers: Altered mental status type: unspecified Qualified Code(s): R41.82 - Altered mental status, unspecified - Current Meds Current Meds: Current Medications Generic Name Dose Route Start Last Admin Trade Name Freq PRN Reason Stop Dose Admin Acetaminophen 650 mg 08/17/22 21:10 08/18/22 10:19 Acetaminophen 325 Mg Tablet PO 650 mg Q6H PRN Administration PRN PAIN &/OR FEVER Hydrocodone Bitart/Acetaminophen 1 tab 08/17/22 21:20 08/19/22 16:21 Hydrocod/Acetam 5/325 Mg Tablet PO 1 tab Q4HR PRN Administration Pain 5 to 7 Apixaban 5 mg 08/18/22 09:00 08/20/22 08:53 Apixaban 5 Mg Tablet PO 5 mg BID OMAR Administration Diltiazem HCl 240 mg 08/18/22 09:00 08/20/22 08:53 Diltiazem Cd 240 Mg Capsule PO 240 mg DAILY OMAR Administration Sodium Chloride 1,000 mls @ 100 mls/hr 08/17/22 22:00 08/20/22 08:51 Normal Saline 0.9% IV 100 mls/hr .Q10H OMAR Infusion Ceftriaxone Sodium 2 gm/ 100 mls @ 200 mls/hr 08/18/22 09:00 08/20/22 09:25 Sodium Chloride IV Infused DAILY OMAR Infusion Metoprolol Succinate 12.5 mg 08/18/22 09:00 08/20/22 08:53 Metoprolol Succinate 25 Mg Tablet PO 12.5 mg DAILY OMAR Administration Multivitamins/Minerals 1 tab 08/19/22 17:00 08/20/22 08:52 Multivitamin W/Minerals Tablet PO 1 tab DAILYWM OMAR Administration Nystatin 1 applic 08/18/22 09:00 08/20/22 08:53 Nystatin Powder 15 Gm TOP 1 applic BID OMAR Administration Phenazopyridine HCl 100 mg 08/19/22 14:32 08/20/22 05:28 Phenazopyridine 100 Mg Tablet PO 100 mg TID OMAR Administration Sertraline HCl 50 mg 08/18/22 09:00 08/20/22 08:52 Sertraline 50 Mg Tablet PO 50 mg DAILY OMAR Administration Sodium Chloride 10 ml 08/18/22 01:00 08/20/22 08:54 Sodium Chloride Flush 0.9% 10 Ml Syringe IVP 10 ml 0100,0900,1700 OMAR Administration - Lab Result Fish Bone Diagrams: 08/20/22 05:49 08/20/22 05:49 - Additional Planning My Orders: My Active Orders 08/19/22 Lunch Regular Diet [DIET] 08/19/22 14:32 Phenazopyridine [Pyridium] 100 mg PO TID 08/19/22 17:00 Multivitamin W/Minerals [Theragran M] 1 tab PO DAILYWM Subjective - Subjective Patient Reports: Feeling Better (Has more energy), Shortness of Breath (with walking and gets palpitations (not a new symptom)) Objective Vital Signs: Vital Signs - 24 hr 08/19/22 08/19/22 08/19/22 15:25 16:10 23:24 Temperature 36.8 C 36.7 C Heart Rate [ 69 77 Brachial] Respiratory 18 20 Rate Blood Pressure 128/50 L 115/60 [Right Brachial artery] O2 Saturation 99 97 97 If not protocol 1.5 : Oxygen Flow, liters/minute 08/20/22 07:21 Temperature 36.8 C Heart Rate [ 84 Brachial] Respiratory 18 Rate Blood Pressure 130/64 [Right Brachial artery] O2 Saturation 95 If not protocol : Oxygen Flow, liters/minute Oxygen O2 Source Room air I&O (Last 24 Hrs): Intake and Output Totals x24h 08/18/22 08/19/22 08/20/22 23:59 23:59 23:59 Intake Total 3972.000 2810 320 Output Total 1350 2250 1675 Balance 2622.000 560 -1355 General: Alert, Oriented x3 HEENT: Mucous membr. moist/pink Neck: Supple, No JVD Neuro: Alert, Non Focal, Other (Poor memory) Cardiovascular: Regular rate, No murmurs Respiratory: No respiratory distress, Breath sounds nml Abdomen: Soft, Other (Obese) Genitourinary: Other (Bradford in place) Extremities: No clubbing, No edema - Results Results: Laboratory Results WBC 10.4 x10^3/uL (4.8-10.8) 08/20/22 05:49 RBC 5.00 10^6/uL (4.20-5.40) 08/20/22 05:49 Hgb 13.2 g/dL (12.0-16.0) 08/20/22 05:49 Hct 42.3 % (37.0-47.0) 08/20/22 05:49 MCV 84.6 fL (81.0-99.0) 08/20/22 05:49 MCH 26.4 pg (27.0-31.0) L 08/20/22 05:49 MCHC 31.2 g/dL (32.0-36.0) L 08/20/22 05:49 RDW 16.0 % (12.0-15.0) H 08/20/22 05:49 Plt Count 368 10^3/uL (130-450) 08/20/22 05:49 MPV 10.6 fL (7.9-10.8) 08/20/22 05:49 Neut # (Auto) 7.6 10^3/uL (1.5-6.6) H 08/20/22 05:49 Lymph # (Auto) 1.5 10^3/uL (1.5-3.5) 08/20/22 05:49 [place] # (Auto) 0.9 10^3/uL (0.0-1.0) 08/20/22 05:49 Eos # (Auto) 0.2 10^3/uL (0.0-0.7) 08/20/22 05:49 Baso # (Auto) 0.1 10^3/uL (0.0-0.1) 08/20/22 05:49 Absolute Nucleated RBC 0.00 x10^3/uL 08/20/22 05:49 Nucleated RBC % 0.0 /100WBC 08/20/22 05:49 PT 15.6 secs (9.9-12.6) H 08/17/22 17:30 INR 1.4 (0.8-1.2) H 08/17/22 17:30 APTT 27.3 secs (24.9-33.3) 08/17/22 17:30 Sodium 139 mmol/L (135-145) 08/20/22 05:49 Potassium 3.4 mmol/L (3.5-5.0) L 08/20/22 05:49 Chloride 103 mmol/L (101-111) 08/20/22 05:49 Carbon Dioxide 26 mmol/L (21-32) 08/20/22 05:49 Anion Gap 10.0 (6-13) 08/20/22 05:49 BUN 7 mg/dL (6-20) 08/20/22 05:49 Creatinine 0.5 mg/dL (0.4-1.0) 08/20/22 05:49 Estimated GFR (MDRD) 118 (>89) 08/20/22 05:49 Glucose 109 mg/dL (70-100) H 08/20/22 05:49 Lactic Acid 0.8 mmol/L (0.5-2.2) 08/17/22 17:30 Calcium 8.5 mg/dL (8.5-10.3) 08/20/22 05:49 Total Bilirubin 0.7 mg/dL (0.2-1.0) 08/18/22 09:28 AST 19 IU/L (10-42) 08/18/22 09:28 ALT 17 IU/L (10-60) 08/18/22 09:28 Alkaline Phosphatase 59 IU/L (42-121) 08/18/22 09:28 Total Protein 6.6 g/dL (6.7-8.2) L 08/18/22 09:28 Albumin 2.8 g/dL (3.2-5.5) L 08/18/22 09:28 Globulin 3.8 g/dL (2.1-4.2) 08/18/22 09:28 Albumin/Globulin Ratio 0.7 (1.0-2.2) L 08/18/22 09:28 Lipase 25 U/L (22-51) 08/17/22 17:30 Urine Color DARK YELLOW 08/17/22 18:01 Urine Clarity CLOUDY (CLEAR) 08/17/22 18:01 Urine pH 6.5 PH (5.0-7.5) 08/17/22 18:01 Ur Specific [place] 1.020 (1.002-1.030) 08/17/22 18:01 Urine Protein 100 mg/dL (NEGATIVE) H 08/17/22 18:01 Urine Glucose (UA) NEGATIVE mg/dL (NEGATIVE) 08/17/22 18:01 Urine Ketones >=80 mg/dL (NEGATIVE) H 08/17/22 18:01 Urine Occult Blood LARGE (NEGATIVE) H 08/17/22 18:01 Urine Nitrite POSITIVE (NEGATIVE) H 08/17/22 18:01 Urine Bilirubin SMALL (NEGATIVE) H 08/17/22 18:01 Urine Urobilinogen 1 (NORMAL) E.U./dL (NORMAL) 08/17/22 18:01 Ur Leukocyte Esterase LARGE (NEGATIVE) H 08/17/22 18:01 Urine RBC TNTC /HPF (0-5) H 08/17/22 18:01 Urine WBC >25 /HPF (0-5) H 08/17/22 18:01 Ur Squamous Epith Cells FEW Squamous (<= Few) 08/17/22 18:01 Urine Bacteria Many /HPF (None Seen) H 08/17/22 18:01 Ur Microscopic Review INDICATED 08/17/22 18:01 Urine Culture Comments INDICATED 08/17/22 18:01 Nasal Adenovirus (PCR) NOT DETECTED 08/17/22 17:30 Nasal B. parapertussis DNA (PCR) NOT DETECTED 08/17/22 17:30 Nasal Coronavir 229E PCR NOT DETECTED 08/17/22 17:30 Nasal Coronavir HKU1 PCR NOT DETECTED 08/17/22 17:30 Nasal Coronavir NL63 PCR NOT DETECTED 08/17/22 17:30 Nasal Coronavir OC43 PCR NOT DETECTED 08/17/22 17:30 Nasal Enterovir/Rhinovir PCR NOT DETECTED 08/17/22 17:30 Nasal Influenza B PCR NOT DETECTED 08/17/22 17:30 Nasal Influenza A PCR NOT DETECTED 08/17/22 17:30 Nasal Parainfluen 1 PCR NOT DETECTED 08/17/22 17:30 Nasal Parainfluen 2 PCR NOT DETECTED 08/17/22 17:30 Nasal Parainfluen 3 PCR NOT DETECTED 08/17/22 17:30 Nasal Parainfluen 4 PCR NOT DETECTED 08/17/22 17:30 Nasal RSV (PCR) NOT DETECTED 08/17/22 17:30 Nasal B.pertussis DNA PCR NOT DETECTED 08/17/22 17:30 Nasal C.pneumoniae (PCR) NOT DETECTED 08/17/22 17:30 Raimundo Human Metapneumo PCR NOT DETECTED 08/17/22 17:30 Nasal M.pneumoniae (PCR) NOT DETECTED 08/17/22 17:30 Nasal SARS-CoV-2 (PCR) NOT DETECTED 08/17/22 17:30 Sepsis Event Note (H) - Evaluation Current Stage of Sepsis: Ruled out
[2022-08-20] MEDS: SACCHAROMYCES BOULARDII 250 MG CAPSULE PO SCH (16:58)
[2022-08-21 05:49] LABS: BASOPHILS # (AUTO) 0.1 10^3/uL (0.0-0.1); BASOPHILS % (AUTO) 0.7 %; EOSINOPHILS # (AUTO) 0.2 10^3/uL (0.0-0.7); EOSINOPHILS % (AUTO) 2.5 %; HCT - HEMATOCRIT 41.3 % (37.0-47.0); HGB - HEMOGLOBIN 13.5 g/dL (12.0-16.0); LYMPHOCYTES # (AUTO) 1.6 10^3/uL (1.5-3.5); LYMPHOCYTES % (AUTO) 18.7 %; MEAN CORPUSCULAR HEMOGLOBIN 27.3 pg (27.0-31.0); MEAN CORPUSCULAR HGB CONC 32.7 g/dL (32.0-36.0); MEAN CORPUSCULAR VOLUME 83.6 fL (81.0-99.0); MEAN PLATELET VOLUME 10.8 fL (7.9-10.8); MONOCYTES # (AUTO) 0.7 10^3/uL (0.0-1.0); MONOCYTES % (AUTO) 7.4 %; NEUTROPHILS # (AUTO) 6.1 10^3/uL (1.5-6.6); PLT - PLATELET COUNT 355 10^3/uL (130-450); RED BLOOD COUNT 4.94 10^6/uL (4.20-5.40); RED CELL DISTRIBUTION WIDTH 16.6 % (12.0-15.0); WHITE BLOOD COUNT 8.8 x10^3/uL (4.8-10.8)
[2022-08-21 05:59] LABS: BUN - BLOOD UREA NITROGEN < 5 mg/dL (6-20); CALCIUM 8.3 mg/dL (8.5-10.3); CARBON DIOXIDE - CO2 29 mmol/L (21-32); CHLORIDE 103 mmol/L (101-111); CREATININE 0.5 mg/dL (0.4-1.0); GFR - MDRD 118 (>89); GLUCOSE 102 mg/dL (70-100); POTASSIUM 3.2 mmol/L (3.5-5.0); SODIUM 141 mmol/L (135-145)
[2022-08-21] MEDS: PHENAZOPYRIDINE 100 MG TABLET PO SCH ×2 (06:51→13:53)
[2022-08-21] MEDS: SACCHAROMYCES BOULARDII 250 MG CAPSULE PO SCH (08:20)
[2022-08-21] MEDS: MULTIVITAMIN W/MINERALS TABLET PO SCH (08:20)
[2022-08-21] MEDS: SERTRALINE 50 MG TABLET PO SCH (08:37)
[2022-08-21] MEDS: APIXABAN 5 MG TABLET PO SCH (08:37)
[2022-08-21] MEDS: METOPROLOL SUCCINATE 25 MG TABLET PO SCH (08:38)
[2022-08-21] MEDS: diltiaZEM CD 240 MG CAPSULE PO SCH (08:38)
[2022-08-21] MEDS: SODIUM CHLORIDE FLUSH 0.9% 10 ML SYRINGE IVP SCH (08:39)
[2022-08-21] MEDS: NYSTATIN POWDER 15 GM TOP SCH (08:39)
[2022-08-21] MEDS ORDERED: POTASSIUM BICARB 25 MEQ TABLET PO ONE ×2 (08:41→10:00)
[2022-08-21] MEDS ORDERED: levoFLOXacin 250 MG TABLET PO SCH (09:00)
--- NOTE | 2022-08-21 14:28 | Discharge Plan ---
"Discharge Plan for SNF / [facility] - Discharge Plan And Transition Orders Problem Reviewed?: Yes Disposition: 06 Home Health Service Condition: Stable Allergies and Adverse Reactions: Allergies Allergy/AdvReac Type Severity Reaction Status Date / Time aluminum Allergy Anaphylaxis Verified 08/14/22 10:17 cephalexin Allergy Edema Verified 08/14/22 10:17 Iodinated Contrast Media Allergy Edema Verified 08/18/22 07:09 iodine Allergy Anaphylaxis Verified 08/14/22 10:17 levofloxacin Allergy Edema Verified 08/14/22 10:17 nitrofurantoin Allergy Edema Verified 08/14/22 10:17 nitrofurantoin Allergy Edema Verified 08/14/22 10:17 macrocrystalline * [From Macrobid] ofloxacin [From Floxin] Allergy Edema Verified 08/14/22 10:17 Penicillins Allergy Anaphylaxis Verified 08/14/22 10:17 sulfamethoxazole Allergy Edema Verified 08/14/22 10:17 trimethoprim Allergy Edema Verified 08/14/22 10:17 milk AdvReac Intermediate Cramps Verified 08/19/22 10:53 Health Concerns: Patient was hospitalized due to confusion and was found to have Proteus bacteremia caused by a Proteus urinary tract infection. She received IV antibiotics which have been transitioned to oral antibiotics. Her mental status is improved probably back to baseline. She has underlying confusion, probably dementia, we witnessed that she had hallucinations. The patient is being discharged back to [place]. A referral to a home health agency has been placed so that she get physical therapy, Occupational Therapy, a bath aide and social work to ensure she has adequate caregiving. Plan of Treatment: As above and medications are listed. Care Goals: Improvement in symptoms and stabilization are the goals. Assessment: The patient and her son are agreeable with the plan. - SNF / [facility] Transition Orders Admit to (Facility): [facility] Under the care of (Name): Dr Claros Discharge Diagnosis: (1) Bacteremia due to Proteus species (2) Urinary tract infection (3) Urinary retention Resolved (4) Parox A fib (5) Hx of Asthma (6) Altered mental status Resolved (7) Dementia Medicare Certification Statement: I certify that [facility] long term care is medically necessary on a continuing basis for any of the conditions for which she/he is receiving care during hospitalization. Notify PCP of admission and forward orders to primary provider for signature. Weight on admission and: Weekly Call PCP immediately if weight increases by: 5 kg Other Notification Orders: Call PCP immediately if patient develops dyspnea, chest pain/tightness or edema. House Bowel Program: Yes Additional Bowel Program Orders: If no BM after 2 days, nurse may give M.O.M. 30ml PO PRN and/or ducolax Supp 1 IL and/or BECKY 250mg P.O., and/or senna 1-2 tabs PO. On day 3 nurse may give repeat above order until residents constipation is resolved. Annual Influenza Vaccine (between Nov 06 and June 05): Yes Two-step PPD per [facility] [phone] or approved exception documents: Yes Treatments & Other Orders: PT and OT with Home Health agency Medication Orders: PLEASE REFER TO THE DISCHARGE MEDICATION LIST. Insulin Orders?: No - Medications New Prescriptions: Saccharomyces Boulardii [Florastor] 250 mg PO BID #8 cap levoFLOXacin [Levaquin] 750 mg PO DAILY #12 tab Phenazopyridine [Pyridium] 100 mg PO TID PRN #6 tab PRN Reason: As Needed Per Provider Orders - Diet Type: No added salt Texture: Regular Liquids: Thin May have monthly special meal: Yes - Therapies | Activity Therapy: Evaluation | Treat if indicated: PT, OT Rehabilitation Potential: Maximize functional status Activity: Activity as Tolerated Weight Bearing: Full Weight Assistance Devices: Walker"
[2022-08-21 15:00] VITALS: BP 124/73
--- NOTE | 2022-08-21 18:03 | DISCHARGE SUMMARY ---
Discharge Summary Admit Date: 08/17/22 Discharge Date: 08/21/22 Discharging Provider: Dr Hayward Primary Care Provider: Dr Claros Condition at Discharge: Stable Discharge Disposition: [facility] History of Present Illness: 82-year-old female has a history of dementia and confusion, she was more confused than usual today at her [facility]. No falls. She was seen recently for chest pain. She has no chest pain today. Had a temperature of 102 today her prison. Patient states that she has no pain.Patient was in ER 3 days ago for chest pain at that time she was AOA x 3 as per ER MD. Patient seen by me on video informed we are both in different locations and I am her telephysician, she acknowledges is slow to respond but seems to understand, unsure med allergies has few but unable to remember , wants to be full code, feels better, then earlier today VS HR 97 BP 127/71 RR 18 Sat 95% on 2 liters on oxygen - HOSPITAL COURSE Hospital Course: (1) Bacteremia due to Proteus species Her blood cultures quickly turned positive. Etiology of this was her UTI. He was put on IV Rocephin. And her WBC normalized and mental status improved. She was then transitioned to Levofloxacin 750 mg daily orally, based on this Proteus' sensitivitie. Repeat blood culture were checked on 08/19, and were negative, thus she was stable for discharge. She was prescribed several more days of daily Levaquin plus a probiotic. (2) Urinary tract infection CT scan shows old left hydroneprhosis which was unchanged from past, no new stones identified. Pt was started on iv Rocephin. Proteus grew in the urinary culture as well as the blood. She required Pyridium for UTI sx. She was transitioned to oral Levofloxacin and discharged on this and a total 7-day course is planned (3) Urinary retention She did have urinary bladder retention over 300 cc and needed a Ortez for a few days. The Ortez was removed before discharge and she could urinate independently (4) Parox A fib As per Hx. We continued her usual doses of Cardizem, Metoprolol and Eliquis (5) Hx of Asthma Patient described shortness of breath with activity but had no wheezing or desaturations. Duoneb prn was ordered. (6) Altered mental status At admission she was confused, able to respond to simple questions only and was somnolent. Likely from her infection and fever, also electrolyte imbalance on top of poor memory. This improved with IV fluids and IV antibiotics. She became alert, conversant, pleasant, able to feed herself, and could ambulate and worked with PT and OT. At discharge, a Home Health referral for PT, OT, bath aide and geriatric social worker at [place] were ordered. (7) Dementia As per history. We witnessed several episodes where she was hallucinating, speaking to somebody not there, agitated and calling for help, but she was easily redirected - ALLERGIES Allergies/Adverse Reactions: Allergies Allergy/AdvReac Type Severity Reaction Status Date / Time aluminum Allergy Anaphylaxis Verified 08/14/22 10:17 cephalexin Allergy Edema Verified 08/14/22 10:17 Iodinated Contrast Media Allergy Edema Verified 08/18/22 07:09 iodine Allergy Anaphylaxis Verified 08/14/22 10:17 levofloxacin Allergy Edema Verified 08/14/22 10:17 nitrofurantoin Allergy Edema Verified 08/14/22 10:17 nitrofurantoin Allergy Edema Verified 08/14/22 10:17 macrocrystalline * [From Macrobid] ofloxacin [From Floxin] Allergy Edema Verified 08/14/22 10:17 Penicillins Allergy Anaphylaxis Verified 08/14/22 10:17 sulfamethoxazole Allergy Edema Verified 08/14/22 10:17 trimethoprim Allergy Edema Verified 08/14/22 10:17 milk AdvReac Intermediate Cramps Verified 08/19/22 10:53 - MEDICATIONS Home Medications: Ambulatory Orders Medication Instructions Recorded Confirmed Apixaban [Eliquis] 5 mg PO BID 06/08/22 08/17/22 Sertraline HCl [Zoloft] 50 mg PO DAILY 06/08/22 08/17/22 dilTIAZem HCL [Diltiazem 24Hr ER 240 mg PO DAILY 06/08/22 08/17/22 (Xr)] Acetaminophen [Tylenol] 650 mg PO Q6H PRN 08/17/22 08/17/22 Albuterol Sulf [Ventolin Hfa 1 - 2 puffs INH Q4HR PRN 08/17/22 08/17/22 Inhaler] Metoprolol Succinate [Toprol Xl] 12.5 mg PO DAILY 08/18/22 08/18/22 Phenazopyridine [Pyridium] 100 mg PO TID PRN #6 tab 08/21/22 Saccharomyces Boulardii [Florastor] 250 mg PO BID #8 cap 08/21/22 levoFLOXacin [Levaquin] 750 mg PO DAILY #12 tab 08/21/22 - PHYSICAL EXAM AT DISCHARGE General Appearance: positive: No acute distress, Alert Eyes Bilateral: positive: Normal inspection, EOMI ENT: positive: ENT inspection nml, No signs of dehydration Neck: positive: Nml inspection, No JVD Respiratory: positive: No respiratory distress, Breath sounds nml Cardiovascular: positive: Regular rate & rhythm, No murmur Abdomen: positive: Non-tender, No distention, Other (Obese) Skin: positive: Warm, Dry Extremities: positive: Non-tender, No pedal edema Neurologic/Psychiatric: positive: Oriented x3, Other (Poor memory. This morning she had hallucinations and was agitated and disoriented, able to be reoriented.) - LABS Result Diagrams: 08/21/22 04:53 08/21/22 04:53 - DIAGNOSTIC IMAGING Diagnostic Imaging Results: Final report reviewed - SEPSIS Current Stage of Sepsis: Ruled out - FOLLOW UP Follow Up: See PCP in 1 to 2 weeks for hospital follow-up visit. - TIME SPENT Time Spent in Discharge (Minutes): 45
== END 2022-08-21 15:12 | disposition home health service (06) | DRG 690 ==
LOC: EDUNIT# → ED 16:53 → MS2 21:20
PROVIDERS: ADMIT Internal Medicine; ATTEND Internal Medicine
DX: N10 Acute pyelonephritis (principal); G93.41 Metabolic encephalopathy; R09.02 Hypoxemia; R44.2 Other hallucinations; Z20.822 Contact with and (suspected) exposure to COVID-19; B96.4 Proteus (mirabilis) (morganii) as the cause of diseases classified elsewhere; N20.0 Calculus of kidney; N13.30 Unspecified hydronephrosis; R33.9 Retention of urine, unspecified; I48.0 Paroxysmal atrial fibrillation; Z79.01 Long term (current) use of anticoagulants; J45.909 Unspecified asthma, uncomplicated; R41.82 Altered mental status, unspecified; F03.90 Unspecified dementia, unspecified severity, without behavioral disturbance, psychotic disturbance, mood disturbance, and anxiety; G47.30 Sleep apnea, unspecified; F32.A Depression, unspecified
CPT/HCPCS: 36415; 71045; 74177; 80048; 80053; 81001; 83605; 83690; 83735; 85025; 85610; 85730; 87040; 87077; 87086; 87150; 87181; 87633; 96374; 97162; 97167; 97530; 97535; 99284; 99285; A9270; Q9967; 81003

== ENCOUNTER 2022-09-15 13:38 | Outpatient (CLI) | payer MEDICARE, MEDICAID | END 2022-09-15 13:39 | disposition home or self-care (01) | LOC: LAB.N 13:38 | PROVIDERS: ATTEND Family Medicine | DX: Z53.9 Procedure and treatment not carried out, unspecified reason (principal) | CPT/HCPCS: 36415; 80053; 84443; 85025 ==

== ENCOUNTER 2022-09-17 12:15 | Outpatient (CLI) | payer MEDICARE, MEDICAID ==
[2022-09-17 17:58] LABS: BASOPHILS # (AUTO) 0.1 10^3/uL (0.0-0.1); BASOPHILS % (AUTO) 1.2 %; EOSINOPHILS # (AUTO) 0.2 10^3/uL (0.0-0.7); EOSINOPHILS % (AUTO) 2.7 %; HCT - HEMATOCRIT 42.8 % (37.0-47.0); HGB - HEMOGLOBIN 13.4 g/dL (12.0-16.0); LYMPHOCYTES # (AUTO) 2.1 10^3/uL (1.5-3.5); MEAN CORPUSCULAR HEMOGLOBIN 27.3 pg (27.0-31.0); MEAN CORPUSCULAR HGB CONC 31.3 g/dL (32.0-36.0); MEAN CORPUSCULAR VOLUME 87.2 fL (81.0-99.0); MONOCYTES # (AUTO) 0.4 10^3/uL (0.0-1.0); MONOCYTES % (AUTO) 6.2 %; NEUTROPHILS % (AUTO) 58.5 %; RED BLOOD COUNT 4.91 10^6/uL (4.20-5.40); RED CELL DISTRIBUTION WIDTH 16.2 % (12.0-15.0); WHITE BLOOD COUNT 6.9 x10^3/uL (4.8-10.8)
[2022-09-17 18:14] LABS: ALBUMIN 3.5 g/dL (3.2-5.5); ALBUMIN/GLOBULIN RATIO 1.1 (1.0-2.2); BILIRUBIN,TOTAL 0.6 mg/dL (0.2-1.0); CALCIUM 9.2 mg/dL (8.5-10.3); CREATININE 0.6 mg/dL (0.4-1.0); TOTAL PROTEIN 6.7 g/dL (6.7-8.2)
[2022-09-17 18:23] LABS: THYROID STIMULATING HORMONE 1.33 uIU/mL (0.34-5.60)
[2022-09-17 18:39] LABS: PLATELET MORPHOLOGY PLATELET CLUMPING (NORMAL); SLIDE REVIEW? Indicated
[2022-09-17 18:40] LABS: PLATELET ESTIMATE, MANUAL NORMAL (130-450,000) (NORMAL)
== END 2022-09-17 12:16 | disposition home or self-care (01) ==
LOC: LAB.N 12:15
PROVIDERS: ATTEND Family Medicine
DX: I48.0 Paroxysmal atrial fibrillation (principal); Z86.711 Personal history of pulmonary embolism; R06.09 Other forms of dyspnea
CPT/HCPCS: 36415; 80053; 84443; 85025

== ENCOUNTER 2022-09-29 15:54 | Outpatient (CLI) | payer MEDICARE, MEDICAID ==
[2022-09-29 17:56] LABS: BASOPHILS # (AUTO) 0.1 10^3/uL (0.0-0.1); BASOPHILS % (AUTO) 1.3 %; EOSINOPHILS # (AUTO) 0.3 10^3/uL (0.0-0.7); EOSINOPHILS % (AUTO) 3.9 %; HCT - HEMATOCRIT 41.7 % (37.0-47.0); HGB - HEMOGLOBIN 13.3 g/dL (12.0-16.0); LYMPHOCYTES # (AUTO) 2.2 10^3/uL (1.5-3.5); LYMPHOCYTES % (AUTO) 34.6 %; MEAN CORPUSCULAR HEMOGLOBIN 27.6 pg (27.0-31.0); MEAN CORPUSCULAR HGB CONC 31.9 g/dL (32.0-36.0); MEAN CORPUSCULAR VOLUME 86.5 fL (81.0-99.0); MEAN PLATELET VOLUME 10.7 fL (7.9-10.8); MONOCYTES # (AUTO) 0.5 10^3/uL (0.0-1.0); MONOCYTES % (AUTO) 7.1 %; NEUTROPHILS # (AUTO) 3.4 10^3/uL (1.5-6.6); NEUTROPHILS % (AUTO) 52.6 %; PLT - PLATELET COUNT 287 10^3/uL (130-450); RED BLOOD COUNT 4.82 10^6/uL (4.20-5.40); RED CELL DISTRIBUTION WIDTH 15.7 % (12.0-15.0); WHITE BLOOD COUNT 6.4 x10^3/uL (4.8-10.8)
[2022-09-29 18:06] LABS: ALBUMIN 3.9 g/dL (3.2-5.5); ALBUMIN/GLOBULIN RATIO 1.3 (1.0-2.2); BILIRUBIN,TOTAL 0.6 mg/dL (0.2-1.0); CALCIUM 9.6 mg/dL (8.5-10.3); CREATININE 0.5 mg/dL (0.6-1.3); POTASSIUM 3.7 mmol/L (3.5-4.5); TOTAL PROTEIN 6.9 g/dL (6.4-8.9)
== END 2022-09-29 15:55 | disposition home or self-care (01) ==
LOC: LAB.N 15:54
PROVIDERS: ATTEND Family Medicine
DX: N93.9 Abnormal uterine and vaginal bleeding, unspecified (principal); K62.5 Hemorrhage of anus and rectum
CPT/HCPCS: 36415; 80053; 85025

== ENCOUNTER 2022-10-02 20:03 | Emergency (ER) | payer MEDICARE, MEDICAID ==
--- NOTE | 2022-10-02 21:30 | ED Physician Documentation ---
History of Present Illness - Stated complaint Stated Complaint: BILAT LEG/FOOT SWELLING - Chief complaint Chief Complaint: Ext Problem - History obtained from History obtained from: Patient, Family (son (in ED at bedside)) - Additonal information Additional information: HPI is from the patient as well as the patient's son who is in the ED at the patient's bedside. Patient complains of bilateral lower extremity swelling. She says this started 2 days ago, initially at the left ankle, then the right ankle, then, the swelling has spread to both feet as well as approximately to above both knees. The swelling at the ankles is associated with pain, redness, and warmth to touch. Denies recent injury. She denies history of similar symptoms. She says she is not on any blood thinner. The patient's son notes that patient was admitted to [facility] recently for "blood clots in her lungs, which they think started in her leg" (per patient's son). Review of Systems Constitutional: denies: Fever Cardiac: reports: Chest pain / pressure (3 days ago, anterior and otherwise vague in description (cannot recall circumstances, length of episode)), Pedal edema. denies: Calf pain Respiratory: reports: Dyspnea (mild, intermittent past few days (only noted on ROS; did not mention on HPI)). 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 HEENT: Tonsil/Adenoidectomy - Present Medications Home Medications: Ambulatory Orders Medication Instructions Recorded Confirmed Apixaban [Eliquis] 5 mg PO BID 06/08/22 08/17/22 Sertraline HCl [Zoloft] 50 mg PO DAILY 06/08/22 08/17/22 dilTIAZem HCL [Diltiazem 24Hr ER 240 mg PO DAILY 06/08/22 08/17/22 (Xr)] Acetaminophen [Tylenol] 650 mg PO Q6H PRN 08/17/22 08/17/22 Albuterol Sulf [Ventolin Hfa 1 - 2 puffs INH Q4HR PRN 08/17/22 08/17/22 Inhaler] Metoprolol Succinate [Toprol Xl] 12.5 mg PO DAILY 08/18/22 08/18/22 Phenazopyridine [Pyridium] 100 mg PO TID PRN #6 tab 08/21/22 Saccharomyces [place]ii [Florastor] 250 mg PO BID #8 cap 08/21/22 levoFLOXacin [Levaquin] 750 mg PO DAILY #12 tab 08/21/22 Furosemide [Lasix] 40 mg PO DAILY #7 tablet 10/03/22 clindamycin HCL [Clindamycin HCl] 300 mg PO TID #20 cap 10/03/22 - Allergies Allergies/Adverse Reactions: Allergies Allergy/AdvReac Type Severity Reaction Status Date / Time aluminum Allergy Anaphylaxis Verified 10/02/22 20:10 cephalexin Allergy Edema Verified 10/02/22 20:10 Iodinated Contrast Media Allergy Edema Verified 10/02/22 20:10 iodine Allergy Anaphylaxis Verified 10/02/22 20:10 levofloxacin Allergy Edema Verified 10/02/22 20:10 nitrofurantoin Allergy Edema Verified 10/02/22 20:10 nitrofurantoin Allergy Edema Verified 10/02/22 20:10 macrocrystalline * [From Macrobid] ofloxacin [From Floxin] Allergy Edema Verified 10/02/22 20:10 Penicillins Allergy Anaphylaxis Verified 10/02/22 20:10 sulfamethoxazole Allergy Edema Verified 10/02/22 20:10 trimethoprim Allergy Edema Verified 10/02/22 20:10 milk AdvReac Intermediate Cramps Verified 10/02/22 20:10 - Social History Does the pt smoke?: No Smoking Status: Never smoker Does the pt drink ETOH?: No Does the pt have substance abuse?: No - Immunizations Immunizations are current?: Yes - POLST Patient has POLST: Yes PD ED PE NORMAL - Vitals Vital signs reviewed: Yes - General General: Alert and oriented X 3, No acute distress, Well developed/nourished - Neck Neck: Supple, no meningeal sign - Cardiac Cardiac: RRR - Respiratory Respiratory: No respiratory distress, Clear bilaterally - Abdomen Abdomen: Soft, Non tender - Neuro Neuro: Alert and oriented X 3 PD ED PE EXPANDED - Cardiac Cardiac: Regular Rhythm, Murmur Present (2/6 GABRIEL left second ICS) - Back Back: CVA TTP left (mild) - Extremities Extremities: Pedal edema bilateral (3+ BLE pitting edema (feet and ankles to distal thighs); both ankles are erythematous and warm to touch) Results - Vitals Vitals: Oxygen O2 Source Room air - EKG (time done) No standard instances EKG releavant findings:: EKG personally interpreted by author of this note. Relevant findings are: Rate: Rate (enter#) (62) Rhythm: NSR Anchor: Normal Intervals: Normal MT QRS: Normal Ischemia: Normal ST segments - Labs Labs: Laboratory Tests 10/02/22 10/02/22 10/02/22 00:10 21:39 21:39 WBC 7.6 RBC 4.89 Hgb 13.4 Hct 42.6 MCV 87.1 MCH 27.4 MCHC 31.5 L RDW 15.7 H Plt Count 294 MPV 9.6 Neut # (Auto) 4.3 Lymph # (Auto) 2.3 Real # (Auto) 0.6 Eos # (Auto) 0.3 Baso # (Auto) 0.1 Absolute Nucleated RBC 0.00 Nucleated RBC % 0.0 Sodium 139 Potassium 3.6 Chloride 101 Carbon Dioxide 30 Anion Gap 8.0 BUN 7 Creatinine 0.7 Estimated GFR (MDRD) 80 L Glucose 101 H Calcium 9.2 Total Bilirubin 0.6 AST 19 ALT 13 Alkaline Phosphatase 75 Troponin I High Sens B-Natriuretic Peptide Total Protein 6.9 Albumin 4.0 Globulin 2.9 Albumin/Globulin Ratio 1.4 Urine Color YELLOW Urine Clarity CLEAR Urine pH 7.0 Ur Specific [place] 1.010 Urine Protein NEGATIVE Urine Glucose (UA) NEGATIVE Urine Ketones NEGATIVE Urine Occult Blood MODERATE H Urine Nitrite NEGATIVE Urine Bilirubin NEGATIVE Urine Urobilinogen 0.2 (NORMAL) Ur Leukocyte Esterase NEGATIVE Urine RBC 6-10 H Urine WBC 0-3 Ur Squamous Epith Cells FEW Squamous Urine Bacteria Rare Ur Microscopic Review INDICATED Urine Culture Comments NOT INDICATED 10/02/22 10/02/22 21:39 21:39 WBC RBC Hgb Hct MCV MCH MCHC RDW Plt Count MPV Neut # (Auto) Lymph # (Auto) Real # (Auto) Eos # (Auto) Baso # (Auto) Absolute Nucleated RBC Nucleated RBC % Sodium Potassium Chloride Carbon Dioxide Anion Gap BUN Creatinine Estimated GFR (MDRD) Glucose Calcium Total Bilirubin AST ALT Alkaline Phosphatase Troponin I High Sens 3.0 B-Natriuretic Peptide 39 Total Protein Albumin Globulin Albumin/Globulin Ratio Urine Color Urine Clarity Urine pH Ur Specific [place] Urine Protein Urine Glucose (UA) Urine Ketones Urine Occult Blood Urine Nitrite Urine Bilirubin Urine Urobilinogen Ur Leukocyte Esterase Urine RBC Urine WBC Ur Squamous Epith Cells Urine Bacteria Ur Microscopic Review Urine Culture Comments - Rads (name of study) chest xray Relevant Findings:: Prelim report reviewed, See rad report BLE venous doppler US Relevant Findings:: Prelim report reviewed, See rad report PD Medical Decision Making - ED course Complexity details: reviewed old records, reviewed results, re-evaluated patient, considered differential, d/w patient, d/w family ED course: BLE edema which patient says she has not had before few days ago. Her timeframes regarding symptoms vary slightly at times, and patients son notes he had never seen her legs this swollen, but cannot with certainty if this is worse swelling versus new onset over past few days as patient reports. Patients son indicates to me (outside of room) that he has noticed gradual onset of some mild confusion; this is not an acute concern from his perspective, but is brought up in the context of reliability/accuracy of the information the patient provides during ED stay. For example, patient says she is not on a blood thinner although I see recent prescriptions for eliquis in the external medication history; it is unclear to me whether these medications were filled, as the list indicates two prescriptions in August for 5mg BID eliquis, one for 30 tablets and the other for 90 tablets, yet both indicate 0 for days supply. Whether she is on a blood thinner became irrelevant from my standpoint when tonights w/u does not indicate acute DVT on BLE US and no other results that would indicate need for starting or adjusting/augmenting any current anticoagulation. No concerning nor diagnostic findings on tonights tests. Normal wbc, h/h, platelets. Normal ED abdominal panel (glucose is flagged by the computer as high (101), GFR low (80)). Normal hs-cTn and bnp. She is in no respiratory distress and exam and cxr (along with normal bnp) are not indicative of pulmonary edema. EKG and hs-cTn are not indicative of ACS. The cause of her peripheral edema remains unclear at this time; further study can be undertaken in outpatient setting provided symptoms do not worsen (return precautions carefully reviewed with patient and her son). Outpatient cardiac echo might be of benefit (differential includes poor EF, valvular disease). She is given doses of PO clindamycin and lasix in ED with rx for one week course of both medications. The antibiotic to cover possible cellulitis (the ankle erythema and warmth to touch would be c/w cellulitis, although unlikely given that it is bilateral). Lasix for diuresis, particularly with normal BUN and creatinine. Departure - Departure Disposition: 01 Home, Self Care Clinical Impression: Peripheral edema Condition: Good Instructions: ED Edema Legs Bilateral Prescriptions: clindamycin HCL [Clindamycin HCl] 300 mg PO TID #20 cap Furosemide [Lasix] 40 mg PO DAILY #7 tablet Comments: There were no concerning nor diagnostic findings on tonight's tests. The cause of your leg swelling is not apparent at this time. An infectious cause (cellulitis) is unlikely but possible and I am prescribing an antibiotic to cover this possibility. I am also prescribing a diuretic ("water pill") for a 1 week course; this should gradually reduce the swelling over the next few days. Contact your primary care provider when the office opens to arrange for next available appointment for reevaluation. Further testing might be needed to determine the cause of your leg swelling. Forms: PCP List Discharge Date/Time: 10/03/22 01:14
[2022-10-02 21:44] LABS: BASOPHILS # (AUTO) 0.1 10^3/uL (0.0-0.1); BASOPHILS % (AUTO) 1.3 %; EOSINOPHILS # (AUTO) 0.3 10^3/uL (0.0-0.7); EOSINOPHILS % (AUTO) 4.1 %; HCT - HEMATOCRIT 42.6 % (37.0-47.0); HGB - HEMOGLOBIN 13.4 g/dL (12.0-16.0); LYMPHOCYTES # (AUTO) 2.3 10^3/uL (1.5-3.5); LYMPHOCYTES % (AUTO) 29.9 %; MEAN CORPUSCULAR HEMOGLOBIN 27.4 pg (27.0-31.0); MEAN CORPUSCULAR HGB CONC 31.5 g/dL (32.0-36.0); MEAN CORPUSCULAR VOLUME 87.1 fL (81.0-99.0); MEAN PLATELET VOLUME 9.6 fL (7.9-10.8); MONOCYTES # (AUTO) 0.6 10^3/uL (0.0-1.0); MONOCYTES % (AUTO) 8.4 %; NEUTROPHILS # (AUTO) 4.3 10^3/uL (1.5-6.6); NEUTROPHILS % (AUTO) 56.2 %; PLT - PLATELET COUNT 294 10^3/uL (130-450); RED BLOOD COUNT 4.89 10^6/uL (4.20-5.40); RED CELL DISTRIBUTION WIDTH 15.7 % (12.0-15.0); WHITE BLOOD COUNT 7.6 x10^3/uL (4.8-10.8)
[2022-10-02 21:57] LABS: ALBUMIN/GLOBULIN RATIO 1.4 (1.0-2.2); BILIRUBIN,TOTAL 0.6 mg/dL (0.2-1.0); CALCIUM 9.2 mg/dL (8.5-10.3); CREATININE 0.7 mg/dL (0.4-1.0); POTASSIUM 3.6 mmol/L (3.5-5.0); TOTAL PROTEIN 6.9 g/dL (6.7-8.2)
--- NOTE | 2022-10-02 22:35 | XRAY Report ---
PROCEDURE: Chest 2 View X-Ray INDICATIONS: dyspnea TECHNIQUE: 2 views of the chest were acquired. COMPARISON: 08/17/2022, 08/14/2022 FINDINGS: Surgical changes and devices: 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 clips are seen. Lungs and pleura: No pleural effusions or pneumothorax. Lungs are clear. Mediastinum: Mediastinal contours appear normal. Heart size is normal. Bones and chest wall: No suspicious bony lesions. Age-appropriate degenerative changes are seen. O verlying soft tissues appear unremarkable. IMPRESSION: Unremarkable plain film study for age. Reviewed by: Marty Vázquez MD on 10/02/2022 9:34 PM EDI Approved by: Marty Vázquez MD on 10/02/2022 9:34 PM EDI Station ID: [id number]
--- NOTE | 2022-10-02 22:57 | Ultrasound Report ---
PROCEDURE: Duplex Ext Veins Bilateral INDICATIONS: Bilateral lower summary swelling TECHNIQUE: Real-time imaging, as well as color and pulse Doppler interrogation, were performed of the deep veins of both legs from the inguinal ligament to the popliteal fossa. COMPARISON: None. FINDINGS: This is a limited study, secondary to body habitus. The patient was also unable to tolerat e standard compression. The deep veins are normally compressible, and free of intraluminal thrombus. Color and pulse Doppler demonstrate normal phasic intravascular flow. There is normal augmentation response to distal compr ession maneuver. IMPRESSION: Limited study demonstrating no findings of deep venous thrombosis. Note: Concordant preliminary findings given by the patient transportation driver upon the completion of the examination to Dr. Reyes. Reviewed by: Marty Vázquez MD on 10/02/2022 9:56 PM EDI Approved by: Marty Vázquez MD on 10/02/2022 9:56 PM EDI Station ID: [id number]
[2022-10-03 00:21] LABS: BILIRUBIN,URINE NEGATIVE (NEGATIVE); GLUCOSE, URINE (UA) NEGATIVE (NEGATIVE); KETONES,URINE (UA) NEGATIVE (NEGATIVE); LEUKOCYTE ESTERASE, URINE NEGATIVE (NEGATIVE); NITRITE,URINE NEGATIVE (NEGATIVE); OCCULT BLOOD,URINE MODERATE (NEGATIVE); PROTEIN,URINE NEGATIVE (NEGATIVE); UROBILINOGEN,URINE 0.2 (NORMAL) E.U./dL (NORMAL)
[2022-10-03 00:23] LABS: CLARITY,URINE CLEAR (CLEAR)
[2022-10-03 00:36] LABS: BACTERIA,URINE Rare /HPF (None Seen); SQUAMOUS EPITHELIAL CELL,UR FEW Squamous (<= Few); WBC,URINE 0-3 /HPF (0-5)
[2022-10-03] MEDS ORDERED: CLINDAMYCIN 150 MG CAPSULE PO STA (00:59)
[2022-10-03] MEDS ORDERED: FUROSEMIDE 20 MG TABLET PO STA (00:59)
[2022-10-03 01:16] VITALS: BP 136/83
== END 2022-10-03 01:14 | disposition home or self-care (01) ==
LOC: ED 20:03
DX: R60.9 Edema, unspecified (principal); F03.90 Unspecified dementia, unspecified severity, without behavioral disturbance, psychotic disturbance, mood disturbance, and anxiety; Z79.01 Long term (current) use of anticoagulants; Z79.899 Other long term (current) drug therapy
CPT/HCPCS: 36415; 71046; 80053; 81001; 83880; 84484; 85025; 93005; 93970; 99284; A9270; 81003; 87086

== ENCOUNTER 2022-10-05 09:01 | Outpatient (CLI) | payer MEDICARE, MEDICAID ==
[2022-10-05] MEDS ORDERED: iohexoL-300 100 ML VIAL ONE (10:47)
--- NOTE | 2022-10-05 16:12 | CT Report ---
PROCEDURE: ABDOMEN/PELVIS WO INDICATIONS: VAGINAL BLEEDING, RECTAL BLEEDING TECHNIQUE: A CT scan of the abdomen and pelvis was performed without the use of intravenous contrast. Images we re recorded and evaluated at appropriate window settings. Reformats: coronal and sagittal. For radiat ion dose reduction, the following was used: automated exposure control, adjustment of mA and/or kV ac cording to patient size. COMPARISON: CT abdomen and pelvis dated 08/17/2022 FINDINGS: Image quality: Excellent. Lung bases and heart: Unremarkable. Liver: No solid mass. Gallbladder and biliary tree: Gallbladder is surgically absent. There is chronic dilatation of the ex trahepatic bile duct. There is no obstructing mass identified. Spleen: No splenomegaly. Pancreas: No pancreatic ductal dilation. Adrenals: No adrenal nodule. Kidneys and ureters: Again noted is a malrotated left kidney which has an extrarenal pelvis and sever e hydronephrosis. There is a large renal pelvic stone floating in the pelvis, unchanged, measuring ap proximately 1.5 x 3.0 cm. There is thickening of the wall of the renal pelvis consistent with chronic inflammation. Cannot exclude a minimally hyperdense UPJ mass. This finding is unrelated to the calci fications that are present. Close to the UPJ, in a lower pole calyx. Tiny nonobstructing right renal stones. No right hydronephrosis. Bowel and peritoneum: No bowel distension. No pathologic free fluid. Diverticulosis without evidence of diverticulitis. Moderately large diffuse fecal load. Posterior pelvic floor relaxation with inferi or rectoanal junction below the expected pelvic floor. Lymph nodes: No central or retroperitoneal adenopathy. Vessels: No infrarenal aortic aneurysm. PELVIS Reproductive organs: Uterus is surgically absent. No adnexal masses.. Bladder: No wall thickness, accounting for underdistention. Pelvic lymph nodes: No pelvic adenopathy by size criteria. Bones: No aggressive osseous abnormality. Lumbar degenerative change. Other: No significant ventral or inguinal hernia. IMPRESSION: 1.. 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 There is an extrarenal pelvis. There is a large stone in the renal pelvis. There is thickening of the wall of the renal pelvis with infla mmatory change in the adjacent fat. Findings are consistent with chronic inflammation or infection. 2. Cannot exclude a small minimally hyperdense mass at the left UPJ. 3. Nonobstructing tiny right renal stones. 4. Diverticulosis, moderately large fecal load, posterior pelvic relaxation. 5. Remote cholecystectomy and hysterectomy. Comment: Recommend urologic referral and consideration of a possible tiny UPJ mass. Reviewed by: Jayson Moore MD on 10/05/2022 4:10 PM PDT Approved by: Jayson Moore MD on 10/05/2022 4:10 PM PDT Station ID: [id number]
== END 2022-10-05 09:02 | disposition home or self-care (01) ==
LOC: DI 09:01
PROVIDERS: ATTEND Family Medicine
DX: N93.9 Abnormal uterine and vaginal bleeding, unspecified (principal); K62.5 Hemorrhage of anus and rectum; N13.30 Unspecified hydronephrosis; N20.0 Calculus of kidney; K57.90 Diverticulosis of intestine, part unspecified, without perforation or abscess without bleeding; Z90.49 Acquired absence of other specified parts of digestive tract; Z90.79 Acquired absence of other genital organ(s)

== ENCOUNTER 2022-10-23 08:00 | Outpatient (CLI) | payer MEDICARE, MEDICAID ==
[2022-10-23 12:03] LABS: BILIRUBIN,URINE NEGATIVE (NEGATIVE); GLUCOSE, URINE (UA) NEGATIVE (NEGATIVE); KETONES,URINE (UA) NEGATIVE (NEGATIVE); LEUKOCYTE ESTERASE, URINE SMALL (NEGATIVE); NITRITE,URINE NEGATIVE (NEGATIVE); OCCULT BLOOD,URINE LARGE (NEGATIVE); PH,URINE 6.5 PH (5.0-7.5); PROTEIN,URINE 100 mg/dL (NEGATIVE); UROBILINOGEN,URINE 0.2 (NORMAL) E.U./dL (NORMAL)
[2022-10-23 12:04] LABS: CLARITY,URINE CLEAR (CLEAR)
[2022-10-23 12:16] LABS: BACTERIA,URINE Few /HPF (None Seen); RBC,URINE TNTC /HPF (0-5); SQUAMOUS EPITHELIAL CELL,UR MOD Squamous (<= Few)
== END 2022-10-23 23:56 | disposition home or self-care (01) ==
LOC: LAB.R 08:00
PROVIDERS: ATTEND Urology
DX: R30.0 Dysuria (principal)
CPT/HCPCS: 81001; 87086

== ENCOUNTER 2022-12-15 08:00 | Outpatient (CLI) | payer MEDICARE, MEDICAID | END 2022-12-15 23:59 | disposition home or self-care (01) | LOC: LAB.N 08:00 | PROVIDERS: ATTEND Nurse Practitioner | DX: N39.0 Urinary tract infection, site not specified (principal) | CPT/HCPCS: 87077; 87086; 87181 ==

== ENCOUNTER 2023-01-07 09:19 | Outpatient (CLI) | payer MEDICARE, MEDICAID | END 2023-01-07 09:20 | disposition critical access hospital (66) | LOC: EMS 09:19 | DX: R44.0 Auditory hallucinations (principal); R45.851 Suicidal ideations; R60.0 Localized edema | CPT/HCPCS: A0425; A0429 ==

== ENCOUNTER 2023-01-07 09:38 | Emergency (ER) | payer MEDICARE, MEDICAID ==
--- NOTE | 2023-01-07 09:45 | ED Physician Documentation ---
PD HPI MHE - Stated complaint Stated Complaint: PSYCH/SI - History obtained from History obtained from: Patient, EMS - Additional information Additional information: This is an elderly woman with history of "mild cognitive deficits" and A-fib on anticoagulation who presents with reported SI and hallucinations. Sounds like the hallucinations are subacute to chronic. She is on an antidepressant but no antipsychotics or mood stabilizers. It was reported that she stated to staff at her facility that she wanted to jump out of a third story window. When queried about this she says it was something she had in a dream, and she is not erx cidal. 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 HEENT: Tonsil/Adenoidectomy - Present Medications Home Medications: Ambulatory Orders Medication Instructions Recorded Confirmed Apixaban [Eliquis] 5 mg PO BID 06/08/22 01/07/23 Sertraline HCl [Zoloft] 100 mg PO DAILY 06/08/22 01/07/23 dilTIAZem HCL [Diltiazem 24Hr ER 240 mg PO DAILY 06/08/22 01/07/23 (Xr)] Acetaminophen [Tylenol] 650 mg PO Q6H PRN 08/17/22 01/07/23 Albuterol Sulf [Ventolin Hfa 1 - 2 puffs INH Q4HR PRN 08/17/22 01/07/23 Inhaler] Metoprolol Succinate [Toprol Xl] 12.5 mg PO DAILY 08/18/22 01/07/23 Phenazopyridine [Pyridium] 100 mg PO TID PRN #6 tab 08/21/22 01/07/23 HYDROcod/ACETAM 5/325 [[place] 5/325] 1 tab PO BID PRN 01/07/23 01/07/23 - Allergies Allergies/Adverse Reactions: Allergies Allergy/AdvReac Type Severity Reaction Status Date / Time aluminum Allergy Anaphylaxis Verified 10/02/22 20:10 aspirin Allergy Unknown Verified 01/07/23 10:10 cephalexin Allergy Edema Verified 10/02/22 20:10 Iodinated Contrast Media Allergy Edema Verified 10/02/22 20:10 iodine Allergy Anaphylaxis Verified 10/02/22 20:10 levofloxacin Allergy Edema Verified 10/02/22 20:10 nitrofurantoin Allergy Edema Verified 10/02/22 20:10 nitrofurantoin Allergy Edema Verified 10/02/22 20:10 macrocrystalline * [From Macrobid] ofloxacin [From Floxin] Allergy Edema Verified 10/02/22 20:10 Penicillins Allergy Anaphylaxis Verified 10/02/22 20:10 sulfamethoxazole Allergy Edema Verified 10/02/22 20:10 trimethoprim Allergy Edema Verified 10/02/22 20:10 milk AdvReac Intermediate Cramps Verified 10/02/22 20:10 - Social History Does the pt smoke?: No Smoking Status: Never smoker Does the pt drink ETOH?: No Does the pt have substance abuse?: No - Immunizations Immunizations are current?: Yes - POLST Patient has POLST: Yes PD ED PE NORMAL - Vitals Vital signs reviewed: Yes - General General: Other (She is alert and oriented to person. She knows she is in the town "[facility]" in the hospital. She knows it is "early January" b ut cannot come up with the year.) - HEENT HEENT: PERRL, EOMI - Neck Neck: Supple, no meningeal sign, No bony TTP - Abdomen Abdomen: Non tender - Back Back: No CVA TTP, No spinal TTP - Derm Derm: Normal color, Warm and dry - Extremities Extremities: Other (2+ lower extremity pitting pedal edema without signs of infection) - Neuro Eye Opening: Spontaneous Motor: Obeys Commands Verbal: Confused (v mild) GCS Score: 14 Results - Vitals Vitals: Vital Signs - 24 hr 01/07/23 09:43 Temperature 36.1 C L Heart Rate 62 Respiratory 15 Rate Blood Pressure 170/138 H O2 Saturation 99 Oxygen O2 Source Room air - Labs Labs: Laboratory Tests 01/07/23 01/07/23 01/07/23 09:49 10:02 10:12 WBC 6.5 RBC 5.13 Hgb 13.6 Hct 42.9 MCV 83.6 MCH 26.5 L MCHC 31.7 L RDW 14.4 Plt Count 239 MPV 9.8 Neut # (Auto) 3.9 Lymph # (Auto) 1.8 [place] # (Auto) 0.5 Eos # (Auto) 0.3 Baso # (Auto) 0.1 Absolute Nucleated RBC 0.00 Nucleated RBC % 0.0 Sodium Potassium Chloride Carbon Dioxide Anion Gap BUN Creatinine Estimated GFR (MDRD) Glucose Calcium Magnesium Total Bilirubin AST ALT Alkaline Phosphatase Total Creatine Kinase Total Protein Albumin Globulin Albumin/Globulin Ratio Lipase Vitamin B12 Folate TSH Urine Color ORANGE Urine Clarity CLEAR Urine pH Ur Specific [place] Urine Protein Urine Glucose (UA) Urine Ketones NEGATIVE Urine Occult Blood Urine Nitrite Urine Bilirubin NEGATIVE Urine Urobilinogen Ur Leukocyte Esterase Urine RBC 11-25 H Urine WBC 6-10 H Ur Squamous Epith Cells MOD Squamous H Urine Bacteria Rare Ur Microscopic Review INDICATED Urine Culture Comments NOT INDICATED Salicylates Urine Opiates Screen POSITIVE H Ur Oxycodone Screen NEGATIVE Urine Methadone Screen NEGATIVE Ur Propoxyphene Screen NEGATIVE Acetaminophen Ur Barbiturates Screen NEGATIVE Ur Tricyclics Screen NEGATIVE Ur Phencyclidine Scrn NEGATIVE Ur Amphetamine Screen NEGATIVE U Methamphetamines Scrn NEGATIVE U Benzodiazepines Scrn NEGATIVE Urine Cocaine Screen NEGATIVE U Cannabinoids Screen NEGATIVE Ethyl Alcohol SARS-CoV-2 (PCR) NOT DETECTED 01/07/23 10:12 WBC RBC Hgb Hct MCV MCH MCHC RDW Plt Count MPV Neut # (Auto) Lymph # (Auto) [place] # (Auto) Eos # (Auto) Baso # (Auto) Absolute Nucleated RBC Nucleated RBC % Sodium 141 Potassium 4.1 Chloride 104 Carbon Dioxide 33 H Anion Gap 4.0 L BUN 11 Creatinine 0.6 Estimated GFR (MDRD) 95 Glucose 81 Calcium 9.6 Magnesium 1.6 L Total Bilirubin 0.4 AST 17 ALT 15 Alkaline Phosphatase 74 Total Creatine Kinase 24 L Total Protein 6.7 Albumin 3.9 Globulin 2.8 Albumin/Globulin Ratio 1.4 Lipase < 10 L Vitamin B12 164 L Folate 9.7 TSH 3.30 Urine Color Urine Clarity Urine pH Ur Specific [place] Urine Protein Urine Glucose (UA) Urine Ketones Urine Occult Blood Urine Nitrite Urine Bilirubin Urine Urobilinogen Ur Leukocyte Esterase Urine RBC Urine WBC Ur Squamous Epith Cells Urine Bacteria Ur Microscopic Review Urine Culture Comments Salicylates < 1.5 Urine Opiates Screen Ur Oxycodone Screen Urine Methadone Screen Ur Propoxyphene Screen Acetaminophen 3.5 Ur Barbiturates Screen Ur Tricyclics Screen Ur Phencyclidine Scrn Ur Amphetamine Screen U Methamphetamines Scrn U Benzodiazepines Scrn Urine Cocaine Screen U Cannabinoids Screen Ethyl Alcohol < 10.0 SARS-CoV-2 (PCR) PD Medical Decision Making - ED course ED course: 82-year-old woman had a bad dream where she was suicidal and this was relayed to staff and now she is in the emergency department for concern for SI but she has no SI p.o. Seen by telepsychiatry who agrees she is low risk and can be safely discharged. Lab work-up was done routinely in case she needed to be placed, CBC, CMP, urinalysis, toxicology screens were all negative/normal for circumstances noting that she is on narcotics for chronic pain. Departure - Departure Disposition: 01 Home, Self Care Clinical Impression: Bad dreams Condition: Stable Record reviewed to determine appropriate education?: Yes Comments: She was seen here today because she had a bad dream and in that dream she was rivera icidal but she is not suicidal now that she is awake. She has consistently denied suicidal ideation to us. She was seen by our telepsychiatrist who felt she was low risk but should be kept an extra eye on for the next 48 to 72 hours. Return for new or worsening symptoms.
[2023-01-07 10:15] LABS: MUDS CUTOFF CONCENTRATIONS CUTOFF CONC BELOW:
[2023-01-07 10:18] LABS: BILIRUBIN,URINE NEGATIVE (NEGATIVE); CLARITY,URINE CLEAR (CLEAR); KETONES,URINE (UA) NEGATIVE (NEGATIVE)
[2023-01-07 10:19] LABS: BASOPHILS # (AUTO) 0.1 10^3/uL (0.0-0.1); BASOPHILS % (AUTO) 1.2 %; EOSINOPHILS # (AUTO) 0.3 10^3/uL (0.0-0.7); EOSINOPHILS % (AUTO) 4.2 %; HCT - HEMATOCRIT 42.9 % (37.0-47.0); HGB - HEMOGLOBIN 13.6 g/dL (12.0-16.0); LYMPHOCYTES # (AUTO) 1.8 10^3/uL (1.5-3.5); LYMPHOCYTES % (AUTO) 27.2 %; MEAN CORPUSCULAR HEMOGLOBIN 26.5 pg (27.0-31.0); MEAN CORPUSCULAR HGB CONC 31.7 g/dL (32.0-36.0); MEAN CORPUSCULAR VOLUME 83.6 fL (81.0-99.0); MEAN PLATELET VOLUME 9.8 fL (7.9-10.8); MONOCYTES # (AUTO) 0.5 10^3/uL (0.0-1.0); MONOCYTES % (AUTO) 7.6 %; NEUTROPHILS # (AUTO) 3.9 10^3/uL (1.5-6.6); NEUTROPHILS % (AUTO) 59.6 %; PLT - PLATELET COUNT 239 10^3/uL (130-450); RED BLOOD COUNT 5.13 10^6/uL (4.20-5.40); RED CELL DISTRIBUTION WIDTH 14.4 % (12.0-15.0); WHITE BLOOD COUNT 6.5 x10^3/uL (4.8-10.8)
[2023-01-07 10:25] LABS: BACTERIA,URINE Rare /HPF (None Seen); SQUAMOUS EPITHELIAL CELL,UR MOD Squamous (<= Few)
[2023-01-07 10:27] LABS: AMPHETAMINE SCREEN,URINE NEGATIVE (NEGATIVE); BARBITURATE SCREEN,UR NEGATIVE (NEGATIVE); BENZODIAZEPINES SCREEN, URINE NEGATIVE (NEGATIVE); COCAINE SCREEN URINE NEGATIVE (NEGATIVE); METHADONE SCREEN, URINE NEGATIVE (NEGATIVE); METHAMPHETAMINES SCREEN, URINE NEGATIVE (NEGATIVE); OPIATE SCREEN, URINE POSITIVE (NEGATIVE); OXYCODONE SCREEN, URINE NEGATIVE (NEGATIVE); PROPOXYPHENE SCREEN, URINE NEGATIVE (NEGATIVE); THC CANNABINOID SCREEN, URINE NEGATIVE (NEGATIVE); TRICYCLIC ANTIDEPRESSANT,URINE NEGATIVE (NEGATIVE)
[2023-01-07 10:42] LABS: ACETAMINOPHEN 3.5 ug/mL; ALBUMIN 3.9 g/dL (3.2-5.5); ALBUMIN/GLOBULIN RATIO 1.4 (1.0-2.2); ALKALINE PHOSPHATASE 74 IU/L (42-121); ALT ALANINE AMINOTRANSFERASE 15 IU/L (10-60); AST ASPARTATE AMINOTRANSFERASE 17 IU/L (10-42); BILIRUBIN,TOTAL 0.4 mg/dL (0.2-1.0); BUN - BLOOD UREA NITROGEN 11 mg/dL (6-20); CALCIUM 9.6 mg/dL (8.5-10.3); CARBON DIOXIDE - CO2 33 mmol/L (21-32); CHLORIDE 104 mmol/L (101-111); CK- CREATINE KINASE 24 IU/L (30-223); CREATININE 0.6 mg/dL (0.6-1.3); ETOH - ETHANOL < 10.0 mg/dL; GFR - MDRD 95 (>89); GLUCOSE 81 mg/dL (74-104); MAGNESIUM 1.6 mg/dL (1.7-2.3); POTASSIUM 4.1 mmol/L (3.5-4.5); SODIUM 141 mmol/L (135-145); TOTAL PROTEIN 6.7 g/dL (6.4-8.9)
[2023-01-07 10:48] LABS: SALICYLATE < 1.5 mg/dL
[2023-01-07 10:49] LABS: LIPASE < 10 U/L (22-51)
--- NOTE | 2023-01-07 11:20 | TELEPSYCH PHYS NOTE ---
[facility] Telepsych Consult Consult Date: 01/07/23 Name of Referring Provider:: Dr. 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 Chief Complaint: Psychiatric evaluation re: reported suicidal ideations with hallucinations. History of Present Illness: Patient is an 82 YOF with past psychiatric hx, per chart, of Dementia and Mild Cognitive Deficits being seen via telepsychiatry (real-time two-way audio- visual communication) for psychiatric consult evaluation after presenting to the Emergency Department from the [facility] assisted living [facility], where she resides, for concerns of having made a suicidal statement and reporting hallucinations. Except from ED providers notes: This is an elderly woman with history of mild cognitive deficits and A-fib on anticoagulation who presents with reported SI and hallucinations. Sounds like the hallucinations are subacute to chronic. She is on an antidepressant but no antipsychotics or mood stabilizers. It was reported that she stated to staff at her facility that she wanted to jump out of a third story window. When queried about this she says it was something she had in a dream, and she is not suicidal. Please refer to ED chart for additional information regarding events leading up to patient's arrival in the ED, initial presentation, and ED course of care thus far. Patient is mildly irritable but otherwise cooperative for the psychiatric interview. States that she had a nightmare while sleeping that involved suicidal content. She states that next thing she knew, she was being brought to the hospital. She expresses frustration with this, adding that no one talked with her further about it before transporting her here. She states that she was not suicidal at the time and continues to deny suicidal ideation currently. Patient states that she was not having hallucinations, that it was a nightmare that occurred while she was sleeping. 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 Patient states that her approx 8 years ago and after this she went to live with her son and [id number]. She states that they are strong supports for her, but they could no longer care for her after some serious cardiac issues she experienced earlier this year. Patient states that she enjoys living at [facility], has friends there that she visits with, enjoys reading mystery books and putting together jigsaw puzzles. Reports that she likes the staff at [facility] and adds that the food there is not bad. Patient denies any current or recent depressed mood, anxiety, changes in appetite, or insomnia. She denies any auditory or visual hallucinations. Denies SI/HI. I was unable to complete a medication reconciliation with the patient as she is unsure of the names of her medications. Suicide Ideation - Homicide Ideation - Self Harm: Patient denies any hx of suicide attempts. Patient denies SI/HI at this time. Patient states that she has strong rastafari beliefs and does not believe that an individual has the right to take their own life. Psychiatric History - Treatment History: Patient states that she has had psychiatric evaluations in the past. States that she is not currently under the care of a psychiatrist. Reports that all her medications are prescribed by her PCP. Community Resources Accessed: Patient resides at [facility] assisted living [facility]. Family Psych History/ History of suicide: None reported. Nutritional Status: No nutritional concerns - Medication & Allergies Home Medications: Ambulatory Orders Medication Instructions Recorded Confirmed Apixaban [Eliquis] 5 mg PO BID 06/08/22 01/07/23 Sertraline HCl [Zoloft] 100 mg PO DAILY 06/08/22 01/07/23 dilTIAZem HCL [Diltiazem 24Hr ER 240 mg PO DAILY 06/08/22 01/07/23 (Xr)] Acetaminophen [Tylenol] 650 mg PO Q6H PRN 08/17/22 01/07/23 Albuterol Sulf [Ventolin Hfa 1 - 2 puffs INH Q4HR PRN 08/17/22 01/07/23 Inhaler] Metoprolol Succinate [Toprol Xl] 12.5 mg PO DAILY 08/18/22 01/07/23 Phenazopyridine [Pyridium] 100 mg PO TID PRN #6 tab 08/21/22 01/07/23 HYDROcod/ACETAM 5/325 [[place] 5/325] 1 tab PO BID PRN 01/07/23 01/07/23 Allergies/Adverse Reactions: Allergies Allergy/AdvReac Type Severity Reaction Status Date / Time aluminum Allergy Anaphylaxis Verified 10/02/22 20:10 aspirin Allergy Unknown Verified 01/07/23 10:10 cephalexin Allergy Edema Verified 10/02/22 20:10 Iodinated Contrast Media Allergy Edema Verified 10/02/22 20:10 iodine Allergy Anaphylaxis Verified 10/02/22 20:10 levofloxacin Allergy Edema Verified 10/02/22 20:10 nitrofurantoin Allergy Edema Verified 10/02/22 20:10 nitrofurantoin Allergy Edema Verified 10/02/22 20:10 macrocrystalline * [From Macrobid] ofloxacin [From Floxin] Allergy Edema Verified 10/02/22 20:10 Penicillins Allergy Anaphylaxis Verified 10/02/22 20:10 sulfamethoxazole Allergy Edema Verified 10/02/22 20:10 trimethoprim Allergy Edema Verified 10/02/22 20:10 milk AdvReac Intermediate Cramps Verified 10/02/22 20:10 - Drug & Alcohol History Does patient have Drug/ETOH history or addictive behavior?: No - Trauma Does the patient have a history of trauma, abuse, neglect or explotation?: Yes History of trauma, abuse, neglect, or exploitation (Notes): 8 years ago. Patient reports serious cardiac issues earlier this year that led to her having to move into assisted living. - Personal Information Does the patient have a history or present tendencies for violence?: None Services History: None reported. Does patient have any Legal Charges or Investigations?: No Environment & Living Situation - Social, Peer-Group (Note): Assisted living Environment & Living Situation - Social, Peer-Group (Notes): Noris Simmons Marital Status - Family Circumstances: Stressors - Financial Concerns: Patient states that she is frustrated that she was brought to the hospital because she reported a nightmare last night involving suicidal content. She vehemently denies that she was suicidal at the time and continues to deny SI at this time. Patient states that she is frustrated that EMS brought her to the ED instead of clarifying the concern with her first. Education: Not assessed. 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 I also spoke with patient's RN, Sukhwinder, prior to interviewing the patient. Sukhwinder states that patient has consistently denied SI since arrival to the ED, has denied any auditory or visual hallucinations, and has not been observed to be attending to internal stimuli. Sukhwinder states that ED provider has ruled out active UTI after reviewing lab result. 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 - Mental Status Exam Appearance and Attire: Appears approx her stated age; neatly-groomed; appropriate eye contact; appears comfortable in high smith's position on the hospital stretcher; no psychomotor agitation or psychomotor retardation is observed; no evidence of tics, tremor, dystonias, or other involuntary movements. Attitude and Behavior: Mildly irritable, but otherwise cooperative. Speech: Speech is fluent, with rate, rhythm, volume, tone, and articulation all WNL. Affect and Mood: Patient states mood as "disgusted." She explains that she does not believe that it was right that she was brought to the ED for reporting a nightmare last night. Affect is mildly irritable and congruent with stated mood. Association and Thought Process: Linear and logical. Thought Content: Denies SI/HI. No evidence of grandiosity, paranoid ideation, or delusional thought content noted in todays examination. Perception: Denies any auditory or visual hallucinations and does not appear to be responding to internal stimuli. Sensorium, memory and orientation: Alert and oriented to person, place (hospital), and situation. Oriented to month and year (states that it is early-January of 2023 but is unsure of exact date) Intellectual - Cognitive functioning: Patient with hx of Dementia and "mild cognitive deficits" per chart. Insight and Judgement: Fair/Fair (at time of assessment) Emotional and Behavioral Functioning: Apart from mildly irritable affect, patient has been in good behavioral control while in the care of the ED thus far. She denies SI, verbalizes reasons for living, denies any current or recent depressed mood, denies any current recent changes in appetite or insomnia, denies any hallucinations and does not appear to be responding to internal stimuli. Ability to Self-Care: Unclear if patient requires any assistance with ADLs. Patient resides in an assisted living facility. - Personal Goals Short-term Goals: Patient states that she would like to return home to [facility]. Long-term Goals: None identified by patient. - Risk/Protective Factors Risk Factors: Chronic physical pain or other acute medication problem(s) Protective Factors / Internal: Taoism beliefs, Identifies reasons for living Protective Factors / External: Cultural, spiritual and/or moral attitudes against suicide, Supportive social network of family or friends - Plan Impression/Risk Assessment: Based on available information and psychiatric interview/MSE, patient does not meet criteria for inpatient admission. Patient presented to the ED with report of having made a suicidal statement to staff with hallucinations. Patient reports that she had reported a nightmare to staff that contained suicidal content but vehemently denies having been suicidal at the time and continues to deny suicidal ideation currently. Patient denies having had any hallucinations; she reports that she had a nightmare and her report of this to staff was misunderstood. Patient has been in the ED for several hours now. Per verbal report from her RN, patient has consistently denied SI since arrival, has not reported any auditory or visual hallucinations, and has not exhibited any overt signs of psychosis. During the psychiatric interview patient presents in good behavioral control with organized thought process. She presents with low risk of suicide, is able to verbalize reasons for living, denies any auditory or visual hallucinations, and does not present with any overt signs of psychosis. DIAGNOSTIC IMPRESSIONS: 1) Adjustment D/O, unspecified. 2) Dementia, unspecified (by history). DISPOSITION RECOMMENDATION: Provided that staff at [facility] do not provide additional information not previously available that would be of concern and do not verbalize any safety concerns if she were to be discharged, recommend that the patient be discharged back to the assisted living facility with outpatient follow-up. Recommend that the patient be watched closely by staff for the next 48-72 hours. Please instruct patient and facility staff to call 911 and/or bring the patient to the nearest Emergency Department if they were to feel that the patient is unsafe or suicidal or a danger to herself or others. Treatment - Therapy Recommendations: Supportive. Pharmacological Recommendations: No changes indicated at this time; will allow changes to be made by patients outpatient provider for continuity of care. - Time Spent & Provider Location Telepsych consultation conducted via videoconferencing: Yes List names and roles of persons who participated in consult: GISELL Mcarthur. Patient Telepsych Provider Location: Remote Time Spent (Minutes): 60
[2023-01-07 15:03] VITALS: BP 162/74; O2SAT 98
== END 2023-01-07 14:56 | disposition home or self-care (01) ==
LOC: EDUNIT# → ED 09:38
DX: F51.5 Nightmare disorder (principal); I48.91 Unspecified atrial fibrillation; F03.90 Unspecified dementia, unspecified severity, without behavioral disturbance, psychotic disturbance, mood disturbance, and anxiety; Z20.822 Contact with and (suspected) exposure to COVID-19; Z79.01 Long term (current) use of anticoagulants; Z79.899 Other long term (current) drug therapy
CPT/HCPCS: 36415; 80053; 80306; 80307; 81001; 82550; 82607; 82746; 83690; 83735; 84443; 85025; 87635; 99283; 99284; G0426; G0480; Q3014; 80320; 80329; 81003; 87086; 90834

== ENCOUNTER 2023-01-10 20:04 | Outpatient (CLI) | payer MEDICARE, MEDICAID | END 2023-01-10 23:59 | disposition home or self-care (01) | LOC: EMS 20:04 | DX: R07.89 Other chest pain (principal); M54.9 Dorsalgia, unspecified; Z91.81 History of falling | CPT/HCPCS: A0425; A0429 ==

== ENCOUNTER 2023-01-10 20:24 | Emergency (ER) | payer MEDICARE, MEDICAID ==
--- NOTE | 2023-01-10 20:39 | ED Physician Documentation ---
PD HPI CHEST PAIN - Stated complaint Stated Complaint: CHEST PX/ROSENBERG - Chief complaint Chief Complaint: Neuro - History obtained from History obtained from: Patient, EMS - Additional information Additional information: Patient sent to the emergency department from her assisted living facility [facility] for chief complaint of chest pain and pain all over her body since yesterday. The patient has had this chronically for years and states it feels similar to prior episode she has had. She states she has been told by her clerical and administrative workers that something is "living in her chest" and it will not come out u ntil she dies.The patient states that her body has just been hurting all over. She denies any fevers or chills. No cough or shortness of breath. She did become nauseated after she was given aspirin in route and did vomit. According to her paperwork from [facility], she has a history of fibromyalgia, chronic A- fib, pulmonary hypertension, cognitive impairment, and a distant history of PE. She also has chronic right heart failure. The patient denies any other complaints at this time. She states that the pain does not seem to be related to any particular thing she is doing. She is currently having about 2 out of 10 pain. Nothing seems to make it better or worse. 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 HEENT: Tonsil/Adenoidectomy - Present Medications Home Medications: Ambulatory Orders Medication Instructions Recorded Confirmed Apixaban [Eliquis] 5 mg PO BID 06/08/22 01/07/23 Sertraline HCl [Zoloft] 100 mg PO DAILY 06/08/22 01/07/23 dilTIAZem HCL [Diltiazem 24Hr ER 240 mg PO DAILY 06/08/22 01/07/23 (Xr)] Acetaminophen [Tylenol] 650 mg PO Q6H PRN 08/17/22 01/07/23 Albuterol Sulf [Ventolin Hfa 1 - 2 puffs INH Q4HR PRN 08/17/22 01/07/23 Inhaler] Metoprolol Succinate [Toprol Xl] 12.5 mg PO DAILY 08/18/22 01/07/23 Phenazopyridine [Pyridium] 100 mg PO TID PRN #6 tab 08/21/22 01/07/23 HYDROcod/ACETAM 5/325 [[place] 5/325] 1 tab PO BID PRN 01/07/23 01/07/23 - Allergies Allergies/Adverse Reactions: Allergies Allergy/AdvReac Type Severity Reaction Status Date / Time aluminum Allergy Anaphylaxis Verified 01/10/23 20:39 aspirin Allergy Unknown Verified 01/10/23 20:39 cephalexin Allergy Edema Verified 01/10/23 20:39 Iodinated Contrast Media Allergy Edema Verified 01/10/23 20:39 iodine Allergy Anaphylaxis Verified 01/10/23 20:39 levofloxacin Allergy Edema Verified 01/10/23 20:39 nitrofurantoin Allergy Edema Verified 01/10/23 20:39 nitrofurantoin Allergy Edema Verified 01/10/23 20:39 macrocrystalline * [From Macrobid] ofloxacin [From Floxin] Allergy Edema Verified 01/10/23 20:39 Penicillins Allergy Anaphylaxis Verified 01/10/23 20:39 sulfamethoxazole Allergy Edema Verified 01/10/23 20:39 trimethoprim Allergy Edema Verified 01/10/23 20:39 milk AdvReac Intermediate Cramps Verified 01/10/23 20:39 - Social History Does the pt smoke?: No Smoking Status: Never smoker Does the pt drink ETOH?: No Does the pt have substance abuse?: No - Immunizations Immunizations are current?: Yes - POLST Patient has POLST: Yes PD ED PE NORMAL - Vitals Vital signs reviewed: Yes - General General: No acute distress, Well developed/nourished, Other (Alert, articulate, no apparent distress.) - HEENT HEENT: Atraumatic, PERRL, EOMI, Moist mucous membranes - Neck Neck: Supple, no meningeal sign - Cardiac Cardiac: RRR, No murmur, Strong equal pulses - Respiratory Respiratory: No respiratory distress, Clear bilaterally - Abdomen Abdomen: Soft, Non tender, Non distended - Derm Derm: Normal color, Warm and dry, No rash - Extremities Extremities: No deformity, Other (Mild bilateral nonpitting edema.) - Neuro Neuro: Other (Alert, answers questions appropriately, No gross deficits.) - Psych Psych: Normal mood, Normal affect, Other (Exhibits fixed delusion of something living in her chest and causing chest pain.) Results - Vitals Vitals: Vital Signs - 24 hr 01/10/23 01/10/23 01/10/23 20:20 20:32 21:51 Temperature 36.9 C 36.9 C 36.8 C Heart Rate 62 62 60 Respiratory 21 21 18 Rate Blood Pressure 140/70 H 140/70 H 136/68 H O2 Saturation 99 99 100 Oxygen O2 Source Room air - EKG (time done) 2028 EKG releavant findings:: EKG personally interpreted by author of this note. Relevant findings are: Rate: Rate (enter#) (69) Rhythm: NSR Alma: Normal Intervals: Normal PA QRS: Normal Ischemia: Normal ST segments Compare to prior EKG: Old EKG unavailable Computer interpretation: Agree with computer - Labs Labs: Laboratory Tests 01/10/23 01/10/23 01/10/23 20:56 20:56 20:56 WBC 9.1 RBC 5.12 Hgb 13.7 Hct 43.6 MCV 85.2 MCH 26.8 L MCHC 31.4 L RDW 14.4 Plt Count 216 MPV 9.8 Neut # (Auto) 7.0 H Lymph # (Auto) 1.1 L Webster # (Auto) 0.8 Eos # (Auto) 0.2 Baso # (Auto) 0.1 Absolute Nucleated RBC 0.00 Nucleated RBC % 0.0 Sodium 137 Potassium 4.2 Chloride 103 Carbon Dioxide 25 Anion Gap 9.0 BUN 15 Creatinine 0.6 Estimated GFR (MDRD) 95 Glucose 111 H Calcium 9.2 Total Bilirubin 0.5 AST 41 ALT 23 Alkaline Phosphatase 76 Troponin I High Sens 2.6 Total Protein 6.6 Albumin 3.8 Globulin 2.8 Albumin/Globulin Ratio 1.4 Lipase < 10 L PD Medical Decision Making - ED course Complexity details: reviewed old records, reviewed results, re-evaluated patient, considered differential, d/w patient ED course: The patient did seem to have a history of chronic chest pain and did state that this pain was the same as prior episodes. She did also have a fixed delusion of something living inside her chest and this being the cause of her pain. That said, given her age and somewhat unreliable condition as a historian, she was worked up with laboratory studies, EKG, and chest x-ray. The patient's work-up was unremarkable. I discussed with the patient that her symptoms are consistent with her many previous episodes and there is no evidence of a new issue today. We have discussed symptomatic management at home as well as the usual indications for follow-up and return. Departure - Departure Disposition: Home, Self Care Clinical Impression: Fibromyalgia Chest pain Qualifiers: Chest pain type: unspecified Qualified Code(s): R07.9 - Chest pain, unspecified Condition: Stable Instructions: Fibromyalgia Manage, ED Chest Pain Atypical Unkn Cause Comments: Your labs and EKG look good tonight. There is no evidence of an emergent cause of your chronic chest pain. As for your body pain, this is most likely seco ndary to your chronic fibromyalgia. Please follow-up with your primary care physician for any further concerns in regard to these chronic issues. Forms: PCP List Discharge Date/Time: 01/10/23 22:11
[2023-01-10] MEDS ORDERED: ONDANSETRON 4 MG/2 ML VIAL IVP STA (20:43)
[2023-01-10 20:59] LABS: BASOPHILS # (AUTO) 0.1 10^3/uL (0.0-0.1); BASOPHILS % (AUTO) 0.8 %; EOSINOPHILS # (AUTO) 0.2 10^3/uL (0.0-0.7); EOSINOPHILS % (AUTO) 1.6 %; HCT - HEMATOCRIT 43.6 % (37.0-47.0); HGB - HEMOGLOBIN 13.7 g/dL (12.0-16.0); LYMPHOCYTES # (AUTO) 1.1 10^3/uL (1.5-3.5); LYMPHOCYTES % (AUTO) 11.8 %; MEAN CORPUSCULAR HEMOGLOBIN 26.8 pg (27.0-31.0); MEAN CORPUSCULAR HGB CONC 31.4 g/dL (32.0-36.0); MEAN CORPUSCULAR VOLUME 85.2 fL (81.0-99.0); MEAN PLATELET VOLUME 9.8 fL (7.9-10.8); MONOCYTES # (AUTO) 0.8 10^3/uL (0.0-1.0); MONOCYTES % (AUTO) 8.4 %; NEUTROPHILS % (AUTO) 77.1 %; PLT - PLATELET COUNT 216 10^3/uL (130-450); RED BLOOD COUNT 5.12 10^6/uL (4.20-5.40); RED CELL DISTRIBUTION WIDTH 14.4 % (12.0-15.0); WHITE BLOOD COUNT 9.1 x10^3/uL (4.8-10.8)
[2023-01-10] MEDS ORDERED: ONDANSETRON ODT 4 MG TABLET TL STA (21:15)
[2023-01-10 21:18] LABS: ALBUMIN 3.8 g/dL (3.2-5.5); ALBUMIN/GLOBULIN RATIO 1.4 (1.0-2.2); ALKALINE PHOSPHATASE 76 IU/L (42-121); ALT ALANINE AMINOTRANSFERASE 23 IU/L (10-60); AST ASPARTATE AMINOTRANSFERASE 41 IU/L (10-42); BILIRUBIN,TOTAL 0.5 mg/dL (0.2-1.0); BUN - BLOOD UREA NITROGEN 15 mg/dL (6-20); CALCIUM 9.2 mg/dL (8.5-10.3); CARBON DIOXIDE - CO2 25 mmol/L (21-32); CHLORIDE 103 mmol/L (101-111); CREATININE 0.6 mg/dL (0.6-1.3); GFR - MDRD 95 (>89); GLUCOSE 111 mg/dL (74-104); POTASSIUM 4.2 mmol/L (3.5-4.5); SODIUM 137 mmol/L (135-145); TOTAL PROTEIN 6.6 g/dL (6.4-8.9)
[2023-01-10 21:25] LABS: LIPASE < 10 U/L (11-82)
[2023-01-10 21:53] VITALS: BP 136/68; O2SAT 100
== END 2023-01-10 22:11 | disposition home or self-care (01) ==
LOC: EDUNIT# → ED 20:24
DX: M79.7 Fibromyalgia (principal); R07.9 Chest pain, unspecified; I11.0 Hypertensive heart disease with heart failure; I50.9 Heart failure, unspecified; I48.91 Unspecified atrial fibrillation; F03.90 Unspecified dementia, unspecified severity, without behavioral disturbance, psychotic disturbance, mood disturbance, and anxiety; Z79.01 Long term (current) use of anticoagulants; Z79.899 Other long term (current) drug therapy
CPT/HCPCS: 36415; 80053; 83690; 84484; 85025; 93005; 99283; 99284; Q0162

== ENCOUNTER 2023-01-10 22:18 | Outpatient (CLI) | payer MEDICARE, MEDICAID | END 2023-01-10 23:59 | disposition home or self-care (01) | LOC: EMS 22:18 | PROVIDERS: ATTEND Emergency Medicine | DX: R51.9 Headache, unspecified (principal); F03.90 Unspecified dementia, unspecified severity, without behavioral disturbance, psychotic disturbance, mood disturbance, and anxiety; R41.0 Disorientation, unspecified; M79.7 Fibromyalgia | CPT/HCPCS: A0425; A0428 ==

== ENCOUNTER 2023-01-21 14:46 | Outpatient (CLI) | payer MEDICARE, MEDICAID | END 2023-01-21 14:47 | disposition home or self-care (01) | LOC: DI 14:46 | PROVIDERS: ATTEND Internal Medicine | DX: I48.0 Paroxysmal atrial fibrillation (principal); I07.1 Rheumatic tricuspid insufficiency | CPT/HCPCS: 93306 ==

== ENCOUNTER 2023-01-25 14:37 | Outpatient (CLI) | payer MEDICARE, MEDICAID ==
--- NOTE | 2023-01-25 17:13 | Ultrasound Report ---
PROCEDURE: Retroperitoneal INDICATIONS: NEPHROLITHIASIS TECHNIQUE: Real-time scanning was performed of the retroperitoneal organs, with image documentation. COMPARISON: None. 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 Right kidney measures 11.1 cm long; left kidney measur es 8.9 cm long. Right renal cortical thickness is 0.9 cm; left renal cortical thickness is 0.9 cm. N oncomplex renal cysts. Nonobstructing stone in the superior pole of the right kidney measuring 9 mm. 2.3 cm stone within the left renal pelvis. Mild left hydronephrosis. Bladder: Pre-void bladder volume is 110 mL. Post-void residual is 47 mL. Pre-void images demonstra te no intraluminal masses or stones. On pre-void images, both ureteral jets are noted with color Dop pler interrogation. (Of note, ureteral jets may not be detectable in up to 25% of cases due to insuf ficient differences in specific gravity between ureteral and bladder urine). Miscellaneous: No free abdominal fluid. IMPRESSION: Stable partially obstructing stone in the left renal pelvis measuring 2.3 cm. Nonobstructing right-sided nephrolithiasis. Reviewed by: Derick Franco on 01/25/2023 5:12 PM PST Approved by: Derick Franco on 01/25/2023 5:12 PM PST Station ID: [id number]
== END 2023-01-25 14:38 | disposition home or self-care (01) ==
LOC: DI 14:37
PROVIDERS: ATTEND Urology
DX: N13.2 Hydronephrosis with renal and ureteral calculous obstruction (principal)

== ENCOUNTER 2023-05-11 18:26 | Outpatient (CLI) | payer MEDICARE, MEDICAID | END 2023-05-11 23:59 | disposition critical access hospital (66) | LOC: EMS 18:26 | DX: R07.89 Other chest pain (principal) | CPT/HCPCS: A0425; A0429 ==

== ENCOUNTER 2023-05-11 18:44 | Emergency (ER) | payer MEDICARE, MEDICAID ==
[2023-05-11 19:22] LABS: BASOPHILS # (AUTO) 0.1 10^3/uL (0.0-0.1); EOSINOPHILS # (AUTO) 0.3 10^3/uL (0.0-0.7); HCT - HEMATOCRIT 41.4 % (37.0-47.0); HGB - HEMOGLOBIN 13.2 g/dL (12.0-16.0); LYMPHOCYTES # (AUTO) 2.2 10^3/uL (1.5-3.5); LYMPHOCYTES % (AUTO) 30.8 %; MEAN CORPUSCULAR HEMOGLOBIN 27.2 pg (27.0-31.0); MEAN CORPUSCULAR HGB CONC 31.9 g/dL (32.0-36.0); MEAN CORPUSCULAR VOLUME 85.2 fL (81.0-99.0); MEAN PLATELET VOLUME 9.6 fL (7.9-10.8); MONOCYTES # (AUTO) 0.6 10^3/uL (0.0-1.0); MONOCYTES % (AUTO) 8.4 %; NEUTROPHILS # (AUTO) 3.9 10^3/uL (1.5-6.6); NEUTROPHILS % (AUTO) 55.7 %; PLT - PLATELET COUNT 220 10^3/uL (130-450); RED BLOOD COUNT 4.86 10^6/uL (4.20-5.40); RED CELL DISTRIBUTION WIDTH 14.5 % (12.0-15.0)
[2023-05-11 19:42] LABS: TROPONIN I HIGH SENSITIVITY < 2.3 ng/L (2.3-14.8)
[2023-05-11 19:43] LABS: ALBUMIN 4.2 g/dL (3.2-5.5); ALBUMIN/GLOBULIN RATIO 1.5 (1.0-2.2); ALKALINE PHOSPHATASE 85 IU/L (42-121); ALT ALANINE AMINOTRANSFERASE 13 IU/L (10-60); AST ASPARTATE AMINOTRANSFERASE 17 IU/L (10-42); BILIRUBIN,TOTAL 0.3 mg/dL (0.2-1.0); BUN - BLOOD UREA NITROGEN 17 mg/dL (6-20); CALCIUM 10.1 mg/dL (8.5-10.3); CARBON DIOXIDE - CO2 31 mmol/L (21-32); CHLORIDE 103 mmol/L (101-111); CREATININE 0.6 mg/dL (0.6-1.3); GFR - MDRD 95 (>89); GLUCOSE 91 mg/dL (74-104); LIPASE 15 U/L (11-82); POTASSIUM 3.8 mmol/L (3.5-4.5); SODIUM 139 mmol/L (135-145)
--- NOTE | 2023-05-11 19:48 | ED Physician Documentation ---
PD HPI CHEST PAIN - Stated complaint Stated Complaint: CP - Chief complaint Chief Complaint: Cardiac - History obtained from History obtained from: Patient, EMS - Additional information Additional information: The patient comes to the emergency department for chief complaint of chest pain, which the patient has a fairly chronic and recurrent manner. She states that it started around 1800 this evening and peaked shortly thereafter as she began to feel panicked about it. However, she states the pain is resolving now. She denies any unusual shortness of breath, Nausea, diaphoresis, or lightheadedness. She states she was just sitting down watching TV when it started. The patient reports a significant cardiac history with "4 heart attacks in 1 hour" that resulted in her being transferred "to 4 different hospitals in [place]", with an ultimate diagnosis of something "living inside my heart and eating my heart". She states she was told by the 4 security sme that she saw the 4 different hos pitals that they could not get the living thing out of her heart without killing her, and so she is supposed to have her body sent to them as soon as she dies to have her heart taken out so they can see what is in there. Review of records reveals that the patient had a fairly normal-appearing echo in recent months. No other complaints at this time. The patient denies any recent illness. She still lives at [place]. 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 HEENT: Tonsil/Adenoidectomy - Present Medications Home Medications: Ambulatory Orders Medication Instructions Recorded Confirmed Apixaban [Eliquis] 5 mg PO BID 06/08/22 01/07/23 Sertraline HCl [Zoloft] 100 mg PO DAILY 06/08/22 01/07/23 dilTIAZem HCL [Diltiazem 24Hr ER 240 mg PO DAILY 06/08/22 01/07/23 (Xr)] Acetaminophen [Tylenol] 650 mg PO Q6H PRN 08/17/22 01/07/23 Albuterol Sulf [Ventolin Hfa 1 - 2 puffs INH Q4HR PRN 06/12/23 11/02/23 Inhaler] Metoprolol Succinate [Toprol Xl] 12.5 mg PO DAILY 08/18/22 01/07/23 Phenazopyridine [Pyridium] 100 mg PO TID PRN #6 tab 08/21/22 01/07/23 HYDROcod/ACETAM 5/325 [[place] 5/325] 1 tab PO BID PRN 01/07/23 01/07/23 - Allergies Allergies/Adverse Reactions: Allergies Allergy/AdvReac Type Severity Reaction Status Date / Time aluminum Allergy Anaphylaxis Verified 05/11/23 19:02 aspirin Allergy Unknown Verified 05/11/23 19:02 cephalexin Allergy Edema Verified 05/11/23 19:02 Iodinated Contrast Media Allergy Edema Verified 05/11/23 19:02 iodine Allergy Anaphylaxis Verified 05/11/23 19:02 levofloxacin Allergy Edema Verified 05/11/23 19:02 nitrofurantoin Allergy Edema Verified 05/11/23 19:02 nitrofurantoin Allergy Edema Verified 05/11/23 19:02 macrocrystalline * [From Macrobid] ofloxacin [From Floxin] Allergy Edema Verified 05/11/23 19:02 Penicillins Allergy Anaphylaxis Verified 05/11/23 19:02 sulfamethoxazole Allergy Edema Verified 05/11/23 19:02 trimethoprim Allergy Edema Verified 05/11/23 19:02 milk AdvReac Intermediate Cramps Verified 05/11/23 19:02 - Social History Does the pt smoke?: No Smoking Status: Never smoker Does the pt drink ETOH?: No Does the pt have substance abuse?: No - Immunizations Immunizations are current?: Yes - POLST Patient has POLST: Yes PD ED PE NORMAL - Vitals Vital signs reviewed: Yes - General General: No acute distress, Well developed/nourished, Other (Alert, appropriate, no apparent distress.) - HEENT HEENT: Atraumatic, PERRL, EOMI, Moist mucous membranes - Neck Neck: Supple, no meningeal sign - Cardiac Cardiac: RRR, No murmur, Strong equal pulses - Respiratory Respiratory: No respiratory distress, Clear bilaterally - Abdomen Abdomen: Soft, Non tender, Non distended - Derm Derm: Normal color, Warm and dry, No rash - Extremities Extremities: No deformity, Other (1+ pitting edema bilaterally, symmetrical.) - Neuro Neuro: Other (Grossly intact.) - Psych Psych: Normal mood, Normal affect Results - Vitals Vitals: Vital Signs - 24 hr 05/11/23 05/11/23 05/11/23 18:59 19:02 20:00 Temperature 36.2 C L 36.2 C L Heart Rate 73 73 72 Respiratory 15 15 17 Rate Blood Pressure 147/106 H 147/106 H 172/79 H O2 Saturation 99 99 94 Oxygen O2 Source Room air - EKG (time done) 1858 EKG releavant findings:: EKG personally interpreted by author of this note. Relevant findings are: Rate: Rate (enter#) (71) Rhythm: NSR [place]: Normal Intervals: Normal NC QRS: Normal Ischemia: Normal ST segments Compare to prior EKG: Old EKG unavailable Computer interpretation: Agree with computer - Labs Labs: Laboratory Tests 05/11/23 05/11/23 05/11/23 19:16 19:16 21:44 WBC 7.0 RBC 4.86 Hgb 13.2 Hct 41.4 MCV 85.2 MCH 27.2 MCHC 31.9 L RDW 14.5 Plt Count 220 MPV 9.6 Neut # (Auto) 3.9 Lymph # (Auto) 2.2 [place] # (Auto) 0.6 Eos # (Auto) 0.3 Baso # (Auto) 0.1 Absolute Nucleated RBC 0.00 Nucleated RBC % 0.0 Sodium 139 Potassium 3.8 Chloride 103 Carbon Dioxide 31 Anion Gap 5.0 L BUN 17 Creatinine 0.6 Estimated GFR (MDRD) 95 Glucose 91 Calcium 10.1 Total Bilirubin 0.3 AST 17 ALT 13 Alkaline Phosphatase 85 Troponin I High Sens < 2.3 L < 2.3 L Total Protein 7.0 Albumin 4.2 Globulin 2.8 Albumin/Globulin Ratio 1.5 Lipase 15 - Rads (name of study) chest XR Relevant Findings:: Final report received, See rad report (neg) PD Medical Decision Making - ED course Complexity details: reviewed old records, reviewed results, re-evaluated patient, considered differential, d/w patient ED course: The patient was worked up with labs which showed an initial negative troponin and otherwise unremarkable. EKG was also unremarkable. Departure - Departure Disposition: 01 Home, Self Care Clinical Impression: Chest pain Qualifiers: Chest pain type: unspecified Qualified Code(s): R07.9 - Chest pain, unspecified Condition: Stable Instructions: ED Chest Pain Atypical Unkn Cause Comments: Your labs, X-ray and EKG look very good tonight. There is no evidence of a serious cause of your chest pain. At this point in time, it is not clear what is causing it. You had an echocardiogram, or heart ultrasound, about a month ago that did not show anything abnormal inside of your heart. It is not clear exactly what you were told previously but there does not appear to be anything "living inside of you and eating your heart." At this point in time, you are stable for discharge. Please follow-up with your primary doctor and your security sme as needed. Forms: PCP List
--- NOTE | 2023-05-11 19:58 | XRAY Report ---
PROCEDURE: Chest 1V INDICATIONS: Chest pain TECHNIQUE: One view of the chest was acquired. COMPARISON: None. FINDINGS: Surgical changes and devices: None. Lungs and pleura: No pleural effusions or pneumothorax. Lungs are clear. Mediastinum: Mediastinal contours appear normal. Heart size is normal. Bones and chest wall: No suspicious bony lesions. Overlying soft tissues appear unremarkable. IMPRESSION: No acute cardiopulmonary process. Reviewed by: Che Logan MD on 05/11/2023 7:57 PM [facility] Approved by: Che Logan MD on 05/11/2023 7:57 PM PST Station ID: [id number]
[2023-05-12 00:09] VITALS: BP 167/78; O2SAT 97
== END 2023-05-11 22:30 | disposition home or self-care (01) ==
LOC: EDUNIT# → ED 18:44
DX: R07.9 Chest pain, unspecified (principal); I11.0 Hypertensive heart disease with heart failure; I50.9 Heart failure, unspecified; I48.91 Unspecified atrial fibrillation; F03.90 Unspecified dementia, unspecified severity, without behavioral disturbance, psychotic disturbance, mood disturbance, and anxiety; Z79.01 Long term (current) use of anticoagulants; Z79.899 Other long term (current) drug therapy
CPT/HCPCS: 36415; 80053; 83690; 84484; 85025; 93005; 99284

== ENCOUNTER 2023-05-12 00:19 | Outpatient (CLI) | payer MEDICARE, MEDICAID | END 2023-05-12 00:20 | disposition home or self-care (01) | LOC: EMS 00:19 | PROVIDERS: ATTEND Emergency Medicine | DX: F03.92 Unspecified dementia, unspecified severity, with psychotic disturbance (principal); R07.9 Chest pain, unspecified | CPT/HCPCS: A0425; A0428 ==

== ENCOUNTER 2023-07-21 01:00 | Outpatient (CLI) | payer MEDICARE, MEDICAID | END 2023-07-21 22:28 | disposition critical access hospital (66) | LOC: EMS 01:00 | PROVIDERS: ATTEND Emergency Medicine | DX: R10.814 Left lower quadrant abdominal tenderness (principal); R10.32 Left lower quadrant pain; M53.3 Sacrococcygeal disorders, not elsewhere classified; R31.9 Hematuria, unspecified | CPT/HCPCS: A0425; A0427 ==

== ENCOUNTER 2023-07-21 01:19 | Day surgery (SDC) | payer MEDICARE, MEDICAID ==
--- NOTE | 2023-07-21 01:42 | ED Physician Documentation ---
History of Present Illness - Stated complaint Stated Complaint: LLQ/FLANK PX - History obtained from History obtained from: Patient - Additonal information Additional information: The patient comes to the emergency department chief complaint of left flank and lower quadrant pain and hematuria for the past 3 days. No fevers or chills. No nausea or vomiting. The patient states she had some pain a couple weeks ago and had rectal and vaginal bleeding, but this resolved on its own after several days. The patient states she only sees blood tingeing in her urine when she urinates but does not notice any blood on her underwear. 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 HEENT: Tonsil/Adenoidectomy - Present Medications Home Medications: Ambulatory Orders Medication Instructions Recorded Confirmed Apixaban [Eliquis] 5 mg PO BID 06/08/22 07/21/23 Sertraline HCl [Zoloft] 100 mg PO DAILY 06/08/22 07/21/23 dilTIAZem HCL [Diltiazem 24Hr ER 240 mg PO DAILY 06/08/22 07/21/23 (Xr)] Acetaminophen [Tylenol] 650 mg PO Q6H PRN 08/17/22 07/21/23 Albuterol Sulf [Ventolin Hfa 1 - 2 puffs INH Q4HR PRN 08/17/22 07/21/23 Inhaler] Metoprolol Succinate [Toprol Xl] 12.5 mg PO DAILY 08/18/22 07/21/23 Phenazopyridine [Pyridium] 100 mg PO TID PRN #6 tab 08/21/22 07/21/23 HYDROcod/ACETAM 5/325 [[place] 5/325] 1 tab PO BID PRN 01/07/23 07/21/23 - Allergies Allergies/Adverse Reactions: Allergies Allergy/AdvReac Type Severity Reaction Status Date / Time aluminum Allergy Anaphylaxis Verified 07/21/23 01:29 aspirin Allergy Unknown Verified 07/21/23 01:29 cephalexin Allergy Edema Verified 07/21/23 01:29 Iodinated Contrast Media Allergy Edema Verified 07/21/23 01:29 iodine Allergy Anaphylaxis Verified 07/21/23 01:29 levofloxacin Allergy Edema Verified 07/21/23 01:29 nitrofurantoin Allergy Edema Verified 07/21/23 01:29 nitrofurantoin Allergy Edema Verified 07/21/23 01:29 macrocrystalline * [From Macrobid] ofloxacin [From Floxin] Allergy Edema Verified 07/21/23 01:29 Penicillins Allergy Anaphylaxis Verified 07/21/23 01:29 sulfamethoxazole Allergy Edema Verified 07/21/23 01:29 trimethoprim Allergy Edema Verified 07/21/23 01:29 milk AdvReac Intermediate Cramps Verified 07/21/23 01:29 - Social History Does the pt smoke?: No Smoking Status: Never smoker Does the pt drink ETOH?: No Does the pt have substance abuse?: No - Immunizations Immunizations are current?: Yes - POLST Patient has POLST: Yes PD ED PE NORMAL - Vitals Vital signs reviewed: Yes - General General: Alert and oriented X 3, No acute distress, Well developed/nourished - HEENT HEENT: Atraumatic, EOMI, Moist mucous membranes - Neck Neck: Supple, no meningeal sign - Cardiac Cardiac: RRR, No murmur - Respiratory Respiratory: No respiratory distress, Clear bilaterally - Abdomen Abdomen: Soft, Non distended, Other (Mild tenderness right lower quadrant, no rebound or guarding; moderate tenderness left lower quadrant and flank, no rebound or guarding.) - Derm Derm: Warm and dry - Extremities Extremities: No deformity - Neuro Neuro: Alert and oriented X 3 - Psych Psych: Normal mood, Normal affect Results - Vitals Vitals: Vital Signs - 24 hr 07/21/23 07/21/23 07/21/23 01:30 03:51 05:54 Temperature 36.8 C Heart Rate 85 78 76 Respiratory 12 12 20 Rate Blood Pressure 150/84 H 142/76 H 155/75 H O2 Saturation 99 90 L 91 L Oxygen O2 Source Room air - Labs Labs: Laboratory Tests 07/21/23 07/21/23 07/21/23 01:39 01:39 01:52 WBC 9.2 RBC 4.73 Hgb 12.6 Hct 40.1 MCV 84.8 MCH 26.6 L MCHC 31.4 L RDW 13.9 Plt Count 211 MPV 9.5 Neut # (Auto) 6.3 Lymph # (Auto) 1.6 [place] # (Auto) 0.9 Eos # (Auto) 0.3 Baso # (Auto) 0.1 Absolute Nucleated RBC 0.00 Nucleated RBC % 0.0 Sodium 139 Potassium 3.7 Chloride 103 Carbon Dioxide 28 Anion Gap 8.0 BUN 18 Creatinine 0.7 Estimated GFR (MDRD) 80 L Glucose 101 Calcium 9.4 Total Bilirubin 0.5 AST 14 ALT 10 Alkaline Phosphatase 56 Total Protein 6.8 Albumin 3.9 Globulin 2.9 Albumin/Globulin Ratio 1.3 Lipase 11 Urine Color YELLOW Urine Clarity CLEAR Urine pH 7.0 Ur Specific [place] 1.020 Urine Protein NEGATIVE Urine Glucose (UA) NEGATIVE Urine Ketones NEGATIVE Urine Occult Blood MODERATE H Urine Nitrite NEGATIVE Urine Bilirubin NEGATIVE Urine Urobilinogen 0.2 (NORMAL) Ur Leukocyte Esterase NEGATIVE Urine RBC 6-10 H Urine WBC 4-5 Ur Squamous Epith Cells RARE Squamous Urine Bacteria Rare Ur Microscopic Review INDICATED Urine Culture Comments NOT INDICATED PD Medical Decision Making - ED course Complexity details: reviewed results, re-evaluated patient, considered differential, d/w patient ED course: The patient was treated symptomatically with Dilaudid 0.5 mg and a liter of normal saline. She had already received Toradol and route with the medics and this had helped her pain somewhat. She was worked up with labs and urinalysis and then sent for CT scan of the abdomen and pelvis. The patient's labs were unremarkable and urinalysis was positive only for blood. The CT scan showed a large, 2.1 cm stone obstructing the left kidney in the UPJ. I spoke with Dr. Xiao of urology about this and he stated that he would take the patient to the OR later to place a stent. The patient was made n.p.o. in the ED. We are giving her maintenance fluids and as needed analgesia, and she will be signed out to my oncoming colleague Dr. Baldwin at change of shift, pending transfer to same-day surgery. Departure - Departure Disposition: ED Transfer to [facility] Clinical Impression: Obstruction of left kidney, Kidney stone on left side Condition: Serious
[2023-07-21 01:43] LABS: BASOPHILS # (AUTO) 0.1 10^3/uL (0.0-0.1); BASOPHILS % (AUTO) 0.8 %; EOSINOPHILS # (AUTO) 0.3 10^3/uL (0.0-0.7); EOSINOPHILS % (AUTO) 3.5 %; HCT - HEMATOCRIT 40.1 % (37.0-47.0); HGB - HEMOGLOBIN 12.6 g/dL (12.0-16.0); LYMPHOCYTES # (AUTO) 1.6 10^3/uL (1.5-3.5); LYMPHOCYTES % (AUTO) 17.8 %; MEAN CORPUSCULAR HEMOGLOBIN 26.6 pg (27.0-31.0); MEAN CORPUSCULAR HGB CONC 31.4 g/dL (32.0-36.0); MEAN CORPUSCULAR VOLUME 84.8 fL (81.0-99.0); MEAN PLATELET VOLUME 9.5 fL (7.9-10.8); MONOCYTES # (AUTO) 0.9 10^3/uL (0.0-1.0); MONOCYTES % (AUTO) 9.3 %; NEUTROPHILS # (AUTO) 6.3 10^3/uL (1.5-6.6); NEUTROPHILS % (AUTO) 68.4 %; PLT - PLATELET COUNT 211 10^3/uL (130-450); RED BLOOD COUNT 4.73 10^6/uL (4.20-5.40); RED CELL DISTRIBUTION WIDTH 13.9 % (12.0-15.0); WHITE BLOOD COUNT 9.2 x10^3/uL (4.8-10.8)
[2023-07-21 02:11] LABS: BILIRUBIN,URINE NEGATIVE (NEGATIVE); GLUCOSE, URINE (UA) NEGATIVE (NEGATIVE); KETONES,URINE (UA) NEGATIVE (NEGATIVE); LEUKOCYTE ESTERASE, URINE NEGATIVE (NEGATIVE); NITRITE,URINE NEGATIVE (NEGATIVE); OCCULT BLOOD,URINE MODERATE (NEGATIVE); PROTEIN,URINE NEGATIVE (NEGATIVE); UROBILINOGEN,URINE 0.2 (NORMAL) E.U./dL (NORMAL)
[2023-07-21 02:12] LABS: CLARITY,URINE CLEAR (CLEAR)
[2023-07-21] MEDS: SODIUM CHLORIDE 0.9% 1,000 ML IV STA ×2 (02:15→06:29)
[2023-07-21 02:21] LABS: BACTERIA,URINE Rare /HPF (None Seen); SQUAMOUS EPITHELIAL CELL,UR RARE Squamous (<= Few)
[2023-07-21 02:33] LABS: CALCIUM 9.4 mg/dL (8.5-10.3); CREATININE 0.7 mg/dL (0.6-1.3); POTASSIUM 3.7 mmol/L (3.5-4.5)
[2023-07-21 02:34] LABS: ALBUMIN 3.9 g/dL (3.2-5.5); ALBUMIN/GLOBULIN RATIO 1.3 (1.0-2.2); BILIRUBIN,TOTAL 0.5 mg/dL (0.2-1.0); TOTAL PROTEIN 6.8 g/dL (6.4-8.9)
[2023-07-21] MEDS ORDERED: iohexoL-300 100 ML VIAL ONE (03:03)
[2023-07-21] MEDS: HYDROmorphone 1 MG/ML CARPUJECT IVP STA ×5 (03:23→19:36)
[2023-07-21] MEDS ORDERED: HYDROmorphone 1 MG/ML CARPUJECT ONE (05:40)
--- NOTE | 2023-07-21 08:30 | CT Report ---
PROCEDURE: Abdomen/Pelvis WO INDICATIONS: L flank/LQ pain, contast allergy TECHNIQUE: A CT scan of the abdomen and pelvis was performed without the use of intravenous contrast. Images we re recorded and evaluated at appropriate window settings. Reformats: coronal and sagittal. For radiat ion dose reduction, the following was used: automated exposure control, adjustment of mA and/or kV ac cording to patient size. COMPARISON: 10/05/2022, 05/30/2022 FINDINGS: Image quality: Diagnostic Lower chest: Basal scarring and atelectasis. Left pleural-based mass versus fluid measuring 3.1 x 1.8 cm is partially visualized. This may have been also present on prior imaging. Liver: Solid organs are not well evaluated without intravenous contrast. Subcentimeter lesions are to o small to characterize, usually cysts. Gallbladder and biliary system: Gallbladder is absent. Dilated biliary system and the postsurgical st ate again seen. Pancreas: No ductal dilation Spleen: Nonenlarged Adrenals: No discrete nodules Kidneys: Right pelviectasis. 2 mm right lower pole nonobstructing stone. Possible scattered renal cys ts. These are not well evaluated on noncontrast imaging. Severe left hydronephrosis secondary to a 1.9 x 1.5 cm stone in the left renal pelvis, and a similar position to prior, slightly increased in size and degree of collecting system dilation. There is surr ounding fat stranding of the renal pelvis and kidney, also increased Vessels and lymph nodes: No abdominal aortic aneurysm. Atherosclerotic calcifications are present. Bowel and peritoneum: Mild to moderate hiatal hernia partially seen. No pathologic ascites or drainab le abscess. No small bowel obstruction. Nonspecific mild mesenteric omental congestion. There are col onic diverticula. Body wall: Unremarkable Pelvis: Bladder is unremarkable. The uterus is absent. There are senescent calcifications in the pelv is and phleboliths. Bones: Degenerative changes, no acute or suspicious finding. IMPRESSION: Severe left hydronephrosis, with a left renal pelvis stone measuring 1.9 x 1.5 cm. Overall findings a re slightly worse compared to 2022. Surrounding inflammatory fat stranding, correlate urinalysis for infection. Next line mild right pelviectasis. Right lower pole nonobstructing 2 mm calculus. Biliary ductal dilation again seen postcholecystectomy, correlate with LFTs. This was seen previously . Other chronic findings above. Agree with preliminary report. Left lung base pleural-based mass or fluid partially seen, present on prior chest CT. Consider noneme rgent chest CT follow-up to ensure continued stability. This was marked for follow-up in PACS. This was mentioned in the findings section of the preliminary report. Reviewed by: Bridger Lynn MD on 07/21/2023 8:28 AM PDT Approved by: Bridger Lynn MD on 07/21/2023 8:28 AM PDT Station ID: [id number]
--- NOTE | 2023-07-21 13:20 | ED Physician Documentation ---
ED Addendum - Addendum Addendum: 07/21/23 13:20 It was passed along to me by Dr. Mahoney that the patient would be going to the operating room. We had not heard anything at this time and still having pain. As such I called Dr. Xiao and his understanding had been different, that we would call him if her pain was uncontrolled. I clarified that her pain is not controlled and she probably needs to go to the OR and he will work on scheduling that. Dispo: SDS Condition stable DX L renal colic
--- NOTE | 2023-07-21 14:32 | CONSULTATION NOTE ---
Referring Provider Name of Referring Provider:: Dr Waite Consult Date: 07/21/23 Chief Complaint - Chief Complaint Chief Complaint: left flank pain History of Present Illness - Admitted From Admitted From:: ER to OR - History Obtained From Records Reviewed: [facility] History obtained from: patient Exam Limitations: n/a - History of Present Illness HPI Comment/Other: 83-year-old woman well-known to me for a history of morbid obesity, left 2.3 cm partially obstructing UPJ stone which has been asymptomatic up until now. We have offered her a procedure but she in the past has prefer to just monitor this stone. She presented last night with worsening flank pain, nausea and vomiting. The stone is now significantly obstructing. 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 HEENT: reports: Tonsil/Adenoidectomy - POLST Patient has POLST: Yes Meds/Allgy - Home Medications Home Medications: Ambulatory Orders Medication Instructions Recorded Confirmed Apixaban [Eliquis] 5 mg PO BID 06/08/22 07/21/23 Sertraline HCl [Zoloft] 100 mg PO DAILY 06/08/22 07/21/23 dilTIAZem HCL [Diltiazem 24Hr ER 240 mg PO DAILY 06/08/22 07/21/23 (Xr)] Acetaminophen [Tylenol] 650 mg PO Q6H PRN 08/17/22 07/21/23 Albuterol Sulf [Ventolin Hfa 1 - 2 puffs INH Q4HR PRN 08/17/22 07/21/23 Inhaler] Metoprolol Succinate [Toprol Xl] 12.5 mg PO DAILY 08/18/22 07/21/23 Phenazopyridine [Pyridium] 100 mg PO TID PRN #6 tab 08/21/22 07/21/23 HYDROcod/ACETAM 5/325 [[place] 5/325] 1 tab PO BID PRN 11/02/23 05/15/24 - Allergies Allergies/Adverse Reactions: Allergies Allergy/AdvReac Type Severity Reaction Status Date / Time aluminum Allergy Anaphylaxis Verified 07/21/23 01:29 aspirin Allergy Unknown Verified 07/21/23 01:29 cephalexin Allergy Edema Verified 07/21/23 01:29 Iodinated Contrast Media Allergy Edema Verified 07/21/23 01:29 iodine Allergy Anaphylaxis Verified 07/21/23 01:29 levofloxacin Allergy Edema Verified 07/21/23 01:29 nitrofurantoin Allergy Edema Verified 07/21/23 01:29 nitrofurantoin Allergy Edema Verified 07/21/23 01:29 macrocrystalline * [From Macrobid] ofloxacin [From Floxin] Allergy Edema Verified 07/21/23 01:29 Penicillins Allergy Anaphylaxis Verified 07/21/23 01:29 sulfamethoxazole Allergy Edema Verified 07/21/23 01:29 trimethoprim Allergy Edema Verified 07/21/23 01:29 milk AdvReac Intermediate Cramps Verified 07/21/23 01:29 Exam - Vital Signs Reviewed Vital Signs: Yes Vital Signs: Vital Signs x48h Pulse Resp BP Pulse Ox 07/21/23 13:00 97 20 174/98 H 95 07/21/23 11:00 86 15 152/75 H 94 07/21/23 09:00 84 18 152/71 H 95 07/21/23 07:00 77 16 153/74 H 95 - Physical Exam General Appearance: positive: No acute distress Respiratory: positive: Breath sounds nml Cardiovascular: positive: Regular rate & rhythm Conclusion and Plan - Lab Results Laboratory Results 07/21/23 01:52: Urine Color YELLOW, Urine Clarity CLEAR, Urine pH 7.0, Ur Specific [place] 1.020, Urine Protein NEGATIVE, Urine Glucose (UA) NEGATIVE, Urine Ketones NEGATIVE, Urine Occult Blood MODERATE H, Urine Nitrite NEGATIVE, Urine Bilirubin NEGATIVE, Urine Urobilinogen 0.2 (NORMAL), Ur Leukocyte Esterase NEGATIVE, Urine RBC 6-10 H, Urine WBC 4-5, Ur Squamous Epith Cells RARE Squamous, Urine Bacteria Rare, Ur Microscopic Review INDICATED, Urine Culture Comments NOT INDICATED 07/21/23 01:39: WBC 9.2, RBC 4.73, Hgb 12.6, Hct 40.1, MCV 84.8, MCH 26.6 L, MCHC 31.4 L, RDW 13.9, Plt Count 211, MPV 9.5, Neut # (Auto) 6.3, Lymph # (Auto) 1.6, [place] # (Auto) 0.9, Eos # (Auto) 0.3, Baso # (Auto) 0.1, Absolute Nucleated RBC 0.00, Nucleated RBC % 0.0 07/21/23 01:39: Sodium 139, Potassium 3.7, Chloride 103, Carbon Dioxide 28, Anion Gap 8.0, BUN 18, Creatinine 0.7, Estimated GFR (MDRD) 80 L, Glucose 101, Calcium 9.4, Total Bilirubin 0.5, AST 14, ALT 10, Alkaline Phosphatase 56, Total Protein 6.8, Albumin 3.9, Globulin 2.9, Albumin/Globulin Ratio 1.3, Lipase 11 - Diagnostic Imaging Results Diagnostic Imaging Results: positive: Read independently - Diagnosis Diagnosis: Left obstructing kidney stone - Consultation Note Consultation Note: 83-year-old woman with left 2 cm obstructing UPJ stone - Plan Plan: to OR for cystoscopy, left ureteral stent placement. The risk, benefits, alternatives were discussed with the patient. Patient will go home after procedure She will need definitive stone management as an outpatient
[2023-07-21] MEDS ORDERED: LIDOCAINE 2% URO-JET 5 ML SYRINGE UR ONE (14:39)
[2023-07-21] MEDS: KETOROLAC 15 MG/ML VIAL IVP STA (14:55)
[2023-07-21] MEDS ORDERED: HYDROmorphone 1 MG/ML CARPUJECT IVP PRN (16:29)
--- NOTE | 2023-07-21 16:47 | ANESTHESIA ---
Pre-Anesthesia VS, & Labs - Diagnosis Diagnosis Left obstructing kidney stone - Procedure CYSTO/STENT Vital Signs: Temp Pulse Resp BP Pulse Ox O2 Flow Rate 36.8 C 85 16 161/84 H 97 2 07/21/23 01:30 07/21/23 16:00 07/21/23 16:00 07/21/23 16:00 07/21/23 16:00 07/21/23 16:00 Height: 5 ft 8 in Weight (kg): 98 kg Body Mass Index: 32.8 BMI Classification: Obese - NPO >8 hours - Is Patient ?: No - Lab Results Current Lab Results: Laboratory Tests 07/21/23 01:39: WBC 9.2, RBC 4.73, Hgb 12.6, Hct 40.1, MCV 84.8, MCH 26.6 L, MCHC 31.4 L, RDW 13.9, Plt Count 211, MPV 9.5, Neut # (Auto) 6.3, Lymph # (Auto) 1.6, Luce # (Auto) 0.9, Eos # (Auto) 0.3, Baso # (Auto) 0.1, Absolute Nucleated RBC 0.00, Nucleated RBC % 0.0 07/21/23 01:39: Sodium 139, Potassium 3.7, Chloride 103, Carbon Dioxide 28, Anion Gap 8.0, BUN 18, Creatinine 0.7, Estimated GFR (MDRD) 80 L, Glucose 101, Calcium 9.4, Total Bilirubin 0.5, AST 14, ALT 10, Alkaline Phosphatase 56, Total Protein 6.8, Albumin 3.9, Globulin 2.9, Albumin/Globulin Ratio 1.3, Lipase 11 Lab results reviewed: Yes Fish Bones: 07/21/23 01:39 07/21/23 01:39 Home Medications and Allergies Active Medications Hydromorphone HCl (Hydromorphone 1 Mg/Ml Carpuject) 1 mg IVP Q2HR PRN PRN Reason: Severe Pain (Level 7-10) Apixaban [Eliquis] 5 mg PO BID 06/08/22 Sertraline HCl [Zoloft] 100 mg PO DAILY 06/08/22 dilTIAZem HCL [Diltiazem 24Hr ER (Xr)] 240 mg PO DAILY 06/08/22 Acetaminophen [Tylenol] 650 mg PO Q6H PRN 08/17/22 Albuterol Sulf [Ventolin Hfa Inhaler] 1 - 2 puffs INH Q4HR PRN 08/17/22 Metoprolol Succinate [Toprol Xl] 12.5 mg PO DAILY 08/18/22 HYDROcod/ACETAM 5/325 [[place] 5/325] 1 tab PO BID PRN 01/07/23 Allergies/Adverse Reactions: Allergies Allergy/AdvReac Type Severity Reaction Status Date / Time aluminum Allergy Anaphylaxis Verified 07/21/23 01:29 aspirin Allergy Unknown Verified 07/21/23 01:29 cephalexin Allergy Edema Verified 07/21/23 01:29 Iodinated Contrast Media Allergy Edema Verified 07/21/23 01:29 iodine Allergy Anaphylaxis Verified 07/21/23 01:29 levofloxacin Allergy Edema Verified 07/21/23 01:29 nitrofurantoin Allergy Edema Verified 07/21/23 01:29 nitrofurantoin Allergy Edema Verified 07/21/23 01:29 macrocrystalline * [From Macrobid] ofloxacin [From Floxin] Allergy Edema Verified 07/21/23 01:29 Penicillins Allergy Anaphylaxis Verified 07/21/23 01:29 sulfamethoxazole Allergy Edema Verified 07/21/23 01:29 trimethoprim Allergy Edema Verified 07/21/23 01:29 milk AdvReac Intermediate Cramps Verified 07/21/23 01:29 Anes History & Medical History - Anesthetic History Anesthesia Complications: reports: No previous complications Family history of Anesthesia Complications: Denies - Medical History Cardiovascular: reports: Congestive heart failure, Hypertension, Pulmonary embolism, Atrial fibrillation Pulmonary: reports: Sleep apnea Gastrointestinal: reports: Chronic diarrhea Urinary: reports: Chronic bladder infection, Kidney stones Neuro: reports: Dementia Musculoskeletal: reports: Fibromyalgia Endocrine/Autoimmune: reports: Other Blood Disorders: reports: None Skin: reports: None Smoking Status: Never smoker Psychosocial: reports: No issues indicated - Surgical History General: reports: 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, Other Eyes Ears Nose Throat (EENT): reports: Tonsil/Adenoidectomy Urologic: reports: Ureterolithotomy (stones) Gynecologic: reports: section Results - EKG Results EKG Comparison: Reviewed EKG - Echo Results Echo Results: Report reviewed Exam General: Cooperative Dental: Dentures full Upper, Dentures full Lower Mouth Openin Fingerbreadth Neck Mobility: Reduced Mallampati classification: III Thyromental Distance: 4-6 cm Respiratory: Lungs clear Cardiovascular: Regular rate Plan Anesthesia Type: General (LMA) Consent for Procedure(s) Verified and Reviewed: Yes Code Status: Attempt Resuscitation ASA classification: 3-Severe systemic disease Is this case an emergency?: Yes
[2023-07-21] MEDS ORDERED: ONDANSETRON 4 MG/2 ML VIAL IVP PRN ×2 (16:48→16:59)
[2023-07-21] MEDS ORDERED: ePHEDrine 50 MG/ML VIAL IVP PRN (16:48)
[2023-07-21] MEDS ORDERED: HYDROmorphone 0.5 MG/0.5 ML SYRINGE IVP PRN (16:48)
[2023-07-21] MEDS ORDERED: fentaNYL 100 MCG/2 ML VIAL IVP PRN (16:48)
[2023-07-21] MEDS ORDERED: ATROPINE ABBOJECT 1 MG/10 ML SYRINGE IVP PRN (16:48)
[2023-07-21] MEDS ORDERED: NALOXONE 0.4 MG/ML VIAL IVP PRN (16:48)
[2023-07-21] MEDS ORDERED: METOCLOPRAMIDE 10 MG/2 ML VIAL IVP PRN (16:48)
[2023-07-21] MEDS ORDERED: MORPHINE 2 MG/ML CARPUJECT IVP PRN (16:48)
[2023-07-21] MEDS ORDERED: PROPOFOL 200 MG/20 ML VIAL IVP ONE (16:52)
[2023-07-21] MEDS ORDERED: LIDOCAINE-PF 2% 10 ML AMP SUBQ ONE (16:52)
[2023-07-21] MEDS ORDERED: fentaNYL 100 MCG/2 ML VIAL ONE (16:52)
[2023-07-21] MEDS ORDERED: LACTATED RINGERS 1,000 ML IV SCH (17:00)
[2023-07-21] MEDS ORDERED: CIPROFLOXACIN 400 MG/200 ML 400 MG/200 ML BAG IV ONE (17:13)
[2023-07-21] MEDS ORDERED: ePHEDrine 50 MG/ML VIAL IVP ONE (17:18)
--- NOTE | 2023-07-21 17:28 | Discharge Plan ---
Discharge Plan Problem Reviewed?: Yes Disposition: [facility] DC/Xfer Condition: Poor Prescriptions: Docusate Sodium 100Mg Capsule [Colace 100Mg Capsule] 100 mg PO DAILY #7 cap oxyCODONE [Roxicodone] 5 mg PO Q4H PRN #10 tablet PRN Reason: Pain Activity Restrictions: No Restrictions Shower Restrictions: No Driving Restrictions: No Instruction Topics: Stents Ureteral Additional Instructions or Follow Up instructions: You will be contacted for follow-up with Dr. Xiao in the next few weeks to discuss her kidney stone No Smoking: If you smoke, Please STOP! Call for help. Follow-up with: Abraham Xiao MD [Provider Admit Priv/Credential] -
--- NOTE | 2023-07-21 17:30 | DISCHARGE SUMMARY ---
"Discharge Summary Admit Date: 07/21/23 Discharge Date: 07/21/23 Discharging Provider: Dameon Condition at Discharge: Poor Discharge Disposition: 03 [facility] DC/Xfer - DIAGNOSES Admission Diagnoses: Left Kidney stone Discharge Diagnoses with Status of Each Condition: Left Kidney stone: improved - HPI History of Present Illness: Gely presented to the hospital with left flank pain. She was found to have an obstructing 2 cm kidney stone. She was taken to the OR July 20 in the afternoon for a cystoscopy and left stent placement. The plan will be to discharge her after the procedure. She will follow-up for definitive stone management - CONSULTS | PROCEDURES Consultations: Urology Procedures: Cystoscopy, left ureteral stent placement - HOSPITAL COURSE Hospital Course: Gely presented to the hospital with left flank pain. She was found to have an obstructing 2 cm kidney stone. She was taken to the OR July 20 in the a fternoon for a cystoscopy and left stent placement. The plan will be to discharge her after the procedure. She will follow-up for definitive stone management - ALLERGIES Allergies/Adverse Reactions: Allergies Allergy/AdvReac Type Severity Reaction Status Date / Time aluminum Allergy Anaphylaxis Verified 07/21/23 01:29 aspirin Allergy Unknown Verified 07/21/23 01:29 cephalexin Allergy Edema Verified 07/21/23 01:29 Iodinated Contrast Media Allergy Edema Verified 07/21/23 01:29 iodine Allergy Anaphylaxis Verified 07/21/23 01:29 levofloxacin Allergy Edema Verified 07/21/23 01:29 nitrofurantoin Allergy Edema Verified 07/21/23 01:29 nitrofurantoin Allergy Edema Verified 07/21/23 01:29 macrocrystalline * [From Macrobid] ofloxacin [From Floxin] Allergy Edema Verified 07/21/23 01:29 Penicillins Allergy Anaphylaxis Verified 07/21/23 01:29 sulfamethoxazole Allergy Edema Verified 07/21/23 01:29 trimethoprim Allergy Edema Verified 07/21/23 01:29 milk AdvReac Intermediate Cramps Verified 07/21/23 01:29 - MEDICATIONS Home Medications: Ambulatory Orders Medication Instructions Recorded Confirmed Apixaban [Eliquis] 5 mg PO BID 06/08/22 07/21/23 Sertraline HCl [Zoloft] 100 mg PO DAILY 06/08/22 07/21/23 dilTIAZem HCL [Diltiazem 24Hr ER 240 mg PO DAILY 06/08/22 07/21/23 (Xr)] Acetaminophen [Tylenol] 650 mg PO Q6H PRN 08/17/22 07/21/23 Albuterol Sulf [Ventolin Hfa 1 - 2 puffs INH Q4HR PRN 08/17/22 07/21/23 Inhaler] Metoprolol Succinate [Toprol Xl] 12.5 mg PO DAILY 08/18/22 07/21/23 Phenazopyridine [Pyridium] 100 mg PO TID PRN #6 tab 08/21/22 07/21/23 HYDROcod/ACETAM 5/325 [[place] 5/325] 1 tab PO BID PRN 01/07/23 07/21/23 Docusate Sodium 100Mg Capsule 100 mg PO DAILY #7 cap 07/21/23 [Colace 100Mg Capsule] oxyCODONE [Roxicodone] 5 mg PO Q4H PRN #10 tablet 07/21/23 - PHYSICAL EXAM AT DISCHARGE General Appearance: positive: No acute distress - LABS Result Diagrams: 07/21/23 01:39 07/21/23 01:39 - FOLLOW UP Follow Up: You will be contacted for follow-up in the next few weeks with Dr. Xiao"
--- NOTE | 2023-07-21 17:32 | OPERATIVE REPORT ---
Operative Report - General Procedure Date: 07/21/23 Planned Procedure: Cystoscopy left ureteral stent Pre-Op Diagnosis: left kidney stone Procedure Performed: Cystoscopy left ureteral stent Post Op Diagnosis: left kidney stone - Procedure Note Primary Surgeon: Dameon Anesthesia Provider: JUAREZ Calvo Anesthesia Technique: General LMA Pathology: none Estimated Blood Loss (mL): 0 Findings: left radioopaque large stone Complications: none - Other Other Information/Narrative: After informed sent was obtained the patient was brought to the OR and laid the supine position. The patient was anesthetized per anesthesia protocols and prepped draped in usual sterile fashion in the dorsolithotomy position. A formal timeout was performed reconfirming the patient, procedure and laterality. A 22 [place] cystoscope was advanced easily to urinary bladder. Bladder inspected and full and there were no masses lesions or other concerns. A sensor wire was placed up the left ureter and passed a large radiopaque stone. She has a contrast allergy so we cannot confirm placement. A 5 [place] catheter was advanced over the wire and there was a clear hydronephrotic drip shown. We replaced the sensor wire and a 6 [place] 26 cm stent was placed with good curling noted in the kidney and good curling noted in the bladder. The bladder was emptied and this concluded the procedure. The patient tolerated the procedure well. She will be discharged later today and follow-up for definitive stone management
[2023-07-21] MEDS: LACTATED RINGERS 700 ML IV ONE (17:33)
[2023-07-21] MEDS: DOXYCYCLINE INJ 100 MG in SODIUM CHLORIDE 0.9% MINIBAG 100 ML IV ONE (17:56)
--- NOTE | 2023-07-21 18:34 | PHARMACY PROGRESS NOTE ---
- Best Possible Medication History Admit Date and Time: Processed by: Nursing Medications reviewed in ED?: No Medication History completed: Yes Patient Interview: Completed Secondary Source(s): Insurance records As the person ultimately responsible for medication therapy, providers are able to order a medication from an existing home medication list in [facility] via the "Reconcile Routine" prior to Confirmation of that medication by client support analyst. Such practice is discouraged except when the physician, in their clinical judgment, deems that a medical need exists for a medication without regard to previous use.
--- NOTE | 2023-07-21 23:28 | ANESTHESIA POST OP EVALUATION ---
Anesthesia Post Eval - Post Anesthesia Eval Vitals: Last Vital Signs Temp 36.8 C 07/21/23 23:04 Pulse 80 07/21/23 23:04 Resp 18 07/21/23 23:04 BP 133/66 H 07/21/23 23:04 Pulse Ox 96 07/21/23 23:04 O2 Flow Rate 2 07/21/23 16:00 CV Function Including HR & BP: Stable Pain Control: Satisfactory Nausea & Vomiting: Negative Mental Status: Baseline Respiratory Status: Airway Patent Hydration Status: Satisfactory Anesthesia Complications: None
[2023-07-22] MEDS: HYDROcod/ACETAM 5/325 MG TABLET PO PRN (05:43)
--- NOTE | 2023-07-22 08:57 | XRAY Report ---
PROCEDURE: OR C-Arm Procedure INDICATIONS: CYSTO; LEFT STENT PLACEMENT FLUORO TIME: 0.2 min TECHNIQUE: 2 intraoperative fluoroscopic images obtained during left nephroureteral stent placement COMPARISON: None. FINDINGS/IMPRESSION: Two intraoperative fluoroscopic images demonstrate partially imaged left nephroureteral stent. Please see separately dictated operative report for full details. Reviewed by: Che Logan MD, PhD on 07/22/2023 8:56 AM PDT Approved by: Che Logan MD, PhD on 07/22/2023 8:56 AM PDT Station ID: [id number]
[2023-07-22 14:03] VITALS: BP 120/64; O2SAT 95
== END 2023-07-22 14:20 ==
LOC: EDUNIT# → ED 01:19 → SDS 14:34 → MS3 18:12 → SDS 07-22 14:20
PROVIDERS: ATTEND Urology
DX: N13.2 Hydronephrosis with renal and ureteral calculous obstruction (principal); I11.0 Hypertensive heart disease with heart failure; I50.9 Heart failure, unspecified; I48.91 Unspecified atrial fibrillation; Z86.711 Personal history of pulmonary embolism; Z79.01 Long term (current) use of anticoagulants; E66.9 Obesity, unspecified; Z68.32 Body mass index [BMI] 32.0-32.9, adult; G47.30 Sleep apnea, unspecified
CPT/HCPCS: 36415; 52332; 74176; 80053; 81001; 83690; 85025; 96374; 96376; 99283; 99285; A9270; J1170; J7120; 81003; 87086

== ENCOUNTER 2023-08-23 08:59 | Day surgery (SDC) | payer MEDICARE, MEDICAID ==
[~2023-08-23 08:59] MED LIST: DOXYCYCLINE INJ 100 MG in SODIUM CHLORIDE 0.9% MINIBAG 100 ML IV ONE; PROPOFOL 200 MG/20 ML VIAL IVP ONE; fentaNYL 100 MCG/2 ML VIAL ONE
[2023-08-23] MEDS: LACTATED RINGERS 1,000 ML IV ONE (09:01)
[2023-08-23] MEDS: DOXYCYCLINE 100 MG TABLET PO ONE (09:14)
[2023-08-23] MEDS ORDERED: LIDOCAINE 2% URO-JET 5 ML SYRINGE UR ONE (09:32)
--- NOTE | 2023-08-23 09:41 | ANESTHESIA ---
Pre-Anesthesia VS, & Labs - Diagnosis left kidney stone - Procedure cystoscopy, left ureteroscopy, left lithotripsy Vital Signs: Temp Pulse Resp BP Pulse Ox O2 Flow Rate 36.7 C 70 13 120/63 95 08/23/23 09:05 08/23/23 09:05 08/23/23 09:05 08/23/23 09:05 08/23/23 09:05 Height: 5 ft 6 in Weight (kg): 86.2 kg Body Mass Index: 30.7 BMI Classification: Obese - NPO >8 hours - Is Patient ?: No - Lab Results Lab results reviewed: Yes Home Medications and Allergies Home Medications: Ambulatory Orders Meclizine HCl [Antivert] 25 mg PO Q6H PRN 08/10/23 Phenazopyridine [Pyridium] 200 mg PO TID PRN 08/10/23 Sennosides [Senna Lax] 2 tab PO PRN PRN 08/10/23 polyethylene glycoL 3350 [Miralax] 17 gm PO DAILY PRN 08/10/23 Apixaban [Eliquis] 5 mg PO BID 06/08/22 Sertraline HCl [Zoloft] 100 mg PO DAILY 06/08/22 dilTIAZem HCL [Diltiazem 24Hr ER (Xr)] 240 mg PO DAILY 06/08/22 Acetaminophen [Tylenol] 650 mg PO Q6H PRN 08/17/22 Albuterol Sulf [Ventolin Hfa Inhaler] 1 - 2 puffs INH Q4HR PRN 08/17/22 Metoprolol Succinate [Toprol Xl] 12.5 mg PO DAILY 08/18/22 HYDROcod/ACETAM 5/325 [[place] 5/325] 1 tab PO TID 01/07/23 Meclizine HCl [Antivert] 25 mg PO Q6H PRN 08/10/23 Phenazopyridine [Pyridium] 200 mg PO TID PRN 08/10/23 Sennosides [Senna Lax] 2 tab PO PRN PRN 08/10/23 polyethylene glycoL 3350 [Miralax] 17 gm PO DAILY PRN 08/10/23 Allergies/Adverse Reactions: Allergies Allergy/AdvReac Type Severity Reaction Status Date / Time aluminum Allergy Anaphylaxis Verified 07/21/23 01:29 aspirin Allergy Unknown Verified 07/21/23 01:29 cephalexin Allergy Edema Verified 07/21/23 01:29 Iodinated Contrast Media Allergy Edema Verified 07/21/23 01:29 iodine Allergy Anaphylaxis Verified 07/21/23 01:29 levofloxacin Allergy Edema Verified 07/21/23 01:29 nitrofurantoin Allergy Edema Verified 07/21/23 01:29 nitrofurantoin Allergy Edema Verified 07/21/23 01:29 macrocrystalline * [From Macrobid] ofloxacin [From Floxin] Allergy Edema Verified 07/21/23 01:29 Penicillins Allergy Anaphylaxis Verified 07/21/23 01:29 sulfamethoxazole Allergy Edema Verified 07/21/23 01:29 trimethoprim Allergy Edema Verified 07/21/23 01:29 milk AdvReac Intermediate Cramps Verified 07/21/23 01:29 Anes History & Medical History - Anesthetic History Anesthesia Complications: reports: No previous complications - Medical History Cardiovascular: reports: Congestive heart failure, Hypertension, Pulmonary embolism, Atrial fibrillation, Other (pulmonary hypertension) Pulmonary: reports: Sleep apnea (does not use cpap) Gastrointestinal: reports: Chronic diarrhea Urinary: reports: Chronic bladder infection, Kidney stones Neuro: reports: Dementia (mild) Musculoskeletal: reports: Osteoarthritis, Fibromyalgia Endocrine/Autoimmune: reports: Other ([place]jorden) Blood Disorders: reports: None Skin: reports: None Smoking Status: Never smoker Psychosocial: reports: Depression History of Cancer?: No - Surgical History General: reports: 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, Gastric surgery, Other Eyes Ears Nose Throat (EENT): reports: Tonsil/Adenoidectomy Urologic: reports: Ureterolithotomy (stones) Gynecologic: reports: section, Hysterectomy, Breast reduction Results - Echo Results Echo Results: Report reviewed (Normal LV/RV function RVSP 48mmhg) Exam General: Alert, Oriented x3, Cooperative, No acute distress Dental: Dentures full Upper Mouth Openin Fingerbreadth Neck Mobility: Normal Mallampati classification: I Mental/Cognitive Status: Alert/Oriented X3, Normal for patient Plan Anesthesia Type: General Consent for Procedure(s) Verified and Reviewed: Yes Code Status: Attempt Resuscitation ASA classification: 3-Severe systemic disease Is this case an emergency?: No
[2023-08-23] MEDS ORDERED: MORPHINE 2 MG/ML CARPUJECT IVP PRN (09:43)
[2023-08-23] MEDS ORDERED: fentaNYL 100 MCG/2 ML VIAL IVP PRN (09:43)
[2023-08-23] MEDS ORDERED: HYDROmorphone 0.5 MG/0.5 ML SYRINGE IVP PRN (09:43)
[2023-08-23] MEDS ORDERED: ONDANSETRON 4 MG/2 ML VIAL IVP PRN ×2 (09:43→10:46)
[2023-08-23] MEDS ORDERED: ATROPINE ABBOJECT 1 MG/10 ML SYRINGE IVP PRN (09:43)
[2023-08-23] MEDS ORDERED: NALOXONE 0.4 MG/ML VIAL IVP PRN (09:43)
[2023-08-23] MEDS ORDERED: LACTATED RINGERS 1,000 ML IV SCH (10:00)
[2023-08-23] MEDS: LIDOCAINE 2% URO-JET 5 ML SYRINGE UR ONE (10:12)
[2023-08-23] MEDS ORDERED: ONDANSETRON 4 MG/2 ML VIAL ONE (10:19)
[2023-08-23] MEDS: SODIUM CHLORIDE 0.9% 1,000 ML IV ONE (10:39)
[2023-08-23] MEDS ORDERED: HYDROcod/ACETAM 5/325 MG TABLET PO PRN (10:46)
--- NOTE | 2023-08-23 10:56 | Discharge Plan ---
Discharge Plan Problem Reviewed?: Yes Disposition: Home, Self Care Condition: Good Prescriptions: Docusate Sodium 100Mg Capsule [Colace 100Mg Capsule] 100 mg PO DAILY #7 cap oxyCODONE [Roxicodone] 5 mg PO Q4H PRN #10 tablet PRN Reason: Pain Diet: Regular Activity Restrictions: No Restrictions Shower Restrictions: No Driving Restrictions: No Instruction Topics: Kidney Stones Tx Remove, Stents Ureteral Additional Instructions or Follow Up instructions: You will be contacted for followup with Dr Xiao. You will be scheduled for a second ureteroscopic procedure in the coming weeks/month. No Smoking: If you smoke, Please STOP! Call for help. Follow-up with: Jason Claros MD [Primary Care Provider] - Abraham Xiao MD [Provider Admit Priv/Credential] -
--- NOTE | 2023-08-23 10:56 | OPERATIVE REPORT ---
Operative Report - General Procedure Date: 08/23/23 - Procedure Note Findings: large left stone - Other Other Information/Narrative: After informed consent was obtained the patient was brought to the OR and laid in the supine position. The patient was anesthetized per anesthesia protocols and prepped draped in usual sterile fashion in the dorsolithotomy position. A formal timeout was performed reconfirming the patient, procedure and laterality. A 22 [place]hi cystoscope was passed easily into urinary bladder. Bladder was inspected and full and there were no masses lesions or other concerns. A stent was seen emanating from her left ureteral orifice. A sensor wire was placed next to this up into the kidney. We could see if she had a large radiopaque stone up in the kidney. We then grasped and removed her stent. A second wire was placed up in the kidney. And then a 12/14 Bangl[place] 38 cm ureteral access sheath was advanced to the proximal ureter. A flexible ureteroscope was advanced then up into the kidney. We did see her large stone which was about 2 cm in size. Using a laser at a power 1.0 rate of 15 we dusted the stone into tiny pieces. After significant work on the stone we removed about 80% of the stone with a small rim of stone still remaining in the lower pole and a difficult to access location. As there was a lot of debris from the stone processing we decided that point time to place a stent and perform staged procedure. Her ureter was cleared under direct visualization. We then placed a 6 [place]hi variable length ureteral stent with good curling in the kidney and good curling noted in the bladder under fluoroscopic and cystoscopic guidance. We emptied her bladder and placed a Uro-Jet. This concluded the procedure and the patient tolerated well. Should be contacted for a staged procedure to remove the remaining stones. All counts are correct
[2023-08-23 11:26] VITALS: BP 115/57; O2SAT 96
--- NOTE | 2023-08-23 14:08 | XRAY Report ---
PROCEDURE: OR C-Arm Procedure INDICATIONS: LASER LITHOTRIPSY, STENT PLACEMENT FLUORO TIME: 0.1 MIN 46.89 uGym2 TECHNIQUE: Intraoperative fluoroscopic image was provided for evaluation. COMPARISON: None. FINDINGS: Catheter is present overlying the labeled left hemiabdomen. Appearance of calcification overlying the expected renal shadow. It is now calcifications were present in the left kidney and renal pelvis on prior CT exam. No contrast opacification is present. IMPRESSION: Intraoperative images with radiation dose as above. Reviewed by: Shahnaz Cornelius MD on 08/23/2023 2:06 PM PDT Approved by: Shahnaz Cornelius MD on 08/23/2023 2:06 PM PDT Station ID: [id number]
--- NOTE | 2023-08-23 16:10 | ANESTHESIA POST OP EVALUATION ---
Anesthesia Post Eval - Post Anesthesia Eval Vitals: Last Vital Signs Temp 36.3 C L 08/23/23 11:10 Pulse 74 08/23/23 11:20 Resp 14 08/23/23 11:20 BP 115/57 L 08/23/23 11:20 Pulse Ox 96 08/23/23 11:20 O2 Flow Rate CV Function Including HR & BP: Stable Pain Control: Satisfactory Nausea & Vomiting: Negative Mental Status: Baseline Respiratory Status: Airway Patent Hydration Status: Satisfactory Anesthesia Complications: None
== END 2023-08-23 09:00 | disposition home or self-care (01) ==
LOC: SDS 08:59
PROVIDERS: ATTEND Urology
PROC: 0T778DZ Dilation of Left Ureter with Intraluminal Device, Via Natural or Artificial Opening Endoscopic (ICD-10-PCS; 2023-08-23)
PROC: 0TC18ZZ Extirpation of Matter from Left Kidney, Via Natural or Artificial Opening Endoscopic (ICD-10-PCS; principal; 2023-08-23 09:00)
DX: N20.0 Calculus of kidney (principal); E66.9 Obesity, unspecified; Z68.30 Body mass index [BMI] 30.0-30.9, adult; I48.91 Unspecified atrial fibrillation; I11.0 Hypertensive heart disease with heart failure; I50.9 Heart failure, unspecified
CPT/HCPCS: 52356; C1758; C1874; J7120

== ENCOUNTER 2023-09-13 07:56 | Day surgery (SDC) | payer MEDICARE, MEDICAID ==
[2023-09-13] MEDS: LACTATED RINGERS 1,000 ML IV ONE ×2 (08:18→11:36)
[2023-09-13] MEDS ORDERED: DOXYCYCLINE INJ 100 MG in SODIUM CHLORIDE 0.9% MINIBAG 100 ML IV ONE (09:00)
[2023-09-13] MEDS ORDERED: LIDOCAINE 2% URO-JET 5 ML SYRINGE UR ONE (10:26)
[2023-09-13] MEDS ORDERED: LIDOCAINE-PF 2% 10 ML AMP SUBQ ONE (10:48)
[2023-09-13] MEDS ORDERED: fentaNYL 100 MCG/2 ML VIAL ONE (10:48)
[2023-09-13] MEDS ORDERED: HYDROmorphone 0.5 MG/0.5 ML SYRINGE IVP PRN (10:50)
[2023-09-13] MEDS ORDERED: MORPHINE 2 MG/ML CARPUJECT IVP PRN (10:50)
[2023-09-13] MEDS ORDERED: fentaNYL 100 MCG/2 ML VIAL IVP PRN (10:50)
[2023-09-13] MEDS ORDERED: ONDANSETRON 4 MG/2 ML VIAL IVP PRN (10:50)
[2023-09-13] MEDS ORDERED: NALOXONE 0.4 MG/ML VIAL IVP PRN (10:50)
[2023-09-13] MEDS ORDERED: ePHEDrine 50 MG/ML VIAL IVP PRN (10:50)
[2023-09-13] MEDS ORDERED: ATROPINE ABBOJECT 1 MG/10 ML SYRINGE IVP PRN (10:50)
--- NOTE | 2023-09-13 10:50 | ANESTHESIA ---
Pre-Anesthesia VS, & Labs - Diagnosis kidney stone - Procedure cystoscopy, lithotripsy Vital Signs: Temp Pulse Resp BP Pulse Ox O2 Flow Rate 37 C 74 20 147/75 H 100 09/13/23 08:22 09/13/23 08:22 09/13/23 08:22 09/13/23 08:22 09/13/23 08:22 Height: 5 ft 6 in Weight (kg): 86.1 kg Body Mass Index: 30.6 BMI Classification: Obese - NPO >8 hours - Is Patient ?: No Home Medications and Allergies Apixaban [Eliquis] 5 mg PO BID 06/08/22 Sertraline HCl [Zoloft] 100 mg PO DAILY 06/08/22 dilTIAZem HCL [Diltiazem 24Hr ER (Xr)] 240 mg PO DAILY 06/08/22 Acetaminophen [Tylenol] 650 mg PO Q6H PRN 08/17/22 Albuterol Sulf [Ventolin Hfa Inhaler] 1 - 2 puffs INH Q4HR PRN 08/17/22 Metoprolol Succinate [Toprol Xl] 12.5 mg PO DAILY 08/18/22 Meclizine HCl [Antivert] 25 mg PO Q6H PRN 08/10/23 Phenazopyridine [Pyridium] 200 mg PO TID PRN 08/10/23 Sennosides [Senna Lax] 2 tab PO PRN PRN 08/10/23 polyethylene glycoL 3350 [Miralax] 17 gm PO DAILY PRN 08/10/23 Allergies/Adverse Reactions: Allergies Allergy/AdvReac Type Severity Reaction Status Date / Time aluminum Allergy Anaphylaxis Verified 07/21/23 01:29 aspirin Allergy Unknown Verified 07/21/23 01:29 cephalexin Allergy Edema Verified 07/21/23 01:29 Iodinated Contrast Media Allergy Edema Verified 07/21/23 01:29 iodine Allergy Anaphylaxis Verified 07/21/23 01:29 levofloxacin Allergy Edema Verified 07/21/23 01:29 nitrofurantoin Allergy Edema Verified 07/21/23 01:29 nitrofurantoin Allergy Edema Verified 07/21/23 01:29 macrocrystalline * [From Macrobid] ofloxacin [From Floxin] Allergy Edema Verified 07/21/23 01:29 Penicillins Allergy Anaphylaxis Verified 07/21/23 01:29 sulfamethoxazole Allergy Edema Verified 07/21/23 01:29 trimethoprim Allergy Edema Verified 07/21/23 01:29 milk AdvReac Intermediate Cramps Verified 07/21/23 01:29 Anes History & Medical History - Anesthetic History Anesthesia Complications: reports: No previous complications Family history of Anesthesia Complications: Denies Family history of Malignant Hyperthermia: Denies - Medical History Cardiovascular: reports: Congestive heart failure, Hypertension, Pulmonary embolism, Atrial fibrillation, Other Pulmonary: reports: Sleep apnea, CPAP use Gastrointestinal: reports: Chronic diarrhea Urinary: reports: Chronic bladder infection, Kidney stones Neuro: reports: Dementia (mild) Musculoskeletal: reports: Osteoarthritis, Fibromyalgia Endocrine/Autoimmune: reports: Other Blood Disorders: reports: None Skin: reports: None Smoking Status: Never smoker Psychosocial: reports: No issues indicated History of Cancer?: No - Surgical History General: reports: 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, Gastric surgery, Other Eyes Ears Nose Throat (EENT): reports: Tonsil/Adenoidectomy Urologic: reports: Ureterolithotomy (stones) Gynecologic: reports: section, Hysterectomy, Breast reduction Exam General: Alert, Oriented x3, Cooperative Dental: Dentures full Upper, Dentures full Lower Mouth Openin Fingerbreadth Neck Mobility: Normal Mallampati classification: II Thyromental Distance: 4-6 cm Respiratory: Lungs clear Cardiovascular: Regular rate Plan Anesthesia Type: General Consent for Procedure(s) Verified and Reviewed: Yes Code Status: Attempt Resuscitation ASA classification: 3-Severe systemic disease Is this case an emergency?: No
[2023-09-13] MEDS ORDERED: LACTATED RINGERS 1,000 ML IV SCH (11:00)
[2023-09-13] MEDS ORDERED: ONDANSETRON 4 MG/2 ML VIAL ONE (11:11)
[2023-09-13] MEDS ORDERED: DEXAMETHASONE 4 MG/ML VIAL ONE (11:11)
[2023-09-13] MEDS: LIDOCAINE 2% URO-JET 5 ML SYRINGE UR ONE (11:16)
[2023-09-13] MEDS ORDERED: HYDROcod/ACETAM 5/325 MG TABLET PO PRN (11:42)
--- NOTE | 2023-09-13 11:47 | Discharge Plan ---
Discharge Plan Problem Reviewed?: Yes Disposition: Home, Self Care Condition: Good Prescriptions: Docusate Sodium 100Mg Capsule [Colace 100Mg Capsule] 100 mg PO DAILY #14 cap RX: oxyCODONE [Roxicodone] 5 mg PO Q4H PRN #10 tablet PRN Reason: Pain Diet: Regular Activity Restrictions: No Restrictions Shower Restrictions: No Driving Restrictions: No Instruction Topics: Stents Ureteral Additional Instructions or Follow Up instructions: You be contacted for follow-up with Dr. Xiao later this week or early next amy coyle for stent removal No Smoking: If you smoke, Please STOP! Call for help. Follow-up with: Jason Claros MD [Primary Care Provider] - Abraham Xiao MD [Provider Admit Priv/Credential] -
--- NOTE | 2023-09-13 11:51 | OPERATIVE REPORT ---
Operative Report - General Procedure Date: 09/13/23 Planned Procedure: Cystoscopy, left ureteroscopy, laser lithotripsy, stent exchange Pre-Op Diagnosis: left kidney stone Procedure Performed: Cystoscopy, left ureteroscopy, laser lithotripsy, stent exchange Post Op Diagnosis: left kindey stone - Procedure Note Primary Surgeon: Dameon Anesthesia Provider: JUAREZ Infante Anesthesia Technique: General LMA Pathology: none Estimated Blood Loss (mL): 0 Findings: left eggshell-like stone remaining Complications: none - Other Other Information/Narrative: After informed consent was obtained the patient was brought to the OR and laid in the supine position. The patient was anesthetized per anesthesia protocols and prepped draped in usual sterile fashion. Formal timeout was performed confirming the patient, procedure and laterality. A 22 Croatian cystoscope was advanced easily into urinary bladder. The bladder was inspected and full and was otherwise normal except for a stent emanating from her left ureteral orifice. Fluoroscopy could see a softly radiopaque lower pole stone consistent with the prior remaining stone from her surgery. A sensor wire was placed next to her old stent and her old stent was grasped and removed. It was not encrusted. A flexible ureteroscope was advanced next to this wire up into the kidney. A small Ortez catheter was placed in the bladder to decompress the bladder. In her lower pole of her kidney we could see that she had a small stone approximately 8 mm in size that was wide and flat consistent with an eggshell like remaining stone. Using a 200 m laser fiber at a power of 0.8 and a rate of 8 we dusted the stone into tiny pieces. There were no significant sized pieces remaining and so elected to conclude the procedure. Her ureter was cleared under direct visualization. A 6 Croatian 24 cm stent was placed with good curling noted in the kidney and good curling of the bladder. The bladder was emptied and Uro-Jet was placed. The string of the stent was taped to her lower abdomen. This concluded the procedure, the patient tolerated procedure well She will come back to the office in the next few days or early next week for stent removal.
[2023-09-13 12:01] VITALS: O2SAT 96
[2023-09-13 12:23] VITALS: BP 136/76
--- NOTE | 2023-09-13 13:59 | XRAY Report ---
PROCEDURE: OR C-Arm Procedure INDICATIONS: STENT EXCHANGE FLUORO TIME: 0.01 TECHNIQUE: 2 intraoperative fluoroscopic images of left abdomen were obtained. COMPARISON: CT of abdomen and pelvis dated 07/21/2023. FINDINGS: Intraoperative fluoroscopic images show left-sided ureteral stent in place. IMPRESSION: Fluoroscopy guidance was provided intraoperatively for left-sided ureteral stent exchange performed b y ordering physician. Reviewed by: Martin Carrillo MD on 09/13/2023 1:58 PM PDT Approved by: Martin Carrillo MD on 09/13/2023 1:58 PM PDT Station ID: [id number]
--- NOTE | 2023-09-13 14:16 | ANESTHESIA POST OP EVALUATION ---
Anesthesia Post Eval - Post Anesthesia Eval Vitals: Last Vital Signs Temp 36.6 C 09/13/23 12:16 Pulse 78 09/13/23 12:16 Resp 16 09/13/23 12:16 BP 136/76 H 09/13/23 12:16 Pulse Ox 96 09/13/23 12:16 O2 Flow Rate CV Function Including HR & BP: Stable Pain Control: Satisfactory Nausea & Vomiting: Negative Mental Status: Baseline Respiratory Status: Airway Patent Hydration Status: Satisfactory Anesthesia Complications: None
== END 2023-09-13 07:57 | disposition home or self-care (01) ==
LOC: SDS 07:56
PROVIDERS: ATTEND Urology
PROC: 0T778DZ Dilation of Left Ureter with Intraluminal Device, Via Natural or Artificial Opening Endoscopic (ICD-10-PCS; 2023-09-13)
PROC: 0TF48ZZ Fragmentation in Left Kidney Pelvis, Via Natural or Artificial Opening Endoscopic (ICD-10-PCS; principal; 2023-09-13 10:00)
DX: N20.0 Calculus of kidney (principal); E66.9 Obesity, unspecified; Z68.30 Body mass index [BMI] 30.0-30.9, adult; I48.91 Unspecified atrial fibrillation; I11.0 Hypertensive heart disease with heart failure; I50.9 Heart failure, unspecified; G47.30 Sleep apnea, unspecified
CPT/HCPCS: 52356; C1758; C2617; J7120